=== PATIENT | female | born 1945 | race Caucasian/White ===

== ENCOUNTER → 2018-01-09 | Outpatient (CLI) | payer MEDICARE, OTHER ==
[2018-01-09 10:45] LABS: Calcium 9.7 mg/dL (8.4-10.2); Potassium 4.7 mmol/L (3.5-5.1)
== END | disposition home or self-care (01) ==
LOC: LABWHC1 09:38
PROVIDERS: ATTEND Nurse Practitioner Family
DX: D64.9 Anemia, unspecified (principal)
CPT/HCPCS: 36415; 80048

== ENCOUNTER 2018-01-19 18:28 | Inpatient (IN) | payer MEDICARE, OTHER ==
[2018-01-19] MEDS ORDERED: SODIUM CHLORIDE 0.9% 1,000 ML IV STA (19:11)
[2018-01-19] MEDS ORDERED: cefTRIAXone 2,000 MG in SODIUM CHLORIDE 0.9% 100 ML IVPB STA (19:15)
[2018-01-19] MEDS ORDERED: cefTRIAXone IN SWFI 2,000 MG/20 ML SYRINGE IVP STA (19:18)
[2018-01-19 20:22] LABS: HCT 39.2 % (34.0-46.0); HGB 12.9 gm/dL (11.4-16.0); MCH 36.2 pg (25.0-35.0); MCHC 32.9 g/dL (31.0-37.0); Macrocytosis Marked; Mean Platelet Volume 9.1; Platelet Count 215 k/uL (150-450); RBC 3.56 m/uL (3.80-5.40); RDW 12.3 % (11.5-15.5); WBC 11.6 k/uL (3.8-10.6)
--- NOTE | 2018-01-19 20:24 | ED ---
General Adult HPI - General Chief complaint: Neuro Symptoms/Deficit Stated complaint: CVA Time Seen by Provider: 01/19/18 18:58 Source: patient, family, EMS Mode of arrival: EMS Limitations: altered mental status - History of Present Illness Initial comments: 72 years old female brought in by her daughter she said her speech has been quite quite and clear or slurred speech this is been going on for greater than 24 hours she is also complaining about left-sided upper or lower extremity being weak for more than 24 hours now she has been coughing had some fever and she feels very weak today, daughter added later that this pain ongoing for about a 36 hours, she needs she is confused and very weak. Most of the review of system is available from the daughter patient pointed out that I talk to the daughter him a generalized weakness and now left-sided weakness and confusion and slurred speech or the significant part of the review of system - Related Data Home Medications Medication Instructions Recorded Confirmed Allopurinol [Zyloprim] 100 mg PO DAILY 01/19/18 01/19/18 Atorvastatin [Lipitor] 10 mg PO DAILY 01/19/18 01/19/18 B Complex & C No.20/Folic Acid 1 mg PO DAILY 01/19/18 01/19/18 [Nephrocaps Softgel] Calcitriol 0.25 mcg PO Q7D 01/19/18 01/19/18 Carbidopa/Levodopa [Sinemet CR 1 tab PO BID 01/19/18 01/19/18 50-200 mg] Cranberry Fruit Extract [Cranberry] 500 mg PO DAILY 01/19/18 01/19/18 Divalproex Sodium [Depakote] 1,000 mg PO HS 01/19/18 01/19/18 Docusate [Colace] 100 mg PO BID 01/19/18 01/19/18 Ergocalciferol (Vitamin D2) 50,000 unit PO Q30D 01/19/18 01/19/18 [Vitamin D2] Ethacrynic Acid 50 mg PO DAILY 01/19/18 01/19/18 LORazepam [Ativan] 0.5 mg PO TID 01/19/18 01/19/18 Levothyroxine Sodium [Synthroid] 100 mcg PO DAILY 01/19/18 01/19/18 [place] Carbonate 150 mg PO BID 01/19/18 01/19/18 Propranolol [Inderal] 40 mg PO HS 01/19/18 01/19/18 QUEtiapine [SEROquel] 100 mg PO HS 01/19/18 01/19/18 buPROPion HCL [Wellbutrin XL] 300 mg PO DAILY 01/19/18 01/19/18 oxyCODONE-APAP 5-325MG [Percocet 1 tab PO Q6HR PRN 01/19/18 01/19/18 5-325 mg] Allergies Allergy/AdvReac Type Severity Reaction Status Date / Time furosemide [From Lasix] Allergy Unknown Verified 01/19/18 18:52 risperidone [From Risperdal] Allergy Unknown Verified 01/19/18 18:52 Sulfa (Sulfonamide Allergy Unknown Verified 01/19/18 18:52 Antibiotics) Review of Systems ROS Statement: Those systems with pertinent positive or pertinent negative responses have been documented in the HPI. ROS Other: All systems not noted in ROS Statement are negative. Past Medical History Past Medical History: CVA/TIA, Thyroid Disorder History of Any Multi-Drug Resistant Organisms: None Reported Past Surgical History: Cholecystectomy, Hysterectomy Additional Past Surgical History / Comment(s): L oophrectomy Past Psychological History: Bipolar Smoking Status: Former smoker Past Alcohol Use History: Occasional Past Drug Use History: None Reported General Exam - General Exam Comments Initial Comments: General: The patient is awake , does follow the commands but very slow Skin: Skin is warm and dry and no rashes or lesions are noted. Eye: Pupils are equal, round and reactive to light, extra-ocular movements are intact; there is normal conjunctiva bilaterally. Ears, nose, mouth and throat: There are moist mucous membranes and no oral lesions. Neck: The neck is supple, there is no tenderness or JVD. Cardiovascular: There is a regular rate and rhythm. No murmur, rub or gallop is appreciated. Respiratory: To auscultation bilateral, diminished air exchange with a crackles at the bases Gastrointestinal: Soft, non-distended, non-tender abdomen without masses or organomegaly noted. There is no rebound or guarding present. Bowel sounds are unremarkable. Back: There is no tenderness to palpation in the midline. There is no obvious deformity. Musculoskeletal: After upper or lower extremity or return to the right side Neurological: CN II-XII intact, Cranial nerves III through XII are intact. There are no obvious motor or sensory deficits. Coordination appears grossly intact. Speech is normal. Psychiatric: Cooperative, appropriate mood & affect, normal judgment. Limitations: altered mental status Course Vital Signs 01/19/18 01/19/18 18:32 21:20 Temperature 99.1 F 100.1 F H Pulse Rate 86 84 Respiratory 16 20 Rate Blood Pressure 144/82 O2 Sat by Pulse 95 98 Oximetry Clinically she has a stroke and she has a history of renal failure she be admitted to Dr. Poon service and neurology be consulted Head CT is unremarkable no hemorrhage noticed chest x-ray ruled out any aspiration pneumonia which is suspecting and it still could be in early stages clinically she does have aspiration pneumonia with a micro-aspirations CBC is unremarkable PT and INR is unremarkable creatinine is 2.2 EKG Findings - EKG Comments: EKG Findings:: KG is normal sinus rhythm ventricular rate is 88 [place] interval is 170 QRS duration is 90 QT/QTC 376/454 review of this system does not reveal any ST elevation or ST depression there are some artifacts making the interpretation bit harder Medical Decision Making - Lab Data Result diagrams: 01/19/18 19:55 01/19/18 20:44 Lab Results 01/19/18 01/19/18 01/19/18 Range/Units 19:55 20:44 20:44 WBC 11.6 H (3.8-10.6) k/uL RBC 3.56 L (3.80-5.40) m/uL Hgb 12.9 (11.4-16.0) gm/dL Hct 39.2 (34.0-46.0) % MCV 110.0 H (80.0-100.0) fL MCH 36.2 H (25.0-35.0) pg MCHC 32.9 (31.0-37.0) g/dL RDW 12.3 (11.5-15.5) % Plt Count 215 (150-450) k/uL Neutrophils % (Manual) 60 % Band Neutrophils % 8 % Lymphocytes % (Manual) 17 % Monocytes % (Manual) 15 % Neutrophils # (Manual) 7.80 H (1.3-7.7) k/uL Lymphocytes # (Manual) 1.97 (1.0-4.8) k/uL Monocytes # (Manual) 1.74 H (0-1.0) k/uL Nucleated RBCs 0 (0-0) /100 WBC Polychromasia Present Macrocytosis Marked PT 9.6 (9.0-12.0) sec INR 1.0 (<1.2) APTT 29.9 (22.0-30.0) sec Sodium (137-145) mmol/L Potassium (3.5-5.1) mmol/L Chloride (98-107) mmol/L Carbon Dioxide (22-30) mmol/L Anion Gap mmol/L BUN (7-17) mg/dL Creatinine (0.52-1.04) mg/dL Est GFR (CKD-EPI)AfAm (>60 ml/min/1.73 sqM) Est GFR (CKD-EPI)NonAf (>60 ml/min/1.73 sqM) Glucose (74-99) mg/dL Calcium (8.4-10.2) mg/dL Total Bilirubin (0.2-1.3) mg/dL AST (14-36) U/L ALT (9-52) U/L Alkaline Phosphatase (38-126) U/L Total Creatine Kinase 39 (30-135) U/L CK-MB (CK-2) 0.6 (0.0-2.4) ng/mL CK-MB (CK-2) Rel Index 1.5 Troponin I <0.012 (0.000-0.034) ng/mL Total Protein (6.3-8.2) g/dL Albumin (3.5-5.0) g/dL 01/19/18 Range/Units 20:44 WBC (3.8-10.6) k/uL RBC (3.80-5.40) m/uL Hgb (11.4-16.0) gm/dL Hct (34.0-46.0) % MCV (80.0-100.0) fL MCH (25.0-35.0) pg MCHC (31.0-37.0) g/dL RDW (11.5-15.5) % Plt Count (150-450) k/uL Neutrophils % (Manual) % Band Neutrophils % % Lymphocytes % (Manual) % Monocytes % (Manual) % Neutrophils # (Manual) (1.3-7.7) k/uL Lymphocytes # (Manual) (1.0-4.8) k/uL Monocytes # (Manual) (0-1.0) k/uL Nucleated RBCs (0-0) /100 WBC Polychromasia Macrocytosis PT (9.0-12.0) sec INR (<1.2) APTT (22.0-30.0) sec Sodium 144 (137-145) mmol/L Potassium 5.0 (3.5-5.1) mmol/L Chloride 107 (98-107) mmol/L Carbon Dioxide 23 (22-30) mmol/L Anion Gap 14 mmol/L BUN 30 H (7-17) mg/dL Creatinine 2.23 H (0.52-1.04) mg/dL Est GFR (CKD-EPI)AfAm 25 (>60 ml/min/1.73 sqM) Est GFR (CKD-EPI)NonAf 22 (>60 ml/min/1.73 sqM) Glucose 98 (74-99) mg/dL Calcium 9.7 (8.4-10.2) mg/dL Total Bilirubin 0.7 (0.2-1.3) mg/dL AST 42 H (14-36) U/L ALT 14 (9-52) U/L Alkaline Phosphatase 91 (38-126) U/L Total Creatine Kinase (30-135) U/L CK-MB (CK-2) (0.0-2.4) ng/mL CK-MB (CK-2) Rel Index Troponin I (0.000-0.034) ng/mL Total Protein 6.3 (6.3-8.2) g/dL Albumin 3.3 L (3.5-5.0) g/dL Disposition Clinical Impression: CVA (cerebral vascular accident), Renal failure Disposition: ADMITTED IP TO THIS HOSP Condition: Good Referrals: None,Stated [Primary Care Provider] - 1-2 days
--- NOTE | 2018-01-19 20:29 | CT ---
EXAMINATION TYPE: CT brain wo con for TPA DATE OF EXAM: 01/19/2018 COMPARISON: 11/04/2011. INDICATION: Increased weakness and slurred speech x 2 days. DLP: 1654.7 mGycm, Automated exposure control for dose reduction was used. CONTRAST: None CT of the brain is performed utilizing 3 mm thick sections through the posterior fossa and 3 mm thick sections through the remaining calvarium. Study is performed within 24 hours of arrival to the hosp [facility]. No abnormal hyperdensity is present to suggest an acute intracranial hemorrhage. No mass lesion is evident. No acute infarcts are evident. Some mild periventricular white matter ischemic type changes also. Ventricles and sulci are appropriate for the patient age. Paranasal sinuses and mastoid air cells within the [id number] are clear. Hyperostosis frontalis internus is present, normal variant. IMPRESSIONS: 1. Minimal chronic appearing white matter ischemic changes
[2018-01-19 20:38] LABS: Band Neutrophils % 8 %; Lymphocytes # (M) 1.97 k/uL (1.0-4.8); Monocytes # (M) 1.74 k/uL (0-1.0); Neutrophils % (M) 60 %; Nucleated Red Blood Cells 0 /100 WBC (0-0); Polychromasia Present; Total Cells Counted 100
--- NOTE | 2018-01-19 20:43 | XR ---
EXAMINATION TYPE: XR chest 2V DATE OF EXAM: 01/19/2018 COMPARISON: NONE INDICATION: Altered mental status weakness slurred speech TECHNIQUE: Frontal and lateral views of the chest are obtained. FINDINGS: The heart size is normal. The pulmonary vasculature is normal. The lungs are clear. There may be some mild chronic elevation of the right diaphragm. IMPRESSION: 1. No acute pulmonary process.
[2018-01-19 21:04] LABS: Partial Thromboplastin Time 29.9 sec (22.0-30.0); Prothrombin Time 9.6 sec (9.0-12.0)
[2018-01-19 21:08] LABS: Albumin 3.3 g/dL (3.5-5.0); Calcium 9.7 mg/dL (8.4-10.2); Total Bilirubin 0.7 mg/dL (0.2-1.3); Total Protein 6.3 g/dL (6.3-8.2)
[2018-01-19 21:18] LABS: Creatine Kinase 39 U/L (30-135)
[2018-01-19 21:31] LABS: Creatine Kinase MB 0.6 ng/mL (0.0-2.4); Troponin I <0.012 ng/mL (0.000-0.034)
[2018-01-19] MEDS ORDERED: CLINDAMYCIN 600 MG in DEXTROSE 5% IN WATER 50 ML IVPB STA ×2 (21:57)
[2018-01-19] MEDS ORDERED: ASPIRIN 81 MG PO STA (21:57)
[2018-01-19] MEDS: LORazepam 0.5 MG TAB PO SCH (23:21)
[2018-01-19] MEDS ORDERED: BUMETANIDE 0.25 MG/ML 4 ML VIAL IVP STA ×2 (23:35→23:39)
[2018-01-19] MEDS ORDERED: IPRATROPIUM-ALBUTEROL 3 ML NEB INHALATION PRN (23:38)
[2018-01-20] MEDS ORDERED: BUMETANIDE 1 MG TAB PO STA (00:01)
[2018-01-20] MEDS: LEVOTHYROXINE 100 MCG TAB PO SCH (05:57)
[2018-01-20 06:52] LABS: Cholesterol 142 mg/dL (<200); HDL Cholesterol 47 mg/dL (40-60); LDL Cholesterol,Calculated 79 mg/dL (0-99); Triglycerides 82 mg/dL (<150)
[2018-01-20] MEDS: CARBIDOPA-LEVODOPA ER 50-200MG 1 EACH TABLET.ER PO SCH ×2 (07:36→20:19)
[2018-01-20] MEDS: buPROPion XL 300 MG TAB.ER.24H PO SCH (07:36)
[2018-01-20] MEDS: ATORVASTATIN 10 MG TAB PO SCH (07:36)
[2018-01-20] MEDS: LITHIUM CARBONATE 150 MG CAP PO SCH ×2 (07:37→20:19)
[2018-01-20] MEDS: ALLOPURINOL 100 MG TAB PO SCH (07:37)
[2018-01-20] MEDS: FOLIC ACID-VIT B COMPLEX-VIT C 1 CAP PO SCH (07:37)
[2018-01-20] MEDS: LORazepam 0.5 MG TAB PO SCH ×4 (07:40→20:19)
--- NOTE | 2018-01-20 08:42 | P.NPCON ---
History of Present Illness - Reason for Consult acute renal failure - History of Present Illness Reason for consultation: Acute kidney injury on chronic kidney disease History of present illness: Patient is a 72-year-old female seen in renal consultation for acute kidney injury on chronic kidney disease. 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 Her creatitine this admission was 2.23. Patient has no history of diabetes. Her blood pressure is well controlled but I do note that she takes ethacrynic acid at home due to her ALLERGY for Lasix. Patient also has history of bipolar disorder and has been maintained on lithium for almost 30 years. Her prior urinalysis was quite benign. Patient presented to the hospital after her daughter noted weakness on her left side and slurred speech. She was admitted for concern for CVA. Her brain CT was benign. She's also been feeling weak. She is able to move all her extremity is. Her strength in both arms is similar. She was also noted to have a temperature of 100.1F. She's also admits to a productive cough. Chest x-ray revealed no evidence of pneumonia. She did receive a dose of oral Bumex last night and a dose of Rocephin and clindamycin as well. She denies regular use of NSAIDs. Denies any family history of renal disease. Denies hematuria or dysuria. Vital signs are stable. General: The patient appeared well nourished and normally developed. HEENT: Head exam is unremarkable. Neck is without jugular venous distension. LUNGS: Lungs are clear to auscultation and percussion. Breath sounds decreased. HEART: Rate and Rhythm are regular. First and second heart sounds normal. No murmurs, rubs or gallops. ABDOMEN: Abdominal exam reveals normal bowel sounds. Non-tender and non- distended. No evidence of peritonitis. EXTREMITITES: Trace edema. Past Medical History Past Medical History: CVA/TIA, Thyroid Disorder History of Any Multi-Drug Resistant Organisms: None Reported Past Surgical History: Cholecystectomy, Hysterectomy Additional Past Surgical History / Comment(s): L oophrectomy Past Psychological History: Bipolar Smoking Status: Former smoker Past Alcohol Use History: Occasional Past Drug Use History: None Reported Medications and Allergies Home Medications Medication Instructions Recorded Confirmed Type Allopurinol [Zyloprim] 100 mg PO DAILY 01/19/18 01/19/18 History Atorvastatin [Lipitor] 10 mg PO DAILY 01/19/18 01/19/18 History B Complex & C No.20/Folic Acid 1 mg PO DAILY 01/19/18 01/19/18 History [Nephrocaps Softgel] Calcitriol 0.25 mcg PO Q7D 01/19/18 01/19/18 History Carbidopa/Levodopa [Sinemet CR 1 tab PO BID 01/19/18 01/19/18 History 50-200 mg] Cranberry Fruit Extract [Cranberry] 500 mg PO DAILY 01/19/18 01/19/18 History Divalproex Sodium [Depakote] 1,000 mg PO HS 01/19/18 01/19/18 History Docusate [Colace] 100 mg PO BID 01/19/18 01/19/18 History Ergocalciferol (Vitamin D2) 50,000 unit PO Q30D 01/19/18 01/19/18 History [Vitamin D2] Ethacrynic Acid 50 mg PO DAILY 01/19/18 01/19/18 History LORazepam [Ativan] 0.5 mg PO TID 01/19/18 01/19/18 History Levothyroxine Sodium [Synthroid] 100 mcg PO DAILY 01/19/18 01/19/18 History [place] Carbonate 150 mg PO BID 01/19/18 01/19/18 History Propranolol [Inderal] 40 mg PO HS 01/19/18 01/19/18 History QUEtiapine [SEROquel] 100 mg PO HS 01/19/18 01/19/18 History buPROPion HCL [Wellbutrin XL] 300 mg PO DAILY 01/19/18 01/19/18 History oxyCODONE-APAP 5-325MG [Percocet 1 tab PO Q6HR PRN 01/19/18 01/19/18 History 5-325 mg] Allergies Allergy/AdvReac Type Severity Reaction Status Date / Time furosemide [From Lasix] Allergy Unknown Verified 01/19/18 18:52 risperidone [From Risperdal] Allergy Unknown Verified 01/19/18 18:52 Sulfa (Sulfonamide Allergy Unknown Verified 01/19/18 18:52 Antibiotics) Physical Exam Vitals: Vital Signs Temp Pulse Pulse Resp BP BP Pulse Ox 01/20/18 07:53 97.1 F L 89 18 125/60 97 01/20/18 04:00 96.4 F L 89 24 124/62 97 01/20/18 00:00 81 24 01/19/18 23:44 97 01/19/18 23:17 97.6 F 81 24 121/73 95 01/19/18 22:24 83 18 140/65 97 01/19/18 21:20 100.1 F H 84 20 98 01/19/18 18:32 99.1 F 86 16 144/82 95 Intake and Output 01/19/18 01/20/18 01/20/18 22:59 06:59 14:59 Other: # Voids 1 Weight 104.3 kg 104.2 kg Results - Lab Results Most recent lab results Calcium 9.7 mg/dL (8.4-10.2) 01/19/18 20:44 01/19/18 19:55 01/19/18 20:44 Assessment and Plan Plan: Assessment: #1. Nonoliguric acute kidney injury suspect mostly prerenal from diuretics and decreased appetite. Creatinine 2.3 today. #2. Chronic kidney disease stage IV with baseline creatinine near 2 going back June 2016. 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 No evidence of renal tubular acidosis at this time. #3. History of bipolar disorder. #4. Left-sided weakness and slurred speech. No acute changes on brain CT. Concern for TIA. #5. Fever and cough likely related to tracheobronchitis. Chest x-ray reveals no evidence of pneumonia. Plan: Check urinalysis. Check renal ultrasound. Follow-up cultures. Avoid nephrotoxic agents and hypotensive episodes. Can continue lithium for now but she may benefit from an alternative agent down the road. Okay to resume ethacrynic acid. Repeat electrolytes in the morning. No urgent need for renal replacement therapy at this time. She has attended dialysis education as an outpatient and prefers to do peritoneal dialysis once it's time to initiate renal replacement therapy. Thank you for the consultation. I will continue to follow the patient with you during her hospital stay.
[2018-01-20 08:43] LABS: Calcium 9.4 mg/dL (8.4-10.2); Potassium 4.9 mmol/L (3.5-5.1)
[2018-01-20] MEDS ORDERED: FAMOTIDINE 20 MG/2 ML VIAL IV SCH (09:00)
[2018-01-20] MEDS ORDERED: DOCUSATE 100 MG CAP PO SCH (09:00)
[2018-01-20] MEDS: NON-FORMULARY DRUG (Cranberry Fruit Extract [Cranberry] 500 MG) PO SCH (09:31)
[2018-01-20] MEDS: ETHACRYNIC ACID PO SCH (09:32)
--- NOTE | 2018-01-20 09:48 | XR ---
EXAMINATION TYPE: XR chest 2V DATE OF EXAM: 01/20/2018 COMPARISON: 01/19/2018 TECHNIQUE: PA and lateral views submitted. HISTORY: Weakness FINDINGS: There is small bilateral effusion and right basilar consolidation. Central interstitial pattern noted . Heart size and upper mediastinum prominent but stable. No pneumothorax. IMPRESSION: 1. Bilateral consolidation and small effusion. Correlate for CHF.
--- NOTE | 2018-01-20 10:23 | US ---
EXAMINATION TYPE: US kidneys/renal and bladder DATE OF EXAM: 01/20/2018 COMPARISON: NONE CLINICAL HISTORY: zenon. abnormal labs, large body habitus EXAM MEASUREMENTS: Right Kidney: 5.2 x 2.8 x 3.1 cm Left Kidney: unable to visualize non diagnostic exam due to body habitus and bowel gas Right Kidney: very limited images show atrophic kidney Left Kidney: unable to visualize any normal renal tissue on the left due to reasons stated above Bladder: not distended IMPRESSION: 1. Very limited examination due to body habitus and bowel gas. 2. No obvious ultrasound abnormality evident.
[2018-01-20] MEDS: cefTRIAXone IN SWFI 1,000 MG/10 ML SYRINGE IVP SCH (18:17)
[2018-01-20] MEDS: ASPIRIN 81 MG PO SCH (18:19)
--- NOTE | 2018-01-20 18:23 | P.CNNES ---
History of Present Illness Consult date: 01/20/18 History of Present Illness: The patient is a 72-year-old woman with history of previous stroke and Parkinson 's disease who presents to the hospital with fever and cough and sore throat. She states she couldn't breathe. Also the patient had had some slurred speech for 24 hours prior to coming to the emergency room. She complains of general weakness and confusion. She has multiple medical problems including thyroid disease renal failure heart disease Parkinson's disease and stroke patient is admitted to the hospital with renal failure and history of stroke. Computed tomography scan of the brain was performed in the emergency room which showed minimal chronic-appearing white matter ischemic changes. Review of Systems Constitutional: Denies chills, Denies fever Ears, nose, mouth and throat: Reports as per HPI Cardiovascular: Denies chest pain, Denies shortness of breath Genitourinary: Denies dysuria, Denies hematuria Musculoskeletal: Denies myalgias Neurological: Denies numbness, Denies weakness Psychiatric: Reports as per HPI Past Medical History Past Medical History: CVA/TIA, Thyroid Disorder History of Any Multi-Drug Resistant Organisms: None Reported Past Surgical History: Cholecystectomy, Hysterectomy Additional Past Surgical History / Comment(s): L oophrectomy Past Psychological History: Bipolar Smoking Status: Former smoker Past Alcohol Use History: Occasional Past Drug Use History: None Reported Medications and Allergies Home Medications Medication Instructions Recorded Confirmed Type Allopurinol [Zyloprim] 100 mg PO DAILY 01/19/18 01/19/18 History Atorvastatin [Lipitor] 10 mg PO DAILY 01/19/18 01/19/18 History B Complex & C No.20/Folic Acid 1 mg PO DAILY 01/19/18 01/19/18 History [Nephrocaps Softgel] Calcitriol 0.25 mcg PO Q7D 01/19/18 01/19/18 History Carbidopa/Levodopa [Sinemet CR 1 tab PO BID 01/19/18 01/19/18 History 50-200 mg] Cranberry Fruit Extract [Cranberry] 500 mg PO DAILY 01/19/18 01/19/18 History Divalproex Sodium [Depakote] 1,000 mg PO HS 01/19/18 01/19/18 History Docusate [Colace] 100 mg PO BID 01/19/18 01/19/18 History Ergocalciferol (Vitamin D2) 50,000 unit PO Q30D 01/19/18 01/19/18 History [Vitamin D2] Ethacrynic Acid 50 mg PO DAILY 01/19/18 01/19/18 History LORazepam [Ativan] 0.5 mg PO TID 01/19/18 01/19/18 History Levothyroxine Sodium [Synthroid] 100 mcg PO DAILY 01/19/18 01/19/18 History [place] Carbonate 150 mg PO BID 01/19/18 01/19/18 History Propranolol [Inderal] 40 mg PO HS 01/19/18 01/19/18 History QUEtiapine [SEROquel] 100 mg PO HS 01/19/18 01/19/18 History buPROPion HCL [Wellbutrin XL] 300 mg PO DAILY 01/19/18 01/19/18 History oxyCODONE-APAP 5-325MG [Percocet 1 tab PO Q6HR PRN 01/19/18 01/19/18 History 5-325 mg] Allergies Allergy/AdvReac Type Severity Reaction Status Date / Time furosemide [From Lasix] Allergy Unknown Verified 01/19/18 18:52 risperidone [From Risperdal] Allergy Unknown Verified 01/19/18 18:52 Sulfa (Sulfonamide Allergy Unknown Verified 01/19/18 18:52 Antibiotics) Physical Examination - Vital Signs Vital Signs: Vital Signs Temp Pulse Pulse Resp BP BP Pulse Ox 01/20/18 16:00 97.2 F L 86 18 138/62 97 01/20/18 12:00 97 F L 88 18 145/64 98 01/20/18 08:00 18 01/20/18 07:53 97.1 F L 89 18 125/60 97 01/20/18 04:00 96.4 F L 89 24 124/62 97 01/20/18 00:00 81 24 01/19/18 23:44 97 01/19/18 23:17 97.6 F 81 24 121/73 95 01/19/18 22:24 83 18 140/65 97 01/19/18 21:20 100.1 F H 84 20 98 01/19/18 18:32 99.1 F 86 16 144/82 95 Intake and Output 01/20/18 01/20/18 01/20/18 06:59 14:59 22:59 Other: # Voids 1 Weight 104.2 kg - Constitutional General appearance: average body habitus - EENT EENT: PERRL, hearing intact, vision intact - Respiratory Respiratory: crackles - Cardiovascular Cardiovascular: regular rate - Neurologic Mental status: She was awake alert and oriented to person and place there was no a aphasia or dysarthria she was able to repeat and name Cranial nerve examination: PERRL, tongue midline, facial droop Speech examination: intact Detailed motor examination: grossly full strength in all extremities, other ( Minimal right hemiparesis) Results - Laboratory Findings CBC and BMP: 01/19/18 19:55 01/20/18 06:12 Abnormal Lab Findings: Abnormal Labs 01/19/18 01/19/18 01/20/18 19:55 20:44 06:12 WBC 11.6 H RBC 3.56 L MCV 110.0 H MCH 36.2 H Neutrophils # (Manual) 7.80 H Monocytes # (Manual) 1.74 H Sodium 146 H Chloride 110 H BUN 30 H 29 H Creatinine 2.23 H 2.26 H AST 42 H Albumin 3.3 L Assessment and Plan (1) Cough with fever Current Visit: Yes Status: Acute SNOMED Code(s): 392438766 (2) History of stroke Current Visit: Yes Status: Acute SNOMED Code(s): 331726362 (3) Slurred speech Current Visit: Yes Status: Acute SNOMED Code(s): 848531119 Plan: The patient is a 72-year-old woman with history of previous stroke presents to the hospital with fever cough and congestion and shortness of breath. Apparently her daughter had noted some slurred speech. The patient appears dehydrated and it there is no evidence of expressive aphasia at this time. She will have a TIA workup including carotid ultrasound and echocardiogram. Her Parkinson's symptoms seem to be stable CT brain showed minimal chronic- appearing white matter ischemic changes. Continue baby aspirin daily
--- NOTE | 2018-01-20 19:11 | HP ---
HISTORY AND PHYSICAL DATE OF ADMISSION: January 19, 2018. PRESENTING COMPLAINT: Tired. HISTORY OF PRESENTING COMPLAINT: This is a 72-year-old patient of Dr. Dudley. Difficult to get a history from the patient. Per the ER notes the patient is brought in by the daughter stating her speech had been become a bit slurred for more than 24 hours. She was complaining of some left-sided lower extremity weakness for the same time. The patient also been coughing, having some fever, feeling weak, tired. The patient only tells me that she has got a cough. She is congested and some yellow phlegm. Appetite is okay. Did have bowel movements. She states when she coughs her chest hurts. Apparently she does use a walker. The patient is a poor historian. Does feel weak, tired, run down. She is not sure if her speech is any different or if she is weak on the left side. REVIEW OF SYSTEMS: Difficult to obtain from the patient. The patient is a poor historian. PAST MEDICAL HISTORY: Past medical history includes chronic kidney disease, bipolar disorder, hypothyroid, possible Parkinson disease. PAST SURGICAL HISTORY: Cholecystectomy, hysterectomy, left oophorectomy. SOCIAL HISTORY: Alcohol occasional. Did smoke in the past. Lives with daughter. Does use a walker. FAMILY HISTORY: Patient cannot tell. HOME MEDICATIONS: 1. Percocet 5 one tab q.6h p.r.n. 2. Wellbutrin XL 300 mg p.o. daily. 3. Seroquel 100 mg q.h.s. 4. Inderal 40 mg q.h.s. 5. Arcade 550 mg p.o. b.i.d. 6. Synthroid 100 mcg p.o. daily. 7. Ativan 0.5 p.o. t.i.d. 8. Acid 50 mg p.o. daily. 9. Vitamin D2 50,000 units p.o. every 30 days. 10.Depakote 1000 mg p.o. q.h.s. 11.Cranberry 500 mg p.o. daily. 12.Sinemet CR 50/200 one tablet p.o. b.i.d. 13.Calcitriol 0.25 mcg p.o. every 7 days. 14.Nephrocaps 1 mg p.o. daily. 15.Lipitor 10 mg p.o. daily. 16.Allopurinol 100 mg p.o. daily. ALLERGIES: TO LASIX, RESPIRDAL, SULFA. PHYSICAL EXAMINATION: Temperature 100.1, pulse 84, respiratory 20, blood pressure 140/65, pulse ox 97% on 2 L. General appearance: Well built, BMI 38.2, lying in bed, tired appearing. Eyes: Pupils are equal. Conjunctivae normal. HEENT: External appearance of nose and ears normal. Oral cavity a bit dry. Neck: JVD unable to assess. Mass not palpable. Respiratory effort normal. LUNGS: Diminished breath sounds. Cardiovascular: 1st and 2nd sounds normal. No edema. ABDOMEN: Soft, nontender. Liver and spleen not palpable. Lymphatics: No lymph nodes palpable in the neck and axilla. Psychiatry: The patient is not sure about the year, not sure about the month. She knows that she is in the hospital, can answer some simple questions. Neurological: Pupils equal. No facial asymmetry. The patient's speech is a bit slow. She is weak in both the legs, just about able to lift them off the bed. Reflexes symmetrical. Sensation grossly intact. Same in the upper limb. INVESTIGATIONS: White count 11.6, hemoglobin 12.9, platelets normal. Potassium 5, BUN 30, creatinine 2.23. Chest x-ray bilateral chest shows increased right-sided consolidation. ASSESSMENT: 1. This is a patient who was probably having fevers at home, has got a cough, decreased breath sounds, consolidation on chest x-ray, suspect pneumonia probably gram-negative organism. 2. The patient has some slow speech and left-sided weakness, not so much on exam per the daughter in the ER. Need to do a stroke workup for which neurology is consulted. 3. Chronic kidney disease stage 4 probably from nephrosclerosis. 4. Bipolar disorder. 5. Hypothyroid. 6. Parkinson disease. 7. Chronic gait dysfunction, patient uses a walker. PLAN: Patient is put on IV ceftriaxone. We will also do a 2-D echocardiogram. The patient's chest pain is mostly probably from pneumonia, will need to rule out any cardiac cause. Also do a 2D echo. Other home medications are resumed. No family is present currently. Copy to Dr. Dudley. MMLLUVIAL / IJN: [id number] /
--- NOTE | 2018-01-20 19:24 | US ---
EXAMINATION TYPE: US carotid duplex BILAT DATE OF EXAM: 01/20/2018 COMPARISON: US CLINICAL HISTORY: tia years ago per daughter; acute on chronic renal failure, in hospital for ERICA per daughter EXAM MEASUREMENTS: RIGHT: Peak Systolic Velocity (PSV) cm/sec ----- Right CCA: 78.1 ----- Right ICA: 89.9 ----- Right ECA: 85.7 ICA/CCA ratio: 1.2 RIGHT: End Diastole cm/sec ----- Right CCA: 7.7 ----- Right ICA: 19.4 ----- Right ECA: 11.5 LEFT: Peak Systolic Velocity (PSV) cm/sec ----- Left CCA: 85.4 ----- Left ICA: 70.2 ----- Left ECA: 70.4 ICA/CCA ratio: 0.8 LEFT: End Diastole cm/sec ----- Left CCA: 12.8 ----- Left ICA: 14.2 ----- Left ECA: 4.9 VERTEBRALS (direction of flow): Right Vertebral: Antegrade Left Vertebral: Antegrade Rhythm: Normal IMPRESSION: MILD INTIMAL WALL CHANGES ARE NOTED AT BILATERAL CAROTID BIFURCATION, BUT PSV IS WNL BILATERALLY.
[2018-01-20] MEDS: QUEtiapine 100 MG TAB PO SCH (20:19)
[2018-01-20] MEDS: PROPRANOLOL 40 MG TAB PO SCH (20:19)
[2018-01-20] MEDS: DIVALPROEX 500 MG TABLET.DR PO SCH (20:20)
[2018-01-20] MEDS: IPRATROPIUM-ALBUTEROL 3 ML NEB INHALATION SCH ×2 (20:24→20:25)
[2018-01-21 02:40] LABS: Appearance,Urine Clear (Clear); Bilirubin,Urine Negative (Negative); Blood,Urine Negative (Negative); Color,Urine Yellow; Glucose,Urine (UA) Negative (Negative); Ketones,Urine Negative (Negative); Leukocyte Esterase,Urine Negative (Negative); Nitrite,Urine Negative (Negative); Protein,Urine Trace (Negative); Specific Gravity,Urine 1.025 (1.001-1.035)
[2018-01-21] MEDS: LEVOTHYROXINE 100 MCG TAB PO SCH (05:52)
[2018-01-21 06:23] LABS: Calcium 9.6 mg/dL (8.4-10.2); Potassium 4.9 mmol/L (3.5-5.1)
[2018-01-21] MEDS: ASPIRIN 81 MG PO SCH (08:45)
[2018-01-21] MEDS: ALLOPURINOL 100 MG TAB PO SCH (08:45)
[2018-01-21] MEDS: ATORVASTATIN 10 MG TAB PO SCH (08:46)
[2018-01-21] MEDS: buPROPion XL 300 MG TAB.ER.24H PO SCH (08:46)
[2018-01-21] MEDS: CARBIDOPA-LEVODOPA ER 50-200MG 1 EACH TABLET.ER PO SCH ×2 (08:47→20:24)
[2018-01-21] MEDS: ETHACRYNIC ACID PO SCH (08:47)
[2018-01-21] MEDS: IPRATROPIUM-ALBUTEROL 3 ML NEB INHALATION SCH ×4 (08:47→20:51)
[2018-01-21] MEDS: NON-FORMULARY DRUG (Cranberry Fruit Extract [Cranberry] 500 MG) PO SCH (08:47)
[2018-01-21] MEDS: FAMOTIDINE 20 MG TAB PO SCH (08:48)
[2018-01-21] MEDS: LITHIUM CARBONATE 150 MG CAP PO SCH ×2 (08:49→20:24)
[2018-01-21] MEDS: FOLIC ACID-VIT B COMPLEX-VIT C 1 CAP PO SCH (08:49)
[2018-01-21] MEDS: cefTRIAXone IN SWFI 1,000 MG/10 ML SYRINGE IVP SCH (10:35)
[2018-01-21] MEDS: LORazepam 0.5 MG TAB PO SCH ×3 (10:35→20:23)
--- NOTE | 2018-01-21 11:49 | P.CRDCN ---
History of Present Illness Consult date: 01/21/18 Requesting physician: Bogdan Ac Reason for Consult (text): chest pain Chief complaint: right sided chest pain with coughing History of present illness: This is a pleasant 72-year-old female patient with history of CVA, thyroid disorder, chronic renal disease, cholecystectomy, hysterectomy and bipolar she is a former smoker. She denies prior cardiac issues. She is a poor historian so most of the HPI was obtained from the chart. According to the ER note patient was brought to the emergency department by her daughter due to slurred speech as well as left-sided weakness for more than 24 hours as well as cough, weakness and fever. According to the patient, she came to the emergency department due to complaints of right-sided chest discomfort with coughing. Computed tomography scan of the brain showed minimal chronic appearing white matter ischemic changes. She has been seen and evaluated by neurology. Initial chest x-ray showed no acute cardiopulmonary process with a repeat chest x-ray showing bilateral consolidation and small effusion, correlate for CHF. EKG on admission shows sinus rhythm with nonspecific ST-T wave abnormalities. Laboratory values reviewed showed a troponin less than 0.0121, BUN of 30 creatinine of 2.23. Patient's Temperature was 100.1F. Upon examination, patient is resting comfortably in bed. She continues to complain of right- sided chest discomfort only with coughing. She denies sputum production. Past Medical History Past Medical History: CVA/TIA, Thyroid Disorder History of Any Multi-Drug Resistant Organisms: None Reported Past Surgical History: Cholecystectomy, Hysterectomy Additional Past Surgical History / Comment(s): L oophrectomy Past Psychological History: Bipolar Smoking Status: Former smoker Past Alcohol Use History: Occasional Past Drug Use History: None Reported Medications and Allergies Home Medications Medication Instructions Recorded Confirmed Type Allopurinol [Zyloprim] 100 mg PO DAILY 01/19/18 01/19/18 History Atorvastatin [Lipitor] 10 mg PO DAILY 01/19/18 01/19/18 History B Complex & C No.20/Folic Acid 1 mg PO DAILY 01/19/18 01/19/18 History [Nephrocaps Softgel] Calcitriol 0.25 mcg PO Q7D 01/19/18 01/19/18 History Carbidopa/Levodopa [Sinemet CR 1 tab PO BID 01/19/18 01/19/18 History 50-200 mg] Cranberry Fruit Extract [Cranberry] 500 mg PO DAILY 01/19/18 01/19/18 History Divalproex Sodium [Depakote] 1,000 mg PO HS 01/19/18 01/19/18 History Docusate [Colace] 100 mg PO BID 01/19/18 01/19/18 History Ergocalciferol (Vitamin D2) 50,000 unit PO Q30D 01/19/18 01/19/18 History [Vitamin D2] Ethacrynic Acid 50 mg PO DAILY 01/19/18 01/19/18 History LORazepam [Ativan] 0.5 mg PO TID 01/19/18 01/19/18 History Levothyroxine Sodium [Synthroid] 100 mcg PO DAILY 01/19/18 01/19/18 History Onton Carbonate 150 mg PO BID 01/19/18 01/19/18 History Propranolol [Inderal] 40 mg PO HS 01/19/18 01/19/18 History QUEtiapine [SEROquel] 100 mg PO HS 01/19/18 01/19/18 History buPROPion HCL [Wellbutrin XL] 300 mg PO DAILY 01/19/18 01/19/18 History oxyCODONE-APAP 5-325MG [Percocet 1 tab PO Q6HR PRN 01/19/18 01/19/18 History 5-325 mg] Allergies Allergy/AdvReac Type Severity Reaction Status Date / Time furosemide [From Lasix] Allergy Unknown Verified 01/19/18 18:52 risperidone [From Risperdal] Allergy Unknown Verified 01/19/18 18:52 Sulfa (Sulfonamide Allergy Unknown Verified 01/19/18 18:52 Antibiotics) Physical Exam Vitals: Vital Signs Temp Pulse Pulse Resp BP Pulse Ox 01/21/18 08:47 80 01/21/18 07:42 98.6 F 81 20 129/72 100 01/21/18 04:00 98.9 F 81 20 124/57 96 01/21/18 00:00 98.8 F 72 18 121/56 95 01/20/18 20:39 88 01/20/18 20:25 89 97 01/20/18 20:00 98.4 F 90 18 129/56 96 01/20/18 16:00 97.2 F L 86 18 138/62 97 01/20/18 12:00 97 F L 88 18 145/64 98 Intake and Output 01/20/18 01/21/18 01/21/18 22:59 06:59 14:59 Intake Total 100 Balance 100 Intake: Oral 100 Other: Voiding Method Diaper Diaper # Voids 1 Weight 110.5 kg PHYSICAL EXAMINATION: HEENT: Head is atraumatic, normocephalic. Pupils equal, round. Neck is supple. There is no elevated jugular venous pressure. HEART EXAMINATION: Heart sounds regular, S1 and S2 normal. No murmur or gallop heard. CHEST EXAMINATION: Lungs diminished air entry bilaterally with faint crackles to bilateral bases. No chest wall tenderness is noted on palpation or with deep breathing. ABDOMEN: Soft, nontender. Bowel sounds are heard. No organomegaly noted. EXTREMITIES: 2+ peripheral pulses with no evidence of peripheral edema and no calf tenderness noted. NEUROLOGIC patient is awake, alert and oriented x2-3, confusion noted. . Results 01/19/18 19:55 01/21/18 05:41 Comprehensive Metabolic Panel 01/21/18 Range/Units 05:41 Sodium 143 (137-145) mmol/L Potassium 4.9 (3.5-5.1) mmol/L Chloride 108 H (98-107) mmol/L Carbon Dioxide 24 (22-30) mmol/L BUN 32 H (7-17) mg/dL Creatinine 2.10 H (0.52-1.04) mg/dL Glucose 80 (74-99) mg/dL Calcium 9.6 (8.4-10.2) mg/dL Current Medications Generic Name Dose Route Start Last Admin Trade Name Freq PRN Reason Stop Dose Admin Albuterol/Ipratropium 3 ml 01/19/18 23:38 Duoneb 0.5 Mg-3 Mg/3 Ml Soln INHALATION RT-QID PRN Shortness Of Breath Or Wheezing Albuterol/Ipratropium 3 ml 01/20/18 18:10 01/21/18 08:47 Duoneb 0.5 Mg-3 Mg/3 Ml Soln INHALATION 3 ml RT-QID KATHLEEN Administration Allopurinol 100 mg 01/20/18 09:00 01/21/18 08:45 Zyloprim PO 100 mg DAILY KATHLEEN Administration Aspirin 81 mg 01/20/18 18:15 01/21/18 08:45 Aspirin PO 81 mg DAILY KATHLEEN Administration Atorvastatin Calcium 10 mg 01/20/18 09:00 01/21/18 08:46 Lipitor PO 10 mg DAILY KATHLEEN Administration Bupropion HCl 300 mg 01/20/18 09:00 01/21/18 08:46 Wellbutrin Xl PO 300 mg DAILY KATHLEEN Administration Calcitriol 0.25 mcg 01/19/18 22:00 Rocaltrol PO Q7D KATHLEEN Carbidopa/Levodopa 1 each 01/20/18 09:00 01/21/18 08:47 Sinemet Er 50-200 PO 1 each BID KATHLEEN Administration Ceftriaxone Sodium 1,000 mg 01/20/18 18:00 01/20/18 18:17 Rocephin IVP 1,000 mg Q24HR KATHLEEN Administration Divalproex Sodium 1,000 mg 01/20/18 21:00 01/20/18 20:20 Depakote PO 1,000 mg HS KATHLEEN Administration Ergocalciferol 50,000 unit 01/19/18 22:00 Vitamin D2 PO Q30D ON LICENSE OF [facility] Famotidine 20 mg 01/21/18 09:00 01/21/18 08:48 Pepcid PO 20 mg DAILY KATHLEEN Administration Levothyroxine Sodium 100 mcg 01/20/18 06:30 01/21/18 05:52 Synthroid PO 100 mcg 0630 ON LICENSE OF [facility] Administration Onton Carbonate 150 mg 01/20/18 09:00 01/21/18 08:49 Onton Carbonate PO 150 mg BID KATHLEEN Administration Lorazepam 0.5 mg 01/19/18 22:00 01/20/18 20:19 Ativan PO 0.5 mg TID ON LICENSE OF [facility] Administration Multivit/Ca Carb/B Cmplx/FA/Prenat 1 each 01/20/18 09:00 01/21/18 08:49 Nephrocaps PO 1 each DAILY ON LICENSE OF [facility] Administration Non-Formulary Medication 500 mg 01/20/18 09:00 01/21/18 08:47 Cranberry Fruit Extract [Cranberry] PO Not Given DAILY ON LICENSE OF [facility] Non-Formulary Medication 50 mg 01/20/18 09:00 01/21/18 08:47 Ethacrynic Acid [Ethacrynic Acid] PO Not Given DAILY ON LICENSE OF [facility] Oxycodone/Acetaminophen 1 each 01/19/18 21:55 Percocet 5-325 PO Q6HR PRN Pain Propranolol HCl 40 mg 01/20/18 21:00 04/06/18 20:19 Inderal PO 40 mg HS KATHLEEN Administration Quetiapine Fumarate 100 mg 01/20/18 21:00 01/20/18 20:19 Seroquel PO 100 mg HS KATHLEEN Administration Intake and Output 01/20/18 01/21/18 01/21/18 22:59 06:59 14:59 Intake Total 100 Balance 100 Intake: Oral 100 Other: Voiding Method Diaper Diaper # Voids 1 Weight 110.5 kg 01/19/18 19:55 01/21/18 05:41 EKG Interpretations (text) Sinus rhythm with nonspecific ST-T wave abnormalities Assessment and Plan Assessment: #1 probable pneumonia with cough and fever at home as well as evidence of consolidation on chest x-ray #2 right sided chest pain with coughing #3 slurred speech and left-sided weakness, currently being evaluated by neurology #4 chronic kidney disease #5 bipolar disorder #6 hypothyroidism Plan: From cardiology perspective, chest discomfort likely not cardiac in nature but due to underlying pneumonia as well as musculoskeletal discomfort due to coughing. We will obtain 2-D echo with Doppler. Obtain additional troponins. If troponins are negative and there are no significant abnormalities and 2-D echo further workup may be done as an outpatient. DIRECTOR OF STUDENT AID note has been reviewed, I agree with a documented findings and plan of care. Patient was seen and examined.
--- NOTE | 2018-01-21 12:33 | PN ---
PROGRESS NOTE The patient is seen for followup for acute kidney injury. Her renal function is slightly improved with creatinine down to 2.1 from 2.2. Overall about the same. Previous and baseline creatinine has been about the same at 1.9 mg/dL. The patient does have chronic kidney disease. EXAMINATION: She is comfortable. She is awake, not in any acute distress. Blood pressure is 129/72, heart rate 80 per minute. She is afebrile. Examination of the heart S1 , S2. Examination lungs bilateral breath sounds are heard. Decreased breath sounds bases. Abdomen is soft, nontender. Obese. The examination of lower extremities shows no significant edema. LABS: Revealed sodium 143, potassium 4.9, BUN 32, serum creatinine 2.1. ASSESSMENT: 1. Acute kidney injury, appears to be prerenal, currently stable. 2. Chronic kidney disease and NKF stage IV secondary to chronic interstitial nephropathy chronic lithium use, currently stable. UA is fairly benign. 3. Right-sided hemiparesis with the his initial CT not showing any acute changes. Neurology consultation has been placed. PLAN: Continue to encourage increased oral intake. If the patient is not eating much , I will add gentle IV hydration. There are no nephrotoxic. The patient is maintained on lithium. If she is not eating much, I will hold off on the at the ethacrynic acid. Ideally, the lithium should be discontinued and I am not sure of this has been tried previously. REJIL / JEISONN: [id number] / MTDD
--- NOTE | 2018-01-21 12:33 | ECHOF ---
Referral Reason:tia MEASUREMENTS -------- HEIGHT: 165.1 cm WEIGHT: 110.2 kg BP: 124/57 IVSd: 0.9 cm (0.6 - 1.1) LVIDd: 3.7 cm (3.9 - 5.3) LVPWd: 1.1 cm (0.6 - 1.1) IVSs: 1.3 cm LVIDs: 1.2 cm LVPWs: 1.1 cm Ao Diam: 3.1 cm (2.0 - 3.7) AV Cusp: 1.8 cm (1.5 - 2.6) LA Diam: 2.7 cm (2.7 - 3.8) MV EXCURSION: 10.759 mm (> 18.000) MV EF SLOPE: 96 mm/s (70 - 150) EPSS: 0.8 cm MV E Jhon: 0.62 m/s MV DecT: 196 ms MV A Jhon: 0.76 m/s MV E/A Ratio: 0.82 RAP: 5.00 mmHg RVSP: 27.25 mmHg FINDINGS -------- Sinus rhythm. This was a technically difficult study with suboptimal views. The left ventricular size is normal. Left ventricular wall thickness is normal. Overall left vent ricular systolic function is low-normal with, an EF between 50 - 55 %. The right ventricle is normal in size and function. The left atrium is normal in size. The right atrium was not well visualized. Lumason used The aortic valve was not well visualized. There is trace mitral regurgitation. Trace tricuspid regurgitation present. The right ventricular systolic pressure, as measured by Dopp ler, is 27.25mmHg. Pulmonic valve appears structurally normal. The aortic root size is normal. The pericardium is normal. CONCLUSIONS -------- 1. Sinus rhythm. 2. This was a technically difficult study with suboptimal views. 3. The left ventricular size is normal. 4. Left ventricular wall thickness is normal. 5. Overall left ventricular systolic function is low-normal with, an EF between 50 - 55 %. 6. The right ventricle is normal in size and function. 7. The left atrium is normal in size. 8. The right atrium was not well visualized. 9. Lumason used 10. The aortic valve was not well visualized. 11. There is trace mitral regurgitation. 12. Trace tricuspid regurgitation present. 13. The right ventricular systolic pressure, as measured by Doppler, is 27.25mmHg. 14. Pulmonic valve appears structurally normal. 15. The aortic root size is normal. 16. The pericardium is normal. WEB CONTENT WRITER: Elva Salazar RDCS
--- NOTE | 2018-01-21 15:13 | P.CN ---
Psychiatric Consult - . Consult date: 01/21/18 Consult:: 01/21/18 14:59 Identification: Patient is a 72-year-old female was brought to the hospital as she had been vomiting and coughing at home and having difficulty breathing, she then developed slurred speech with some lower extremity weakness and a temperature. Reason for Consult: Consult was requested for lithium and renal failure History of Present Illness: Patient's chart was reviewed, her daughter was present during the interview and provided history as well. Patient's daughter reports that her mother has been diagnosed with bipolar disorder since 1977 and has had multiple admissions for her bipolar disorder. Patient has been admitted here in the past as well as in [facility] in [place]. Patient's daughter reports that the patient was last admitted in October 2013 in [place] where she had been living with her other daughter and had developed a manic episode. At that time the patient was restarted on lithium which the daughter states was the only medication that stabilized her mother. The patient has been maintained on her current psychiatric medications of Wellbutrin 300 mg extended release, lithium 150 mg twice a day, Depakote extended release 1000 mg at bedtime and Seroquel 100 mg at bedtime as well as Ativan 0.5 mg 3 times a day and a standing schedule. Patient and her daughter both report that she has been stable for the last 4 years, that she has not done this well for quite some time and has not had any periods of elliott or depression. Patient currently is living with the daughter who was present during the interview. Patient reports that she has been feeling stable, did not endorse any current symptoms of depression or elliott and she reports no current suicidal ideation. Patient states that she was also diagnosed with Parkinson's disorder and placed on Sinemet which has been helpful and the daughter confirms this. Patient and her daughter discussed with me that they are followed by a clothing examiner for the patient's renal failure, her renal function has been monitored. They are aware that if her renal function continues to decline she may require dialysis. They both reported to me that they wish to continue using the lithium and are well aware that lithium can affect renal function. Both the patient and her daughter insists that the lithium should be continued as the patient does quite poorly when she is off of it. Past Psychiatric History: Patient was diagnosed in 1977 with bipolar disorder and has had multiple hospitalizations her most recent being in October 2013 in [place]. Patient's daughter states the patient has been tried on multiple combinations of medication and only lithium has stabilized the patient. Patient 's daughter reports when on Risperdal the patient had EPS. Past Medical/Surgical History: Patient has a history of chronic kidney disease, hypothyroidism Parkinson's disorder and is status post cholecystectomy, hysterectomy and left oophorectomy. Family History: Patient's maternal grandmother had a psychiatric disorder and she has siblings who have an unknown psychiatric disorder as well as an alcohol use disorder. One of her brothers and her daughter completed suicide Social History: Patient was born and raised in [place] and both of her parents are , her father when the patient was 14 years of age. Her mother did not remarry and she has 14 siblings 5 of whom are surviving. Patient obtained her GED. She states she was twice in the past and was both times. Her children are all from her first marriage. Patient is currently living with her daughter and a grandson in an apartment. Substance Use History: Patient denies any alcohol or drug use history and does not currently use any tobacco products Legal History: None Mental status: Appearance/Attitude: Patient is sitting in a hospital bed, with oxygen and makes intermittent eye contact and is cooperative Behavior: Patient does not display any psychomotor agitation or retardation. Speech/Language: Patient responded to questions, deferring to her daughter to provide most of the history she spoke in a soft voice and was coherent Thought Process: Patient was goal-directed with her responses and was deferring to her daughter to provide more information. Thought Content: Patient denied auditory or visual hallucinations no delusions or paranoid ideation were elicited. Patient did not endorse any manic symptoms of racing thoughts, increased energy. Patient also reported that she was not feeling depressed or worthless or hopeless. Patient states that she's feeling better as her cough has improved. Suicidal/Homicidal Ideation: Patient denied any current suicidal or homicidal ideation. Sensorium/Cognition: Patient is alert and oriented to person and location further testing was not performed Mood/Affect: Patient's mood was pleasant and her affect was slightly blunted Insight/Judgment: Patient's insight and judgment are fair Assessment: Patient presents for episode of vomiting and coughing difficulty breathing as well as slurred speech and some left lower weakness. Patient uses a walker to ambulate at home and has been diagnosed with Parkinson's disorder. Patient has a history of bipolar disorder and has been treated most recently with Wellbutrin, lithium, Depakote, Ativan and Seroquel. Patient's last hospital admission was in October 2013 the patient has been stable on her current regimen of medications and has had multiple admissions in the past. Patient has evidence of chronic renal disease, her creatinine currently is 2.1 in the patient has been followed by a clothing examiner. Both the patient and her daughter state that the patient has been her most stable on this combination and that the only medication the patient's bipolar disorder responded to was lithium. Patient is currently stable on her medications, reports that the Sinemet that was started on has been helpful and she has not had any reported side effects from that. Diagnosis: Bipolar disorder in remission Plan: Spoke with both the patient and her daughter who are aware of the effects of lithium on renal function. They have been followed by a clothing examiner to his monitoring the patient's renal function unaware of the fact that should her renal function continued to deteriorate that the patient may need to be placed on dialysis. They both feel that the patient has done her best when she has been on lithium she's been out of the hospital for the last 4 years on her current regimen of medications. They both continued to insist that she does not do well off the lithium and are aware of the risks of continuing it. The patient has been stable on her current medications and as both she and her daughter are aware of the complications of lithium I would not recommend stopping it at this time. Patient is able to manipulate medical information and is aware that she may end up on dialysis should her renal function continued to deteriorate and they are being followed by a clothing examiner to continue to monitor her renal function. I would recommend that the patient be maintained on her current medications including the lithium and that they continue to be followed by a clothing examiner to continue to monitor her renal function. There are any further questions or concerns please don't hesitate to contact me 01/21/18 :02 01/21/18 15:10
[2018-01-21] MEDS: DIVALPROEX 500 MG TABLET.DR PO SCH (20:23)
[2018-01-21] MEDS: QUEtiapine 100 MG TAB PO SCH (20:24)
[2018-01-21] MEDS: PROPRANOLOL 40 MG TAB PO SCH (20:24)
--- NOTE | 2018-01-21 21:15 | PN ---
PROGRESS NOTE DATE OF SERVICE: 01/21/2018 PRESENTING COMPLAINT: Tired. INTERVAL HISTORY: Patient admitted with pneumonia on antibiotics. Feeling a bit better today. Speech is actually better. The patient is not felt to have any stroke at this point. Did tolerate some diet. REVIEW OF SYSTEMS: Done for constitutional, cardiovascular, GI, pulmonary; relevant findings as above. CURRENT MEDICATIONS: Reviewed that include: 1. DuoNeb. 2. IV ceftriaxone. 3. De Motte. EXAMINATION: Afebrile, pulse 82, respirations 20, blood pressure 128/78 pulse ox 98% on 2L. GENERAL APPEARANCE: Lying in bed, more awake. EYES: Pupils equal. Conjunctivae normal. HEENT: External appearance of nose and ears normal. Oral cavity normal. NECK: JVD unable to assess. Mass not palpable. RESPIRATORY: Effort increased. LUNGS: Decreased breath sounds. CARDIOVASCULAR: First and second sounds normal. No edema. ABDOMEN: Soft, nontender. Liver and spleen not palpable. PSYCHIATRY: Patient is answering some simple questions. NEUROLOGICAL: Able to lift both her hands and moving both her legs. INVESTIGATIONS: Potassium 4.9, BUN 32, creatinine 2.10. Troponin x3 negative. ASSESSMENT: 1. Pneumonia, suspect gram-negative organism with some clinical response. 2. Chronic kidney disease stage 4, probably from nephrosclerosis. 3. Bipolar disorder, stable on lithium. 4. Hypothyroid. 5. Parkinson disease. 6. Chronic gait dysfunction, uses a walker. 7. Psychiatrist Dr. Marcos spoke to the patient and the family. Patient and the family are aware about being on lithium and this being the best drug for her bipolar, to monitor renal function closely. If renal function deteriorates, then she will end up probably in dialysis rather than change the medication. 8. No congestive heart failure per Cardiology and. 9. There is does not felt to be any stroke per Dr. Lopez. MMODL / IJN: [id number] /
[2018-01-22] MEDS: LEVOTHYROXINE 100 MCG TAB PO SCH (05:34)
[2018-01-22] MEDS: IPRATROPIUM-ALBUTEROL 3 ML NEB INHALATION SCH ×4 (07:29→19:13)
[2018-01-22] MEDS: ALLOPURINOL 100 MG TAB PO SCH (08:36)
[2018-01-22] MEDS: buPROPion XL 300 MG TAB.ER.24H PO SCH (08:37)
[2018-01-22] MEDS: ASPIRIN 81 MG PO SCH (08:37)
[2018-01-22] MEDS: ATORVASTATIN 10 MG TAB PO SCH (08:37)
[2018-01-22] MEDS: CARBIDOPA-LEVODOPA ER 50-200MG 1 EACH TABLET.ER PO SCH ×2 (08:37→20:36)
[2018-01-22] MEDS: FAMOTIDINE 20 MG TAB PO SCH (08:37)
[2018-01-22] MEDS: NON-FORMULARY DRUG (Cranberry Fruit Extract [Cranberry] 500 MG) PO SCH (08:37)
[2018-01-22] MEDS: LITHIUM CARBONATE 150 MG CAP PO SCH ×2 (08:38→20:36)
[2018-01-22] MEDS: FOLIC ACID-VIT B COMPLEX-VIT C 1 CAP PO SCH (08:38)
[2018-01-22] MEDS: LORazepam 0.5 MG TAB PO SCH ×3 (08:38→20:36)
[2018-01-22] MEDS: cefTRIAXone IN SWFI 1,000 MG/10 ML SYRINGE IVP SCH (08:50)
--- NOTE | 2018-01-22 09:00 | P.PN ---
Subjective Progress Note Date: 01/22/18 Principal diagnosis: Atypical chest pain This is a pleasant 72-year-old female patient who was admitted to the hospital yesterday with symptoms of upper respiratory infection as well as symptoms of pneumonia where she presented with a cough seems to be productive of sputum. No fever and no chills. We get involved in the care of the patient because off atypical chest discomfort. The patient was ruled out for acute coronary event. The EKG did not show any significant changes or ischemic changes and the cardiac enzymes were checked and came in to be unremarkable. Beside that the echocardiogram showed normal LV function without any evidence of wall motion abnormalities. We feel that the chest discomfort is likely to be musculoskeletal or related to the pneumonia. Objective - Vital Signs Vital signs: Vital Signs Temp 97.9 F 01/22/18 07:49 Pulse 96 01/22/18 07:49 Resp 20 01/22/18 07:49 BP 140/66 01/22/18 07:49 Pulse Ox 96 01/22/18 07:49 Intake & Output 01/21/18 01/22/18 01/22/18 18:59 06:59 18:59 Intake Total 125 Balance 125 Weight 110.5 kg Intake: Oral 125 Other: Voiding Method Diaper # Voids 1 - Constitutional General appearance: Present: no acute distress - Respiratory Respiratory: bilateral: rales - Cardiovascular Rhythm: regular Heart sounds: normal: S1, S2 - Labs CBC & Chem 7: 01/19/18 19:55 01/21/18 05:41 Labs: Microbiology - Last 24 Hours (Table) 01/18/18 19:55 Blood Culture - Preliminary Blood No Growth after 48 hours 01/19/18 21:08 Urine Culture - Final Urine,Catheterized Assessment and Plan Assessment: Assessment #1 symptoms of cough associated with sputum #2 atypical chest discomfort #3 history of TIA/CVA Plan #1 the patient was ruled out for acute coronary event #2 the echocardiogram showed normal LV function #3 the patient will benefit from a stress test probably as an outpatient.
--- NOTE | 2018-01-22 14:10 | PN ---
PROGRESS NOTE ADDENDUM: DATE OF SURGERY: January 21, 2018 PLAN: Continue current medication and treatment plan. Continue patient on antibiotic. Follow renal function. MMODL / IJN: [id number] /
--- NOTE | 2018-01-22 14:13 | PN ---
PROGRESS NOTE DATE OF SERVICE: 01/22/18. PRESENTING COMPLAINT: Tired. INTERVAL HISTORY: Patient admitted with pneumonia. Far more perky. Eating better. Nurse informed me family looking for inpatient rehab. Finding it difficult to manage her. The patient did tolerate a diet. REVIEW OF SYSTEMS: Done for constitutional, cardiovascular, GI, pulmonary; relevant findings as above. CURRENT MEDICATIONS: Reviewed that include DuoNeb, IV ceftriaxone. PHYSICAL EXAMINATION: Temperature 97.7, pulse 97, respiratory 20, blood pressure 144/86, pulse 94% on room air. GENERAL APPEARANCE: Lying in bed, much more awake, talkative. EYES: Pupils equal. Conjunctivae normal. HEENT: External nose and ears normal. Oral cavity normal. NECK: JVD unable to assess. Mass not palpable. RESPIRATORY: Effort increased. Lungs, decreased breath sounds. CARDIOVASCULAR: First and second sounds normal. No edema. ABDOMEN: Soft, nontender. Liver and spleen not palpable. PSYCHIATRY: Answering simple questions. NEUROLOGICAL: Moving all 4 limbs. INVESTIGATIONS: Potassium 4.9, BUN 32, creatinine 2.10. ASSESSMENT: 1. Pneumonia suspect gram-negative organism with clinical improvement. 2. Chronic kidney disease stage IV probably from nephrosclerosis. 3. Bipolar disorder, stable on lithium. 4. Hypothyroid. 5. Parkinson disease. 6. Chronic gait dysfunction uses a walker. 7. No stroke per Dr. Lopez. PLAN: Continue current medication and treatment plan. We will consult PT and OT and manager social responsibility for looking at if the patient is candidate for rehab. MMODL / JEISONN: [id number] /
--- NOTE | 2018-01-22 14:49 | PN ---
PROGRESS NOTE The patient is seen for followup for acute kidney injury. Currently, patient is lying in bed. She is comfortable. She states she is feeling better. She denies any significant complaints. Blood pressure is 144/86, heart rate 97 per minute. Patient is afebrile. Examination of the heart: S1, S2. Examination lungs: Bilateral breath sounds are heard. No crackles or wheezing is heard. Abdomen is soft, nontender. Examination of lower extremities shows no significant edema. Patient has right hemiparesis. LAB: Show sodium 143, potassium 4.9, BUN 32, serum creatinine 2.1 mg/dL from yesterday. We do not have any labs from today. ASSESSMENT: 1. Acute kidney injury, prerenal, currently stable and slightly improved as of yesterday. Will recheck labs tomorrow. Check postvoid residual. Rule out urine retention with history of cerebrovascular accident. 2. Chronic kidney disease, NKF stage IV. The patient is maintained on lithium. We will discuss further regarding possible discontinuation of lithium given the advanced renal failure. 3. Right hemiparesis. CT is negative for any acute event. 4. Bipolar disorder, maintained on lithium. It appears that the possibility of change in medications has been discussed with the patient and she is advised to continue with the lithium for now. PLAN: Continue to encourage increased oral intake. Repeat labs in a.m. The patient could be discharged and will follow up as outpatient for CKD management. REJIL / MARIELA: [id number] /
[2018-01-22] MEDS ORDERED: CALCITRIOL 0.25 MCG CAP PO SCH (15:00)
[2018-01-22] MEDS: DIVALPROEX 500 MG TABLET.DR PO SCH (20:36)
[2018-01-22] MEDS: PROPRANOLOL 40 MG TAB PO SCH (20:36)
[2018-01-22] MEDS: CEFUROXIME 250 MG TAB PO SCH (20:36)
[2018-01-22] MEDS: QUEtiapine 100 MG TAB PO SCH (20:36)
[2018-01-23] MEDS: LEVOTHYROXINE 100 MCG TAB PO SCH (06:12)
[2018-01-23 06:34] LABS: Basophils % (A) 1 %; Eosinophils # (A) 0.2 k/uL (0-0.7); Eosinophils % (A) 2 %; HCT 36.4 % (34.0-46.0); HGB 11.6 gm/dL (11.4-16.0); Lymphocytes # (A) 1.5 k/uL (1.0-4.8); Lymphocytes % (A) 16 %; MCH 35.1 pg (25.0-35.0); MCHC 31.8 g/dL (31.0-37.0); Macrocytosis Marked; Mean Platelet Volume 7.7; Monocytes # (A) 0.8 k/uL (0-1.0); Monocytes % (A) 9 %; Neutrophils # (A) 6.6 k/uL (1.3-7.7); Neutrophils % (A) 70 %; Platelet Count 321 k/uL (150-450); RBC 3.29 m/uL (3.80-5.40); RDW 12.2 % (11.5-15.5); WBC 9.5 k/uL (3.8-10.6)
[2018-01-23 06:40] LABS: MCV 110.6 fL (80.0-100.0)
[2018-01-23 06:53] LABS: Calcium 9.9 mg/dL (8.4-10.2); Potassium 5.3 mmol/L (3.5-5.1)
[2018-01-23] MEDS: IPRATROPIUM-ALBUTEROL 3 ML NEB INHALATION SCH ×4 (08:06→19:57)
[2018-01-23] MEDS: ASPIRIN 81 MG PO SCH (08:13)
[2018-01-23] MEDS: ATORVASTATIN 10 MG TAB PO SCH (08:13)
[2018-01-23] MEDS: ALLOPURINOL 100 MG TAB PO SCH (08:13)
[2018-01-23] MEDS: buPROPion XL 300 MG TAB.ER.24H PO SCH (08:13)
[2018-01-23] MEDS: CEFUROXIME 250 MG TAB PO SCH ×2 (08:13→20:40)
[2018-01-23] MEDS: CARBIDOPA-LEVODOPA ER 50-200MG 1 EACH TABLET.ER PO SCH ×2 (08:13→20:40)
[2018-01-23] MEDS: FAMOTIDINE 20 MG TAB PO SCH (08:14)
[2018-01-23] MEDS: NON-FORMULARY DRUG (Cranberry Fruit Extract [Cranberry] 500 MG) PO SCH (08:14)
[2018-01-23] MEDS: FOLIC ACID-VIT B COMPLEX-VIT C 1 CAP PO SCH (08:14)
[2018-01-23] MEDS: LITHIUM CARBONATE 150 MG CAP PO SCH ×2 (08:14→20:40)
[2018-01-23] MEDS: LORazepam 0.5 MG TAB PO SCH ×3 (08:23→20:40)
--- NOTE | 2018-01-23 08:45 | P.PN ---
Subjective Progress Note Date: 01/23/18 Principal diagnosis: Atypical chest pain This is a pleasant 72-year-old female patient who was admitted to the hospital yesterday with symptoms of upper respiratory infection as well as symptoms of pneumonia where she presented with a cough seems to be productive of sputum. No fever and no chills. We get involved in the care of the patient because off atypical chest discomfort. The patient was ruled out for acute coronary event. The EKG did not show any significant changes or ischemic changes and the cardiac enzymes were checked and came in to be unremarkable. Beside that the echocardiogram showed normal LV function without any evidence of wall motion abnormalities. We feel that the chest discomfort is likely to be musculoskeletal or related to the pneumonia. From a cardiovascular standpoint of view, the patient might be able to be discharged home and I'll follow-up with the patient as an outpatient for possible stress test. Objective - Vital Signs Vital signs: Vital Signs Temp 97.8 F 01/23/18 07:57 Pulse 84 01/23/18 08:18 Resp 19 01/23/18 07:57 BP 138/74 01/23/18 07:57 Pulse Ox 96 01/23/18 07:57 Intake & Output 01/22/18 01/23/18 01/23/18 18:59 06:59 18:59 Intake Total 200 Balance 200 Weight 113.5 kg Intake: Oral 200 Other: Voiding Method Diaper # Voids 2 3 # Bowel Movements 1 - Constitutional General appearance: Present: no acute distress - Respiratory Respiratory: bilateral: CTA - Cardiovascular Rhythm: regular Heart sounds: normal: S1, S2 - Labs CBC & Chem 7: 01/23/18 05:38 01/23/18 05:38 Labs: Abnormal Lab Results - Last 24 Hours (Table) 01/23/18 01/23/18 Range/Units 05:38 05:38 RBC 3.29 L (3.80-5.40) m/uL MCV 110.6 H (80.0-100.0) fL MCH 35.1 H (25.0-35.0) pg Potassium 5.3 H (3.5-5.1) mmol/L BUN 34 H (7-17) mg/dL Creatinine 1.80 H (0.52-1.04) mg/dL Microbiology - Last 24 Hours (Table) 01/18/18 19:55 Blood Culture - Preliminary Blood No Growth after 72 hours Assessment and Plan Assessment: Assessment #1 symptoms of cough associated with sputum #2 atypical chest discomfort #3 history of TIA/CVA Plan #1 the patient was ruled out for acute coronary event #2 the echocardiogram showed normal LV function #3 the patient will benefit from a stress test probably as an outpatient.
--- NOTE | 2018-01-23 11:48 | PN ---
PROGRESS NOTE Patient is seen for followup for acute kidney injury. Her renal function has improved. Serum creatinine is down to 1.8 from 2.2 mg/dL. The patient has been voiding. Her potassium is slightly elevated at 5.3 today. She is currently not on any IV fluids or diuretics. PHYSICAL EXAMINATION: On examination, blood pressure is 128/62, heart rate 84 per minute. She is afebrile. EXAMINATION OF THE HEART: S1, S2. EXAMINATION OF THE LUNGS: Bilateral breath sounds are heard. Abdomen is soft, nontender. Examination of the lower extremities shows trace edema bilaterally. INGREDIENT SCALER exam shows right hemiparesis. LAB: Labs show sodium 143, potassium 5.3, chloride 106, BUN 34, serum creatinine 1.8. Hemoglobin 11.6 g/dL. ASSESSMENT: 1. Acute kidney injury, prerenal, currently improved. 2. Chronic kidney disease, NKF stage 4 secondary to nephrosclerosis/chronic interstitial nephropathy. The patient is maintained on lithium, which she needs to continue as per psych. 3. Right hemiparesis. CT negative for acute event. 4. Mild hyperkalemia noted. Currently not on any medications to predispose to hyperkalemia. We will make sure she does not have significant constipation. 5. Chronic kidney disease mineral bone disorder maintained on Rocaltrol, which we can continue for now. PLAN: Repeat labs in a.m. Encourage increased oral intake. Resume which will help with the hyperkalemia as well since it is a loop diuretic. MMODL / IJN: [id number] /
[2018-01-23] MEDS ORDERED: MD COMMUNICATION TO PHARMACY 1 EACH MISC PO PRN (12:21)
[2018-01-23] MEDS ORDERED: ETHACRYNIC ACID PO SCH (13:00)
[2018-01-23] MEDS: DIVALPROEX 500 MG TABLET.DR PO SCH (20:40)
[2018-01-23] MEDS: PROPRANOLOL 40 MG TAB PO SCH (20:40)
[2018-01-23] MEDS: QUEtiapine 100 MG TAB PO SCH (20:41)
[2018-01-24] MEDS: LEVOTHYROXINE 100 MCG TAB PO SCH (06:07)
[2018-01-24 07:49] LABS: HCT 38.1 % (34.0-46.0); HGB 11.6 gm/dL (11.4-16.0); Hypochromasia Moderate; MCHC 30.5 g/dL (31.0-37.0); MCV 111.4 fL (80.0-100.0); Macrocytosis Marked; Mean Platelet Volume 7.6; Platelet Count 394 k/uL (150-450); RBC 3.42 m/uL (3.80-5.40); RDW 12.6 % (11.5-15.5)
[2018-01-24 08:09] LABS: Calcium 9.5 mg/dL (8.4-10.2); Potassium 4.8 mmol/L (3.5-5.1)
[2018-01-24] MEDS: IPRATROPIUM-ALBUTEROL 3 ML NEB INHALATION SCH ×3 (08:33→15:17)
[2018-01-24 08:47] LABS: Band Neutrophils % 1 %; Metamyelocytes % 2 %; Myelocytes % 1 %; Neutrophils % (M) 52 %; Nucleated Red Blood Cells 0 /100 WBC (0-0); Total Cells Counted 200
[2018-01-24] MEDS: ALLOPURINOL 100 MG TAB PO SCH (09:33)
[2018-01-24] MEDS: ASPIRIN 81 MG PO SCH (09:34)
[2018-01-24] MEDS: ATORVASTATIN 10 MG TAB PO SCH (09:35)
[2018-01-24] MEDS: buPROPion XL 300 MG TAB.ER.24H PO SCH (09:36)
[2018-01-24] MEDS: CARBIDOPA-LEVODOPA ER 50-200MG 1 EACH TABLET.ER PO SCH ×2 (09:36→20:54)
[2018-01-24] MEDS: CEFUROXIME 250 MG TAB PO SCH ×2 (09:37→20:54)
[2018-01-24] MEDS: LITHIUM CARBONATE 150 MG CAP PO SCH ×2 (09:37→20:54)
[2018-01-24] MEDS: FOLIC ACID-VIT B COMPLEX-VIT C 1 CAP PO SCH (09:38)
[2018-01-24] MEDS: FAMOTIDINE 20 MG TAB PO SCH (09:38)
[2018-01-24] MEDS: LORazepam 0.5 MG TAB PO SCH ×3 (09:38→20:59)
[2018-01-24] MEDS: ETHACRYNIC ACID 25 MG PO SCH (09:46)
[2018-01-24] MEDS: oxyCODONE-APAP 5-325MG 1 EACH TAB PO PRN (12:56)
--- NOTE | 2018-01-24 20:28 | PN ---
PROGRESS NOTE Patient is seen for followup for acute kidney injury. Her renal function is slowly improving. She also has underlying chronic kidney disease with creatinine now close to baseline about 1.7 mg/dL. The patient is currently sitting up. She is comfortable. She is not in any acute distress. Blood pressure is 138/81, heart rate 92 per minute. She is afebrile. Examination of the heart: S1, S2. Examination lungs: Bilateral breath sounds are heard. Decreased breath sounds at bases. Abdomen is soft, nontender. Examination lower extremity shows trace edema bilaterally. LABS: Sodium 145, potassium 4.8, chloride 106, BUN 31, serum creatinine 1.76, hemoglobin 11.6 g/dL. ASSESSMENT: 1. Acute kidney injury, prerenal, currently improving. 2. Chronic kidney disease stage IV secondary to nephrosclerosis/chronic interstitial nephropathy, maintained on lithium which patient needs to continue as per Psych. Her renal function is close to baseline now. 3. Mild hyperkalemia, currently improved. The patient was started on loop diuretics in the form of ethacrynic acid which she should continue. 4. CKD mineral bone disorder, currently on Rocaltrol. 5. Parkinson disease, maintained on Sinemet. PLAN: Continue to encourage increased oral intake. Patient is stable for discharge from Nephrology standpoint. MMODL / IJN: [id number] /
[2018-01-24] MEDS: PROPRANOLOL 40 MG TAB PO SCH (20:54)
[2018-01-24] MEDS: QUEtiapine 100 MG TAB PO SCH (20:54)
[2018-01-24] MEDS: DIVALPROEX 500 MG TABLET.DR PO SCH (20:54)
[2018-01-24] MEDS: HEPARIN SODIUM,PORCINE 5,000 UNIT/ML 1 ML VIAL SQ SCH (20:59)
--- NOTE | 2018-01-24 23:00 | P.PN ---
Subjective Progress Note Date: 01/23/18 Principal diagnosis: Chest pain and pneumonia This is a pleasant 72-year-old female patient who was admitted to the hospital yesterday with symptoms of upper respiratory infection as well as symptoms of pneumonia where she presented with a cough seems to be productive of sputum. No fever and no chills. 2017 Patient denied any complaints of chest pain. Shortness of breath improved. Patient does have good urine output and function slightly improved otherwise. Nephrology and cardiology is following. Patient is being continued on antibiotics. No fever no chills. Otherwise patient is a poor historian. Current medications reviewed. Objective - Vital Signs Vital signs: Vital Signs Temp 97.8 F 01/23/18 15:18 Pulse 87 01/23/18 15:56 Resp 18 01/23/18 15:18 BP 132/68 01/23/18 15:18 Pulse Ox 96 01/23/18 15:18 Intake & Output 01/22/18 01/23/18 01/23/18 18:59 06:59 18:59 Intake Total 200 200 Balance 200 200 Weight 113.5 kg Intake: Oral 200 200 Other: Voiding Method Diaper # Voids 2 3 2 # Bowel Movements 1 - Exam PHYSICAL EXAMINATION: Patient is lying in the bed comfortably, no acute distress, awake alert and oriented. Slightly confused. HEENT: Normocephalic. Neck is supple. Pupils reactive. Nostrils clear. Oral cavity is moist. Ears reveal no drainage. Neck reveals no JVD, carotid bruits, or thyromegaly. CHEST EXAMINATION: Trachea is central. Symmetrical expansion. Lung arnold clear to auscultation and percussion. CARDIAC: Normal S1, S2 with no gallops. No murmurs ABDOMEN: Soft. Bowel sounds normal. No organomegaly. No abdominal bruits. Extremities: reveal no edema. No clubbing or cyanosis Neurologically awake, alert, oriented x3 with well-coordinated movements. No focal deficits noted Skin: No rash or skin lesions. Psychiatric: Cooperative. Nonsuicidal Musculoskeletal: No joint swelling or deformity. Normal range of motion. - Labs CBC & Chem 7: 01/24/18 07:16 01/24/18 07:16 Labs: Abnormal Lab Results - Last 24 Hours (Table) 01/23/18 01/23/18 Range/Units 05:38 05:38 RBC 3.29 L (3.80-5.40) m/uL MCV 110.6 H (80.0-100.0) fL MCH 35.1 H (25.0-35.0) pg Potassium 5.3 H (3.5-5.1) mmol/L BUN 34 H (7-17) mg/dL Creatinine 1.80 H (0.52-1.04) mg/dL Microbiology - Last 24 Hours (Table) 01/18/18 19:55 Blood Culture - Preliminary Blood No Growth after 72 hours Assessment and Plan Assessment: Pneumonia suspected gram-negative organism. Clinically improved Acute on chronic kidney disease stage 4 Mild hyperkalemia Atypical chest pain. Ruled out ACS CK D due to nephrosclerosis Bipolar disorder. Patient was started on lithium Hypothyroidism Parkinson's disease Chronic gait dysfunction. Uses walker No stroke as per Dr. Lopez Plan: Patient will be continued on antibiotics in the form of Ceftin. Encourage oral intake and follow-up renal function. Continue with PT OT. Further recommendations based on the clinical course. Time with Patient: Greater than 30
--- NOTE | 2018-01-24 23:02 | P.PN ---
Subjective Progress Note Date: 01/24/18 Principal diagnosis: Chest pain and pneumonia This is a pleasant 72-year-old female patient who was admitted to the hospital yesterday with symptoms of upper respiratory infection as well as symptoms of pneumonia where she presented with a cough seems to be productive of sputum. No fever and no chills. 2017 Patient denied any complaints of chest pain. Shortness of breath improved. Patient does have good urine output and function slightly improved otherwise. Nephrology and cardiology is following. Patient is being continued on antibiotics. No fever no chills. Otherwise patient is a poor historian. 01/24/2018 Patient denied any new complaints today. Renal function slightly improved with creatinine level I.76. No fever no chills. Anticipate discharge to rehab in next 24-48 hours. No other acute overnight issues. Current medications reviewed. Objective - Vital Signs Vital signs: Vital Signs Temp 98 F 01/24/18 14:40 Pulse 92 01/24/18 15:16 Resp 18 01/24/18 14:40 BP 138/81 01/24/18 14:40 Pulse Ox 98 01/24/18 14:40 Intake & Output 01/24/18 01/24/18 01/25/18 06:59 18:59 06:59 Weight 113.5 kg Other: Voiding Method Diaper Bedside Commode Diaper Incontinent # Voids 1 2 - Exam PHYSICAL EXAMINATION: Patient is lying in the bed comfortably, no acute distress, awake alert and oriented. Slightly confused. HEENT: Normocephalic. Neck is supple. Pupils reactive. Nostrils clear. Oral cavity is moist. Ears reveal no drainage. Neck reveals no JVD, carotid bruits, or thyromegaly. CHEST EXAMINATION: Trachea is central. Symmetrical expansion. Lung arnold clear to auscultation and percussion. CARDIAC: Normal S1, S2 with no gallops. No murmurs ABDOMEN: Soft. Bowel sounds normal. No organomegaly. No abdominal bruits. Extremities: reveal no edema. No clubbing or cyanosis Neurologically awake, alert, oriented x3 with well-coordinated movements. No focal deficits noted Skin: No rash or skin lesions. Psychiatric: Cooperative. Nonsuicidal Musculoskeletal: No joint swelling or deformity. Normal range of motion. - Labs CBC & Chem 7: 01/24/18 07:16 01/24/18 07:16 Labs: Abnormal Lab Results - Last 24 Hours (Table) 01/24/18 01/24/18 Range/Units 07:16 07:16 RBC 3.42 L (3.80-5.40) m/uL MCV 111.4 H (80.0-100.0) fL MCHC 30.5 L (31.0-37.0) g/dL Monocytes # (Manual) 1.40 H (0-1.0) k/uL Metamyelocytes # (Man) 0.20 H (0) k/uL Myelocytes # (Manual) 0.10 H (0) k/uL BUN 31 H (7-17) mg/dL Creatinine 1.76 H (0.52-1.04) mg/dL Microbiology - Last 24 Hours (Table) 01/18/18 19:55 Blood Culture - Preliminary Blood No Growth after 120 hours Assessment and Plan Assessment: Pneumonia suspected gram-negative organism. Clinically improved Acute on chronic kidney disease stage 4 Mild hyperkalemia Atypical chest pain. Ruled out ACS CK D due to nephrosclerosis Bipolar disorder. Patient was started on lithium Hypothyroidism Parkinson's disease Chronic gait dysfunction. Uses walker No stroke as per Dr. Lopez Plan: Patient will be continued on antibiotics in the form of Ceftin. Encourage oral intake and follow-up renal function. Continue with PT OT. Further recommendations based on the clinical course. Time with Patient: Greater than 30
[2018-01-25] MEDS: IPRATROPIUM-ALBUTEROL 3 ML NEB INHALATION SCH ×5 (03:58→20:33)
[2018-01-25] MEDS: LEVOTHYROXINE 100 MCG TAB PO SCH (06:23)
[2018-01-25 08:14] LABS: Calcium 9.6 mg/dL (8.4-10.2); Potassium 4.9 mmol/L (3.5-5.1)
[2018-01-25] MEDS: ETHACRYNIC ACID 25 MG PO SCH (08:48)
[2018-01-25] MEDS: buPROPion XL 300 MG TAB.ER.24H PO SCH (09:03)
[2018-01-25] MEDS: ALLOPURINOL 100 MG TAB PO SCH (09:03)
[2018-01-25] MEDS: ATORVASTATIN 10 MG TAB PO SCH (09:03)
[2018-01-25] MEDS: ASPIRIN 81 MG PO SCH (09:03)
[2018-01-25] MEDS: CARBIDOPA-LEVODOPA ER 50-200MG 1 EACH TABLET.ER PO SCH ×2 (09:04→20:46)
[2018-01-25] MEDS: CEFUROXIME 250 MG TAB PO SCH ×2 (09:04→20:46)
[2018-01-25] MEDS: FOLIC ACID-VIT B COMPLEX-VIT C 1 CAP PO SCH (09:04)
[2018-01-25] MEDS: FAMOTIDINE 20 MG TAB PO SCH (09:04)
[2018-01-25] MEDS: HEPARIN SODIUM,PORCINE 5,000 UNIT/ML 1 ML VIAL SQ SCH ×2 (09:05→20:46)
[2018-01-25] MEDS: LITHIUM CARBONATE 150 MG CAP PO SCH ×2 (09:05→20:46)
[2018-01-25] MEDS: LORazepam 0.5 MG TAB PO SCH ×3 (09:05→20:45)
[2018-01-25] MEDS: NYSTATIN 100,000 UNIT/ML SUSP 500,000 UNIT/5 ML CUP PO SCH (20:45)
[2018-01-25] MEDS: PROPRANOLOL 40 MG TAB PO SCH (20:46)
[2018-01-25] MEDS: DIVALPROEX 500 MG TABLET.DR PO SCH (20:46)
[2018-01-25] MEDS: QUEtiapine 100 MG TAB PO SCH (20:47)
--- NOTE | 2018-01-25 23:41 | P.PN ---
Subjective Progress Note Date: 01/25/18 Principal diagnosis: Chest pain and pneumonia This is a pleasant 72-year-old female patient who was admitted to the hospital yesterday with symptoms of upper respiratory infection as well as symptoms of pneumonia where she presented with a cough seems to be productive of sputum. No fever and no chills. 2017 Patient denied any complaints of chest pain. Shortness of breath improved. Patient does have good urine output and function slightly improved otherwise. Nephrology and cardiology is following. Patient is being continued on antibiotics. No fever no chills. Otherwise patient is a poor historian. 01/24/2018 Patient denied any new complaints today. Renal function slightly improved with creatinine level I.76. No fever no chills. Anticipate discharge to rehab in next 24-48 hours. No other acute overnight issues. 01/25/2018 Patient is clinically much improved. No commerce of chest pain or shortness of breath. Creatinine level at 1.87 today. Otherwise patient says that she is able to eat better now but warm. No other acute overnight issues. Awaiting placement to rehab. Current medications reviewed. Active Medications Generic Name Dose Route Start Last Admin Trade Name Freq PRN Reason Stop Dose Admin Albuterol/Ipratropium 3 ml 01/19/18 23:38 Duoneb 0.5 Mg-3 Mg/3 Ml Soln INHALATION RT-QID PRN Shortness Of Breath Or Wheezing Albuterol/Ipratropium 3 ml 01/20/18 18:10 01/25/18 20:33 Duoneb 0.5 Mg-3 Mg/3 Ml Soln INHALATION 3 ml RT-QID KATHLEEN Administration Allopurinol 100 mg 01/20/18 09:00 01/25/18 09:03 Zyloprim PO 100 mg DAILY KATHLEEN Administration Aspirin 81 mg 01/20/18 18:15 01/25/18 09:03 Aspirin PO 81 mg DAILY KATHLEEN Administration Atorvastatin Calcium 10 mg 01/20/18 09:00 01/25/18 09:03 Lipitor PO 10 mg DAILY KATHLEEN Administration Bupropion HCl 300 mg 01/20/18 09:00 01/25/18 09:03 Wellbutrin Xl PO 300 mg DAILY KATHLEEN Administration Calcitriol 0.25 mcg 01/22/18 15:00 01/22/18 16:55 Rocaltrol PO 0.25 mcg Q7D KATHLEEN Administration Carbidopa/Levodopa 1 each 01/20/18 09:00 01/25/18 20:46 Sinemet Er 50-200 PO 1 each BID KATHLEEN Administration Cefuroxime Axetil 500 mg 01/22/18 21:00 01/25/18 20:46 Ceftin PO 500 mg BID KATHLEEN Administration Divalproex Sodium 1,000 mg 01/20/18 21:00 01/25/18 20:46 Depakote PO 1,000 mg HS KATHLEEN Administration Ergocalciferol 50,000 unit 02/14/18 12:00 Vitamin D2 PO Q30D KATHLEEN Famotidine 20 mg 01/21/18 09:00 01/25/18 09:04 Pepcid PO 20 mg DAILY KATHLEEN Administration Heparin Sodium (Porcine) 5,000 unit 01/24/18 21:00 01/25/18 20:46 Heparin SQ 5,000 unit Q12HR KATHLEEN Administration Levothyroxine Sodium 100 mcg 01/20/18 06:30 01/25/18 06:23 Synthroid PO 100 mcg 0630 KATHLEEN Administration Sunflower Carbonate 150 mg 01/20/18 09:00 01/25/18 20:46 Sunflower Carbonate PO 150 mg BID KATHLEEN Administration Lorazepam 0.5 mg 01/19/18 22:00 01/25/18 20:45 Ativan PO 0.5 mg TID KATHLEEN Administration Multivit/Ca Carb/B Cmplx/FA/Prenat 1 each 01/20/18 09:00 01/25/18 09:04 Nephrocaps PO 1 each DAILY KATHLEEN Administration Ethacrynic Acid 25 2 each 01/23/18 13:00 01/25/18 08:48 Mg PO Not Given DAILY KATHLEEN Nystatin 500,000 unit 01/25/18 22:00 01/25/18 20:45 Mycostatin Oral Susp PO 500,000 unit TID KATHLEEN Administration Oxycodone/Acetaminophen 1 each 01/19/18 21:55 01/24/18 12:56 Percocet 5-325 PO 1 each Q6HR PRN Administration Pain Propranolol HCl 40 mg 01/20/18 21:00 01/25/18 20:46 Inderal PO 40 mg HS KATHLEEN Administration Quetiapine Fumarate 100 mg 01/20/18 21:00 01/25/18 20:47 Seroquel PO 100 mg HS KATHLEEN Administration Objective - Vital Signs Vital signs: Vital Signs Temp 97.6 F 01/25/18 14:56 Pulse 82 01/25/18 15:48 Resp 16 01/25/18 14:56 BP 126/72 01/25/18 14:56 Pulse Ox 94 L 01/25/18 14:56 Intake & Output 01/24/18 01/25/18 01/25/18 18:59 06:59 18:59 Intake Total 590 Output Total 250 Balance 340 Intake: Oral 590 Output: Urine 250 Other: Voiding Method Bedside Commode Bedside Commode Bedside Commode Diaper Diaper Diaper Incontinent Incontinent # Voids 2 2 1 - Exam PHYSICAL EXAMINATION: Patient is lying in the bed comfortably, no acute distress, awake alert and oriented. Slightly confused. HEENT: Normocephalic. Neck is supple. Pupils reactive. Nostrils clear. Oral cavity is moist. Ears reveal no drainage. Neck reveals no JVD, carotid bruits, or thyromegaly. CHEST EXAMINATION: Trachea is central. Symmetrical expansion. Lung arnold clear to auscultation and percussion. CARDIAC: Normal S1, S2 with no gallops. No murmurs ABDOMEN: Soft. Bowel sounds normal. No organomegaly. No abdominal bruits. Extremities: reveal no edema. No clubbing or cyanosis Neurologically awake, alert, oriented x3 with well-coordinated movements. No focal deficits noted Skin: No rash or skin lesions. Psychiatric: Cooperative. Nonsuicidal Musculoskeletal: No joint swelling or deformity. Normal range of motion. - Labs CBC & Chem 7: 01/24/18 07:16 01/25/18 07:30 Labs: Abnormal Lab Results - Last 24 Hours (Table) 01/25/18 Range/Units 07:30 BUN 32 H (7-17) mg/dL Creatinine 1.87 H (0.52-1.04) mg/dL Microbiology - Last 24 Hours (Table) 01/18/18 19:55 Blood Culture - Preliminary Blood No Growth after 120 hours Assessment and Plan Assessment: Pneumonia suspected gram-negative organism. Clinically improved Acute on chronic kidney disease stage 4 Mild hyperkalemia. Resolved Atypical chest pain. Ruled out ACS CK D due to nephrosclerosis Bipolar disorder. Patient was started on lithium Hypothyroidism Parkinson's disease Chronic gait dysfunction. Uses walker No stroke as per Dr. Lopez Plan: Patient will be continued on antibiotics in the form of Ceftin. Encourage oral intake and follow-up renal function. Continue with PT OT. Further recommendations based on the clinical course. Time with Patient: Greater than 30
--- NOTE | 2018-01-26 01:38 | PN ---
PROGRESS NOTE Patient is seen for followup for acute kidney injury on top of chronic kidney disease. Her renal function is close to baseline now. Patient is comfortable. She is eating fairly well. She is not on any IV fluids. In fact, patient is supposed to be on her home dose of ethacrynic acid. I do not believe she is getting it here, as it is not available. On examination this morning, patient is comfortable, awake. She is not in any acute distress. Blood pressure was 119/77, heart rate 86 per minute. She is afebrile. EXAMINATION OF THE HEART: S1, S2. EXAMINATION OF LUNGS: Bilateral breath sounds are heard. Decreased breath sounds at the bases. ABDOMEN: Soft, non-tender. Examination of lower extremities shows trace edema bilaterally. Labs reveal sodium 144, potassium 4.9, chloride 107, BUN 32, serum creatinine 1.87, hemoglobin 11.6 g/dL. ASSESSMENT: 1. Chronic kidney disease, NKF stage IV, secondary to nephrosclerosis/chronic interstitial nephropathy, currently maintained on lithium, as patient is not able to come off of it. 2. Hyperkalemia, currently improved. 3. Chronic kidney disease mineral bone disorder, on Rocaltrol. 4. Parkinson's disease, maintained on Sinemet. 5. Acute kidney injury, prerenal, currently improved. PLAN: No changes. Continue to encourage increased oral intake. Patient should resume her loop diuretics in the form of ethacrynic acid. MMODL / IJN: [id number] /
[2018-01-26] MEDS: LEVOTHYROXINE 100 MCG TAB PO SCH (06:17)
[2018-01-26 07:34] LABS: Calcium 9.3 mg/dL (8.4-10.2)
[2018-01-26] MEDS: IPRATROPIUM-ALBUTEROL 3 ML NEB INHALATION SCH ×3 (07:42→15:33)
[2018-01-26] MEDS: CARBIDOPA-LEVODOPA ER 50-200MG 1 EACH TABLET.ER PO SCH (09:01)
[2018-01-26] MEDS: ATORVASTATIN 10 MG TAB PO SCH (09:01)
[2018-01-26] MEDS: buPROPion XL 300 MG TAB.ER.24H PO SCH (09:01)
[2018-01-26] MEDS: ALLOPURINOL 100 MG TAB PO SCH (09:01)
[2018-01-26] MEDS: ASPIRIN 81 MG PO SCH (09:01)
[2018-01-26] MEDS: LORazepam 0.5 MG TAB PO SCH ×2 (09:02→16:23)
[2018-01-26] MEDS: CEFUROXIME 250 MG TAB PO SCH (09:02)
[2018-01-26] MEDS: HEPARIN SODIUM,PORCINE 5,000 UNIT/ML 1 ML VIAL SQ SCH (09:02)
[2018-01-26] MEDS: FAMOTIDINE 20 MG TAB PO SCH (09:02)
[2018-01-26] MEDS: LITHIUM CARBONATE 150 MG CAP PO SCH (09:02)
[2018-01-26] MEDS: FOLIC ACID-VIT B COMPLEX-VIT C 1 CAP PO SCH (09:02)
[2018-01-26] MEDS: NYSTATIN 100,000 UNIT/ML SUSP 500,000 UNIT/5 ML CUP PO SCH ×2 (09:03→16:23)
[2018-01-26] MEDS: ETHACRYNIC ACID 25 MG PO SCH (09:15)
[2018-01-26 11:14] VITALS: BMI 41.6
[2018-01-26 15:47] VITALS: BP 97/60; PULSE 74; RESP 18; TEMP 97.5
[2018-01-26] MEDS: oxyCODONE-APAP 5-325MG 1 EACH TAB PO PRN (18:30)
--- NOTE | 2018-01-27 00:18 | P.DS ---
Providers Date of admission: 01/19/18 21:49 Expected date of discharge: 01/26/18 Attending physician: Bogdan Ac Consults: 01/19/18 21:53 Consult Physician Urgent Consulting Provider: Bobbi Lopez Consult Reason/Comments: cva Do you want consulting provider notified?: Yes 01/20/18 18:00 Consult Physician Routine Consulting Provider: Toi Wilkerson Consult Reason/Comments: chest pain Do you want consulting provider notified?: Yes 01/20/18 18:11 Consult Physician Routine Consulting Provider: Philipp Crowley Consult Reason/Comments: lithium/renal failure Do you want consulting provider notified?: Yes Primary care physician: Cornelius Luis Enrique [place] Course: Discharge diagnosis Pneumonia suspected gram-negative organism. Clinically improved Acute on chronic kidney disease stage 4 Mild hyperkalemia. Resolved Atypical chest pain. Ruled out ACS CK D due to nephrosclerosis Bipolar disorder. Patient was started on lithium Hypothyroidism Parkinson's disease Chronic gait dysfunction. Uses walker No stroke as per Dr. Lopez [place] course This is a pleasant 72-year-old female patient who was admitted to the hospital yesterday with symptoms of upper respiratory infection as well as symptoms of pneumonia where she presented with a cough seems to be productive of sputum. No fever and no chills. 2017 Patient denied any complaints of chest pain. Shortness of breath improved. Patient does have good urine output and function slightly improved otherwise. Nephrology and cardiology is following. Patient is being continued on antibiotics. No fever no chills. Otherwise patient is a poor historian. 01/24/2018 Patient denied any new complaints today. Renal function slightly improved with creatinine level I.76. No fever no chills. Anticipate discharge to rehab in next 24-48 hours. No other acute overnight issues. 01/25/2018 Patient is clinically much improved. No commerce of chest pain or shortness of breath. Creatinine level at 1.87 today. Otherwise patient says that she is able to eat better now but warm. No other acute overnight issues. Awaiting placement to rehab. 01/26/2018 Patient denied any new complaints. Renal function slightly improved otherwise stable. Patient will be restarted back on ethacrynic acid as per home dose. Otherwise patient completed antibiotic course for 7 days. Stable to be transferred back to rehab. Discharge physical examination was done and vitals reviewed Vital Signs - 24 hr 01/26/18 01/26/18 01/26/18 07:42 07:52 09:51 Temperature 97.0 F L Pulse Rate 88 88 Pulse Rate [ 72 Pulse Oximetery ] Respiratory 20 Rate Blood Pressure 157/84 [Right Arm] O2 Sat by Pulse Oximetry 01/26/18 01/26/18 01/26/18 11:52 12:02 15:15 Temperature 97.5 F L Pulse Rate 76 80 Pulse Rate [ 74 Pulse Oximetery ] Respiratory 18 Rate Blood Pressure 97/60 [Right Arm] O2 Sat by Pulse 94 L Oximetry 01/26/18 01/26/18 15:33 15:43 Temperature Pulse Rate 72 72 Pulse Rate [ Pulse Oximetery ] Respiratory Rate Blood Pressure [Right Arm] O2 Sat by Pulse Oximetry Patient Condition at Discharge: Good Plan - Discharge Summary Discharge Rx Participant: Yes New Discharge Prescriptions: Continue buPROPion HCL [Wellbutrin XL] 300 mg PO DAILY QUEtiapine [SEROquel] 100 mg PO HS Propranolol [Inderal] 40 mg PO HS Ethacrynic Acid 50 mg PO DAILY Cranberry Fruit Extract [Cranberry] 500 mg PO DAILY Carbidopa/Levodopa [Sinemet CR 50-200 mg] 1 tab PO BID Atorvastatin [Lipitor] 10 mg PO DAILY Allopurinol [Zyloprim] 100 mg PO DAILY Ergocalciferol (Vitamin D2) [Vitamin D2] 50,000 unit PO Q30D Docusate [Colace] 100 mg PO BID Calcitriol 0.25 mcg PO Q7D B Complex & C No.20/Folic Acid [Nephrocaps Softgel] 1 mg PO DAILY Levothyroxine Sodium [Synthroid] 100 mcg PO DAILY Divalproex Sodium [Depakote] 1,000 mg PO HS [place] Carbonate 150 mg PO BID LORazepam [Ativan] 0.5 mg PO TID #15 tab oxyCODONE-APAP 5-325MG [Percocet 5-325 mg] 1 tab PO Q6HR PRN #15 tab PRN Reason: Pain Discharge Medication List Allopurinol [Zyloprim] 100 mg PO DAILY 01/19/18 [History] Atorvastatin [Lipitor] 10 mg PO DAILY 01/19/18 [History] B Complex & C No.20/Folic Acid [Nephrocaps Softgel] 1 mg PO DAILY 01/19/18 [ History] Calcitriol 0.25 mcg PO Q7D 01/19/18 [History] Carbidopa/Levodopa [Sinemet CR 50-200 mg] 1 tab PO BID 01/19/18 [History] Cranberry Fruit Extract [Cranberry] 500 mg PO DAILY 01/19/18 [History] Divalproex Sodium [Depakote] 1,000 mg PO HS 01/19/18 [History] Docusate [Colace] 100 mg PO BID 01/19/18 [History] Ergocalciferol (Vitamin D2) [Vitamin D2] 50,000 unit PO Q30D 01/19/18 [History] Ethacrynic Acid 50 mg PO DAILY 01/19/18 [History] Levothyroxine Sodium [Synthroid] 100 mcg PO DAILY 01/19/18 [History] [place] Carbonate 150 mg PO BID 01/19/18 [History] Propranolol [Inderal] 40 mg PO HS 01/19/18 [History] QUEtiapine [SEROquel] 100 mg PO HS 01/19/18 [History] buPROPion HCL [Wellbutrin XL] 300 mg PO DAILY 01/19/18 [History] LORazepam [Ativan] 0.5 mg PO TID #15 tab 01/26/18 [Rx] oxyCODONE-APAP 5-325MG [Percocet 5-325 mg] 1 tab PO Q6HR PRN #15 tab 01/26/18 [ Rx] Follow up Appointment(s)/Referral(s): Toi Wilkerson MD [STAFF PHYSICIAN] - 3 Weeks None,Stated [REFERRING] - 1-2 days Patient Instructions/Handouts: Chronic Kidney Disease (DC), Stroke (DC) Activity/Diet/Wound Care/Special Instructions: Plan for rehab upon discharge. Discharge Disposition: TRANSFER TO SNF/ECF
[2018-01-27] MEDS ORDERED: CEFUROXIME 250 MG TAB PO SCH (09:00)
--- NOTE | 2018-01-29 17:32 | CDI ---
Last Revision, September 2017 Documentation Clarification Form Date: 01/29/18 From: Elis Yong Zuleika Carter, [employer] between 8:30 am & 5 pm Jorge Luis Admit Date: 01/19/2018 9:49:00 PM Patient Name: Elina Araya Visit Number: [id number] Discharge Date: 01/26/18 ATTENTION: The Clinical Documentation Specialists (CDI) and [facility] Coding Staff appreciate your assistance in clarifying documentation. Please respond to the clarification below the line at the bottom and electronically sign. The CDI & [facility] Coding staff will review the response and follow-up if needed. Please note: Queries are made part of the Legal Health Record. If you have any questions, please contact the author of this message via ITS. Dr. Jerald Ruggiero Patient upon admission with complaint of right hemiplegia with history of previous stroke. No stroke confirmed this encounter. In your professional opinion, can you please clarify the hemiplegia? 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 Include clinical findings that support your diagnosis. MTDD
--- NOTE | 2018-02-09 15:17 | CDI ---
Last Revision, September 2017 Documentation Clarification Form Date: 02/09/18 From: Elis Yong Zuleika Carter, Director Of Rooms between 8:30 am & 5 pm Jorge Luis Admit Date: 01/19/2018 9:49:00 PM Patient Name: Elina Araya Visit Number: [id number] Discharge Date: 01/26/18 ATTENTION: The Clinical Documentation Specialists (CDI) and [facility] Coding Staff appreciate your assistance in clarifying documentation. Please respond to the clarification below the line at the bottom and electronically sign. The CDI & [facility] Coding staff will review the response and follow-up if needed. Please note: Queries are made part of the Legal Health Record. If you have any questions, please contact the author of this message via ITS. Dr. Jerald Ruggiero Patient upon admission with complaint of right hemiparesis with history of previous stroke. No stroke confirmed this encounter. In your professional opinion, can you please clarify the hemiparesis? New hemiparesis Hemiparesis due to old stroke Other, please specify Unable to determine Please continue to document in your progress notes and discharge summary in order to capture severity of illness and risk of mortality. Include clinical findings that support your diagnosis. Hemiparesis due to old stroke MTDD
--- NOTE | 2018-02-10 20:29 | HP ---
HISTORY AND PHYSICAL ADDENDUM: To history and physical on Elina Hillman. DATE OF ADMISSION: January 19, 2018. DATE OF SERVICE: January 20, 2018 MMODL / IJN: [id number] /
[2018-02-14] MEDS ORDERED: ERGOCALCIFEROL 50,000 UNIT CAP PO SCH (12:00)
== END 2018-01-26 18:30 | DRG 178 ==
LOC: EC 18:28 → 6SEL 21:49 → 5MS5E 01-23 22:15
PROVIDERS: ADMIT Hospitalist; ATTEND Hospitalist
DX: J15.6 Pneumonia due to other Gram-negative bacteria (principal); N17.9 Acute kidney failure, unspecified; N18.4 Chronic kidney disease, stage 4 (severe); Z68.41 Body mass index [BMI] 40.0-44.9, adult; I69.951 Hemiplegia and hemiparesis following unspecified cerebrovascular disease affecting right dominant side; G20 Parkinson's disease; E87.5 Hyperkalemia; E66.9 Obesity, unspecified; E86.0 Dehydration; I12.9 Hypertensive chronic kidney disease with stage 1 through stage 4 chronic kidney disease, or unspecified chronic kidney disease; R40.2362 Coma scale, best motor response, obeys commands, at arrival to emergency department; R40.2132 Coma scale, eyes open, to sound, at arrival to emergency department; R40.2252 Coma scale, best verbal response, oriented, at arrival to emergency department; F31.70 Bipolar disorder, currently in remission, most recent episode unspecified; E03.9 Hypothyroidism, unspecified; E83.89 Other disorders of mineral metabolism; R07.89 Other chest pain; R26.9 Unspecified abnormalities of gait and mobility; Z79.890 Hormone replacement therapy; Z79.899 Other long term (current) drug therapy; Z90.710 Acquired absence of both cervix and uterus; Z90.49 Acquired absence of other specified parts of digestive tract; Z90.721 Acquired absence of ovaries, unilateral; Z87.891 Personal history of nicotine dependence; Z88.2 Allergy status to sulfonamides; Z88.8 Allergy status to other drugs, medicaments and biological substances; Z81.8 Family history of other mental and behavioral disorders
CPT/HCPCS: 36415; 51701; 70450; 71046; 76770; 80048; 80053; 80061; 81003; 82550; 82553; 84484; 85025; 85610; 85730; 87040; 87086; 93005; 93306; 93880; 94640; 94760; 96361; 96365; 96375; 99285

== ENCOUNTER → 2018-04-12 | Outpatient (CLI) | payer MEDICARE, OTHER ==
[2018-04-12 11:26] LABS: Appearance,Urine Clear (Clear); Bilirubin,Urine Negative (Negative); Blood,Urine Negative (Negative); Color,Urine Light Yellow; Glucose,Urine (UA) Negative (Negative); Ketones,Urine Negative (Negative); Leukocyte Esterase,Urine Negative (Negative); Nitrite,Urine Negative (Negative); Protein,Urine Negative (Negative); Specific Gravity,Urine 1.007 (1.001-1.035); Urobilinogen,Urine <2.0 mg/dL (<2.0)
[2018-04-12 11:45] LABS: Basophils % (A) 1 %; Calcium 9.6 mg/dL (8.4-10.2); Eosinophils # (A) 0.2 k/uL (0-0.7); Eosinophils % (A) 3 %; HCT 40.7 % (34.0-46.0); HGB 12.9 gm/dL (11.4-16.0); Hypochromasia Slight; Lithium 0.8 mmol/L; Lymphocytes # (A) 2.6 k/uL (1.0-4.8); Lymphocytes % (A) 47 %; MCH 35.8 pg (25.0-35.0); MCHC 31.7 g/dL (31.0-37.0); MCV 113.1 fL (80.0-100.0); Macrocytosis Marked; Magnesium 2.2 mg/dL (1.6-2.3); Mean Platelet Volume 7.4; Monocytes # (A) 0.3 k/uL (0-1.0); Monocytes % (A) 6 %; Neutrophils # (A) 2.2 k/uL (1.3-7.7); Neutrophils % (A) 41 %; Phosphorus 3.8 mg/dL (2.5-4.5); Platelet Count 222 k/uL (150-450); Potassium 4.3 mmol/L (3.5-5.1); RDW 13.4 % (11.5-15.5); Uric Acid 6.2 mg/dL (3.7-7.4); WBC 5.5 k/uL (3.8-10.6)
[2018-04-12 11:50] LABS: Valproic Acid (Depakene) 66.1 ug/mL
--- NOTE | 2018-04-12 13:52 | XR ---
EXAMINATION TYPE: XR chest 2V DATE OF EXAM: 04/12/2018 COMPARISON: Chest x-ray January 20, 2018. HISTORY: Cough and congestion. TECHNIQUE: Frontal and lateral views of the chest are obtained. FINDINGS: Low lung volumes with patchy bibasilar atelectasis and/or infiltrate remains present. Ther e is no new focal airspace opacity, pleural effusion, or pneumothorax seen bilaterally. The cardiac silhouette size is within normal limits. The osseous structures are intact. IMPRESSION: Persistent low lung volumes with bibasilar opacities favoring scarring and/or atelectasi s. No new suspicious focal airspace opacity is seen. No significant change from prior.
[2018-04-12 16:14] LABS: Parathyroid Hormone Intact 83.1 pg/mL (14.0-72.0)
[2018-04-12 16:25] LABS: Iron Saturation 36.21 (12.00-45.00)
== END | disposition home or self-care (01) ==
LOC: LABWHC1 10:47
PROVIDERS: ATTEND Nurse Practitioner
DX: R91.8 Other nonspecific abnormal finding of lung field (principal); E55.9 Vitamin D deficiency, unspecified; D63.1 Anemia in chronic kidney disease; N18.4 Chronic kidney disease, stage 4 (severe); N39.0 Urinary tract infection, site not specified; M10.9 Gout, unspecified; E83.39 Other disorders of phosphorus metabolism
CPT/HCPCS: 36415; 71046; 80048; 80164; 80178; 81003; 82306; 82728; 83540; 83550; 83735; 83970; 84100; 84550; 85025

== ENCOUNTER 2019-03-20 14:19 | Inpatient (IN) | payer MEDICARE, OTHER ==
[2019-03-20 16:10] LABS: ALT 11 U/L (9-52); AST 24 U/L (14-36); African American GFR (CKD) 28 (>60 ml/min/1.73 sqM); Albumin 3.8 g/dL (3.5-5.0); Alcohol <10 mg/dL; Alkaline Phosphatase 92 U/L (38-126); Anion Gap 6 mmol/L; Blood Urea Nitrogen 34 mg/dL (7-17); Calcium 9.6 mg/dL (8.4-10.2); Carbon Dioxide 24 mmol/L (22-30); Chloride 112 mmol/L (98-107); Glucose 92 mg/dL (74-99); Potassium 4.3 mmol/L (3.5-5.1); Sodium 142 mmol/L (137-145); Total Bilirubin 0.5 mg/dL (0.2-1.3); Total Protein 6.5 g/dL (6.3-8.2)
[2019-03-20 16:41] LABS: Basophils % (A) 0 %; Eosinophils # (A) 0.3 k/uL (0-0.7); Eosinophils % (A) 4 %; HCT 43.7 % (34.0-46.0); HGB 13.6 gm/dL (11.4-16.0); Lymphocytes # (A) 1.3 k/uL (1.0-4.8); Lymphocytes % (A) 20 %; MCHC 31.1 g/dL (31.0-37.0); MCV 109.4 fL (80.0-100.0); Macrocytosis Moderate; Mean Platelet Volume 7.8; Monocytes # (A) 0.5 k/uL (0-1.0); Monocytes % (A) 7 %; Neutrophils # (A) 4.6 k/uL (1.3-7.7); Neutrophils % (A) 67 %; Platelet Count 235 k/uL (150-450); RBC 3.99 m/uL (3.80-5.40); RDW 12.9 % (11.5-15.5); WBC 6.9 k/uL (3.8-10.6)
[2019-03-20] MEDS ORDERED: SODIUM CHLORIDE 0.9% 1,000 ML IV STA (16:58)
[2019-03-20 19:23] LABS: Amphetamine Screen,Urine Not Detected (NotDetected); Appearance,Urine Cloudy (Clear); Bacteria,Urine Few /hpf; Barbiturate Screen,Urine Not Detected (NotDetected); Benzodiazepines Screen,Urine Detected (NotDetected); Bilirubin,Urine Negative (Negative); Blood,Urine Negative (Negative); Cocaine Screen,Urine Not Detected (NotDetected); Color,Urine Light Yellow; Glucose,Urine (UA) Negative (Negative); Ketones,Urine Negative (Negative); Leukocyte Esterase,Urine Large (Negative); Methadone Screen, Urine Not Detected (NotDetected); Nitrite,Urine Positive (Negative); Opiate Screen,Urine Not Detected (NotDetected); Oxycodone Screen, Urine Not Detected (NotDetected); Phencyclidine Screen,Urine Not Detected (NotDetected); Protein,Urine Negative (Negative); RBC,Urine 2 /hpf (0-5); Specific Gravity,Urine 1.008 (1.001-1.035); Squamous Epithelial Cell,Urine 2 /hpf (0-4); Tricyclic Antidepressant,Urine Detected (NotDetected); Urn Cannabinoid Scrn Not Detected (NotDetected); Urobilinogen,Urine <2.0 mg/dL (<2.0); WBC,Urine 41 /hpf (0-5)
[2019-03-20] MEDS ORDERED: SODIUM CHLORIDE 0.9% 1,000 ML IV ONE (20:45)
--- NOTE | 2019-03-20 20:45 | ED ---
Altered Mental Status HPI - General Stated Complaint: mental health Time Seen by Provider: 03/20/19 14:39 Review of Systems ROS Statement: Those systems with pertinent positive or pertinent negative responses have been documented in the HPI. ROS Other: All systems not noted in ROS Statement are negative. Medical Decision Making - Lab Data Result diagrams: 03/20/19 15:45 03/20/19 15:45 Lab Results 03/20/19 03/20/19 03/20/19 Range/Units 15:45 15:45 19:00 WBC 6.9 (3.8-10.6) k/uL RBC 3.99 (3.80-5.40) m/uL Hgb 13.6 (11.4-16.0) gm/dL Hct 43.7 (34.0-46.0) % MCV 109.4 H (80.0-100.0) fL MCH 34.0 (25.0-35.0) pg MCHC 31.1 (31.0-37.0) g/dL RDW 12.9 (11.5-15.5) % Plt Count 235 (150-450) k/uL Neutrophils % 67 % Lymphocytes % 20 % Monocytes % 7 % Eosinophils % 4 % Basophils % 0 % Neutrophils # 4.6 (1.3-7.7) k/uL Lymphocytes # 1.3 (1.0-4.8) k/uL Monocytes # 0.5 (0-1.0) k/uL Eosinophils # 0.3 (0-0.7) k/uL Basophils # 0.0 (0-0.2) k/uL Macrocytosis Moderate Sodium 142 (137-145) mmol/L Potassium 4.3 (3.5-5.1) mmol/L Chloride 112 H (98-107) mmol/L Carbon Dioxide 24 (22-30) mmol/L Anion Gap 6 mmol/L BUN 34 H (7-17) mg/dL Creatinine 2.05 H (0.52-1.04) mg/dL Est GFR (CKD-EPI)AfAm 28 (>60 ml/min/1.73 sqM) Est GFR (CKD-EPI)NonAf 24 (>60 ml/min/1.73 sqM) Glucose 92 (74-99) mg/dL Calcium 9.6 (8.4-10.2) mg/dL Total Bilirubin 0.5 (0.2-1.3) mg/dL AST 24 (14-36) U/L ALT 11 (9-52) U/L Alkaline Phosphatase 92 (38-126) U/L Total Protein 6.5 (6.3-8.2) g/dL Albumin 3.8 (3.5-5.0) g/dL Urine Color Light Yellow Urine Appearance Cloudy H (Clear) Urine pH 6.0 (5.0-8.0) Ur Specific [place] 1.008 (1.001-1.035) Urine Protein Negative (Negative) Urine Glucose (UA) Negative (Negative) Urine Ketones Negative (Negative) Urine Blood Negative (Negative) Urine Nitrite Positive H (Negative) Urine Bilirubin Negative (Negative) Urine Urobilinogen <2.0 (<2.0) mg/dL Ur Leukocyte Esterase Large H (Negative) Urine RBC 2 (0-5) /hpf Urine WBC 41 H (0-5) /hpf Ur Squamous Epith Cells 2 (0-4) /hpf Urine Bacteria Few H (None) /hpf Urine Opiates Screen Not Detected (NotDetected) Ur Oxycodone Screen Not Detected (NotDetected) Urine Methadone Screen Not Detected (NotDetected) Ur Propoxyphene Screen Not Detected (NotDetected) Ur Barbiturates Screen Not Detected (NotDetected) U Tricyclic Antidepress Detected H (NotDetected) Ur Phencyclidine Scrn Not Detected (NotDetected) Ur Amphetamines Screen Not Detected (NotDetected) U Methamphetamines Scrn Not Detected (NotDetected) U Benzodiazepines Scrn Detected H (NotDetected) Urine Cocaine Screen Not Detected (NotDetected) U Marijuana (THC) Screen Not Detected (NotDetected) Serum Alcohol <10 mg/dL Disposition Clinical Impression: UTI (urinary tract infection), Altered mental status Disposition: ADMITTED IP TO THIS HOSP Condition: Fair Is patient prescribed a controlled substance at d/c from ED?: No Referrals: None,Stated [Primary Care Provider] - 1-2 days
[2019-03-21] MEDS ORDERED: SODIUM CHLORIDE 0.9% 1,000 ML IV SCH (00:30)
--- NOTE | 2019-03-21 01:17 | HP ---
HISTORY AND PHYSICAL DATE OF SERVICE: 03/20/2019. CHIEF COMPLAINTS: Change in mental status. HISTORY OF PRESENT ILLNESS: This 73-year-old woman with a past medical history of multiple medical problems including hyperlipidemia, seizures, hypothyroid, UTI, Parkinson's not being followed by any primary care physician in the outpatient setting, apparently confused, according to the daughter. Patient was taken to [facility] and daughter asked for petition the patient because of change in mental status. Patient is confused, unable to cooperate with the exam. The patient found to have UTI and the patient admitted for further evaluation and treatment. Creatinine was found to be 2.05 also. There is no history of any headache, any loss consciousness, seizures or any trauma at this time. PAST MEDICAL HISTORY: History of hyperlipidemia, seizure disorder, hypothyroid and UTI, Parkinson's. MEDICATIONS: Home medications are: 1. Wellbutrin XL 300 mg p.o. daily. 2. Seroquel 100 mg q.h.s. 3. Compazine 10 mg p.o. t.i.d. 4. Macrodantin 50 mg p.o. daily. 5. [place] carbonate 150 mg p.o. b.i.d. 6. Synthroid 100 mcg p.o. daily. 7. Lactulose 10 g p.o. Tuesday, Tuesday, Tuesday. 8. Ativan 0.5 mg t.i.d. 9.ethacrynic acid 25 mg p.o. b.i.d. 10.Colace 100 mg p.o. b.i.d. 11.Depakote ER 1000 mg q.h.s. 12.Tae cranberry 250 mg p.o. daily. 13.Sinemet CR 50/200 p.o. t.i.d. 14.Rocaltrol 0.25 mg Tuesday. 15.Vitamin B complex 1 p.o. q.h.s. 16.Lipitor 10 mg q.h.s. 17.Ecotrin 81 mg. 18.Zyloprim 100 mg p.o. daily. ALLERGIES: RISPERDAL, SULFA, FUROSEMIDE, IBUPROFEN, SPIRONOLACTONE, TORSEMIDE, Family history, social history and review of systems could not be taken because the patient is confused. PHYSICAL EXAM: Patient is conscious confused. Pulse 75, blood pressure 115/78, respiration 19, temperature 99.1, pulse ox 98% on room air. HEENT: Conjunctivae normal. Oral mucosa is dry. NECK is no jugular venous distention. No carotid bruit. No lymph node enlargement. CARDIOVASCULAR SYSTEM: S1, S2 muffled. No S3. No S4. RESPIRATORY: Breath sounds diminished in the bases. No rhonchi. No crackles. ABDOMEN: Soft, nontender. No mass palpable. LEGS: No edema. No swelling. NERVOUS SYSTEM: Higher functions as mentioned earlier. Otherwise patient unable to cooperate with full exam. Mild diffuse weakness and tremors. Increased tone noted. SKIN: No ulcers. JOINTS: No active deforming arthropathy. LABS: At this time shows WBC 6.2, hemoglobin 13.6, MCV 109.4, and chloride is 112. Creatinine is 2.05. UA noted. ASSESSMENT: 1. Possible acute urinary tract infection with sepsis. 2. Change in mental status acute metabolic encephalopathy secondary to sepsis. 3. Increased creatinine with possible acute kidney failure. 4. Possible prerenal. 5. Increased MCV. 6. Hyperlipidemia. 7. History of seizure disorder. 8. Hypothyroidism. 9. Urinary tract infection. 10.History of parkinsonism. 11.Gait dysfunction. 12.Anxiety, depression. 13.Remote history of nicotine dependence. 14.Obesity with body mass index 41.5. RECOMMENDATIONS AND DISCUSSION: In this 73-year-old woman who presented with multiple complex medical issues, we will monitor the patient closely. The patient is started on Rocephin. We will continue to monitor. I would also recommend social work evaluation. PT/OT evaluation to evaluate the home situation. The patient is on multiple medications. We will screen those medications and order relevant medications. The patient apparently has Parkinson's and other neurology and psychiatric issues also. We will also try to obtain some old records as well. Currently according to the chart the patient does not have a primary physician. We will investigate that also in the morning and continue to monitor. Prognosis guarded. Discussed with staff. Further recommendations to follow. See orders for details. MMODL / IJN: [id number] / MTDD
--- NOTE | 2019-03-21 08:21 | CT ---
EXAMINATION TYPE: CT brain wo con DATE OF EXAM: 03/21/2019 HISTORY: Confusion, weakness, UTI CT DLP: 1139 mGycm. Automated Exposure Control for Dose Reduction was Utilized. TECHNIQUE: CT scan of the head is performed without contrast. COMPARISON: CT brain January 19, 2018 FINDINGS: Exam suboptimal as is degraded by patient motion. There is no acute intracranial hemorrha ge or midline shift identified. There is diffuse ventricular and sulcal prominence consistent with di ffuse age-related cerebral atrophy. There is low-attenuation in the periventricular white matter con sistent with chronic small vessel ischemic change. Hyperostosis frontalis is present. The globes are intact and the visualized sinuses are clear. There is new small acute frontal scalp hematoma axial image 39. Adjacent calvarium is intact. IMPRESSION: No acute intracranial hemorrhage or midline shift. There is moderate diffuse age-relate d cerebral atrophy and chronic small vessel ischemic change redemonstrated without significant interv al change. There is new small acute frontal scalp hematoma in the midline noted suggesting recent in jury.
[2019-03-21] MEDS ORDERED: CALCITRIOL 0.25 MCG CAP PO SCH (09:00)
[2019-03-21 09:08] LABS: Basophils % (A) 1 %; Eosinophils # (A) 0.3 k/uL (0-0.7); Eosinophils % (A) 4 %; HCT 40.7 % (34.0-46.0); HGB 12.7 gm/dL (11.4-16.0); Lymphocytes % (A) 32 %; MCH 34.8 pg (25.0-35.0); MCHC 31.2 g/dL (31.0-37.0); MCV 111.6 fL (80.0-100.0); Macrocytosis Marked; Mean Platelet Volume 7.9; Monocytes # (A) 0.5 k/uL (0-1.0); Monocytes % (A) 8 %; Neutrophils # (A) 3.2 k/uL (1.3-7.7); Neutrophils % (A) 53 %; Platelet Count 224 k/uL (150-450); RBC 3.65 m/uL (3.80-5.40); RDW 12.9 % (11.5-15.5); WBC 6.1 k/uL (3.8-10.6)
[2019-03-21 09:15] LABS: Calcium 9.3 mg/dL (8.4-10.2); Potassium 4.3 mmol/L (3.5-5.1)
[2019-03-21] MEDS: LITHIUM CARBONATE 150 MG CAP PO SCH ×2 (09:44→16:18)
[2019-03-21] MEDS: ASPIRIN 81 MG PO SCH (09:44)
[2019-03-21] MEDS: CARBIDOPA-LEVODOPA ER 50-200MG 1 EACH TABLET.ER PO SCH ×2 (09:44→16:18)
[2019-03-21] MEDS: ALLOPURINOL 100 MG TAB PO SCH (09:44)
[2019-03-21] MEDS: LEVOTHYROXINE 100 MCG TAB PO SCH (09:44)
[2019-03-21] MEDS: DOCUSATE 100 MG CAP PO SCH ×2 (09:45→16:18)
[2019-03-21 10:07] LABS: Poikilocytosis (M) Present
[2019-03-21 10:13] LABS: Valproic Acid (Depakene) 53.2 ug/mL
[2019-03-21 10:25] LABS: T4, Free (Free Thyroxine) 0.94 ng/dL (0.78-2.19)
[2019-03-21] MEDS: D5W WITH KCL 20 MEQ/L 1,000 ML IV SCH (13:36)
--- NOTE | 2019-03-21 16:36 | PN ---
PROGRESS NOTE DATE OF SERVICE: 03/21/2019 This 73-year-old woman who was admitted with change in mental status, acute metabolic encephalopathy, secondary to sepsis is being closely monitored at this time. The patient also had dementia in the CT scan. Patient follows with Dr. Lopez in the outpatient setting with no primary followup per the patient. The patient has features of UTI. Patient was started on empiric antibiotics. Patient is still confused and delirious at this time. PAST MEDICAL HISTORY: Reviewed. REVIEW OF SYSTEMS: CARDIOVASCULAR: No angina. RESPIRATORY: As mentioned earlier. GI no nausea or vomiting. : No dysuria. CENTRAL NERVOUS SYSTEM: No numbness or weakness. CURRENT MEDICATIONS: 1. Zyloprim 100 mg. 2. Aspirin 81 mg. 3. Lipitor 10 mg q.h.s. 4. Rocaltrol 0.25 mg p.o. Tuesday. 5. Sinemet 50/100 p.o. b.i.d. 6. Rocephin 1 g daily. 7. Depakote ER 1000 mg q.h.s. 8. Colace 100 mg. 9. 10 mg Tuesday, Tuesday and Tuesday. 10.Synthroid 100 mcg p.o. daily. 11.Hope carbonate 150 mg p.o. b.i.d. 12.Seroquel 100 mg p.o. q.h.s. PHYSICAL EXAM: Patient is alert, oriented x3. Pulse 102. Blood pressure 140/85, respiration 18, temperature 99.4, pulse ox 94% on room air. HEENT: Conjunctivae normal. Oral mucosa moist. NECK is no jugular venous distention. No carotid bruit. No lymph node enlargement. CARDIOVASCULAR system: S1, S2 muffled. No S3, no S4. RESPIRATORY: Breath sounds diminished in the bases. A few scattered rhonchi and crackles. ABDOMEN: Soft, nontender. No mass palpable. LEGS: No edema. No swelling. NERVOUS SYSTEM: Higher functions as mentioned earlier. Moves all four limbs. Diffuse tremors and tone is increased. LYMPHATICS: No lymph nodes palpable in the neck, axillae or groin. SKIN: No ulcer, rash or bleeding. JOINTS: No active deforming arthropathy. LAB STUDIES: WBC 6.1, hemoglobin 12.7, sodium 146, creatinine is 2. TSH is 14.900. Valproic acid is 53.2, which is therapeutic and lithium is 0.7 which is again therapeutic. Alcohol less than 10. ASSESSMENT: 1. Acute urinary tract infection with possible sepsis. 2. Change in mental status possible acute metabolic encephalopathy secondary to sepsis. 3. Increased creatinine with possible acute renal failure possibly prerenal acute renal failure with acute tubular necrosis. 4. Possible underlying dementia. 5. Increased MCV. 6. Hyperlipidemia. 7. History of seizure disorder. 8. Hypothyroidism. 9. History urinary tract infection. 10.History of Parkinson's. 11.History of gait dysfunction. 12.History of anxiety, depression. 13.Remote history of nicotine dependence. 14.Obesity with body mass index of 41.5. RECOMMENDATIONS AND DISCUSSION: This 73-year-old woman who presented with multiple complex medical issues. We will monitor the patient closely, continue the current medications, management and symptomatic treatment. Otherwise, at this time, continue the empiric antibiotics, exact etiology of change in mental status may be multifactorial. Dementia underlying is also a concern. Neurology has been consulted. The patient also multiple psych issues with different psych medications. Psychiatry also has been consulted for evaluation and adjustment of medications also. Otherwise, PT/OT will be consulted regarding possible ECF rehab with social work evaluation. The prognosis is guarded because of multiple complex medical issues. Further recommendations to follow. MMODL / IJN: [id number] / ALYSSA
[2019-03-21] MEDS: DIVALPROEX ER 500 MG TAB.ER.24H PO SCH (23:52)
[2019-03-21] MEDS: ATORVASTATIN 10 MG TAB PO SCH (23:52)
[2019-03-21] MEDS: QUEtiapine 100 MG TAB PO SCH (23:52)
[2019-03-22] MEDS: D5W WITH KCL 20 MEQ/L 1,000 ML IV SCH ×2 (01:31→15:28)
[2019-03-22] MEDS: THIAMINE 100 MG TAB PO SCH (08:37)
[2019-03-22] MEDS: ASPIRIN 81 MG PO SCH (08:37)
[2019-03-22] MEDS: DOCUSATE 100 MG CAP PO SCH ×2 (08:37→16:22)
[2019-03-22] MEDS: FOLIC ACID 1 MG TAB PO SCH (08:37)
[2019-03-22] MEDS: ALLOPURINOL 100 MG TAB PO SCH (08:37)
[2019-03-22] MEDS: MULTIVITAMINS, THERA 1 EACH TAB PO SCH (08:37)
[2019-03-22] MEDS: LEVOTHYROXINE 100 MCG TAB PO SCH (08:37)
[2019-03-22] MEDS: LITHIUM CARBONATE 150 MG CAP PO SCH ×2 (08:44→16:22)
[2019-03-22] MEDS: CARBIDOPA-LEVODOPA ER 50-200MG 1 EACH TABLET.ER PO SCH ×2 (08:44→16:22)
[2019-03-22 09:09] LABS: Calcium 9.7 mg/dL (8.4-10.2); Potassium 4.6 mmol/L (3.5-5.1)
[2019-03-22 09:21] LABS: Basophils % (A) 1 %; Eosinophils # (A) 0.2 k/uL (0-0.7); Eosinophils % (A) 3 %; HCT 42.7 % (34.0-46.0); HGB 13.6 gm/dL (11.4-16.0); Lymphocytes % (A) 37 %; MCH 35.7 pg (25.0-35.0); MCHC 31.7 g/dL (31.0-37.0); MCV 112.5 fL (80.0-100.0); Macrocytosis Marked; Mean Platelet Volume 8.2; Monocytes # (A) 0.4 k/uL (0-1.0); Monocytes % (A) 7 %; Neutrophils # (A) 2.8 k/uL (1.3-7.7); Neutrophils % (A) 51 %; Platelet Count 197 k/uL (150-450); RBC 3.79 m/uL (3.80-5.40); RDW 12.7 % (11.5-15.5); WBC 5.6 k/uL (3.8-10.6)
--- NOTE | 2019-03-22 09:43 | XR ---
EXAMINATION TYPE: XR chest 1V portable DATE OF EXAM: 03/22/2019 COMPARISON: 04/12/2018 INDICATION: CHF, UTI TECHNIQUE: Single frontal view of the chest is obtained. FINDINGS: The heart size is normal. The pulmonary vasculature is normal. The lungs are clear. Is chronic elevation of the right diaphragm. IMPRESSION: 1. No acute pulmonary process.
--- NOTE | 2019-03-22 17:00 | PN ---
PROGRESS NOTE DATE OF SERVICE: 03/22/2019 This 73-year-old woman who was admitted with acute urinary tract infection with possible sepsis, still continues to be confused. The most recent chest x-ray done today showed no acute pulmonary process. The cultures are negative so far. No chest pain or palpitations. No fever. EXAM: Alert and oriented x2. Pulse 85, blood pressure 140/84. Respirations 18, temperature 98.4, pulse ox 98% on room air. HEENT: Conjunctivae normal. NECK: No jugular venous distention. CARDIOVASCULAR: S1, S2 muffled. RESPIRATORY: Breath sounds diminished in the bases. A few scattered rhonchi and crackles. ABDOMEN is soft, nontender. LEGS are no edema. No swelling. CENTRAL NERVOUS SYSTEM: No focal deficits. LABS: WBC 5.2, hemoglobin 13.6, sodium 140, potassium 4.6, creatinine is 1.81. Drug screen noted. ASSESSMENT: 1. Acute urinary tract infection with possible sepsis. 2. Change in mental status possible acute metabolic encephalopathy secondary to sepsis. 3. Increased creatinine with possible acute renal failure possibly prerenal, acute renal failure with acute tubular necrosis. 4. Possible underlying dementia. 5. Increased MCV. 6. Hyperlipidemia. 7. History of seizure disorder. 8. Hypothyroidism. 9. Urinary tract infection. 10.History of Parkinson's. 11.History of gait dysfunction. 12.Anxiety/depression. 13.Remote history of nicotine dependence. 14.Obesity with body mass index 41.5. RECOMMENDATIONS AND DISCUSSION: Recommend to continue current medications, continue with monitoring, management and symptomatic treatment. Otherwise, at this time, I recommend continued antibiotics. Otherwise, closely follow. Repeat creatinine and closely follow with Neurology and as well as Psychiatry. Further recommendations to follow. MMODL / IJN: [id number] /
--- NOTE | 2019-03-22 17:30 | P.CN ---
Psychiatric Consult - . Consult date: 03/22/19 Consult:: 03/22/19 17:20 Identification: Patient is a 73-year-old female was brought to the emergency room due to confusion Reason for Consult: Confusion History of Present Illness: Patient was brought to the emergency room by her daughter and was discovered to have a urinary tract infection and elevated creatinine. Patient's chart was reviewed, patient was seen and interviewed in her room no family members were present. Patient is a poor historian. Patient at home has been on Wellbutrin 300 mg a day, Seroquel 100 mg at bedtime, lithium 150 mg twice a day and Depakote 1000 mg extended release and she is also been taking Compazine 10 mg 3 times a day patient also has a diagnosis of Parkinson's and is on Sinemet. Patient is unable to tell me any information regarding her psychiatric history other than that she has been treated in the past with numerous admissions there and then here in the last 5 years. Patient was a prior patient of [facility] but is unclear at this time who is been prescribing and monitoring her psychiatric medications. Patient is unable to tell me why she was brought to the hospital, patient states that she lives with her daughter who she states is her guardian but that is not the way it should be. 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 Patient then went on to discuss numerous complaints that she has regarding her past medical care, regarding issues with her doctors and procedures that were done. Patient relates about a friend's illness and his symptoms none of which made any sense. Further information was not obtainable from the patient. Past Psychiatric History: Patient has a long psychiatric history with numerous prior admissions and most likely diagnosis of bipolar disorder secondary to her medication profile. Patient's current medications are as listed above. Past Medical/Surgical History: Patient has a history of hyperlipidemia, seizure disorder hypothyroidism and Parkinson's disorder. Family History: Unobtainable from the patient Social History: Patient states that she has been and then told me that she has more than 8 children. Further information regarding her social history is not obtainable Substance Use History: Not able to be obtained from the patient Mental status: Appearance/Attitude: Patient is sitting in a hospital chair in no acute distress, she makes eye contact and was cooperative Behavior: Patient did not display any psychomotor agitation or retardation. Speech/Language: Patient's speech is spontaneous and she speaks in a normal volume and rhythm and is coherent Thought Process: Patient's responses are rambling and irrelevant Thought Content: Patient denies auditory or visual hallucinations and her descriptions of difficulties with physicians, a friend's illness are of a delusional quality. Patient states that she has been sleeping and eating well. Suicidal/Homicidal Ideation: Patient denies any current suicidal or homicidal ideation Sensorium/Cognition: Patient is alert and she is oriented to location but not why she is here, she could not tell me her age but stated she was born in 1945. Patient thought the year was 2017 and the month October when asked to look out the window she then stated it was March. Further cognitive testing could not be performed as the patient is not able to respond in a relevant fashion Mood/Affect: Patient's mood was pleasant and her affect was appropriate to her m ood Insight/Judgment: Patient insight and judgment are impaired Assessment: Patient was admitted and discovered to have a urinary tract infection and an elevated creatinine level, she presents with confusion and no family members are present to establish what this patient's baseline functioning is. Patient has a long psychiatric history and it is unclear who has been providing her psychiatric medications. Patient's presumed psychiatric diagnosis is a bipolar disorder due to the combination of medications that she is on. Patient's lithium level drawn randomly was 0.7 and a Depakote level of 53.2. Diagnosis: Delirium, Bipolar disorder Plan: Patient is being continued on her Wellbutrin, Seroquel, lithium and Depakote to Compazine is been held and I would recommend continuing to hold it as it is another antipsychotic and the patient is already on Seroquel. Will order a repeat lithium level to be drawn in the morning before her morning dose of lithium to assess what her lithium level is and would recommend drawing an ammonia level as the patient is on Depakote and has some level of confusion. At this time the patient is not expressing any suicidal or homicidal ideation, is unclear what the patient's baseline level of functioning is. Will assess the patient as her medical status is stabilized, review her lithium level and ammonia level.
[2019-03-22] MEDS: ATORVASTATIN 10 MG TAB PO SCH (22:29)
[2019-03-22] MEDS: DIVALPROEX ER 500 MG TAB.ER.24H PO SCH (22:30)
[2019-03-22] MEDS: QUEtiapine 100 MG TAB PO SCH (22:30)
[2019-03-23] MEDS ORDERED: LACTULOSE 20 GM/30 ML CUP PO SCH
[2019-03-23] MEDS: D5W WITH KCL 20 MEQ/L 1,000 ML IV SCH ×2 (03:56→20:23)
[2019-03-23] MEDS: MULTIVITAMINS, THERA 1 EACH TAB PO SCH (08:03)
[2019-03-23] MEDS: ALLOPURINOL 100 MG TAB PO SCH (08:03)
[2019-03-23] MEDS: ASPIRIN 81 MG PO SCH (08:03)
[2019-03-23] MEDS: FOLIC ACID 1 MG TAB PO SCH (08:03)
[2019-03-23] MEDS: LEVOTHYROXINE 100 MCG TAB PO SCH (08:03)
[2019-03-23] MEDS: LITHIUM CARBONATE 150 MG CAP PO SCH ×2 (08:04→17:00)
[2019-03-23] MEDS: CARBIDOPA-LEVODOPA ER 50-200MG 1 EACH TABLET.ER PO SCH ×2 (08:04→17:00)
[2019-03-23] MEDS: THIAMINE 100 MG TAB PO SCH (08:08)
[2019-03-23] MEDS: DOCUSATE 100 MG CAP PO SCH ×2 (08:08→17:00)
[2019-03-23 09:43] LABS: Basophils % (A) 1 %; Eosinophils # (A) 0.4 k/uL (0-0.7); Eosinophils % (A) 5 %; HGB 13.5 gm/dL (11.4-16.0); Lymphocytes # (A) 2.5 k/uL (1.0-4.8); Lymphocytes % (A) 34 %; MCH 34.7 pg (25.0-35.0); MCHC 30.8 g/dL (31.0-37.0); MCV 112.7 fL (80.0-100.0); Macrocytosis Marked; Mean Platelet Volume 7.9; Monocytes # (A) 0.5 k/uL (0-1.0); Monocytes % (A) 6 %; Neutrophils # (A) 3.8 k/uL (1.3-7.7); Neutrophils % (A) 53 %; Platelet Count 225 k/uL (150-450); RDW 12.8 % (11.5-15.5); WBC 7.3 k/uL (3.8-10.6)
[2019-03-23 09:50] LABS: Calcium 9.6 mg/dL (8.4-10.2); Lithium 0.6 mmol/L; Potassium 4.9 mmol/L (3.5-5.1)
[2019-03-23 14:09] LABS: Toxic Granulation Present
--- NOTE | 2019-03-23 15:13 | P.PN ---
Progress Note - Text Progress Note Date: 03/23/19 Patient's chart was reviewed and her lithium level was 0.6 which is in the therapeutic range and her ammonia level was less than 9, so no adjustment is needed in her lithium dosage and her Depakote level was also within therapeutic range no adjustment is required, patient has been followed at [facility] and has been taking her medications as they have been monitored by her daughter when she is at home. Patient did not express any suicidal or homicidal ideation during my evaluation yesterday, she was somewhat rambling and tangential in her speech with grandiose delusions however the patient has been eating and taking her medications while on the medical floor. At this time I see no reason to admit the patient to an inpatient psychiatric unit, as she is not actively suicidal or homicidal, she is cooperating with treatment on the medical floor and compliant with her medication, her medications if needed can be adjusted while she is in the group home, I spoke with social work about the plan [facility]. Reviewing the petition there are no statements on the petition that the patient was voicing any suicidal or homicidal statements, nor that she had not been taking her medication refusing to attend clinic appointments. Would continue the patient's medications at their current dosage at the time of transfer to the group home.
--- NOTE | 2019-03-23 18:51 | PN ---
PROGRESS NOTE DATE OF SERVICE: 03/23/2019. This 73-year-old woman was admitted with change in mental status, possible UTI and sepsis. The patient also had significant psychosis and bipolar according to the family and the daughter is petitioning the patient for close inpatient psychiatric and adjust medications also. No chest pain. No palpitation. EXAM: Alert and oriented x1. Pulse 64. Blood pressure 126/74, respiration 16, temperature 98.4, pulse ox 97% on room air. HEENT: Conjunctivae normal. NECK: No jugular venous distention. CARDIOVASCULAR: S1, S2 muffled. RESPIRATIONS: Breath sounds diminished in the bases. A few scattered rhonchi and crackles. ABDOMEN is soft, nontender. LEGS are no edema. No swelling. CENTRAL NERVOUS SYSTEM: No focal deficits. LABS: Sodium 140, potassium 4.9, CO2 is 21, creatinine is 1.73. ASSESSMENT: 1. Acute urinary tract infection with possible sepsis. 2. Change in mental status, possibly acute metabolic acidosis secondary to sepsis and possible psychosis. 3. Increased creatinine with possible acute renal failure, possibly prerenal. 4. Acute tubular necrosis. 5. Underlying dementia, possibly. 6. Increased MCV. 7. Hyperlipidemia. 8. History of seizure disorder. 9. Hypothyroidism. 10.Urinary tract infection. 11.History of Parkinson's. 12.History of gait dysfunction. 13.History of anxiety, depression. 14.Remote history of nicotine dependence. 15.Obesity with body mass index of 41.5. RECOMMENDATIONS AND DISCUSSION: Continue current medications, continue with monitoring, management and symptomatic treatment. Otherwise, discussed with the daughter who would like the patient to be referred to inpatient psych because of the concerns of psychosis and other multiple medical issues. The patient had multiple episodes of psychotic episodes per the daughter as an outpatient. I would recommend inpatient psych and closely follow with Psychiatry. Further recommendations to follow. MMODL / IJN: [id number] /
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
[2019-03-23] MEDS: ATORVASTATIN 10 MG TAB PO SCH (20:23)
[2019-03-23] MEDS: DIVALPROEX ER 500 MG TAB.ER.24H PO SCH (20:23)
[2019-03-23] MEDS: QUEtiapine 100 MG TAB PO SCH (21:34)
[2019-03-24 06:55] LABS: Basophils # (A) 0.1 k/uL (0-0.2); Basophils % (A) 1 %; Eosinophils # (A) 0.3 k/uL (0-0.7); Eosinophils % (A) 5 %; HCT 39.7 % (34.0-46.0); HGB 12.4 gm/dL (11.4-16.0); Lymphocytes # (A) 2.2 k/uL (1.0-4.8); Lymphocytes % (A) 35 %; MCH 34.7 pg (25.0-35.0); MCHC 31.3 g/dL (31.0-37.0); MCV 110.8 fL (80.0-100.0); Mean Platelet Volume 8.3; Monocytes # (A) 0.5 k/uL (0-1.0); Monocytes % (A) 8 %; Neutrophils # (A) 3.1 k/uL (1.3-7.7); Neutrophils % (A) 49 %; Platelet Count 198 k/uL (150-450); RBC 3.58 m/uL (3.80-5.40); RDW 12.9 % (11.5-15.5); WBC 6.3 k/uL (3.8-10.6)
[2019-03-24 07:03] LABS: Macrocytosis Marked
[2019-03-24 07:05] LABS: Calcium 9.4 mg/dL (8.4-10.2); Potassium 5.3 mmol/L (3.5-5.1)
[2019-03-24] MEDS: THIAMINE 100 MG TAB PO SCH (08:06)
[2019-03-24] MEDS: D5W WITH KCL 20 MEQ/L 1,000 ML IV SCH (08:07)
[2019-03-24] MEDS: CARBIDOPA-LEVODOPA ER 50-200MG 1 EACH TABLET.ER PO SCH ×2 (08:07→16:18)
[2019-03-24] MEDS: LEVOTHYROXINE 100 MCG TAB PO SCH (08:07)
[2019-03-24] MEDS: DOCUSATE 100 MG CAP PO SCH ×2 (08:07→16:18)
[2019-03-24] MEDS: ALLOPURINOL 100 MG TAB PO SCH (08:07)
[2019-03-24] MEDS: LITHIUM CARBONATE 150 MG CAP PO SCH ×2 (08:07→16:18)
[2019-03-24] MEDS: MULTIVITAMINS, THERA 1 EACH TAB PO SCH (08:07)
[2019-03-24] MEDS: ASPIRIN 81 MG PO SCH (08:07)
[2019-03-24] MEDS: FOLIC ACID 1 MG TAB PO SCH (08:07)
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
[2019-03-24 12:17] LABS: Folate, Serum 10.7 ng/mL
--- NOTE | 2019-03-24 14:09 | P.DS ---
Providers Date of admission: 03/21/19 14:11 Attending physician: Lexus Poon Consults: 03/21/19 00:41 Consult Physician Routine Consulting Provider: Faye Marcos Consult Reason/Comments: confusion Do you want consulting provider notified?: Already Contacted 03/21/19 00:44 Consult Physician Routine Consulting Provider: Elliot Osuna Consult Reason/Comments: confusion Do you want consulting provider notified?: Yes, Notify in am Primary care physician: Stated None Hospital Course: Final diagnosis Acute UTI with the possible sepsis Change in mental status possibly acute metabolic encephalopathy secondary to sepsis and the possible psychosis. Increased creatinine with possible acute renal failure possibly prerenal acute tubular necrosis Underlying dementia possibly Increased MCV Hyperlipidemia History of seizure disorder Hypothyroidism History UTI History of Parkinson's extensor gait dysfunction next History of anxiety depression Remote history and nicotine dependence next in obesity body mass in this of 41.5 Discharge disposition This patient be discharged in a stable condition with guarded prognosis after clearance for psychiatric neurology to [facility]. Total time taken is 40 minutes. History of present illness This 73-year-old woman with a past medical history multiple medical was admitted to the hospital with change in mental status. The possibility UTI sepsis considered. Patient was given antibiotics. Cultures are negative. Sensorium improved significantly. Patient also has significant psychiatric comorbidities. Patient was also evaluated for psychiatric neurology. PTOT eval the patient. The psychiatric physician recommended outpatient follow-up. Please refer to details often neurology and psychiatric notes for further information. On exam vitals are stable. Cardio S1-S2 normal. Respiratory system clear to auscultation. Abdomen soft nontender. Nervous system mild diffuse weakness. Please refer to medication reconciliation list for list of medications. Patient Condition at Discharge: Fair Plan - Discharge Summary Discharge Rx Participant: No New Discharge Prescriptions: New Folic Acid 1 mg PO DAILY@1200 tab Multivitamins, Thera [Multivitamin (formulary)] 1 each PO DAILY@1200 tab Thiamine [Vitamin B-1] 100 mg PO DAILY@1200 tab Cefuroxime Axetil [Ceftin] 500 mg PO BID 3 Days #6 tab Continue Nitrofurantoin Macrocrystal [Macrodantin] 50 mg PO DAILY@0900 Lactulose 10 gm PO MOWEFR@0000 Docusate [Colace] 100 mg PO BID@0900,1700 [place] Carbonate 150 mg PO BID@0900,1700 Carbidopa/Levodopa [Sinemet CR 50-200 mg] 1 tab PO BID@0900,1700 Levothyroxine Sodium [Synthroid] 100 mcg PO DAILY@0900 Calcitriol [Rocaltrol] 0.25 mcg PO WE Atorvastatin Calcium [Lipitor] 10 mg PO HS@0000 Allopurinol [Zyloprim] 100 mg PO DAILY@0900 Divalproex ER [Depakote ER] 1,000 mg PO HS@0000 Cranberry Fruit Concentrate [Azo Cranberry] 250 mg PO DAILY@0900 B Complex W-C No.20/Folic Acid [Renal Caps Softgel] 1 mg PO HS@0000 Aspirin EC [Ecotrin Low Dose] 81 mg PO DAILY@0900 LORazepam [Ativan] 0.5 mg PO TID@0900,1700,0000 #10 tablet QUEtiapine [SEROquel] 100 mg PO HS@0000 #5 tab buPROPion HCL [Wellbutrin XL] 300 mg PO DAILY@0900 #5 tab.er.24h Discontinued Prochlorperazine [Compazine] 10 mg PO TID@0830,1630,2330 Ethacrynic Acid 25 mg PO BID@0900,1700 Discharge Medication List Allopurinol [Zyloprim] 100 mg PO DAILY@0900 03/20/19 [History] Aspirin EC [Ecotrin Low Dose] 81 mg PO DAILY@0900 03/20/19 [History] Atorvastatin Calcium [Lipitor] 10 mg PO HS@0000 03/20/19 [History] B Complex W-C No.20/Folic Acid [Renal Caps Softgel] 1 mg PO HS@0000 03/20/19 [History] Calcitriol [Rocaltrol] 0.25 mcg PO WE 03/20/19 [History] Carbidopa/Levodopa [Sinemet CR 50-200 mg] 1 tab PO BID@0900,1700 03/20/19 [History] Cranberry Fruit Concentrate [Azo Cranberry] 250 mg PO DAILY@0900 03/20/19 [History] Divalproex ER [Depakote ER] 1,000 mg PO HS@0000 03/20/19 [History] Docusate [Colace] 100 mg PO BID@0900,1700 03/20/19 [History] Lactulose 10 gm PO MOWEFR@0000 03/20/19 [History] Levothyroxine Sodium [Synthroid] 100 mcg PO DAILY@0900 03/20/19 [History] [place] Carbonate 150 mg PO BID@0900,1700 03/20/19 [History] Nitrofurantoin Macrocrystal [Macrodantin] 50 mg PO DAILY@0900 03/20/19 [History] Cefuroxime Axetil [Ceftin] 500 mg PO BID 3 Days #6 tab 03/24/19 [Rx] Folic Acid 1 mg PO DAILY@1200 tab 03/24/19 [Rx] LORazepam [Ativan] 0.5 mg PO TID@0900,1700,0000 #10 tablet 03/24/19 [Rx] Multivitamins, Thera [Multivitamin (formulary)] 1 each PO DAILY@1200 tab 03/24/19 [Rx] QUEtiapine [SEROquel] 100 mg PO HS@0000 #5 tab 03/24/19 [Rx] Thiamine [Vitamin B-1] 100 mg PO DAILY@1200 tab 03/24/19 [Rx] buPROPion HCL [Wellbutrin XL] 300 mg PO DAILY@0900 #5 tab.er.24h 03/24/19 [Rx] Follow up Appointment(s)/Referral(s): None,Stated [Primary Care Provider] - 1-2 days Activity/Diet/Wound Care/Special Instructions: IF PATIENT GOES TO [facility], PACKET IS IN CHART. FOLLOW DIRECTIONS ON PACKET. f/u psych and neuro as advised CBC BMP in 2-3 days in ECF and F/U
[2019-03-24 14:46] VITALS: BP 94/52; PULSE 96; RESP 18; TEMP 97.6
== END 2019-03-24 18:57 | DRG 871 ==
LOC: EC 14:19 → 4MS4W 20:45 → MERGE 03-21 14:11 → OBSVTOIN 03-21 14:11 → 4SSUR 03-23 15:09
PROVIDERS: ADMIT Hospitalist; ATTEND Hospitalist
DX: A41.9 Sepsis, unspecified organism (principal); G93.41 Metabolic encephalopathy; N17.0 Acute kidney failure with tubular necrosis; N39.0 Urinary tract infection, site not specified; Z68.41 Body mass index [BMI] 40.0-44.9, adult; D75.89 Other specified diseases of blood and blood-forming organs; E03.9 Hypothyroidism, unspecified; E66.9 Obesity, unspecified; E78.5 Hyperlipidemia, unspecified; F02.80 Dementia in other diseases classified elsewhere, unspecified severity, without behavioral disturbance, psychotic disturbance, mood disturbance, and anxiety; F31.9 Bipolar disorder, unspecified; F41.9 Anxiety disorder, unspecified; G20 Parkinson's disease; G40.909 Epilepsy, unspecified, not intractable, without status epilepticus; R65.20 Severe sepsis without septic shock; Z79.82 Long term (current) use of aspirin; Z79.890 Hormone replacement therapy; Z79.899 Other long term (current) drug therapy; Z87.440 Personal history of urinary (tract) infections; Z87.891 Personal history of nicotine dependence; F29 Unspecified psychosis not due to a substance or known physiological condition; Z88.6 Allergy status to analgesic agent; Z88.2 Allergy status to sulfonamides; Z88.8 Allergy status to other drugs, medicaments and biological substances; R26.9 Unspecified abnormalities of gait and mobility
CPT/HCPCS: 36415; 70450; 71045; 80048; 80053; 80061; 80164; 80178; 80306; 80320; 81001; 82140; 82607; 82746; 84439; 84443; 85025; 86780; 96360; 96361; 99285

== ENCOUNTER 2019-03-28 05:22 | Emergency (ER) | payer MEDICARE, OTHER ==
[2019-03-28 05:38] VITALS: TEMP 97.8
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
[2019-03-28 06:18] LABS: Basophils % (A) 1 %; Eosinophils # (A) 0.2 k/uL (0-0.7); Eosinophils % (A) 4 %; HCT 42.1 % (34.0-46.0); HGB 13.3 gm/dL (11.4-16.0); Lymphocytes # (A) 1.9 k/uL (1.0-4.8); Lymphocytes % (A) 29 %; MCH 35.1 pg (25.0-35.0); MCHC 31.6 g/dL (31.0-37.0); Macrocytosis Marked; Mean Platelet Volume 7.3; Monocytes # (A) 0.4 k/uL (0-1.0); Monocytes % (A) 7 %; Neutrophils # (A) 3.7 k/uL (1.3-7.7); Neutrophils % (A) 58 %; Platelet Count 286 k/uL (150-450); WBC 6.4 k/uL (3.8-10.6)
--- NOTE | 2019-03-28 06:22 | XR ---
EXAM: XR Pelvis, 1 or 2 Views CLINICAL HISTORY: Status post fall with pain. TECHNIQUE: Frontal view of the pelvis. COMPARISON: No relevant prior studies available. FINDINGS: Bones/joints: Mild osteoarthropathy involving both hips. No acute fracture. No dislocation. Soft tissues: Heterotopic ossifications lateral to the left hip. IMPRESSION: No acute findings.
[2019-03-28 06:27] LABS: Calcium 9.6 mg/dL (8.4-10.2); Lithium 0.5 mmol/L
[2019-03-28 06:44] LABS: MCV 110.9 fL (80.0-100.0)
[2019-03-28 07:17] LABS: Anisocytosis (M) Present
[2019-03-28 07:20] LABS: Polychromasia Present
[2019-03-28 08:41] LABS: T4, Free (Free Thyroxine) 1.12 ng/dL (0.78-2.19)
[2019-03-28 11:25] VITALS: BP 124/79; PULSE 86; RESP 17
== END 2019-03-28 11:10 | disposition home or self-care (01) ==
LOC: EC 05:22
DX: G20 Parkinson's disease (principal); F02.80 Dementia in other diseases classified elsewhere, unspecified severity, without behavioral disturbance, psychotic disturbance, mood disturbance, and anxiety; E78.5 Hyperlipidemia, unspecified; E07.9 Disorder of thyroid, unspecified; G40.909 Epilepsy, unspecified, not intractable, without status epilepticus; F31.9 Bipolar disorder, unspecified; Z79.82 Long term (current) use of aspirin; Z79.890 Hormone replacement therapy; Z79.899 Other long term (current) drug therapy; Z88.8 Allergy status to other drugs, medicaments and biological substances; Z88.2 Allergy status to sulfonamides; Z88.6 Allergy status to analgesic agent; Z91.02 Food additives allergy status; Z87.891 Personal history of nicotine dependence; Z86.73 Personal history of transient ischemic attack (TIA), and cerebral infarction without residual deficits
CPT/HCPCS: 36415; 72170; 80048; 80178; 82075; 84439; 84443; 85025; 99285

== ENCOUNTER → 2019-07-14 | Outpatient (CLI) | payer MEDICARE, OTHER ==
[2019-07-14 12:33] LABS: Basophils % (A) 1 %; Eosinophils # (A) 0.4 k/uL (0-0.7); Eosinophils % (A) 5 %; HCT 42.4 % (34.0-46.0); HGB 13.8 gm/dL (11.4-16.0); Lymphocytes # (A) 1.9 k/uL (1.0-4.8); Lymphocytes % (A) 28 %; MCH 35.8 pg (25.0-35.0); MCHC 32.6 g/dL (31.0-37.0); MCV 109.8 fL (80.0-100.0); Macrocytosis Marked; Mean Platelet Volume 6.4; Monocytes # (A) 0.5 k/uL (0-1.0); Monocytes % (A) 7 %; Neutrophils % (A) 58 %; Platelet Count 284 k/uL (150-450); RBC 3.86 m/uL (3.80-5.40); RDW 12.1 % (11.5-15.5); WBC 6.9 k/uL (3.8-10.6)
[2019-07-14 17:04] LABS: Iron Saturation 36.15 (12.00-45.00)
[2019-07-14 17:12] LABS: Vitamin D 25 Hydroxy 31.1 ng/mL (30.0-100.0)
[2019-07-14 17:13] LABS: African American GFR (CKD) 26.6 (60.0-200.0); Albumin 4.1 g/dL (3.80-4.90); Anion Gap 7.5 mmol/L (4.00-12.00); BUN/Creat Ratio 17.14 Ratio (12.00-20.00); Calcium 9.5 mg/dL (8.7-10.3); Carbon Dioxide 26.5 mmol/L (21.6-31.8); Magnesium 2.2 mg/dL (1.5-2.4); Phosphorus 3.1 mg/dL (2.4-5.1); Potassium 4.9 mmol/L (3.5-5.5); Uric Acid 5.1 mg/dL (2.9-7.7)
== END | disposition home or self-care (01) ==
LOC: LABWHC1 11:26
PROVIDERS: ATTEND Nurse Practitioner Family
DX: N39.0 Urinary tract infection, site not specified (principal); D63.1 Anemia in chronic kidney disease; N18.4 Chronic kidney disease, stage 4 (severe); E55.9 Vitamin D deficiency, unspecified; N25.81 Secondary hyperparathyroidism of renal origin; M10.9 Gout, unspecified
CPT/HCPCS: 36415; 80048; 82040; 82306; 82728; 83540; 83550; 83735; 83970; 84100; 84550; 85025

== ENCOUNTER 2019-10-23 13:50 | Inpatient (IN) | payer MEDICARE, OTHER ==
[2019-10-23] MEDS ORDERED: SODIUM CHLORIDE 0.9% 1,000 ML IV ONE (14:13)
--- NOTE | 2019-10-23 14:20 | ED ---
Psych HPI - General Source: RN notes reviewed, old records reviewed <Annie Villaseñor - Last Filed: 10/23/19 19:11> <Dwayne Lee - Last Filed: 10/23/19 20:11> - General Chief Complaint: Psychiatric Symptoms Stated Complaint: psych eval Time Seen by Provider: 10/23/19 14:02 - History of Present Illness Initial Comments: Patient is a 74-year-old female who presents emergency department today for evaluation for concern for psychiatric evaluation. She was sent here via EMS. Patient states that she has an argument with her daughter Elina Butler, who is arguing with her about possession of her home. Patient states that she is here for "a difference of opinion". Patient does state that she has been seeing bugsin her eggs that they make her. She also reports that her grandson who is 29-year-old old should not be wearing a black helmet, but should be wearing a white helmet because his name is Gabe and he is holy and He is from the Bible. Patient has a have a history of bipolar disorder and reports that she has been taking her medications as dosed. Patient denies any suicidal thoughts. She reports that she's had no physical aggression towards anybody but has had some verbal comments of aggression. She denies any physical complaints at this time besides chronic knee pain. Denies any recent falls. (Annie Villaseñor) - Related Data Home Medications Medication Instructions Recorded Confirmed Allopurinol [Zyloprim] 100 mg PO DAILY@1700 03/20/19 10/23/19 Aspirin EC [Ecotrin Low Dose] 81 mg PO DAILY@89903/20/19 10/23/19 Atorvastatin Calcium [Lipitor] 10 mg PO HS@0000 03/20/19 10/23/19 Calcitriol [Rocaltrol] 0.25 mcg PO WE 03/20/19 10/23/19 Carbidopa/Levodopa [Sinemet CR 1 tab PO BID@0900,169903/20/19 10/23/19 50-200 mg] Cranberry Fruit Concentrate [Azo 250 mg PO DAILY@0900 03/20/19 10/23/19 Cranberry] Divalproex ER [Depakote ER] 1,000 mg PO HS@0000 03/20/19 10/23/19 Docusate [Colace] 100 mg PO BID PRN 03/20/19 10/23/19 Lactulose 10 gm PO DAILY PRN 03/20/19 10/23/19 Levothyroxine Sodium [Synthroid] 100 mcg PO DAILY@0900 03/20/19 10/23/19 [employer] Carbonate 150 mg PO BID@0900,1700 03/20/19 10/23/19 QUEtiapine [SEROquel] 100 mg PO HS@0000 03/28/19 10/23/19 Ethacrynic Acid 25 mg PO DAILY@1700 10/23/19 10/23/19 LORazepam [Ativan] 0.5 mg PO BID@0900,1700 10/23/19 10/23/19 Prochlorperazine [Compazine] 10 mg PO DAILY PRN 10/23/19 10/23/19 Triphrocaps 1 cap PO HS@0000 10/23/19 10/23/19 Previous Rx's Medication Instructions Recorded buPROPion HCL [Wellbutrin XL] 300 mg PO DAILY@0900 #5 tab.er.24h 03/24/19 Allergies Allergy/AdvReac Type Severity Reaction Status Date / Time furosemide [From Lasix] Allergy Unknown Verified 10/23/19 19:22 risperidone [From Risperdal] Allergy Unknown Verified 10/23/19 19:22 Sulfa (Sulfonamide Allergy Unknown Verified 10/23/19 19:22 Antibiotics) ibuprofen [From Motrin] AdvReac KIDNEY Verified 10/23/19 19:22 FAILURE spironolactone AdvReac KIDNEY Verified 10/23/19 19:22 FAILURE torsemide AdvReac KIDNEY Verified 10/23/19 19:22 FAILURE ARTIFICIAL SWEETNER AdvReac Unknown Uncoded 10/23/19 14:18 Review of Systems ROS Other: All systems not noted in ROS Statement are negative. <Annie Villaseñor - Last Filed: 10/23/19 19:11> ROS Other: All systems not noted in ROS Statement are negative. <Dwayne Lee - Last Filed: 10/23/19 20:11> ROS Statement: Those systems with pertinent positive or pertinent negative responses have been documented in the HPI. Past Medical History Past Medical History: CVA/TIA, Hyperlipidemia, Seizure Disorder, Thyroid Disorder Additional Past Medical History / Comment(s): UTI, Parkinsons History of Any Multi-Drug Resistant Organisms: None Reported, Unobtainable Past Surgical History: Cholecystectomy, Hysterectomy, Unable to Obtain Additional Past Surgical History / Comment(s): L oophrectomy Past Anesthesia/Blood Transfusion Reactions: Unable to Obtain Past Psychological History: Anxiety, Bipolar, Depression Smoking Status: Former smoker Past Alcohol Use History: None Reported Past Drug Use History: None Reported - Past Family History Father Family Medical History: Unable to Obtain <Sophie Villaseñorily - Last Filed: 10/23/19 19:11> General Exam General appearance: alert, in no apparent distress Head exam: Present: atraumatic, normocephalic, normal inspection Eye exam: Present: normal appearance, PERRL, EOMI. Absent: scleral icterus, conjunctival injection, periorbital swelling ENT exam: Present: normal exam, mucous membranes dry, mucous membranes moist. Absent: normal oropharynx Neck exam: Present: normal inspection. Absent: tenderness, meningismus, lymphadenopathy Respiratory exam: Present: normal lung sounds bilaterally. Absent: respiratory distress, wheezes, rales, rhonchi, stridor Cardiovascular Exam: Present: regular rate, normal rhythm, normal heart sounds. Absent: systolic murmur, diastolic murmur, rubs, gallop, clicks GI/Abdominal exam: Present: soft Extremities exam: Present: normal inspection, full ROM, normal capillary refill. Absent: tenderness, pedal edema, joint swelling, calf tenderness Back exam: Present: normal inspection Neurological exam: Present: alert, altered (Confused conversation), CN II-XII intact Psychiatric exam: Present: normal mood, other (calm in ED, does report seeing bugs in her eggs this morning and quotes from bible. ). Absent: normal affect Skin exam: Present: warm, dry, intact, normal color. Absent: rash <Sophie Villaseñorily - Last Filed: 10/23/19 19:11> - General Exam Comments Initial Comments: 74-year-old female. Alert and oriented 1. States the date is TuesdayNovember 2019. (Annie Villaseñor) Course Vital Signs 10/23/19 10/23/19 14:19 19:45 Temperature 97.6 F 97.7 F Pulse Rate 87 91 Respiratory 18 17 Rate Blood Pressure 133/80 146/78 O2 Sat by Pulse 98 97 Oximetry Medical Decision Making - Lab Data Result diagrams: 10/23/19 15:10 10/23/19 15:10 <Annie Villaseñor - Last Filed: 10/23/19 19:11> - Lab Data Result diagrams: 10/23/19 15:10 10/23/19 15:10 <Dwayne Lee - Last Filed: 10/23/19 20:11> - Medical Decision Making May 4-year-old male female history of bipolar disorder, poorly maintained on Depakote and lithium. She has been taking her meds off and on according to family. She presents for worsening agitation and manic behaviors. Patient had labwork obtained and urinalysis. No signs of UTI. Blood work was reviewed and baseline. Depakote level of lithium level were checked. At this time Patient appears in no significant distress. She does have a confused conversation, talking about Bible and [employer]. She has been acutely psychotic. Patient's family are filling petitition. Certification filled out by Dr. Lee. Patient will be admitted to psych services. (KasiAnnie) I filled out a clinical indication to have the patient admitted to the hospital after petition was done by the psychiatric nurse. I, Jai Lee, personally saw and examined the patient. I have reviewed and agree with the PA findings, including all diagnostic interpretations and treatment plans as written unless otherwise stated. I was present for the alexander portions of any procedures performed and the inclusive time noted for any critical care statement. (Dwayne Lee) - Lab Data Lab Results 10/23/19 10/23/19 10/23/19 Range/Units 15:10 15:10 15:20 WBC 7.7 (3.8-10.6) k/uL RBC 3.81 (3.80-5.40) m/uL Hgb 13.9 (11.4-16.0) gm/dL Hct 42.8 (34.0-46.0) % MCV 112.1 H (80.0-100.0) fL MCH 36.4 H (25.0-35.0) pg MCHC 32.5 (31.0-37.0) g/dL RDW 12.0 (11.5-15.5) % Plt Count 268 (150-450) k/uL Neutrophils % 57 % Lymphocytes % 28 % Monocytes % 8 % Eosinophils % 3 % Basophils % 1 % Neutrophils # 4.4 (1.3-7.7) k/uL Lymphocytes # 2.1 (1.0-4.8) k/uL Monocytes # 0.7 (0-1.0) k/uL Eosinophils # 0.2 (0-0.7) k/uL Basophils # 0.1 (0-0.2) k/uL Manual Slide Review Performed Macrocytosis Marked A Sodium 142 (137-145) mmol/L Potassium 5.1 (3.5-5.1) mmol/L Chloride 110 H (98-107) mmol/L Carbon Dioxide 24 (22-30) mmol/L Anion Gap 8 mmol/L BUN 27 H (7-17) mg/dL Creatinine 2.13 H (0.52-1.04) mg/dL Est GFR (CKD-EPI)AfAm 26 (>60 ml/min/1.73 sqM) Est GFR (CKD-EPI)NonAf 23 (>60 ml/min/1.73 sqM) Glucose 95 (74-99) mg/dL Calcium 10.0 (8.4-10.2) mg/dL Total Bilirubin 0.5 (0.2-1.3) mg/dL AST 27 (14-36) U/L ALT <6 (4-34) U/L Alkaline Phosphatase 85 (38-126) U/L Total Protein 6.9 (6.3-8.2) g/dL Albumin 4.1 (3.5-5.0) g/dL Urine Color Yellow Urine Appearance Clear (Clear) Urine pH 5.5 (5.0-8.0) Ur Specific [place] 1.007 (1.001-1.035) Urine Protein Negative (Negative) Urine Glucose (UA) Negative (Negative) Urine Ketones Negative (Negative) Urine Blood Negative (Negative) Urine Nitrite Negative (Negative) Urine Bilirubin Negative (Negative) Urine Urobilinogen <2.0 (<2.0) mg/dL Ur Leukocyte Esterase Negative (Negative) Urine Opiates Screen Not Detected (NotDetected) Ur Oxycodone Screen Not Detected (NotDetected) Urine Methadone Screen Not Detected (NotDetected) Ur Propoxyphene Screen Not Detected (NotDetected) Ur Barbiturates Screen Not Detected (NotDetected) Valproic Acid 61.8 ug/mL U Tricyclic Antidepress Detected H (NotDetected) Ur Phencyclidine Scrn Not Detected (NotDetected) Ur Amphetamines Screen Not Detected (NotDetected) U Methamphetamines Scrn Not Detected (NotDetected) U Benzodiazepines Scrn Detected H (NotDetected) [employer] 0.6 mmol/L Urine Cocaine Screen Not Detected (NotDetected) U Marijuana (THC) Screen Detected H (NotDetected) Serum Alcohol <10 mg/dL Disposition Is patient prescribed a controlled substance at d/c from ED?: No Time of Disposition: 19:13 <Annie Villaseñor - Last Filed: 10/23/19 19:11> <Dwayne Lee - Last Filed: 10/23/19 20:11> Clinical Impression: Psychosis Disposition: ADMITTED IP TO THIS HOSP Condition: Stable
[2019-10-23] MEDS ORDERED: LORazepam 2 MG/ML INJ IV STA (15:21)
[2019-10-23] MEDS ORDERED: LORazepam 2 MG/ML INJ IM STA (15:30)
[2019-10-23 15:47] LABS: Basophils # (A) 0.1 k/uL (0-0.2); Basophils % (A) 1 %; Eosinophils # (A) 0.2 k/uL (0-0.7); Eosinophils % (A) 3 %; HCT 42.8 % (34.0-46.0); HGB 13.9 gm/dL (11.4-16.0); Lymphocytes # (A) 2.1 k/uL (1.0-4.8); Lymphocytes % (A) 28 %; MCH 36.4 pg (25.0-35.0); MCHC 32.5 g/dL (31.0-37.0); MCV 112.1 fL (80.0-100.0); Macrocytosis Marked; Mean Platelet Volume 8.2; Monocytes # (A) 0.7 k/uL (0-1.0); Monocytes % (A) 8 %; Neutrophils # (A) 4.4 k/uL (1.3-7.7); Neutrophils % (A) 57 %; Platelet Count 268 k/uL (150-450); RBC 3.81 m/uL (3.80-5.40); WBC 7.7 k/uL (3.8-10.6)
[2019-10-23 15:51] LABS: Appearance,Urine Clear (Clear); Bilirubin,Urine Negative (Negative); Blood,Urine Negative (Negative); Color,Urine Yellow; Glucose,Urine (UA) Negative (Negative); Ketones,Urine Negative (Negative); Leukocyte Esterase,Urine Negative (Negative); Nitrite,Urine Negative (Negative); PH, Urine 5.5 (5.0-8.0); Protein,Urine Negative (Negative); Specific Gravity,Urine 1.007 (1.001-1.035); Urobilinogen,Urine <2.0 mg/dL (<2.0)
[2019-10-23 15:52] LABS: ALT <6 U/L (4-34); AST 27 U/L (14-36); African American GFR (CKD) 26 (>60 ml/min/1.73 sqM); Albumin 4.1 g/dL (3.5-5.0); Alcohol <10 mg/dL; Alkaline Phosphatase 85 U/L (38-126); Anion Gap 8 mmol/L; Blood Urea Nitrogen 27 mg/dL (7-17); Carbon Dioxide 24 mmol/L (22-30); Chloride 110 mmol/L (98-107); Glucose 95 mg/dL (74-99); Lithium 0.6 mmol/L; Non-African American GFR(CKD) 23 (>60 ml/min/1.73 sqM); Potassium 5.1 mmol/L (3.5-5.1); Sodium 142 mmol/L (137-145); Total Bilirubin 0.5 mg/dL (0.2-1.3); Total Protein 6.9 g/dL (6.3-8.2)
[2019-10-23 15:57] LABS: Valproic Acid (Depakene) 61.8 ug/mL
[2019-10-23 15:59] LABS: Amphetamine Screen,Urine Not Detected (NotDetected); Barbiturate Screen,Urine Not Detected (NotDetected); Benzodiazepines Screen,Urine Detected (NotDetected); Cocaine Screen,Urine Not Detected (NotDetected); Methadone Screen, Urine Not Detected (NotDetected); Opiate Screen,Urine Not Detected (NotDetected); Oxycodone Screen, Urine Not Detected (NotDetected); Phencyclidine Screen,Urine Not Detected (NotDetected); Tricyclic Antidepressant,Urine Detected (NotDetected); Urn Cannabinoid Scrn Detected (NotDetected)
[2019-10-23] MEDS: SODIUM CHLORIDE 0.9% 1,000 ML IV SCH (19:20)
[2019-10-23] MEDS ORDERED: PROCHLORPERAZINE 10 MG TAB PO PRN (19:58)
[2019-10-23] MEDS ORDERED: DOCUSATE 100 MG CAP PO PRN (19:58)
[2019-10-23] MEDS: QUEtiapine 100 MG TAB PO SCH ×2 (22:16→22:55)
[2019-10-23] MEDS: FOLIC ACID-VIT B COMPLEX-VIT C 1 CAP PO SCH ×2 (22:16→22:55)
[2019-10-23] MEDS: ATORVASTATIN 10 MG TAB PO SCH ×2 (22:16→22:55)
[2019-10-24] MEDS: LEVOTHYROXINE 100 MCG TAB PO SCH (06:36)
[2019-10-24] MEDS ORDERED: buPROPion XL 150 MG TAB.ER.24H PO SCH (09:00)
[2019-10-24] MEDS ORDERED: CRANBERRY FRUIT 250 MG PO SCH (09:00)
[2019-10-24] MEDS: ASPIRIN 81 MG PO SCH (09:52)
[2019-10-24] MEDS: CALCITRIOL 0.25 MCG CAP PO SCH (09:52)
[2019-10-24] MEDS: LITHIUM CARBONATE 150 MG CAP PO SCH ×2 (09:54→17:06)
[2019-10-24] MEDS: SODIUM CHLORIDE 0.9% 1,000 ML IV SCH ×2 (10:02→13:37)
--- NOTE | 2019-10-24 12:25 | P.NPCON ---
History of Present Illness - Reason for Consult chronic renal failure - History of Present Illness Reason for consultation: Chronic kidney disease History of present illness: Patient is a 74-year-old female seen in renal consultation for chronic kidney disease. Patient has chronic kidney disease stage IV with baseline creatinine near 2. Etiology is nephrosclerosis. Urinalysis is completely benign. Patient was seen in the mental health unit. Patient presented to the hospital yesterday after she had an argument with her daughter. Patient has a history of bipolar disorder. She was having hallucinations. Currently she is resting in bed. She denies chest pain or shortness of breath. She admits to good urine output. No hematuria or dysuria. No vomiting or diarrhea. Denies regular use of n onsteroidals. Hemodynamically she is stable. No evidence of hypotension. She does take lithium at home. Her lithium level this admission was 0.6. No chest pain or shortness of breath. Vital signs are stable. General: The patient appeared well nourished and normally developed. HEENT: Head exam is unremarkable. Neck is without jugular venous distension. LUNGS: Lungs are clear to auscultation and percussion. Breath sounds decreased. HEART: Rate and Rhythm are regular. First and second heart sounds normal. No murmurs, rubs or gallops. ABDOMEN: Abdominal exam reveals normal bowel sounds. Non-tender and non- distended. No evidence of peritonitis. EXTREMITITES: 1+ edema. Past Medical History Past Medical History: CVA/TIA, Hyperlipidemia, Seizure Disorder, Thyroid Disorder Additional Past Medical History / Comment(s): UTI, Parkinsons History of Any Multi-Drug Resistant Organisms: None Reported, Unobtainable Past Surgical History: Cholecystectomy, Hysterectomy, Unable to Obtain Additional Past Surgical History / Comment(s): L oophrectomy Past Anesthesia/Blood Transfusion Reactions: Unable to Obtain Smoking Status: Former smoker - Past Family History Father Family Medical History: Unable to Obtain Medications and Allergies Home Medications Medication Instructions Recorded Confirmed Type Allopurinol [Zyloprim] 100 mg PO DAILY@1700 03/20/19 10/23/19 History Aspirin EC [Ecotrin Low Dose] 81 mg PO DAILY@0900 03/20/19 10/23/19 History Atorvastatin Calcium [Lipitor] 10 mg PO HS@0000 03/20/19 10/23/19 History Calcitriol [Rocaltrol] 0.25 mcg PO WE 03/20/19 10/23/19 History Carbidopa/Levodopa [Sinemet CR 1 tab PO BID@0900,1700 03/20/19 10/23/19 History 50-200 mg] Cranberry Fruit Concentrate [Azo 250 mg PO DAILY@0900 03/20/19 10/23/19 History Cranberry] Divalproex ER [Depakote ER] 1,000 mg PO HS@0000 03/20/19 10/23/19 History Docusate [Colace] 100 mg PO BID PRN 03/20/19 10/23/19 History Lactulose 10 gm PO DAILY PRN 03/20/19 10/23/19 History Levothyroxine Sodium [Synthroid] 100 mcg PO DAILY@0900 03/20/19 10/23/19 History [place] Carbonate 150 mg PO BID@0900,1700 03/20/19 10/23/19 History buPROPion HCL [Wellbutrin XL] 300 mg PO DAILY@0900 #5 tab.er.24h 03/24/19 10/23/19 Rx QUEtiapine [SEROquel] 100 mg PO HS@0000 03/28/19 10/23/19 History Ethacrynic Acid 25 mg PO DAILY@1700 10/23/19 10/23/19 History LORazepam [Ativan] 0.5 mg PO BID@0900,1700 10/23/19 10/23/19 History Prochlorperazine [Compazine] 10 mg PO DAILY PRN 10/23/19 10/23/19 History Triphrocaps 1 cap PO HS@0000 10/23/19 10/23/19 History Allergies Allergy/AdvReac Type Severity Reaction Status Date / Time furosemide [From Lasix] Allergy Unknown Verified 10/23/19 19:22 risperidone [From Risperdal] Allergy Unknown Verified 10/23/19 19:22 Sulfa (Sulfonamide Allergy Unknown Verified 10/23/19 19:22 Antibiotics) ibuprofen [From Motrin] AdvReac KIDNEY Verified 10/23/19 19:22 FAILURE spironolactone AdvReac KIDNEY Verified 10/23/19 19:22 FAILURE torsemide AdvReac KIDNEY Verified 10/23/19 19:22 FAILURE ARTIFICIAL SWEETNER AdvReac Unknown Uncoded 01/07/20 14:18 Physical Exam Vitals: Vital Signs Temp Pulse Pulse Resp BP BP Pulse Ox 10/24/19 06:23 97.3 F L 84 18 159/67 10/23/19 22:03 96.8 F L 103 H 18 123/65 97 10/23/19 19:45 97.7 F 91 17 146/78 97 10/23/19 14:19 97.6 F 87 18 133/80 98 Intake and Output 10/23/19 10/24/19 10/24/19 22:59 06:59 14:59 Other: Weight 104.326 kg Results - Lab Results Most recent lab results Calcium 10.0 mg/dL (8.4-10.2) 10/23/19 15:10 10/23/19 15:10 10/23/19 15:10 Assessment and Plan Plan: Assessment: 1. 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 Patient's kidney ultrasound from January 2018 revealed atrophic right kidney. Baseline creatinine near 2. GFR near baseline. 2. Bipolar disorder. 3. Chronic kidney disease mineral bone disease maintained on calcitriol. 4. Atrophic right kidney. Plan: Encourage oral intake. Avoid nephrotoxins. Continue to monitor renal function and urine output. Check kidney ultrasound. Thank you for the consultation. I will continue to follow the patient with you during her hospital stay.
--- NOTE | 2019-10-24 15:04 | US ---
EXAMINATION TYPE: US kidneys/renal and bladder DATE OF EXAM: 10/24/2019 COMPARISON: US 01/20/2018, MRI 04/02/2015 CLINICAL HISTORY: [facility]. Mental health patient, difficult and limited due to patient body habitus EXAM MEASUREMENTS: Right Kidney: 9.2 x 5.7 x 5.8 cm Left Kidney: 9.6 x 5.1 x 4.6 cm Right Kidney: No hydronephrosis or masses seen on visualized portions Left Kidney: No hydronephrosis. Anechoic area visualized lower pole measuring 3.9 x 4.3 x 4.1 cm, pos sible cyst Bladder: wnl as visualized Bilateral Jets seen: No IMPRESSION: 1. Suspected simple cyst inferior pole left kidney.
--- NOTE | 2019-10-24 15:36 | P.HP ---
Psychiatric H&P - . H&P Date: 10/24/19 History & Physical: IDENTIFYING DATA: The patient is a 74-year-old female who is chronically and persistently mentally ill. She presented to the psychiatric unit involuntarily. According to the petition completed by her daughter and Amaya paredes, "she has been talking nonstop about Td, saying that he is alive in coming for you. She believes Parvez Parsons is alive. She yells and screams and is verbally abusive to others." HISTORY OF PRESENT ILLNESS: The patient alleged that her daughter brought her to the hospital because "she wants my house." Her speech was difficult to follow and she talked about disjointed topics such as Social Security, past experiences with psychiatric facilities and "World War III". She was markedly suspicious, angry and irritable. I spoke with the daughter who completed the petition. She stated that over the last 2 months her mother has been angry, irritable, verbally abusive and aggressive. She stated that there is no one particular event that led the family to bring herself the hospital today. Rather the admission was the result of accumulation of behavioral problems and difficulties over this period that led the family to believe that they can no longer care for her at home. She stated that she talks nonstop and her speech mostly incoherent. She was insultive and would grab towards anyone who came near her. She refused, hospital voluntarily. I attempted to get her to sign a voluntary admission. She was suspicious of the form and would not sign it because of "World War III. PAST PSYCHIATRIC HISTORY: She has a history of bipolar illness with multiple psychiatric hospitalizations. She was [facility] in July 2012 involuntarily. According to information from his community mental health her mental illness started in her teen years. She had multiple psychiatric hospitalizations related to hallucinations, paranoid thoughts, depression, elliott and self-harm. She has experience varying cycles of depression and elliott. During depressive phases she has suicidal ideation and attempts. She has had periods of elevated mood, mood swings and agitation. During these episodes she does not sleep, is restless, demonstrates pressured speech and racing thoughts. She has persistent delusions of aliens, belief that the government has spies among the house, that Parvez life and believes that treatment staff are trying to hurt her. She is also religiously preoccupied. She had been treated through [facility] until 2012 when she moved to [place]. She returned from [place] one year later and has received service s through [facility]. Her primary has been prescribing her psychotropic medications. PAST MEDICAL HISTORY: Nephrology consult appreciated. She has history of chronic renal failure CVA, hyperlipidemia, seizure disorder, thyroid disorder, Parkinson's disease ALLERGIES: Furosemide, risperidone, sulfa SUBSTANCE USE HISTORY: Per chart history she has no history of substance use problems. FAMILY PSYCHIATRIC/SUBSTANCE USE HISTORY: Per chart history her daughter committed suicide LEGAL HISTORY: Her daughters Amaya and Elina awad'german SOCIAL HISTORY: She lives with her daughter and grandson. She has been and twice. Per the chart history she has 3 children. She has a high school education. She is unemployed and receives Social Security. MENTAL STATUS EXAM: She presented as an obese, irritable and angry elderly female who was sitting comfortably in the chair. Her one-to-one sitter was in attendance. She made eye contact but did not appear to attend to the interview. She had an angry facial expression. She was alert and oriented to person, place and time. She was not restless but had a moderate left hand tremor. Her speech was spontaneous. Affect was irritable and angry, intense and inappropriate to situation. She did not express suicidal ideation, wishes or homicidal ideation. She did not express feelings of hopelessness, helplessness or worthlessness. She ruminated about delusional belief that her daughter is trying to steal her home. She made other unusual statements about a "coming World War III.". She was paranoid. Her thinking was concrete and associations were not coherent or logical. She did not demonstrate clang associations or neologisms. She denied hallucinations and did not appear to be responding to internal stimuli. Global impression of intellect is average. She has no awareness understanding of her illness and need for treatment. STRENGTHS: Supportive family, stable housing, stable income WEAKNESSES: Chronic and persistent severe mental illness IMPRESSION:. She is a 74-year-old female who has a long history of bipolar illness with multiple psychiatric hospitalizations. She has been treated with multiple medications and according to record the most effective has been a combination of lithium and Depakote. She is developed stage IV kidney disease and is being treated for Parkinson's disease. Her illness has decompensated over the last 2 months probably related to her worsening health and/or treatment of her neurological condition. She should best be treated on an inpatient basis with combination of multimodal therapy and psychopharmacology. PRINCIPLE DIAGNOSIS: Bipolar disorder currently manic with psychotic features, Parkinson's disease, chronic kidney disease RECOMMENDATION: Admitted to the psychiatric unit involuntarily. Completed the clinical certificate and Sinemet the application to probate Court for involuntary hospitalization. Safety precautions. One-to-one sitter for safety. Continue lithium carbonate 150 mg by mouth twice a day and monitor lithium level and kidney status. Continue Depakote ER 1000 mg at bedtime, Seroquel 100 mg at bedtime and taper and discontinue Wellbutrin. Continue allopurinol 100 mg daily, aspirin 81 mg daily, Lipitor 10 mg daily, Procrit control 0.25 mg every Tuesday, at the clinic as it 25 mg daily, levothyroxine 100 g daily. Consult medicine regarding Sinemet. Encourage participation in therapeutic groups and activities as tolerated. Evaluate clinical status response to treatment daily basis. Allergies Allergy/AdvReac Type Severity Reaction Status Date / Time furosemide [From Lasix] Allergy Unknown Verified 10/23/19 19:22 risperidone [From Risperdal] Allergy Unknown Verified 10/23/19 19:22 Sulfa (Sulfonamide Allergy Unknown Verified 10/23/19 19:22 Antibiotics) ibuprofen [From Motrin] AdvReac KIDNEY Verified 10/23/19 19:22 FAILURE spironolactone AdvReac KIDNEY Verified 10/23/19 19:22 FAILURE torsemide AdvReac KIDNEY Verified 10/23/19 19:22 FAILURE ARTIFICIAL SWEETNER AdvReac Unknown Uncoded 10/23/19 14:18 Vital Signs Temp 97.3 F L 10/24/19 06:23 Pulse 84 10/24/19 06:23 Resp 18 10/24/19 06:23 BP 159/67 10/24/19 06:23 Pulse Ox 97 10/23/19 22:03 Intake & Output 10/23/19 10/24/19 10/24/19 18:59 06:59 18:59 Weight 104.326 kg 104.326 kg Laboratory Last Values WBC 7.7 k/uL (3.8-10.6) 10/23/19 15:10 RBC 3.81 m/uL (3.80-5.40) 10/23/19 15:10 Hgb 13.9 gm/dL (11.4-16.0) 10/23/19 15:10 Hct 42.8 % (34.0-46.0) 10/23/19 15:10 MCV 112.1 fL (80.0-100.0) H 10/23/19 15:10 MCH 36.4 pg (25.0-35.0) H 10/23/19 15:10 MCHC 32.5 g/dL (31.0-37.0) 10/23/19 15:10 RDW 12.0 % (11.5-15.5) 10/23/19 15:10 Plt Count 268 k/uL (150-450) 10/23/19 15:10 Neutrophils % 57 % 10/23/19 15:10 Lymphocytes % 28 % 10/23/19 15:10 Monocytes % 8 % 10/23/19 15:10 Eosinophils % 3 % 10/23/19 15:10 Basophils % 1 % 10/23/19 15:10 Neutrophils # 4.4 k/uL (1.3-7.7) 10/23/19 15:10 Lymphocytes # 2.1 k/uL (1.0-4.8) 10/23/19 15:10 Monocytes # 0.7 k/uL (0-1.0) 10/23/19 15:10 Eosinophils # 0.2 k/uL (0-0.7) 10/23/19 15:10 Basophils # 0.1 k/uL (0-0.2) 10/23/19 15:10 Manual Slide Review Performed 10/23/19 15:10 Macrocytosis Marked A 10/23/19 15:10 Sodium 142 mmol/L (137-145) 10/23/19 15:10 Potassium 5.1 mmol/L (3.5-5.1) 10/23/19 15:10 Chloride 110 mmol/L (98-107) H 10/23/19 15:10 Carbon Dioxide 24 mmol/L (22-30) 10/23/19 15:10 Anion Gap 8 mmol/L 10/23/19 15:10 BUN 27 mg/dL (7-17) H 10/23/19 15:10 Creatinine 2.13 mg/dL (0.52-1.04) H 10/23/19 15:10 Est GFR (CKD-EPI)AfAm 26 (>60 ml/min/1.73 sqM) 10/23/19 15:10 Est GFR (CKD-EPI)NonAf 23 (>60 ml/min/1.73 sqM) 10/23/19 15:10 Glucose 95 mg/dL (74-99) 10/23/19 15:10 Calcium 10.0 mg/dL (8.4-10.2) 10/23/19 15:10 Total Bilirubin 0.5 mg/dL (0.2-1.3) 10/23/19 15:10 AST 27 U/L (14-36) 10/23/19 15:10 ALT <6 U/L (4-34) 10/23/19 15:10 Alkaline Phosphatase 85 U/L (38-126) 10/23/19 15:10 Total Protein 6.9 g/dL (6.3-8.2) 10/23/19 15:10 Albumin 4.1 g/dL (3.5-5.0) 10/23/19 15:10 Triglycerides 87 mg/dL (<150) 10/24/19 09:11 Cholesterol 166 mg/dL (<200) 10/24/19 09:11 LDL Cholesterol, Calc 78 mg/dL (0-99) 10/24/19 09:11 HDL Cholesterol 71 mg/dL (40-60) H 10/24/19 09:11 TSH 4.430 mIU/L (0.465-4.680) 10/24/19 09:11 Urine Color Yellow 10/23/19 15:20 Urine Appearance Clear (Clear) 10/23/19 15:20 Urine pH 5.5 (5.0-8.0) 10/23/19 15:20 Ur Specific [place] 1.007 (1.001-1.035) 10/23/19 15:20 Urine Protein Negative (Negative) 10/23/19 15:20 Urine Glucose (UA) Negative (Negative) 10/23/19 15:20 Urine Ketones Negative (Negative) 10/23/19 15:20 Urine Blood Negative (Negative) 10/23/19 15:20 Urine Nitrite Negative (Negative) 01/07/20 15:20 Urine Bilirubin Negative (Negative) 10/23/19 15:20 Urine Urobilinogen <2.0 mg/dL (<2.0) 10/23/19 15:20 Ur Leukocyte Esterase Negative (Negative) 10/23/19 15:20 Urine Opiates Screen Not Detected (NotDetected) 10/23/19 15:20 Ur Oxycodone Screen Not Detected (NotDetected) 10/23/19 15:20 Urine Methadone Screen Not Detected (NotDetected) 10/23/19 15:20 Ur Propoxyphene Screen Not Detected (NotDetected) 10/23/19 15:20 Ur Barbiturates Screen Not Detected (NotDetected) 10/23/19 15:20 Valproic Acid 61.8 ug/mL 10/23/19 15:10 U Tricyclic Antidepress Detected (NotDetected) H 10/23/19 15:20 Ur Phencyclidine Scrn Not Detected (NotDetected) 10/23/19 15:20 Ur Amphetamines Screen Not Detected (NotDetected) 10/23/19 15:20 U Methamphetamines Scrn Not Detected (NotDetected) 10/23/19 15:20 U Benzodiazepines Scrn Detected (NotDetected) H 10/23/19 15:20 [place] 0.6 mmol/L 10/23/19 15:10 Urine Cocaine Screen Not Detected (NotDetected) 10/23/19 15:20 U Marijuana (THC) Screen Detected (NotDetected) H 10/23/19 15:20 Serum Alcohol <10 mg/dL 10/23/19 15:10 10/24/19 15:07
[2019-10-24] MEDS: ETHACRYNIC ACID 25 MG PO SCH (16:37)
[2019-10-24] MEDS: ALLOPURINOL 100 MG TAB PO SCH (17:06)
[2019-10-24] MEDS: LORazepam 0.5 MG TAB PO SCH ×2 (17:06→21:58)
[2019-10-24 17:07] LABS: Hemoglobin A1C 4.7 % (4.0-6.0)
[2019-10-24] MEDS: DIVALPROEX ER 500 MG TAB.ER.24H PO SCH (21:58)
[2019-10-24] MEDS: ATORVASTATIN 10 MG TAB PO SCH (21:58)
[2019-10-24] MEDS ORDERED: ATORVASTATIN 10 MG TAB PO SCH (22:07)
--- NOTE | 2019-10-24 22:15 | P.CONS ---
History of Present Illness - Reason for Consult Consult date: 10/24/19 Medical management Requesting physician: Emery Landeros - Chief Complaint Psychotic - History of Present Illness Consultation: This is a pleasant 74-year-old patient of Dr. Thi Dudley. Chronic stable medical conditions include chronic kidney disease, bipolar, hypothyroid, Parkinson's disease, seizure disorder. Patient does use a walker to baseline. Patient was admitted with psychotic symptoms. She is telling me that the psychiatrist is very pleasant does. Some of R out to control people. She sees her family doctor only was to push bills. She is talking about demons and even people. She makes reference to the Bible. She denies any chest pain no s hortness of breath.. Dysphagia. Does use a walker. Sitting up watching the television. Review of systems: GEN.: None EYES: None HEENT: None NECK: None RESPIRATORY: None CARDIOVASCULAR: None GASTROINTESTINAL: None GENITOURINARY: None MUSCULOSKELETAL: None LYMPHATICS: None HEMATOLOGICAL: None PSYCHIATRY: As above] NEUROLOGICAL: Trembles and using a walker Past medical history to include: COPD, bipolar disorder, hypothyroid, Parkinson's disease, kidney dysfunction, seizure disorder Social history: No smoking or alcohol. Daughter lives with her. Family history: Reviewed, noncontributory to presentation Physical examination: VITAL SIGNS: 97.3, 84, 18, 159/67, 97% room air GENERAL: BMI 39.5, sitting up comfortable. EYES: Pupils equal. Conjunctiva normal. HEENT: External appearance of nose and ears normal, oral cavity grossly normal. NECK: JVD not raised; masses not palpable. HEART: First and second heart sounds are normal; no edema. LUNGS: Respiratory rate normal; clear to auscultation. ABDOMEN: Soft, nontender, liver spleen not palpable, no masses palpable. PSYCH: Answering questions more details as abovel. NEUROLOGICAL: Cranial nerves grossly intact; no facial asymmetry, power and sensation grossly intact. Baseline tremor LYMPHATICS: No lymph nodes palpable in the axilla and neck INVESTIGATIONS, reviewed in the clinical context: White count 7.7 hemoglobin 13.9 potassium 5.1 bun 27 creatinine 2.13 Assessment: -Chronic kidney disease stage III likely nephrosclerosis -Hypothyroid -Idiopathic Parkinson's disease -Epilepsy disorder -Chronic gait dysfunction uses a walker -Bipolar disorder, manic with psychotic features Plan: Home medications are to continue. Her renal function is close to baseline. Care was discussed with the patient. Patient should follow with her family doctor upon discharge Thank you Dr. Cross Past Medical History Past Medical History: CVA/TIA, Hyperlipidemia, Seizure Disorder, Thyroid Disorder Additional Past Medical History / Comment(s): UTI, Parkinsons History of Any Multi-Drug Resistant Organisms: None Reported, Unobtainable Past Surgical History: Cholecystectomy, Hysterectomy, Unable to Obtain Additional Past Surgical History / Comment(s): L oophrectomy Past Anesthesia/Blood Transfusion Reactions: Unable to Obtain Smoking Status: Former smoker - Past Family History Father Family Medical History: Unable to Obtain Medications and Allergies Home Medications Medication Instructions Recorded Confirmed Type Allopurinol [Zyloprim] 100 mg PO DAILY@1700 03/20/19 10/23/19 History Aspirin EC [Ecotrin Low Dose] 81 mg PO DAILY@0900 03/20/19 10/23/19 History Atorvastatin Calcium [Lipitor] 10 mg PO HS@0000 03/20/19 10/23/19 History Calcitriol [Rocaltrol] 0.25 mcg PO WE 03/20/19 10/23/19 History Carbidopa/Levodopa [Sinemet CR 1 tab PO BID@0900,1700 03/20/19 10/23/19 History 50-200 mg] Cranberry Fruit Concentrate [Azo 250 mg PO DAILY@0900 03/20/19 10/23/19 History Cranberry] Divalproex ER [Depakote ER] 1,000 mg PO HS@0000 03/20/19 10/23/19 History Docusate [Colace] 100 mg PO BID PRN 03/20/19 10/23/19 History Lactulose 10 gm PO DAILY PRN 03/20/19 10/23/19 History Levothyroxine Sodium [Synthroid] 100 mcg PO DAILY@0900 03/20/19 10/23/19 History Fishtail Carbonate 150 mg PO BID@0900,1700 03/20/19 10/23/19 History buPROPion HCL [Wellbutrin XL] 300 mg PO DAILY@0900 #5 tab.er.24h 03/24/19 10/23/19 Rx QUEtiapine [SEROquel] 100 mg PO HS@0000 03/28/19 10/23/19 History Ethacrynic Acid 25 mg PO DAILY@1700 10/23/19 10/23/19 History LORazepam [Ativan] 0.5 mg PO BID@0900,1700 10/23/19 10/23/19 History Prochlorperazine [Compazine] 10 mg PO DAILY PRN 10/23/19 10/23/19 History Triphrocaps 1 cap PO HS@0000 10/23/19 10/23/19 History Allergies Allergy/AdvReac Type Severity Reaction Status Date / Time furosemide [From Lasix] Allergy Unknown Verified 10/23/19 19:22 risperidone [From Risperdal] Allergy Unknown Verified 10/23/19 19:22 Sulfa (Sulfonamide Allergy Unknown Verified 10/23/19 19:22 Antibiotics) ibuprofen [From Motrin] AdvReac KIDNEY Verified 10/23/19 19:22 FAILURE spironolactone AdvReac KIDNEY Verified 10/23/19 19:22 FAILURE torsemide AdvReac KIDNEY Verified 10/23/19 19:22 FAILURE ARTIFICIAL SWEETNER AdvReac Unknown Uncoded 10/23/19 14:18 Physical Exam Vitals: Vital Signs Temp Pulse Pulse Resp BP BP Pulse Ox 10/24/19 06:23 97.3 F L 84 18 159/67 10/23/19 22:03 96.8 F L 103 H 18 123/65 97 10/23/19 19:45 97.7 F 91 17 146/78 97 Results CBC & Chem 7: 10/23/19 15:10 10/23/19 15:10 Labs: Abnormal Lab Results - Last 24 Hours (Table) 10/24/19 Range/Units 09:11 HDL Cholesterol 71 H (40-60) mg/dL
[2019-10-24] MEDS: QUEtiapine 100 MG TAB PO SCH (23:06)
[2019-10-24] MEDS: FOLIC ACID-VIT B COMPLEX-VIT C 1 CAP PO SCH (23:06)
[2019-10-25] MEDS: LEVOTHYROXINE 100 MCG TAB PO SCH (07:05)
[2019-10-25] MEDS: ASPIRIN 81 MG PO SCH (09:54)
[2019-10-25] MEDS: LORazepam 0.5 MG TAB PO SCH ×4 (09:54→20:37)
[2019-10-25] MEDS: LITHIUM CARBONATE 150 MG CAP PO SCH ×4 (09:54→16:31)
[2019-10-25] MEDS: buPROPion 75 MG TAB PO SCH ×2 (09:54→10:36)
--- NOTE | 2019-10-25 13:05 | P.PN ---
Subjective Progress Note Date: 10/25/19 Principal diagnosis: Bipolar disorder most recent episode manic with psychotic features, multiple medical problems including chronic his disease stage III, hypothyroid, idiopathic Parkinson's disease, epilepsy disorder, chronic gait dysfunction. I reviewed the medical record, interviewed the patient and discussed her treatment and treatment plan during team meeting. She sews no insight or understanding of her illness. She is intermittently irritable, guarded and suspicious. She remains on a one-to-one situation due to her physical disability. She is unable to ambulate without assistance and requires a wheelchair on the unit. She been compliant with prescribed medication. She slept 7 hours last night. Medical consult appreciated. Objective - Vital Signs Vital signs: Vital Signs Temp 98.7 F 10/25/19 07:08 Pulse 91 10/25/19 07:08 Resp 16 10/25/19 07:08 BP 115/65 10/25/19 07:08 Pulse Ox 97 10/23/19 22:03 Intake & Output 10/24/19 10/25/19 10/25/19 18:59 06:59 18:59 Output Total 200 Balance -200 Output: Urine 200 Other: # Voids 1 # Bowel Movements 1 - Exam She presented as a casually groomed obese elderly woman who is irritable and guarded. She made eye contact and was unsure whether she was fully attending to the interview. She was sitting in a wheelchair. She had a hand tremor service more prominent on the left. Her speech was spontaneous and had normal rate and volume. Her affect was irritable and labile. She did not express suicidal ideation or feelings of helplessness or worthlessness. She is paranoid and guarded but did not express clear delusional belief. Her thinking was concrete and not fully organized. She did not appear to responding to internal stimuli. - Labs CBC & Chem 7: 10/23/19 15:10 10/23/19 15:10 Assessment and Plan Assessment: She remains severely and persistently mentally ill and physically debilitated for multiple medical problems. Plan: Probate hearing pending for involuntary hospitalization. Continue Seroquel 100 mg at bedtime, lithium carbonate 150 depressed twice a day and Depakote ER 1000 mg at bedtime. Taper and discontinue Wellbutrin due to concerns of overstimulation. Hold as Sinemet temporarily due to overstimulation and dopamine induced psychosis. Continue allopurinol, aspirin, Lipitor, Rocaltrol, lactulose, Synthroid, Nephrocaps as prescribed by medicine service. Encourage participation in therapeutic groups and activities as tolerated. Evaluate clinical status response to treatment daily basis.
[2019-10-25] MEDS: ALLOPURINOL 100 MG TAB PO SCH ×2 (16:22→16:31)
[2019-10-25] MEDS: ETHACRYNIC ACID 25 MG PO SCH (16:23)
[2019-10-25] MEDS: DIVALPROEX ER 500 MG TAB.ER.24H PO SCH (20:35)
[2019-10-25] MEDS: ATORVASTATIN 10 MG TAB PO SCH (20:35)
[2019-10-25] MEDS: FOLIC ACID-VIT B COMPLEX-VIT C 1 CAP PO SCH (20:38)
[2019-10-25] MEDS ORDERED: QUEtiapine 100 MG TAB PO SCH (21:00)
[2019-10-26] MEDS: LEVOTHYROXINE 100 MCG TAB PO SCH ×2 (05:51→05:54)
[2019-10-26] MEDS: buPROPion 75 MG TAB PO SCH (09:09)
[2019-10-26] MEDS: LITHIUM CARBONATE 150 MG CAP PO SCH ×2 (09:09→17:38)
[2019-10-26] MEDS: LORazepam 0.5 MG TAB PO SCH ×3 (09:09→20:55)
[2019-10-26] MEDS: ASPIRIN 81 MG PO SCH (09:09)
--- NOTE | 2019-10-26 10:37 | P.PN ---
Subjective Patient is seen in follow-up for chronic kidney disease. Patient has chronic kidney disease stage IV with baseline creatinine near 2 secondary to n ephrosclerosis. She was seen in the mental health unit. No chest pain or shortness of breath. Oral intake is good. No hematuria or dysuria. Vital signs are stable. General: The patient appeared well nourished and normally developed. HEENT: Head exam is unremarkable. Neck is without jugular venous distension. LUNGS: Lungs are clear to auscultation and percussion. Breath sounds decreased. HEART: Rate and Rhythm are regular. First and second heart sounds normal. No murmurs, rubs or gallops. ABDOMEN: Abdominal exam reveals normal bowel sounds. Non-tender and non- distended. No evidence of peritonitis. EXTREMITITES: No clubbing, cyanosis, or edema. Objective - Vital Signs Vital signs: Vital Signs Temp 97.8 F 10/26/19 06:37 Pulse 95 10/26/19 06:37 Resp 17 10/26/19 06:37 BP 153/68 10/26/19 06:37 Pulse Ox 98 10/26/19 06:37 - Labs CBC & Chem 7: 10/23/19 15:10 10/23/19 15:10 Assessment and Plan Plan: Assessment: 1. 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 Patient's kidney ultrasound from January 2018 revealed atrophic right kidney. Baseline creatinine near 2. GFR near baseline. Renal ultrasound revealed normal sized kidneys without any evidence of hydronephrosis. 2. Bipolar disorder. 3. Chronic kidney disease mineral bone disease maintained on calcitriol. Plan: Encourage oral intake. Avoid nephrotoxins. Continue to monitor renal function and urine output. Check BMP in the morning.
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
[2019-10-26] MEDS: ALLOPURINOL 100 MG TAB PO SCH (16:45)
[2019-10-26] MEDS: ETHACRYNIC ACID 25 MG PO SCH (16:45)
[2019-10-26] MEDS: DIVALPROEX ER 500 MG TAB.ER.24H PO SCH (20:54)
[2019-10-26] MEDS: ATORVASTATIN 10 MG TAB PO SCH (20:54)
[2019-10-26] MEDS: QUEtiapine 100 MG TAB PO SCH (20:54)
[2019-10-26] MEDS: FOLIC ACID-VIT B COMPLEX-VIT C 1 CAP PO SCH (20:56)
[2019-10-27] MEDS: LEVOTHYROXINE 100 MCG TAB PO SCH (08:38)
[2019-10-27] MEDS: LORazepam 0.5 MG TAB PO SCH ×4 (08:38→21:34)
[2019-10-27] MEDS: ASPIRIN 81 MG PO SCH (08:38)
[2019-10-27] MEDS: LITHIUM CARBONATE 150 MG CAP PO SCH ×3 (08:38→16:43)
[2019-10-27] MEDS ORDERED: FUROSEMIDE 20 MG TAB PO SCH (09:45)
--- NOTE | 2019-10-27 09:46 | P.PN ---
Subjective Patient is seen in follow-up for chronic kidney disease. Patient has chronic kidney disease stage IV with baseline creatinine near 2 secondary to n ephrosclerosis. She was seen in the mental health unit. No chest pain or shortness of breath. Oral intake is good. No hematuria or dysuria. Does admit to swelling in her legs. Vital signs are stable. General: The patient appeared well nourished and normally developed. HEENT: Head exam is unremarkable. Neck is without jugular venous distension. LUNGS: Lungs are clear to auscultation and percussion. Breath sounds decreased. HEART: Rate and Rhythm are regular. First and second heart sounds normal. No murmurs, rubs or gallops. ABDOMEN: Abdominal exam reveals normal bowel sounds. Non-tender and non- distended. No evidence of peritonitis. EXTREMITITES: 1+ edema. Objective - Vital Signs Vital signs: Vital Signs Temp 97.8 F 10/26/19 06:37 Pulse 96 10/27/19 08:35 Resp 18 10/27/19 08:35 BP 123/57 10/27/19 08:35 Pulse Ox 98 10/27/19 08:35 - Labs CBC & Chem 7: 10/23/19 15:10 10/23/19 15:10 Assessment and Plan Plan: Assessment: 1. 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 Patient's kidney ultrasound from January 2018 revealed atrophic right kidney. Baseline creatinine near 2. GFR near baseline. Renal ultrasound revealed normal sized kidneys without any evidence of hydronephrosis. 2. Bipolar disorder. 3. Chronic kidney disease mineral bone disease maintained on calcitriol. 4. Lower extremity edema. Plan: Add Lasix 20 mg orally once daily. Encourage oral intake. Avoid nephrotoxins. Continue to monitor renal function and urine output. Morning labs pending.
--- NOTE | 2019-10-27 13:46 | P.PN ---
Progress Note - Text Progress Note Date: 10/27/19 Interval history: Patient was seen today for weekend cross coverage. Patient was just finishing her lunch and was agreeable speak to play writer in the dining all. Patient was somewhat cooperative however need to be redirected several times. Patient is delusional stating that "can you call and check on my mother she is laying down in the bed right beside mine". Patient spoke about trying to go to groups and participate or was not able to elaborate on it. She denied any significant complaints. She states that her medications are helping her however claims that her lithium level needs to be "300 points". She is refusing the lithium at this time. The patient also explained that she hears Dr. Rivera's voice telling her "you can do this". At this time patient denies any suicidal or homicidal ideations intent or plan. Denies any visual hallucinations. Mental status exam: General Appearance: Patient appears to be overweight, stated age is alert, pleasant, and attempts to cooperate. Her eye contact. Behavior: [No agitated behavior. Patient is calm and difficult to redirect at times. Speech: Patient's speech is fluent and nonpressured. Mood/Affect: Mood is improving mildly, affect is congruent and constricted. Suicidality/Homicidality: Patient denies having any suicidal or homicidal ideation intent or plan. Perceptions: Patient denies any auditory or visual hallucinations. Though content/process: Patient rambles, loose associations and is delusional. Memory and concentration: AOX3, grossly intact for the purposes of this session Judgment and insight: improving however is chronically poor. Assessment/Plan: Continue with current diagnosis. Patient continues to meet criteria for inpatient psychiatric admission for symptom stabilization and safety.Patient will be maintained on current psychotropic medication regimen. Monitor for medication compliance and for any psychotropic medication side effects. Will continue to monitor ongoing response to treatment. Patient is being followed by nephrology. Vital signs reviewed.
[2019-10-27] MEDS: ETHACRYNIC ACID 25 MG PO SCH (16:43)
[2019-10-27] MEDS: ALLOPURINOL 100 MG TAB PO SCH (16:43)
[2019-10-27] MEDS: ATORVASTATIN 10 MG TAB PO SCH ×2 (20:55→21:34)
[2019-10-27] MEDS: QUEtiapine 100 MG TAB PO SCH ×2 (20:55→21:35)
[2019-10-27] MEDS: DIVALPROEX ER 500 MG TAB.ER.24H PO SCH (20:55)
[2019-10-27] MEDS: FOLIC ACID-VIT B COMPLEX-VIT C 1 CAP PO SCH ×2 (20:56→21:34)
[2019-10-27] MEDS: LORazepam 1 MG TAB PO PRN (23:54)
[2019-10-28] MEDS: LITHIUM CARBONATE 150 MG CAP PO SCH ×3 (09:04→16:32)
[2019-10-28] MEDS: LORazepam 0.5 MG TAB PO SCH ×5 (09:04→20:45)
[2019-10-28] MEDS: LEVOTHYROXINE 100 MCG TAB PO SCH ×2 (09:04→09:14)
[2019-10-28] MEDS: ASPIRIN 81 MG PO SCH ×2 (09:04→09:14)
--- NOTE | 2019-10-28 09:43 | P.PN ---
Subjective Patient is seen in follow-up for chronic kidney disease. Patient has chronic kidney disease stage IV with baseline creatinine near 2 secondary to n ephrosclerosis. She was seen in the mental health unit. No chest pain or shortness of breath. Oral intake is good. No hematuria or dysuria. No active complaints at this time. Vital signs are stable. General: The patient appeared well nourished and normally developed. HEENT: Head exam is unremarkable. Neck is without jugular venous distension. LUNGS: Lungs are clear to auscultation and percussion. Breath sounds decreased. HEART: Rate and Rhythm are regular. First and second heart sounds normal. No murmurs, rubs or gallops. ABDOMEN: Abdominal exam reveals normal bowel sounds. Non-tender and non- distended. No evidence of peritonitis. EXTREMITITES: 1+ edema. Objective - Vital Signs Vital signs: Vital Signs Temp 97.8 F 10/26/19 06:37 Pulse 96 10/27/19 08:35 Resp 18 10/27/19 08:35 BP 123/57 10/27/19 08:35 Pulse Ox 98 10/27/19 08:35 - Labs CBC & Chem 7: 10/23/19 15:10 10/23/19 15:10 Assessment and Plan Plan: Assessment: 1. 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 Patient's kidney ultrasound from January 2018 revealed atrophic right kidney. Baseline creatinine near 2. GFR near baseline. Renal ultrasound revealed normal sized kidneys without any evidence of hydronephrosis. 2. Bipolar disorder. 3. Chronic kidney disease mineral bone disease maintained on calcitriol. 4. Lower extremity edema. Plan: Maintain ethacrynic acid 25 mg once daily. Encourage oral intake. Avoid nephrotoxins. Continue to monitor renal function and urine output. Check BMP today.
[2019-10-28 10:45] LABS: Potassium 4.4 mmol/L (3.5-5.1)
--- NOTE | 2019-10-28 11:11 | P.PN ---
Progress Note - Text Progress Note Date: 10/28/19 Interval history: Patient was seen today for weekend cross coverage. She was agreeable to speak to chief underwriter in her room. Patient spoke about her lunch and wanting to drink cocoa today. Patient continues to be bizarre yet pleasant. She continues to selectively refuse some medications and when asked why she states that "Depakote or lithium make me strong". Patient was somewhat cooperative however need to be redirected several times. Patient is continuing to endorse delusions and states that she has not had any visitors from her family yet. Patient spoke about trying to go to groups and participate or was not able to elaborate on it. She denied any significant complaints. She claims that today she is not hearing Dr. Lorenzana voice, and denies any other auditory hallucinations. At this time patient denies any suicidal or homicidal ideations intent or plan. Denies any visual hallucinations. Mental status exam: General Appearance: Patient appears to be overweight, stated age is alert, pleasant/bizarre, and attempts to cooperate. Fair eye contact. Behavior: No agitated behavior. Patient is calm and difficult to redirect at times. Speech: Patient's speech is fluent and nonpressured. Mood/Affect: Mood is improving mildly, affect is congruent and constricted. Suicidality/Homicidality: Patient denies having any suicidal or homicidal ideation intent or plan. Perceptions: Patient denies any auditory or visual hallucinations. Though content/process: Patient rambles, loose associations and is delusional. Inappropriate at times. Memory and concentration: AOX3, grossly intact for the purposes of this session Judgment and insight: improving however is chronically poor. Assessment/Plan: Continue with current diagnosis. Patient continues to meet criteria for inpatient psychiatric admission for symptom stabilization and safety.Patient will be maintained on current psychotropic medication regimen. Monitor for medication compliance and for any psychotropic medication side effects. Encouraged patient to take her medications, patient claims that she would. Will continue to monitor ongoing response to treatment. Patient is being followed by nephrology. Vital signs reviewed.
[2019-10-28] MEDS: ALLOPURINOL 100 MG TAB PO SCH (16:31)
[2019-10-28] MEDS: ETHACRYNIC ACID 25 MG PO SCH (16:32)
[2019-10-28] MEDS: DIVALPROEX ER 500 MG TAB.ER.24H PO SCH (20:46)
[2019-10-28] MEDS: ATORVASTATIN 10 MG TAB PO SCH (20:46)
[2019-10-28] MEDS: QUEtiapine 100 MG TAB PO SCH (20:46)
[2019-10-28] MEDS: FOLIC ACID-VIT B COMPLEX-VIT C 1 CAP PO SCH (20:46)
[2019-10-29] MEDS: LORazepam 2 MG/ML INJ IM PRN ×2 (07:36→14:12)
[2019-10-29] MEDS: ASPIRIN 81 MG PO SCH (09:15)
[2019-10-29] MEDS: LITHIUM CARBONATE 150 MG CAP PO SCH (09:17)
[2019-10-29] MEDS: LORazepam 0.5 MG TAB PO SCH ×3 (09:17→21:10)
[2019-10-29] MEDS: LEVOTHYROXINE 100 MCG TAB PO SCH (09:17)
--- NOTE | 2019-10-29 11:41 | P.PN ---
Subjective Progress Note Date: 10/29/19 The patient was seen in her room. Her chart was reviewed and the case was discussed with the staff and the team. The patient reports doing okay but continues to report poor sleep and moods has been up and down. The patient reports fair appetite. She denies any auditory or visual hallucinations but damián ears to be responding to internal cues. The patient appeared to be paranoid. She was whispering to not not let Dr. Parada in her room. The patient continues to report to refuse medications. Objective - Vital Signs Vital signs: Vital Signs Temp 97.8 F 10/26/19 06:37 Pulse 96 10/27/19 08:35 Resp 18 10/27/19 08:35 BP 123/57 10/27/19 08:35 Pulse Ox 98 10/27/19 08:35 Intake & Output 10/28/19 10/29/19 10/29/19 18:59 06:59 18:59 Weight 104 kg - Exam Mental status exam: General Appearance: Patient appears to be overweight, stated age is alert, pleasant/bizarre, and attempts to cooperate. Fair eye contact. Behavior: No agitated behavior. Patient is calm and difficult to redirect at times. Speech: Patient's speech is fluent and nonpressured. Mood/Affect: Mood is improving mildly, affect is congruent and constricted. Suicidality/Homicidality: Patient denies having any suicidal or homicidal ideation intent or plan. Perceptions: Patient denies any auditory or visual hallucinations. Though content/process: Patient rambles, loose associations and is delusional. Inappropriate at times. Memory and concentration: AOX3, grossly intact for the purposes of this session Judgment and insight: improving however is chronically poor. - Labs CBC & Chem 7: 10/23/19 15:10 10/28/19 09:50 Labs: Abnormal Lab Results - Last 24 Hours (Table) 10/28/19 Range/Units 09:50 Chloride 110 H (98-107) mmol/L BUN 32 H (7-17) mg/dL Creatinine 2.12 H (0.52-1.04) mg/dL Assessment and Plan Assessment: PRINCIPLE DIAGNOSIS: Bipolar disorder currently manic with psychotic features Parkinson's disease Chronic kidney disease Plan: Assessment/Plan: Continue with current diagnosis. Patient continues to meet criteria for inpatient psychiatric admission for symptom stabilization and safety.Patient will be maintained on current psychotropic medication regimen. Monitor for medication compliance and for any psychotropic medication side effects. Encouraged patient to take her medications, patient claims that she would. Will continue to monitor ongoing response to treatment. Abnormal labs were noted. Patient is being followed by nephrology. Vital signs reviewed.
[2019-10-29] MEDS: LORazepam 1 MG TAB PO PRN (13:59)
--- NOTE | 2019-10-29 15:23 | PN ---
PROGRESS NOTE Patient is seen for followup for chronic kidney disease. She is being seen for CKD stage 4, Patient is currently in the psych unit for inpatient care. The morning I spoke to the psychiatrist and they will try her on Depakote and lithium is currently on hold. It appears that the patient's family has stated that no other medications have worked previously for her. Therefore, patient had continued with the lithium in spite of her chronic kidney disease. Renal function, however, has been fairly stable with creatinine staying at about 2.1 mg/dL since June of 2019. We have serum creatinine ranging at about 1.7-1.8 in 2018 as well. PHYSICAL EXAMINATION: This morning patient was comfortable, not in any acute distress. Blood pressure was not noted from recently. Previous blood pressure was 123/57, heart rate 96 per minute. Examination of the heart S1, S2. Examination of the lungs, bilateral breath sounds are heard. ABDOMEN: Soft, non-tender. Examination of lower extremities shows edema 2+ bilaterally. CONE BAKER MACHINE exam grossly intact. LABS: Show sodium 143, potassium 4.4, chloride 110, BUN 32, creatinine 2.1. ASSESSMENT: 1. Chronic kidney disease stage IV, secondary to nephrosclerosis and chronic interstitial nephropathy, maintained on lithium on a chronic basis as previous medications have not worked for her. I discussed with the psychiatrist. We will try to hold off on the lithium. Patient is currently being tried on Depakote. If it does not work for her, she can resume the lithium. 2. Atrophic right kidney. 3. CKD mineral bone disorder, maintained on calcitriol. 4. Lower extremity edema, currently stable. Maintained on ethyl clinic acid which I will continue with the current dose for now. 5. Bipolar disorder, currently being tried on Depakote and lithium is on hold given the advanced chronic kidney disease. However, if patient is not able to tolerate being off of lithium, she can resume it. MMODL / IJN: [id number] /
[2019-10-29] MEDS: ALLOPURINOL 100 MG TAB PO SCH (17:28)
[2019-10-29] MEDS: ETHACRYNIC ACID 25 MG PO SCH (17:28)
[2019-10-29] MEDS: DIVALPROEX ER 500 MG TAB.ER.24H PO SCH (21:09)
[2019-10-29] MEDS: ATORVASTATIN 10 MG TAB PO SCH (21:09)
[2019-10-29] MEDS: QUEtiapine 100 MG TAB PO SCH (21:10)
[2019-10-29] MEDS: FOLIC ACID-VIT B COMPLEX-VIT C 1 CAP PO SCH (21:10)
[2019-10-29] MEDS: ZIPRASIDONE 20 MG VIAL IM PRN (23:34)
[2019-10-30] MEDS: LORazepam 2 MG/ML INJ IM PRN (05:25)
[2019-10-30] MEDS: LEVOTHYROXINE 100 MCG TAB PO SCH (05:34)
[2019-10-30] MEDS: LORazepam 0.5 MG TAB PO SCH ×6 (09:02→21:37)
[2019-10-30] MEDS: ASPIRIN 81 MG PO SCH ×3 (09:02→10:46)
[2019-10-30 09:16] LABS: Basophils # (A) 0.1 k/uL (0-0.2); Basophils % (A) 1 %; Eosinophils # (A) 0.2 k/uL (0-0.7); Eosinophils % (A) 3 %; HGB 13.6 gm/dL (11.4-16.0); Lymphocytes % (A) 28 %; MCH 34.9 pg (25.0-35.0); MCHC 30.8 g/dL (31.0-37.0); Macrocytosis Marked; Mean Platelet Volume 8.4; Monocytes # (A) 0.5 k/uL (0-1.0); Monocytes % (A) 6 %; Neutrophils # (A) 4.3 k/uL (1.3-7.7); Neutrophils % (A) 60 %; Platelet Count 230 k/uL (150-450); RBC 3.89 m/uL (3.80-5.40); WBC 7.2 k/uL (3.8-10.6)
[2019-10-30 09:35] LABS: Albumin 3.9 g/dL (3.5-5.0); Calcium 9.8 mg/dL (8.4-10.2); Potassium 4.3 mmol/L (3.5-5.1); Total Bilirubin 0.5 mg/dL (0.2-1.3); Total Protein 6.9 g/dL (6.3-8.2)
--- NOTE | 2019-10-30 13:00 | P.PN ---
Subjective Progress Note Date: 10/30/19 The patient seen in the chart was reviewed. The case was discussed with the staff in the team meeting. The patient remain poorly compliant with the treatment. She continues to have periods of agitation, shouting, and yelling. The patient has been combative towards the staff at times. The patient cont inues to refuse most of her medications. She shows lack of insight and impaired judgment. The patient reports no problems at this time during the interview. She claims that lithium makes her more manic. The patient denies any auditory or visual hallucinations but appears to be paranoid at times. She denies any active suicidal or homicidal ideations at this time. The patient denies any side effects on the medication but has been refusing most of her medications. Objective - Vital Signs Vital signs: Vital Signs Temp 97.8 F 10/26/19 06:37 Pulse 96 10/27/19 08:35 Resp 18 10/27/19 08:35 BP 123/57 10/27/19 08:35 Pulse Ox 98 10/27/19 08:35 - Exam Mental status exam: General Appearance: Patient appears to be overweight, stated age is alert, pleasant/bizarre, and attempts to cooperate. Fair eye contact. Behavior: No agitated behavior. Patient is calm. Speech: Patient's speech tangential and nonpressured. Mood/Affect: Mood is ''OK'', affect is labile. Suicidality/Homicidality: Patient denies having any suicidal or homicidal ideation intent or plan. Perceptions: Patient denies any auditory or visual hallucinations but appears to be responding to internal cues. Though content/process: Patient rambles, loose associations and is delusional. Inappropriate at times. Memory and concentration: AOX3, grossly intact for the purposes of this session Judgment and insight: Poor - Labs CBC & Chem 7: 10/30/19 08:58 10/30/19 08:58 Labs: Abnormal Lab Results - Last 24 Hours (Table) 10/30/19 10/30/19 Range/Units 08:58 08:58 MCV 113.0 H (80.0-100.0) fL MCHC 30.8 L (31.0-37.0) g/dL Macrocytosis Marked A Chloride 114 H (98-107) mmol/L BUN 31 H (7-17) mg/dL Creatinine 1.98 H (0.52-1.04) mg/dL Glucose 107 H (74-99) mg/dL Assessment and Plan Assessment: PRINCIPLE DIAGNOSIS: Bipolar disorder currently manic with psychotic features Parkinson's disease Chronic kidney disease Plan: Assessment/Plan: Continue with current diagnosis. Patient continues to meet criteria for inpatient psychiatric admission for symptom stabilization and safety.Patient will be maintained on current psychotropic medication regimen. Monitor for medication compliance and for any psychotropic medication side effects. Encouraged patient to take her medications, patient claims that she would. Will restart Vanlue after a discussion with Nephrology. Will discontinue Seroquel and start Zyprexa Zydis 5 mg PO tid. Will continue to monitor ongoing response to treatment. Patient is being followed by nephrology. Vital signs reviewed.
[2019-10-30 16:03] VITALS: BMI 39.3
[2019-10-30] MEDS: ALLOPURINOL 100 MG TAB PO SCH (16:24)
[2019-10-30] MEDS: OLANZapine ODT 5 MG TAB PO SCH ×2 (16:24→21:43)
[2019-10-30] MEDS: ETHACRYNIC ACID 25 MG PO SCH (16:26)
[2019-10-30] MEDS: ZIPRASIDONE 20 MG VIAL IM PRN (20:06)
[2019-10-30] MEDS: ATORVASTATIN 10 MG TAB PO SCH (21:30)
[2019-10-30] MEDS: LITHIUM CARBONATE 150 MG CAP PO SCH (21:30)
[2019-10-30] MEDS: DIVALPROEX ER 500 MG TAB.ER.24H PO SCH (21:30)
[2019-10-30] MEDS: QUEtiapine 100 MG TAB PO SCH (21:30)
[2019-10-30] MEDS: FOLIC ACID-VIT B COMPLEX-VIT C 1 CAP PO SCH (21:30)
[2019-10-31] MEDS: LEVOTHYROXINE 100 MCG TAB PO SCH (06:51)
[2019-10-31] MEDS: CALCITRIOL 0.25 MCG CAP PO SCH ×2 (08:07→08:17)
[2019-10-31] MEDS: LITHIUM CARBONATE 150 MG CAP PO SCH ×3 (08:08→21:08)
[2019-10-31] MEDS: LORazepam 0.5 MG TAB PO SCH ×4 (08:08→21:08)
[2019-10-31] MEDS: OLANZapine ODT 5 MG TAB PO SCH ×4 (08:08→21:09)
[2019-10-31] MEDS: ASPIRIN 81 MG PO SCH (08:09)
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
[2019-10-31] MEDS: LORazepam 1 MG TAB PO PRN (12:15)
--- NOTE | 2019-10-31 14:49 | PN ---
PROGRESS NOTE Patient is seen for followup for chronic kidney disease. The lithium was discontinued for about a day or so. However, patient has not done well without the lithium and therefore it was restarted. Family also states that patient has not been able to tolerate other medications. Her renal function is fairly stable, serum creatinine staying at 2.1-1.9 mg/dL, which is her baseline. PHYSICAL EXAMINATION: Today patient is comfortable. Blood pressure was 138/65, heart rate 100 per minute, patient is afebrile. Examination of the heart S1, S2. Examination of the lungs, decreased breath sounds at bases. Abdomen is soft, non-tender. Examination of the lower extremities shows edema 2+ bilaterally. SENIOR ACCOUNTANT exam grossly intact. LABS: Show sodium 144, potassium 4.3, BUN 31, creatinine 1.98. UA is completely negative with no evidence of blood or protein on 10/23/2019. Hemoglobin was 13.6 g/dL. ASSESSMENT: 1. CKD stage 4, associated with nephrosclerosis, chronic interstitial nephropathy. The patient is not able to come off of lithium, therefore, she has been restarted on it. It is okay to continue and we will continue to monitor the renal function. She is at her baseline for CKD. 2. Bipolar disorder, currently receiving inpatient psych care. 3. Hypertension, controlled. 4. Lower extremity edema, maintained on ethacrynic acid, due to allergies to SULFA and LASIX. 5. CKD mineral bone disorder maintained on calcitriol, which we will continue. PLAN: Continue to monitor renal function periodically. Continue with the ethacrynic acid. MMODL / IJN: [id number] /
[2019-10-31] MEDS: ALLOPURINOL 100 MG TAB PO SCH (16:18)
[2019-10-31] MEDS: ETHACRYNIC ACID 25 MG PO SCH (16:19)
[2019-10-31] MEDS: ATORVASTATIN 10 MG TAB PO SCH (21:08)
[2019-10-31] MEDS: DIVALPROEX ER 500 MG TAB.ER.24H PO SCH (21:08)
[2019-10-31] MEDS: QUEtiapine 100 MG TAB PO SCH (21:08)
[2019-10-31] MEDS: FOLIC ACID-VIT B COMPLEX-VIT C 1 CAP PO SCH (21:36)
[2019-11-01] MEDS: LEVOTHYROXINE 100 MCG TAB PO SCH (05:34)
[2019-11-01] MEDS: ZIPRASIDONE 20 MG VIAL IM PRN (07:55)
[2019-11-01] MEDS: ASPIRIN 81 MG PO SCH (10:06)
[2019-11-01] MEDS: LITHIUM CARBONATE 150 MG CAP PO SCH ×3 (10:07→20:42)
[2019-11-01] MEDS: OLANZapine ODT 5 MG TAB PO SCH ×3 (10:07→21:40)
[2019-11-01] MEDS: LORazepam 0.5 MG TAB PO SCH ×3 (10:07→21:40)
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
[2019-11-01] MEDS: ALLOPURINOL 100 MG TAB PO SCH (16:17)
[2019-11-01] MEDS: ETHACRYNIC ACID 25 MG PO SCH (16:17)
[2019-11-01] MEDS: ACETAMINOPHEN TAB 325 MG TAB PO PRN (16:25)
[2019-11-01] MEDS: DIVALPROEX ER 500 MG TAB.ER.24H PO SCH ×2 (20:38→20:42)
[2019-11-01] MEDS: QUEtiapine 100 MG TAB PO SCH ×2 (20:38→20:42)
[2019-11-01] MEDS: ATORVASTATIN 10 MG TAB PO SCH (20:41)
[2019-11-01] MEDS: FOLIC ACID-VIT B COMPLEX-VIT C 1 CAP PO SCH (20:42)
[2019-11-02] MEDS: LORazepam 2 MG/ML INJ IM PRN ×2 (00:56→23:49)
[2019-11-02] MEDS: ZIPRASIDONE 20 MG VIAL IM PRN ×2 (00:56→23:48)
[2019-11-02] MEDS ORDERED: HALOPERIDOL LACTATE 5 MG/ML 1 ML VIAL IM STA (03:47)
[2019-11-02] MEDS: LEVOTHYROXINE 100 MCG TAB PO SCH (06:36)
[2019-11-02] MEDS: LITHIUM CARBONATE 150 MG CAP PO SCH ×2 (09:25→22:12)
[2019-11-02] MEDS: LORazepam 0.5 MG TAB PO SCH ×3 (09:25→22:12)
[2019-11-02] MEDS: ASPIRIN 81 MG PO SCH (09:25)
[2019-11-02] MEDS: OLANZapine ODT 5 MG TAB PO SCH ×3 (09:27→22:12)
--- NOTE | 2019-11-02 11:09 | P.PN ---
Subjective Progress Note Date: 11/02/19 The patient seen and the chart was reviewed. The case was discussed with the staff in the team meeting. The patient reports doing okay and denies any problems but per staff the patient gets increasingly anxious and agitated at nighttime. The patient was screaming all night and did not sleep at all. As per staff the patient was threatening to kill them last night. The patient remained paranoid and delusional. The patient denies any auditory or visual hallucinations. She denies any suicidal or homicidal ideations at the time of the interview. Patient the patient remained noncompliant with the medication and picks and chooses what medication she is going to take. Objective - Vital Signs Vital signs: Vital Signs Temp 97.8 F 10/26/19 06:37 Pulse 101 H 11/02/19 09:51 Resp 20 11/02/19 09:51 BP 127/67 11/02/19 09:51 Pulse Ox 96 11/02/19 09:51 - Exam Mental status exam: General Appearance: Patient appears to be overweight, stated age is alert, pleasant/bizarre, and attempts to cooperate. Fair eye contact. Behavior: No agitated behavior. Patient is calm. Speech: Patient's speech tangential and nonpressured. Mood/Affect: Mood is OK, affect is labile. Suicidality/Homicidality: Patient denies having any suicidal or homicidal ideation intent or plan. Perceptions: Patient denies any auditory or visual hallucinations but appears to be responding to internal cues. Though content/process: Patient rambles, loose associations and is delusional. Inappropriate at times. Memory and concentration: AOX3, grossly intact for the purposes of this session Judgment and insight: Poor - Labs CBC & Chem 7: 10/30/19 08:58 10/30/19 08:58 Assessment and Plan Assessment: PRINCIPLE DIAGNOSIS: Bipolar disorder currently manic with psychotic features Parkinson's disease Chronic kidney disease Plan: Assessment/Plan: Continue with current diagnosis. Patient continues to meet criteria for inpatient psychiatric admission for symptom stabilization and safety.Patient will be maintained on current psychotropic medication regimen. Monitor for medication compliance and for any psychotropic medication side effects. Encouraged patient to take her medications, patient claims that she would. Continue [place] 150 mg PO bid. Continue Zyprexa Zydis 5 mg PO tid. Awaiting court hearing. Will continue to monitor ongoing response to treatment. Patient is being followed by nephrology. Vital signs reviewed.
--- NOTE | 2019-11-02 11:44 | PN ---
PROGRESS NOTE Patient is seen for followup for chronic kidney disease secondary to nephrosclerosis, chronic interstitial nephropathy. She has been maintained on lithium for many years and patient is not able to tolerate any other alternative medications. She was tried on Depakote again during her inpatient admission this time, but was switched back to lithium. She continues to be unstable from mental health standpoint and continues to require IV medications. Renal function, however, has been fairly stable with creatinine staying at about 1.9 to 2 mg/dL all the way since 2016. PHYSICAL EXAMINATION: On examination today, blood pressure was 127/67, heart rate of 101 per minute. Patient is afebrile. EXAMINATION OF THE HEART: S1, S2. EXAMINATION OF THE LUNGS: Bilateral breath sounds are heard. Abdomen is soft, nontender, obese. Examination of lower extremities shows edema 1+ bilaterally. SEARCH MARKETING COORDINATOR Exam: Grossly intact. LABS: Labs show sodium 144 114, creatinine of 1.98, BUN 31, potassium 4.3. ASSESSMENT: 1. Chronic kidney disease secondary to nephrosclerosis, chronic interstitial nephropathy, maintained on lithium for many years. Renal function very stable. The patient is not able to use alternative medications. Therefore, she is back on her lithium. 2. Chronic kidney disease mineral bone disorder. Continue with the Rocaltrol. 3. Bipolar disorder, maintained on lithium, requiring inpatient care. 4. Lower extremity edema, which is chronic. Currently maintained on ethacrynic acid as patient is allergic to SULFA as well as other LOOP DIURETICS SULFA CONTAINING like LASIX. PLAN: Continue to monitor labs periodically. May continue with the lithium. MMODL / IJN: [id number] /
[2019-11-02] MEDS: ACETAMINOPHEN TAB 325 MG TAB PO PRN (14:53)
[2019-11-02] MEDS: ALLOPURINOL 100 MG TAB PO SCH (18:37)
[2019-11-02] MEDS: ETHACRYNIC ACID 25 MG PO SCH (18:38)
[2019-11-02] MEDS: ATORVASTATIN 10 MG TAB PO SCH (22:11)
[2019-11-02] MEDS: DIVALPROEX ER 500 MG TAB.ER.24H PO SCH (22:11)
[2019-11-02] MEDS: QUEtiapine 100 MG TAB PO SCH (22:12)
[2019-11-02] MEDS: FOLIC ACID-VIT B COMPLEX-VIT C 1 CAP PO SCH (22:12)
[2019-11-03] MEDS: ASPIRIN 81 MG PO SCH (09:11)
[2019-11-03] MEDS: LITHIUM CARBONATE 150 MG CAP PO SCH (09:11)
[2019-11-03] MEDS: LORazepam 0.5 MG TAB PO SCH ×2 (09:11→17:43)
[2019-11-03] MEDS: LEVOTHYROXINE 100 MCG TAB PO SCH (09:11)
[2019-11-03] MEDS: OLANZapine ODT 5 MG TAB PO SCH ×2 (09:11→17:43)
--- NOTE | 2019-11-03 14:27 | P.PN ---
Progress Note - Text Progress Note Date: 11/03/19 Interval history: Patient is seen in [facility] [place] today. She is seen with male staff present. She does not voice any adverse psychotropic medication side effects. When asked regarding her eating and appetite she makes reference to wanting to go to [employer]. Mental status exam: She is alert and cooperative with the interview. She does not show any current agitation. She says that sometimes she yells out but she is trying not to do that. She makes reference to her mood is "jaramillo blues." Thought content she makes reference regarding [employer] killing people. She herself does not verbalize any thoughts of harm to self or others. She does show some disorganization of thought processes. Plan: We'll maintain current psychotropic medication regimen. Continue to monitor for any medication side effects and monitor her ongoing response to treatment.
[2019-11-03] MEDS: ETHACRYNIC ACID 25 MG PO SCH (17:43)
[2019-11-03] MEDS: ALLOPURINOL 100 MG TAB PO SCH (17:43)
[2019-11-04] MEDS: LORazepam 0.5 MG TAB PO SCH ×4 (00:06→21:40)
[2019-11-04] MEDS: LITHIUM CARBONATE 150 MG CAP PO SCH ×3 (00:08→21:40)
[2019-11-04] MEDS: FOLIC ACID-VIT B COMPLEX-VIT C 1 CAP PO SCH ×2 (00:08→21:38)
[2019-11-04] MEDS: DIVALPROEX ER 500 MG TAB.ER.24H PO SCH ×2 (00:08→21:37)
[2019-11-04] MEDS: QUEtiapine 100 MG TAB PO SCH ×2 (00:08→21:41)
[2019-11-04] MEDS: ATORVASTATIN 10 MG TAB PO SCH ×2 (00:08→21:37)
[2019-11-04] MEDS: OLANZapine ODT 5 MG TAB PO SCH ×4 (00:09→21:39)
[2019-11-04] MEDS: LEVOTHYROXINE 100 MCG TAB PO SCH (06:18)
[2019-11-04] MEDS: ACETAMINOPHEN TAB 325 MG TAB PO PRN (06:19)
[2019-11-04] MEDS: ASPIRIN 81 MG PO SCH (08:42)
--- NOTE | 2019-11-04 14:34 | P.PN ---
Progress Note - Text Progress Note Date: 11/04/19 Interval history: Patient is seen in cross coverage again today she is seen in her room. She reports she slept 5 maybe 6 hours last night. She seems to be eating well. She relays that she wants a comb and a toothbrush. Mental status exam: She is alert and cooperative with the interview. She does not show any agitation. She denies any hallucinations and denies any thoughts of harm to self or others. She tells me that I need to be in the [facility] [employer]. Her affect does show some range. She describes her mood today is good. Plan: Patient will be maintained on current psychotropic medication regimen. Continue to monitor for any medication side effects and monitor her ongoing response to treatment.
[2019-11-04] MEDS: ALLOPURINOL 100 MG TAB PO SCH (16:00)
[2019-11-04] MEDS: ETHACRYNIC ACID 25 MG PO SCH (16:04)
[2019-11-05] MEDS: ACETAMINOPHEN TAB 325 MG TAB PO PRN (06:53)
[2019-11-05] MEDS: LEVOTHYROXINE 100 MCG TAB PO SCH (07:31)
[2019-11-05] MEDS: LORazepam 0.5 MG TAB PO SCH ×3 (08:00→23:13)
[2019-11-05] MEDS: OLANZapine ODT 5 MG TAB PO SCH ×3 (08:00→23:13)
[2019-11-05] MEDS: LITHIUM CARBONATE 150 MG CAP PO SCH ×3 (08:00→23:14)
[2019-11-05] MEDS: ASPIRIN 81 MG PO SCH ×2 (08:00→08:59)
[2019-11-05] MEDS: LORazepam 2 MG/ML INJ IM PRN (10:59)
[2019-11-05] MEDS: ZIPRASIDONE 20 MG VIAL IM PRN (11:00)
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
[2019-11-05] MEDS: ALLOPURINOL 100 MG TAB PO SCH (16:10)
[2019-11-05] MEDS: ETHACRYNIC ACID 25 MG PO SCH (16:10)
[2019-11-05] MEDS: QUEtiapine 100 MG TAB PO SCH (23:13)
[2019-11-05] MEDS: FOLIC ACID-VIT B COMPLEX-VIT C 1 CAP PO SCH (23:14)
[2019-11-05] MEDS: ATORVASTATIN 10 MG TAB PO SCH (23:14)
[2019-11-05] MEDS: DIVALPROEX ER 500 MG TAB.ER.24H PO SCH (23:14)
[2019-11-06] MEDS: LORazepam 2 MG/ML INJ IM PRN ×2 (03:27→13:41)
[2019-11-06] MEDS: LEVOTHYROXINE 100 MCG TAB PO SCH (06:38)
[2019-11-06] MEDS: LITHIUM CARBONATE 150 MG CAP PO SCH ×3 (09:33→21:49)
[2019-11-06] MEDS: OLANZapine ODT 5 MG TAB PO SCH ×4 (09:33→21:49)
[2019-11-06] MEDS: ASPIRIN 81 MG PO SCH ×2 (09:33→10:03)
[2019-11-06] MEDS: LORazepam 0.5 MG TAB PO SCH ×4 (09:33→21:49)
--- NOTE | 2019-11-06 10:44 | P.PN ---
Subjective Patient is seen in follow-up for chronic kidney disease. Patient has chronic kidney disease stage IV with baseline creatinine near 2 secondary to n ephrosclerosis. She was seen in the mental health unit. No chest pain or shortness of breath. Oral intake is good. No hematuria or dysuria. No active complaints at this time. Vital signs are stable. General: The patient appeared well nourished and normally developed. HEENT: Head exam is unremarkable. Neck is without jugular venous distension. LUNGS: Lungs are clear to auscultation and percussion. Breath sounds decreased. HEART: Rate and Rhythm are regular. First and second heart sounds normal. No murmurs, rubs or gallops. ABDOMEN: Abdominal exam reveals normal bowel sounds. Non-tender and non- distended. No evidence of peritonitis. EXTREMITITES: 1+ edema. Objective - Vital Signs Vital signs: Vital Signs Temp 97.3 F L 11/04/19 06:37 Pulse 95 11/05/19 16:28 Resp 20 11/05/19 16:28 BP 126/65 11/05/19 16:28 Pulse Ox 92 L 11/04/19 17:23 - Labs CBC & Chem 7: 10/30/19 08:58 10/30/19 08:58 Assessment and Plan Plan: Assessment: 1. 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 Patient's kidney ultrasound from January 2018 revealed atrophic right kidney. Baseline creatinine near 2. GFR near baseline. Renal ultrasound revealed normal sized kidneys without any evidence of hydronephrosis. 2. Bipolar disorder. 3. Chronic kidney disease mineral bone disease maintained on calcitriol. 4. Lower extremity edema. Better. Plan: Maintain ethacrynic acid 25 mg once daily. Encourage oral intake. Avoid nephrotoxins. Continue to monitor renal function and urine output. Repeat electrolytes in the morning.
--- NOTE | 2019-11-06 11:38 | P.PN ---
Subjective Progress Note Date: 11/06/19 The patient was seen in her room laying in her bed. The chart was reviewed and the case was discussed with the staff and the team meeting. The patient reports feeling "terrible". The patient remained paranoid and delusional. She believes that the staff has cut off her toes. The patient appears to be responding to internal cues. She continues to have periods of agitation and that threatens the staff. The patient continues to be monitored one-on-one. The patient appears to be responding to internal cues. She continues to refuse most of her medications. Objective - Vital Signs Vital signs: Vital Signs Temp 97.3 F L 11/04/19 06:37 Pulse 95 11/05/19 16:28 Resp 20 11/05/19 16:28 BP 126/65 11/05/19 16:28 Pulse Ox 92 L 11/04/19 17:23 - Exam Mental status exam: General Appearance: Patient appears to be overweight, stated age, is alert. Fair eye contact. Behavior: Agitated behavior. Speech: Patient's speech tangential and pressured. Mood/Affect: Mood is OK, affect is labile. Suicidality/Homicidality: Patient denies having any suicidal or homicidal ideation intent or plan. Perceptions: Patient denies any auditory or visual hallucinations but appears to be responding to internal cues. Though content/process: Patient rambles, loose associations and is delusional. Inappropriate at times. Memory and concentration: AOX3, grossly intact for the purposes of this session Judgment and insight: Poor - Labs CBC & Chem 7: 10/30/19 08:58 10/30/19 08:58 Assessment and Plan Assessment: PRINCIPLE DIAGNOSIS: Bipolar disorder currently manic with psychotic features Parkinson's disease Chronic kidney disease Plan: Assessment/Plan: Continue with current diagnosis. Patient continues to meet criteria for inpatient psychiatric admission for symptom stabilization and safety.Patient will be maintained on current psychotropic medication regimen. Monitor for medication compliance and for any psychotropic medication side effects. Encouraged patient to take her medications, patient claims that she would. Continue [place] 150 mg PO bid. Continue Zyprexa Zydis 5 mg PO tid. Awaiting court hearing. Will continue to monitor ongoing response to treatment. Patient is being followed by nephrology. Vital signs reviewed.
[2019-11-06] MEDS: ALLOPURINOL 100 MG TAB PO SCH (16:34)
[2019-11-06] MEDS: ETHACRYNIC ACID 25 MG PO SCH (16:35)
[2019-11-06] MEDS: ACETAMINOPHEN TAB 325 MG TAB PO PRN (20:12)
[2019-11-06] MEDS: QUEtiapine 100 MG TAB PO SCH (20:15)
[2019-11-06] MEDS: ATORVASTATIN 10 MG TAB PO SCH (20:15)
[2019-11-06] MEDS: DIVALPROEX ER 500 MG TAB.ER.24H PO SCH (20:15)
[2019-11-06] MEDS ORDERED: IPRATROPIUM-ALBUTEROL 3 ML NEB INHALATION PRN (21:21)
[2019-11-06] MEDS: FOLIC ACID-VIT B COMPLEX-VIT C 1 CAP PO SCH (21:49)
[2019-11-07] MEDS: LORazepam 1 MG TAB PO PRN (05:21)
[2019-11-07] MEDS: ACETAMINOPHEN TAB 325 MG TAB PO PRN (05:21)
[2019-11-07] MEDS: LEVOTHYROXINE 100 MCG TAB PO SCH (05:47)
[2019-11-07] MEDS: LORazepam 2 MG/ML INJ IM PRN ×2 (09:07→13:53)
[2019-11-07] MEDS: ASPIRIN 81 MG PO SCH ×2 (10:23→10:34)
[2019-11-07] MEDS: LITHIUM CARBONATE 150 MG CAP PO SCH ×3 (10:24→21:40)
[2019-11-07] MEDS: OLANZapine ODT 5 MG TAB PO SCH ×4 (10:24→21:41)
[2019-11-07] MEDS: CALCITRIOL 0.25 MCG CAP PO SCH (10:24)
[2019-11-07] MEDS: LORazepam 0.5 MG TAB PO SCH ×4 (10:24→21:39)
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
[2019-11-07] MEDS ORDERED: ZIPRASIDONE 20 MG VIAL IM ONE (11:14)
[2019-11-07] MEDS ORDERED: WATER FOR INJECTION, STERILE 10 ML IV ONE (11:14)
[2019-11-07] MEDS: ZIPRASIDONE 20 MG VIAL IM PRN ×2 (11:18→21:14)
[2019-11-07] MEDS: ALLOPURINOL 100 MG TAB PO SCH ×2 (17:22→18:47)
[2019-11-07] MEDS: ETHACRYNIC ACID 25 MG PO SCH ×2 (17:22→18:48)
[2019-11-07] MEDS: ATORVASTATIN 10 MG TAB PO SCH (21:39)
[2019-11-07] MEDS: QUEtiapine 100 MG TAB PO SCH (21:39)
[2019-11-07] MEDS: FOLIC ACID-VIT B COMPLEX-VIT C 1 CAP PO SCH ×2 (21:40→21:48)
[2019-11-07] MEDS: DIVALPROEX ER 500 MG TAB.ER.24H PO SCH (21:40)
--- NOTE | 2019-11-08 00:02 | P.PN ---
Progress Note - Text Progress Note Date: 11/07/19 - Chief Complaint Psychotic : This is a pleasant 74-year-old patient of Dr. Thi Dudley. Chronic stable medical conditions include chronic kidney disease, bipolar, hypothyroid, Parkinson's disease, seizure disorder. Patient does use a walker to baseline. Patient was admitted with psychotic symptoms. Bipolar disorder manic with psychotic features I was called to reassess the patient in terms of lower extremity edema. Some wheezing. -When I came to the room patient has a sitter. Her face is covered with a blanket. She is lying flat in bed comfortable. Shortly occasionally. Including using the F word. Does not answer any questions straight. Denies any shortness of breath. Review of systems: Was attempted for constitutional, cardiovascular, GI, pulmonary. relevant finding as above Active Medications Acetaminophen (Tylenol Tab) 650 mg PO Q4HR PRN PRN Reason: MILD Pain/Discomfort Last Admin: 11/07/19 05:21 Dose: 650 mg Documented by: Al Hydroxide/Mg Hydroxide (Maalox) 30 ml PO Q4HR PRN PRN Reason: GI Upset Albuterol/Ipratropium (Duoneb 0.5 Mg-3 Mg/3 Ml Soln) 3 ml INHALATION RT-Q6H PRN PRN Reason: Shortness Of Breath Or Wheezing Allopurinol (Zyloprim) 100 mg PO DAILY@1700 [facility] Last Admin: 11/07/19 18:47 Dose: 100 mg Documented by: Aspirin (Aspirin) 81 mg PO DAILY@0900 [facility] Last Admin: 11/07/19 10:34 Dose: Not Given Documented by: Atorvastatin Calcium (Lipitor) 10 mg PO [facility] Last Admin: 11/07/19 21:39 Dose: 10 mg Documented by: Calcitriol (Rocaltrol) 0.25 mcg PO [facility] Last Admin: 11/07/19 10:24 Dose: 0.25 mcg Documented by: Divalproex Sodium (Depakote Er) 1,000 mg PO [facility] Last Admin: 11/07/19 21:40 Dose: 1,000 mg Documented by: Docusate Sodium (Colace) 100 mg PO BID PRN PRN Reason: Constipation Lactulose (Cephulac) 10 gm PO DAILY PRN PRN Reason: Constipation Levothyroxine Sodium (Synthroid) 100 mcg PO DAILY@0630 [facility] Last Admin: 11/07/19 05:47 Dose: Not Given Documented by: [place] Carbonate ([place] Carbonate) 150 mg PO BID [facility] Last Admin: 11/07/19 21:40 Dose: 150 mg Documented by: Lorazepam (Ativan) 1 mg PO TID PRN PRN Reason: Anxiety, Agitation Last Admin: 11/07/19 05:21 Dose: 1 mg Documented by: Lorazepam (Ativan) 1 mg IM TID PRN PRN Reason: Agitation or Acute Anxiety Last Admin: 11/07/19 13:53 Dose: 1 mg Documented by: Lorazepam (Ativan) 0.5 mg PO TID [facility] Last Admin: 11/07/19 21:39 Dose: 0.5 mg Documented by: Magnesium Hydroxide (Milk Of Magnesia) 2,400 mg PO DAILY PRN PRN Reason: Constipation Multivit/Ca Carb/B Cmplx/FA/Prenat (Nephrocaps) 1 each PO [facility] Last Admin: 11/07/19 21:48 Dose: 1 each Documented by: Ethacrynic Acid [ Ethacrynic Acid] 25 Mg 25 mg PO DAILY@1700 [facility] Last Admin: 11/07/19 18:48 Dose: 25 mg Documented by: Olanzapine (Zyprexa Zydis) 5 mg PO TID [facility] Last Admin: 11/07/19 21:41 Dose: 5 mg Documented by: Prochlorperazine Maleate (Compazine) 10 mg PO DAILY PRN PRN Reason: Nausea Quetiapine Fumarate (Seroquel) 200 mg PO [facility] Last Admin: 11/07/19 21:39 Dose: 200 mg Documented by: Ziprasidone (Geodon) 20 mg IM BID PRN PRN Reason: Agitation or Acute Psychosis Last Admin: 11/07/19 21:14 Dose: 20 mg Documented by: Physical examination: VITAL SIGNS: 111, 22, 142/80, GENERAL: Laying in bed flat, comfortable. EYES: Pupils equal. Conjunctiva normal. HEENT: External appearance of nose and ears normal, oral cavity grossly normal. NECK: JVD unable to assess; masses not palpable. HEART: First and second heart sounds are normal; primarily some nonpitting edema. LUNGS: Respiratory rate normal; fair air entry. ABDOMEN: Soft, nontender, liver spleen not palpable, no masses palpable. PSYCH: Answering questions more details as abovel. INVESTIGATIONS, reviewed in the clinical context: White count 7.2 hemoglobin 10.6 progression 4.3 bun 31 crit 198 Previous testing White count 7.7 hemoglobin 13.9 potassium 5.1 bun 27 creatinine 2.13 Assessment: -No clinical evidence of fluid overload. No acute pulmonary problem currently. -Chronic kidney disease stage III likely nephrosclerosis -Hypothyroid -Idiopathic Parkinson's disease -Epilepsy disorder -Chronic gait dysfunction uses a walker -Bipolar disorder, manic with psychotic features Plan: Continue current medication treatment plan. If Patient's condition changes please do not hesitate to call.. Told the nurse to the patient's stockings.-Below-knee. Or Todd wraps. Thank you Dr. Cross
[2019-11-08 01:29] LABS: Calcium 10.2 mg/dL (8.4-10.2); Magnesium 2.4 mg/dL (1.6-2.3); Potassium 4.7 mmol/L (3.5-5.1)
[2019-11-08] MEDS: LORazepam 2 MG/ML INJ IM PRN (01:30)
[2019-11-08] MEDS: LEVOTHYROXINE 100 MCG TAB PO SCH (06:17)
[2019-11-08] MEDS: ASPIRIN 81 MG PO SCH (09:43)
[2019-11-08] MEDS: LITHIUM CARBONATE 150 MG CAP PO SCH ×3 (09:43→20:22)
[2019-11-08] MEDS: LORazepam 0.5 MG TAB PO SCH ×3 (09:43→19:58)
[2019-11-08] MEDS: OLANZapine ODT 5 MG TAB PO SCH ×5 (09:44→20:23)
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
[2019-11-08] MEDS: ETHACRYNIC ACID 25 MG PO SCH ×2 (16:03→16:12)
[2019-11-08] MEDS: ALLOPURINOL 100 MG TAB PO SCH ×2 (16:03→16:12)
[2019-11-08] MEDS: QUEtiapine 100 MG TAB PO SCH ×2 (19:58→20:25)
[2019-11-08] MEDS: ATORVASTATIN 10 MG TAB PO SCH ×2 (19:58→20:24)
[2019-11-08] MEDS: DIVALPROEX ER 500 MG TAB.ER.24H PO SCH ×2 (19:58→20:25)
[2019-11-08] MEDS: FOLIC ACID-VIT B COMPLEX-VIT C 1 CAP PO SCH (19:58)
[2019-11-09] MEDS: ACETAMINOPHEN TAB 325 MG TAB PO PRN ×2 (02:54→09:23)
[2019-11-09] MEDS: ZIPRASIDONE 20 MG VIAL IM PRN (03:18)
[2019-11-09] MEDS: LORazepam 2 MG/ML INJ IM PRN (03:18)
[2019-11-09] MEDS: LEVOTHYROXINE 100 MCG TAB PO SCH ×2 (07:06→09:30)
[2019-11-09] MEDS: LORazepam 0.5 MG TAB PO SCH ×3 (09:23→22:43)
[2019-11-09] MEDS: OLANZapine ODT 5 MG TAB PO SCH (09:23)
[2019-11-09] MEDS: LITHIUM CARBONATE 150 MG CAP PO SCH ×2 (09:23→22:43)
[2019-11-09] MEDS: ASPIRIN 81 MG PO SCH (09:24)
--- NOTE | 2019-11-09 10:23 | P.PN ---
Subjective Patient is seen in follow-up for chronic kidney disease. Patient has chronic kidney disease stage IV with baseline creatinine near 2 secondary to n ephrosclerosis. She was seen in the mental health unit. Patient is more confused today. She is covered in a blanket and is speaking words but not making sense. She has been refusing her oral medications including ethacrynic acid. Vital signs are stable. General: The patient appeared well nourished and normally developed. HEENT: Head exam is unremarkable. Neck is without jugular venous distension. LUNGS: Lungs are clear to auscultation and percussion. Breath sounds decreased. HEART: Rate and Rhythm are regular. First and second heart sounds normal. No murmurs, rubs or gallops. ABDOMEN: Abdominal exam reveals normal bowel sounds. Non-tender and non- distended. No evidence of peritonitis. EXTREMITITES: 1+ edema. Erythema noted. Objective - Vital Signs Vital signs: Vital Signs Temp 97.3 F L 11/04/19 06:37 Pulse 111 H 11/06/19 20:52 Resp 16 11/09/19 06:21 BP 142/80 11/06/19 20:52 Pulse Ox 92 L 11/04/19 17:23 - Labs CBC & Chem 7: 10/30/19 08:58 11/07/19 18:17 Assessment and Plan Plan: Assessment: 1. 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 Patient's kidney ultrasound from January 2018 revealed atrophic right kidney. Baseline creatinine near 2. GFR near baseline. Renal ultrasound revealed normal sized kidneys without any evidence of hydro nephrosis. 2. Bipolar disorder. 3. Chronic kidney disease mineral bone disease maintained on calcitriol. 4. Lower extremity edema. This is worse as she has been spitting out her oral medications including ethacrynic acid. 5. Erythematous rash in the right lower extremity. Possibly cellulitis. Primary team to address. Plan: Increase ethacrynic acid 25 mg twice daily. Encouraged oral intake. Avoid nephrotoxins. Continue to monitor renal function and urine output. Repeat electrolytes in the morning.
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
[2019-11-09] MEDS ORDERED: OLANZapine 10 MG VIAL IM PRN (13:19)
[2019-11-09] MEDS: ALLOPURINOL 100 MG TAB PO SCH ×2 (17:43→17:59)
[2019-11-09] MEDS: CEPHALEXIN 500 MG CAP PO SCH ×2 (17:50→22:42)
[2019-11-09] MEDS: IPRATROPIUM-ALBUTEROL 3 ML NEB INHALATION SCH (19:25)
[2019-11-09] MEDS: ETHACRYNIC ACID PO SCH (19:27)
[2019-11-09] MEDS: OLANZapine 10 MG VIAL IM SCH (20:11)
[2019-11-09] MEDS ORDERED: WATER FOR INJECTION, STERILE 10 ML IV ONE (20:13)
[2019-11-09] MEDS: ATORVASTATIN 10 MG TAB PO SCH (22:42)
[2019-11-09] MEDS: QUEtiapine 100 MG TAB PO SCH (22:42)
[2019-11-09] MEDS: FOLIC ACID-VIT B COMPLEX-VIT C 1 CAP PO SCH (23:07)
[2019-11-09] MEDS: VALPROIC ACID ORAL SOLN 250 MG/5 ML CUP PO SCH (23:07)
[2019-11-10] MEDS: IPRATROPIUM-ALBUTEROL 3 ML NEB INHALATION SCH ×4 (02:28→21:24)
[2019-11-10 08:45] LABS: Calcium 9.4 mg/dL (8.4-10.2); Magnesium 2.2 mg/dL (1.6-2.3); Potassium 4.6 mmol/L (3.5-5.1)
[2019-11-10] MEDS: LITHIUM CARBONATE 150 MG CAP PO SCH ×3 (08:57→21:55)
[2019-11-10] MEDS: LORazepam 0.5 MG TAB PO SCH ×3 (08:57→21:54)
[2019-11-10] MEDS: CEPHALEXIN 500 MG CAP PO SCH ×3 (08:57→21:54)
[2019-11-10] MEDS: ASPIRIN 81 MG PO SCH ×2 (08:57→09:16)
[2019-11-10] MEDS: LEVOTHYROXINE 100 MCG TAB PO SCH ×2 (08:57→09:16)
[2019-11-10] MEDS: ETHACRYNIC ACID PO SCH ×3 (08:58→21:55)
[2019-11-10] MEDS: VALPROIC ACID ORAL SOLN 250 MG/5 ML CUP PO SCH ×2 (09:03→21:54)
[2019-11-10] MEDS ORDERED: WATER FOR INJECTION, STERILE 10 ML IV ONE (09:21)
[2019-11-10] MEDS: OLANZapine 10 MG VIAL IM SCH ×2 (09:25→12:52)
[2019-11-10] MEDS: ALLOPURINOL 100 MG TAB PO SCH (16:46)
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
[2019-11-10] MEDS: ACETAMINOPHEN TAB 325 MG TAB PO PRN (17:36)
[2019-11-10] MEDS ORDERED: hydrOXYzine HCL 50 MG/ML 1 ML VIAL IM ONE (18:00)
[2019-11-10] MEDS: ATORVASTATIN 10 MG TAB PO SCH (21:54)
[2019-11-10] MEDS: FOLIC ACID-VIT B COMPLEX-VIT C 1 CAP PO SCH (21:55)
[2019-11-10] MEDS: QUEtiapine 100 MG TAB PO SCH (21:55)
[2019-11-10] MEDS: flUPHENAZine 2.5 MG/ML (MDV) 10 ML VIAL IM PRN (22:40)
[2019-11-11] MEDS: IPRATROPIUM-ALBUTEROL 3 ML NEB INHALATION SCH ×2 (02:01→10:17)
[2019-11-11] MEDS: VALPROIC ACID ORAL SOLN 250 MG/5 ML CUP PO SCH ×2 (09:35→22:18)
[2019-11-11] MEDS: LORazepam 0.5 MG TAB PO SCH ×3 (09:36→22:19)
[2019-11-11] MEDS: ETHACRYNIC ACID PO SCH ×2 (09:36→22:25)
[2019-11-11] MEDS: CEPHALEXIN 500 MG CAP PO SCH ×3 (09:36→22:19)
[2019-11-11] MEDS: LITHIUM CARBONATE 150 MG CAP PO SCH ×2 (09:36→22:19)
[2019-11-11] MEDS: LEVOTHYROXINE 100 MCG TAB PO SCH (09:36)
[2019-11-11] MEDS: ASPIRIN 81 MG PO SCH (09:36)
[2019-11-11] MEDS: hydrOXYzine HCL 50 MG/ML 1 ML VIAL IM PRN (12:12)
--- NOTE | 2019-11-11 13:24 | P.PN ---
Progress Note - Text Interval history: The patient is found in the self lounge with one-to-one supervision staff. She seated in a chair watching TV. Upon approach she is irritable and loud. She was heard throughout the morning yelling. Staff report that after we changed her when necessary medications she was mildly more controlled and did sleep a little better in the evening. Staff had felt that the Zyprexa was not effective and she seemed to be worse after receiving those injections. Nursing called the patient's daughter to see if she had ever been on Vistaril or Prolixin and there was no history of those being used. Nursing was able to get the patient to take morning medications. Mental status exam: The patient is an obese female appearing her stated age. She is seated in a chair. She is dressed in hospital attire. Eye contact is intermittent. She is irritable and sarcastic. She frequently uses profanity in conversation. Throughout the morning she can be heard yelling. Insight and judgment remain poor. She makes a variety of delusional statements many of which are persecutory in nature. She demonstrated no physical aggressiveness during our interaction. She demonstrates no involuntary repetitive movements. Plan: The patient remains acutely symptomatic. Nursing is doing well and trying to get the patient to comply with oral medications. We have switched her injectable medications to Prolixin 2.5 mg and Vistaril 25 mg. She is to receive an injection if she refuses oral medication. Vital signs reviewed. Continue one-to-one supervision due to the severity of her symptoms.
[2019-11-11] MEDS: ALLOPURINOL 100 MG TAB PO SCH (16:32)
[2019-11-11] MEDS: FOLIC ACID-VIT B COMPLEX-VIT C 1 CAP PO SCH (22:13)
[2019-11-11] MEDS: ATORVASTATIN 10 MG TAB PO SCH (22:13)
[2019-11-11] MEDS: QUEtiapine 100 MG TAB PO SCH (22:18)
[2019-11-12] MEDS ORDERED: WATER FOR INJECTION, STERILE 0 ML IV ONE (00:45)
[2019-11-12] MEDS: hydrOXYzine HCL 50 MG/ML 1 ML VIAL IM PRN ×2 (01:10→20:30)
[2019-11-12] MEDS: LEVOTHYROXINE 100 MCG TAB PO SCH (09:20)
[2019-11-12] MEDS: ETHACRYNIC ACID PO SCH ×3 (09:20→21:26)
[2019-11-12] MEDS: ASPIRIN 81 MG PO SCH (09:20)
[2019-11-12] MEDS: CEPHALEXIN 500 MG CAP PO SCH (09:20)
[2019-11-12] MEDS: LORazepam 0.5 MG TAB PO SCH ×4 (09:21→21:27)
[2019-11-12] MEDS: VALPROIC ACID ORAL SOLN 250 MG/5 ML CUP PO SCH ×3 (09:21→21:27)
[2019-11-12] MEDS: LITHIUM CARBONATE 150 MG CAP PO SCH ×3 (09:21→21:27)
[2019-11-12] MEDS: IPRATROPIUM-ALBUTEROL 3 ML NEB INHALATION SCH ×2 (12:20→22:35)
--- NOTE | 2019-11-12 14:51 | P.PN ---
Subjective Progress Note Date: 11/12/19 Principal diagnosis: Bipolar disorder most recent episode manic with psychotic features, multiple medical problems including chronic his disease stage III, hypothyroid, idiopathic Parkinson's disease, epilepsy disorder, chronic gait dysfunction. I reviewed the medical record, interviewed the patient and discussed her treatment and treatment plan during team meeting. She continues to require one-to-one sitter due to agitation and aggression. She slept 3 hours last night and according to records has been sleeping between 1 to 4 hours nightly. Staff reports that over the last week she was loud and disruptive throughout most of the nights. She refused lithium and Depakote over the weekend before Dr. Cohen order to administer Prolixin IM if she is noncompliant. Her one-to-one sitter described continued episodes of agitation and verbal aggression. She was irritable and angry when I attempted to speak with her. She accused me of not being a doctor. She accused me of being an alien and flying a spaceship. Objective - Vital Signs Vital signs: Vital Signs Temp 97.9 F 11/09/19 16:50 Pulse 90 11/09/19 19:36 Resp 20 11/09/19 18:41 BP 121/69 11/09/19 16:50 Pulse Ox 95 11/09/19 16:50 - Exam She presented as a casually groomed obese elderly woman who angry and hostile. She made eye contact and was unsure whether she was fully attending to the interview. She was sitting in a wheelchair. Her speech was loud and disorganized. Her affect was irritable and labile. She did not express suicidal ideation or feelings of helplessness or worthlessness. She is paranoid and guarded and express clear delusional belief. Her thinking was concrete and not organized. She did not appear to responding to internal stimuli. - Labs CBC & Chem 7: 10/30/19 08:58 11/10/19 08:04 Assessment and Plan Assessment: She remains severely and persistently mentally ill and physically debilitated for multiple medical problems. She is minimally improved from admission. Plan: Continue inpatient hospitalization. Continue one-to-one. Continue safety precautions. Increase Seroquel to 300 mg at bedtime. Continue lithium carbonate 150 depressed twice a day and Depakene syrup 500 mg twice a day. Prolixin 2.5 mg IM if she refuses lithium and/or Depakene. Continue Duoneb, allopurinol, aspirin, Lipitor, Rocaltrol, Keflex, Colace, Ethacrynicc acid, Cephulac, Synthroid, Nephrocaps and Compazine as prescribed by medicine service. Encourage participation in therapeutic groups and activities as tolerated. Evaluate clinical status response to treatment daily basis.
[2019-11-12] MEDS: ALLOPURINOL 100 MG TAB PO SCH (16:10)
[2019-11-12] MEDS: CEPHALEXIN 250 MG CAP PO SCH ×2 (16:10→21:27)
[2019-11-12] MEDS: ATORVASTATIN 10 MG TAB PO SCH ×2 (20:34→21:27)
[2019-11-12] MEDS: FOLIC ACID-VIT B COMPLEX-VIT C 1 CAP PO SCH (20:35)
[2019-11-12] MEDS: QUEtiapine 100 MG TAB PO SCH (20:35)
[2019-11-12] MEDS: flUPHENAZine 2.5 MG/ML (MDV) 10 ML VIAL IM PRN (21:29)
[2019-11-13] MEDS ORDERED: hydrOXYzine HCL 50 MG/ML 1 ML VIAL IM ONE (03:00)
[2019-11-13] MEDS: IPRATROPIUM-ALBUTEROL 3 ML NEB INHALATION SCH ×4 (03:15→23:43)
[2019-11-13] MEDS: LEVOTHYROXINE 100 MCG TAB PO SCH (06:31)
[2019-11-13] MEDS: LITHIUM CARBONATE 150 MG CAP PO SCH ×2 (10:21→21:13)
[2019-11-13] MEDS: LORazepam 0.5 MG TAB PO SCH ×3 (10:22→21:15)
[2019-11-13] MEDS: ETHACRYNIC ACID PO SCH ×2 (10:22→21:14)
[2019-11-13] MEDS: ASPIRIN 81 MG PO SCH (10:22)
[2019-11-13] MEDS: CEPHALEXIN 250 MG CAP PO SCH ×3 (10:22→21:13)
[2019-11-13] MEDS: VALPROIC ACID ORAL SOLN 250 MG/5 ML CUP PO SCH ×2 (10:23→21:14)
--- NOTE | 2019-11-13 15:58 | P.PN ---
Subjective Progress Note Date: 11/13/19 Principal diagnosis: Bipolar disorder most recent episode manic with psychotic features, multiple medical problems including chronic his disease stage III, hypothyroid, idiopathic Parkinson's disease, epilepsy disorder, chronic gait dysfunction. I reviewed the medical record, interviewed the patient and discussed her treatment and treatment plan during team meeting. She remains on one-to-one due to her physical impairment, agitation and confusion. She has episodes of urinar y and fecal incontinence. Her attendants and nursing staff report continued episodes of agitation, verbal aggression and physical aggression. She refused her evening dose of lithium and valproic acid yesterday and received 2.5 mg of Prolixin IM as per her treatment plan. She did not sleep at all yesterday. She told me that she slept 9 hours last night and is feeling well. Objective - Vital Signs Vital signs: Vital Signs Temp 97.9 F 11/09/19 16:50 Pulse 90 11/09/19 19:36 Resp 20 11/09/19 18:41 BP 121/69 11/09/19 16:50 Pulse Ox 95 11/09/19 16:50 Intake & Output 11/12/19 11/13/19 11/13/19 18:59 06:59 18:59 Weight 104 kg - Exam She presented as a casually groomed obese elderly woman who is sitting comfortably in a wheelchair. Her one-to-one was in attendance. She was angry and irritable. She made eye contact and was unsure whether she was fully at tending to the interview. Her speech was loud and disorganized. Her affect was irritable and labile. She did not express suicidal ideation or feelings of helplessness or worthlessness. She is paranoid and guarded and expressed delusional beliefs about aliens and suspicious. Her thinking was concrete, disorganized and at times incoherent. She did not appear to responding to internal stimuli. - Labs CBC & Chem 7: 10/30/19 08:58 11/10/19 08:04 Assessment and Plan Assessment: She remains severely and persistently mentally ill and physically debilitated for multiple medical problems. She is minimally improved from admission. Plan: Continue inpatient hospitalization. Continue one-to-one. Continue safety precautions. Continue Seroquel to 300 mg at bedtime and titrated according to clinical response and tolerance. Continue lithium carbonate 150 depressed twice a day and Depakene syrup 500 mg twice a day. Obtain lithium and Seroquel. Level after she is compliant with both medications for at least 3 days. Prolixin 2.5 mg IM if she refuses lithium and/or Depakene. Continue Duoneb, allopurinol, aspirin, Lipitor, Rocaltrol, Keflex, Colace, Ethacrynicc acid, Cephulac, Synthroid, Nephrocaps and Compazine as prescribed by medicine service. Encourage participation in therapeutic groups and activities as tolerated. Evaluate clinical status response to treatment daily basis.
[2019-11-13] MEDS: ALLOPURINOL 100 MG TAB PO SCH (17:14)
[2019-11-13] MEDS: ATORVASTATIN 10 MG TAB PO SCH (21:13)
[2019-11-13] MEDS: FOLIC ACID-VIT B COMPLEX-VIT C 1 CAP PO SCH (21:13)
[2019-11-13] MEDS: QUEtiapine 100 MG TAB PO SCH (21:13)
[2019-11-13] MEDS: flUPHENAZine 2.5 MG/ML (MDV) 10 ML VIAL IM PRN (21:32)
[2019-11-13] MEDS ORDERED: KETOROLAC 30 MG/ML 1 ML VIAL IM ONE (22:35)
[2019-11-13] MEDS ORDERED: HYDROcodone/APAP 5-325MG 1 EACH TAB PO ONE (22:47)
[2019-11-13] MEDS ORDERED: HYDROcodone/APAP 15 ML SOLUTION PO ONE (23:00)
[2019-11-14] MEDS: IPRATROPIUM-ALBUTEROL 3 ML NEB INHALATION SCH ×4 (01:50→19:18)
[2019-11-14] MEDS: hydrOXYzine HCL 50 MG/ML 1 ML VIAL IM PRN ×2 (03:54→23:43)
[2019-11-14] MEDS: LEVOTHYROXINE 100 MCG TAB PO SCH ×2 (06:59→10:17)
[2019-11-14] MEDS: VALPROIC ACID ORAL SOLN 250 MG/5 ML CUP PO SCH ×2 (10:05→22:35)
[2019-11-14] MEDS: ETHACRYNIC ACID PO SCH ×2 (10:06→22:32)
[2019-11-14] MEDS: LITHIUM CARBONATE 150 MG CAP PO SCH ×2 (10:06→22:35)
[2019-11-14] MEDS: ASPIRIN 81 MG PO SCH (10:06)
[2019-11-14] MEDS: LORazepam 0.5 MG TAB PO SCH ×3 (10:07→22:35)
[2019-11-14] MEDS: CALCITRIOL 0.25 MCG CAP PO SCH (10:08)
[2019-11-14] MEDS: ACETAMINOPHEN TAB 325 MG TAB PO PRN ×2 (10:08→17:32)
[2019-11-14] MEDS: CEPHALEXIN 250 MG CAP PO SCH ×3 (10:08→22:35)
--- NOTE | 2019-11-14 16:14 | P.PN ---
Subjective Progress Note Date: 11/14/19 Principal diagnosis: Bipolar disorder most recent episode manic with psychotic features, multiple medical problems including chronic his disease stage III, hypothyroid, idiopathic Parkinson's disease, epilepsy disorder, chronic gait dysfunction. I reviewed the medical record, interviewed the patient and discussed her treatment and treatment plan during team meeting. She remains on one-to-one due to her physical impairment, agitation and confusion. She requires total nursing assistance with ADLs. Her attendants and nursing staff report continued episodes of agitation, verbal aggression and physical aggression. She refused her evening dose of Seroquel, lithium and valproic acid yesterday and received 2.5 mg of Prolixin IM as per her treatment plan. She is refusing medication for her medical illnesses. She slept 4 hours yesterday. She complained that she fell out of bed yesterday. She again told me that she slept 9 hours last night. Objective - Vital Signs Vital signs: Vital Signs Temp 97.9 F 11/09/19 16:50 Pulse 90 11/09/19 19:36 Resp 20 11/09/19 18:41 BP 121/69 11/09/19 16:50 Pulse Ox 95 11/09/19 16:50 Intake & Output 11/13/19 11/14/19 11/14/19 18:59 06:59 18:59 Weight 104 kg - Exam She presented as elderly woman who was laying in bed with a blanket over her face. She would not remove the blanket. Her one-to-one was in attendance. She was angry and irritable. She did not make eye contact and I was unsure whether she was fully attending to the interview. Her speech was disorganized. Her affect was irritable and labile. She did not express suicidal ideation or feelings of helplessness or worthlessness. She is paranoid and guarded but did not express delusional thoughts or beliefs. Her thinking was concrete, disorganized and at times incoherent. She did not appear to responding to internal stimuli. - Labs CBC & Chem 7: 10/30/19 08:58 11/10/19 08:04 Assessment and Plan Assessment: She remains severely and persistently mentally ill and physically debilitated for multiple medical problems. She requires total nursing assistance. She intermittently refuses prescribe medical and psychotropic medications. She is minimally improved from admission. Plan: Continue inpatient hospitalization. Continue one-to-one. Continue safety precautions. Taper then discontinue Seroquel. Continue lithium carbonate 150 depressed twice a day and Depakene syrup 500 mg twice a day. Obtain lithium and Seroquel levels after she is compliant with both medications for at least 3 days. Begin Prolixin 2.5mg BID for treatment of psychosis. Prolixin 2.5 mg IM if she refuses lithium, oral Prolixin and/or Depakene. Continue Duoneb, allopurinol, aspirin, Lipitor, Rocaltrol, Keflex, Colace, Ethacrynicc acid, Cephulac, Synthroid, Nephrocaps and Compazine as prescribed by medicine service. Encourage participation in therapeutic groups and activities as tolerated. Evaluate clinical status response to treatment daily basis.
[2019-11-14] MEDS: ALLOPURINOL 100 MG TAB PO SCH (17:29)
[2019-11-14] MEDS: FOLIC ACID-VIT B COMPLEX-VIT C 1 CAP PO SCH (22:32)
[2019-11-14] MEDS: ATORVASTATIN 10 MG TAB PO SCH (22:35)
[2019-11-14] MEDS: QUEtiapine 200 MG TAB PO SCH (22:35)
[2019-11-14] MEDS: GABAPENTIN 100 MG CAP PO SCH (22:36)
[2019-11-15] MEDS: LITHIUM CARBONATE 150 MG CAP PO SCH ×2 (08:30→20:52)
[2019-11-15] MEDS: VALPROIC ACID ORAL SOLN 250 MG/5 ML CUP PO SCH ×2 (08:30→20:53)
[2019-11-15] MEDS: LEVOTHYROXINE 100 MCG TAB PO SCH (08:30)
[2019-11-15] MEDS: ETHACRYNIC ACID PO SCH ×2 (08:30→20:50)
[2019-11-15] MEDS: CEPHALEXIN 250 MG CAP PO SCH ×3 (08:30→20:52)
[2019-11-15] MEDS: LORazepam 0.5 MG TAB PO SCH ×3 (08:30→20:53)
[2019-11-15] MEDS: ASPIRIN 81 MG PO SCH (08:31)
[2019-11-15] MEDS: IPRATROPIUM-ALBUTEROL 3 ML NEB INHALATION SCH ×2 (13:51→16:50)
--- NOTE | 2019-11-15 14:06 | P.PN ---
Subjective Progress Note Date: 11/15/19 Principal diagnosis: Bipolar disorder most recent episode manic with psychotic features, multiple medical problems including chronic his disease stage III, hypothyroid, idiopathic Parkinson's disease, seizure disorder, chronic gait dysfunction. I reviewed the medical record, interviewed the patient and discussed her treatment and treatment plan during team meeting. She remains on one-to-one due to her physical impairment, agitation and confusion. She requires total nursing assistance with ADLs. Her attendants and nursing staff report continued episodes of verbal and physical aggression. She took her prescribed doses of lithium, Depakote and Prolixin yesterday. She slept 6 hours. She was irritable and confused during our interview. She misidentified a person named "Dean" and she refused to acknowledge that I was not this person. "I know you are. You can't lie to me." She made several unsubstantiated allegations such as that we are trying to harm her and threatened that she would kill me if I would've touched her. Objective - Vital Signs Vital signs: Vital Signs Temp 97.9 F 11/09/19 16:50 Pulse 90 11/09/19 19:36 Resp 20 11/09/19 18:41 BP 121/69 11/09/19 16:50 Pulse Ox 95 11/09/19 16:50 - Exam She was sitting in her wheelchair in the [facility]. The one-to-one was in attendance. She was angry and irritable. She made eye contact and I was unsure whether she was fully attending to the interview. Her speech was loud and ang ry. Her affect was irritable, angry and labile. She did not express suicidal ideation or feelings of helplessness or worthlessness. She is paranoid and guarded and expressed fragmented delusional beliefs including delusions of misidentification and paranoid delusions. Her thinking was concrete, disorganized and incoherent. She did not appear to responding to internal stimuli. - Labs CBC & Chem 7: 10/30/19 08:58 11/10/19 08:04 Assessment and Plan Assessment: She remains severely and persistently mentally ill and physically debilitated for multiple medical problems. She requires total nursing assistance. She appears to be starting to take her prescribed psychotropic medications on a scheduled basis. Overall, she is minimally improved from admission. Plan: Continue inpatient hospitalization. Continue one-to-one. Continue safety precautions. Taper then discontinue Seroquel. Continue lithium carbonate 150 BID, Prolixin 2.5mg BID and Depakene syrup 500 mg BID. Gradually titrate the Prolixin according to clinical response and tolerance. Obtain lithium and Seroquel levels after she is compliant with both medications for at least 3 days. Prolixin 2.5 mg IM if she refuses lithium, oral Prolixin and/or Depakene. Continue Duoneb, allopurinol, aspirin, Lipitor, Rocaltrol, Keflex, Colace, Ethacrynicc acid, Cephulac, Synthroid, Nephrocaps and Compazine as prescribed by medicine service. Encourage participation in therapeutic groups and activities as tolerated. Evaluate clinical status response to treatment daily basis.
[2019-11-15] MEDS: ALLOPURINOL 100 MG TAB PO SCH (17:36)
[2019-11-15] MEDS: ATORVASTATIN 10 MG TAB PO SCH (20:50)
[2019-11-15] MEDS: GABAPENTIN 100 MG CAP PO SCH (20:52)
[2019-11-15] MEDS: FOLIC ACID-VIT B COMPLEX-VIT C 1 CAP PO SCH (20:52)
[2019-11-15] MEDS: QUEtiapine 200 MG TAB PO SCH (20:53)
[2019-11-15] MEDS: flUPHENAZine 2.5 MG/ML (MDV) 10 ML VIAL IM PRN (21:05)
[2019-11-15] MEDS: LORazepam 2 MG/ML INJ IM PRN (21:09)
[2019-11-16] MEDS: ACETAMINOPHEN TAB 325 MG TAB PO PRN (00:24)
[2019-11-16] MEDS: GABAPENTIN 100 MG CAP PO SCH ×2 (00:25→21:19)
[2019-11-16] MEDS: IPRATROPIUM-ALBUTEROL 3 ML NEB INHALATION SCH ×4 (04:29→19:56)
[2019-11-16] MEDS: LEVOTHYROXINE 100 MCG TAB PO SCH (09:11)
[2019-11-16] MEDS: CEPHALEXIN 250 MG CAP PO SCH ×3 (09:11→23:58)
[2019-11-16] MEDS: VALPROIC ACID ORAL SOLN 250 MG/5 ML CUP PO SCH ×3 (09:14→21:18)
[2019-11-16] MEDS: LITHIUM CARBONATE 150 MG CAP PO SCH ×2 (09:14→21:19)
[2019-11-16] MEDS: ASPIRIN 81 MG PO SCH (09:14)
[2019-11-16] MEDS: LORazepam 0.5 MG TAB PO SCH ×3 (09:14→23:58)
[2019-11-16] MEDS: ETHACRYNIC ACID PO SCH ×2 (09:16→21:21)
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
[2019-11-16] MEDS: ALLOPURINOL 100 MG TAB PO SCH (16:04)
[2019-11-16] MEDS: FOLIC ACID-VIT B COMPLEX-VIT C 1 CAP PO SCH (21:18)
[2019-11-16] MEDS: ATORVASTATIN 10 MG TAB PO SCH (21:19)
[2019-11-16] MEDS: QUEtiapine 200 MG TAB PO SCH (21:19)
[2019-11-17] MEDS: hydrOXYzine HCL 50 MG/ML 1 ML VIAL IM PRN (04:49)
[2019-11-17] MEDS: IPRATROPIUM-ALBUTEROL 3 ML NEB INHALATION SCH ×4 (05:09→19:57)
[2019-11-17] MEDS: ASPIRIN 81 MG PO SCH (09:41)
[2019-11-17] MEDS: LEVOTHYROXINE 100 MCG TAB PO SCH (09:41)
[2019-11-17] MEDS: CEPHALEXIN 250 MG CAP PO SCH ×3 (09:41→21:14)
[2019-11-17] MEDS: ETHACRYNIC ACID PO SCH ×2 (09:42→21:12)
[2019-11-17] MEDS: LITHIUM CARBONATE 150 MG CAP PO SCH ×2 (09:43→21:11)
[2019-11-17] MEDS: LORazepam 0.5 MG TAB PO SCH ×3 (09:43→21:11)
[2019-11-17] MEDS: VALPROIC ACID ORAL SOLN 250 MG/5 ML CUP PO SCH ×2 (09:43→21:11)
[2019-11-17] MEDS: ALLOPURINOL 100 MG TAB PO SCH (16:44)
--- NOTE | 2019-11-17 17:20 | P.PN ---
Progress Note - Text Progress Note Date: 11/17/19 Subjective: Patient was seen today as a cross coverage for . The patient was evaluated, chart reviewed, case discussed with the treatment team. Patient reported interrupted sleep last night due to staff coming to her room. Appetite was reported as "eating ". Patient has not been going to groups and other unit activities, and she continued to be on one-to-one observation. The patient was seen in her room and she was lying in bed and covering her body except small area of her face. Patient was very loud, paranoid, argumentative, with disorganized thoughts and speech. She was able to answer few questions and he denies suicidal or homicidal ideation, and he denies auditory or visual hallucinations but she seems internally preoccupied. Patient presents manic with loud, pressured speech and flight of ideas. Patient refused to discuss any changes of her psychiatric medications, and she requested to defer that until she would meet with her regular psychiatrist. Objective: Vitals has been reviewed. Mental status examination; Appearance: The patient appears stated age, poorly groomed and dressed, no specific features. Gait/posture: Patient was seen lying in bed, Normal arm swinging: No abnormal movements. Attitude and behavior: Argumentative, not cooperative, guarded Motor activity: Increased psychomotor activity Speech: Loud, hyper verbal, pressured Mood: Irritable, Anxious Affect: Increased intensity, labile Thought form: Disorganized Thought content: Paranoid delusions, denies suicidal thoughts, denies homicidal thoughts, denies intentions or plans. Perception: Denies any auditory or visual hallucinations Attention: Impaired Orientation: Patient was not cooperative and didn't answer questions. Insight: Patient has poor insight about her psychiatric disorder. Judgment: Patient has poor judgment about her psychiatric treatment. Assessment: Bipolar disorder current episode manic with psychotic features. Parkinson's disease. Chronic kidney disease. Plan: Continue inpatient level of care due to need for further stabilization on medications Precautions: Continue 15 minutes check for safety. Consider medical consultation if any acute medical issues arise. Provide the patient individual, group therapy, substance use disorder counseling to give better insight and learn coping skills. Medications: Continue Prolixin 2.5 mg twice daily for psychotic symptoms. Continue lithium 150 mg twice daily for mood stabilization. Continue Depakote 500 mg twice daily for more stabilization. Continue Seroquel 200 mg at bedtime for mood stabilization and psychotic symptoms. Continue Neurontin 100 mg at bedtime for anxiety. Continue Ativan 0.5 mg 3 times daily for anxiety Labs: He knew monitoring Depakote level, lithium level, CMP, and thyroid function as clinically indicated. Discharge patient to OUTPATIENT services upon a stabilization
[2019-11-17] MEDS: QUEtiapine 200 MG TAB PO SCH (21:11)
[2019-11-17] MEDS: GABAPENTIN 100 MG CAP PO SCH (21:11)
[2019-11-17] MEDS: ATORVASTATIN 10 MG TAB PO SCH (21:11)
[2019-11-17] MEDS: FOLIC ACID-VIT B COMPLEX-VIT C 1 CAP PO SCH (21:14)
[2019-11-18] MEDS: flUPHENAZine 2.5 MG/ML (MDV) 10 ML VIAL IM PRN (00:24)
[2019-11-18] MEDS: LORazepam 2 MG/ML INJ IM PRN (00:25)
[2019-11-18] MEDS: hydrOXYzine HCL 50 MG/ML 1 ML VIAL IM PRN (04:41)
[2019-11-18] MEDS: IPRATROPIUM-ALBUTEROL 3 ML NEB INHALATION SCH ×4 (05:54→22:15)
[2019-11-18] MEDS: VALPROIC ACID ORAL SOLN 250 MG/5 ML CUP PO SCH ×2 (11:39→22:17)
[2019-11-18] MEDS: CEPHALEXIN 250 MG CAP PO SCH ×3 (11:39→22:17)
[2019-11-18] MEDS: LITHIUM CARBONATE 150 MG CAP PO SCH ×2 (11:40→22:16)
[2019-11-18] MEDS: LEVOTHYROXINE 100 MCG TAB PO SCH (11:40)
[2019-11-18] MEDS: ETHACRYNIC ACID PO SCH ×2 (11:41→22:15)
[2019-11-18] MEDS: ASPIRIN 81 MG PO SCH (11:41)
[2019-11-18] MEDS: LORazepam 0.5 MG TAB PO SCH ×3 (11:42→22:22)
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
[2019-11-18] MEDS: ALLOPURINOL 100 MG TAB PO SCH (16:09)
[2019-11-18] MEDS: ATORVASTATIN 10 MG TAB PO SCH (22:15)
[2019-11-18] MEDS: QUEtiapine 200 MG TAB PO SCH (22:16)
[2019-11-18] MEDS: GABAPENTIN 100 MG CAP PO SCH (22:16)
[2019-11-18] MEDS: FOLIC ACID-VIT B COMPLEX-VIT C 1 CAP PO SCH (22:16)
[2019-11-19] MEDS: LORazepam 2 MG/ML INJ IM PRN ×2 (01:23→21:02)
[2019-11-19] MEDS: flUPHENAZine 2.5 MG/ML (MDV) 10 ML VIAL IM PRN ×2 (01:23→21:02)
[2019-11-19] MEDS: hydrOXYzine HCL 50 MG/ML 1 ML VIAL IM PRN (03:44)
[2019-11-19] MEDS: IPRATROPIUM-ALBUTEROL 3 ML NEB INHALATION SCH ×3 (04:19→12:00)
[2019-11-19] MEDS: ACETAMINOPHEN TAB 325 MG TAB PO PRN (04:21)
[2019-11-19] MEDS: LEVOTHYROXINE 100 MCG TAB PO SCH (10:31)
[2019-11-19] MEDS: LORazepam 0.5 MG TAB PO SCH ×3 (10:32→21:57)
[2019-11-19] MEDS: LITHIUM CARBONATE 150 MG CAP PO SCH ×2 (10:33→22:00)
[2019-11-19] MEDS: CEPHALEXIN 250 MG CAP PO SCH ×2 (10:33→18:09)
[2019-11-19] MEDS: ASPIRIN 81 MG PO SCH (10:34)
[2019-11-19] MEDS: VALPROIC ACID ORAL SOLN 250 MG/5 ML CUP PO SCH ×2 (10:38→21:59)
[2019-11-19] MEDS: ETHACRYNIC ACID PO SCH ×2 (10:38→21:58)
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
[2019-11-19] MEDS: ALLOPURINOL 100 MG TAB PO SCH (18:09)
[2019-11-19] MEDS: FOLIC ACID-VIT B COMPLEX-VIT C 1 CAP PO SCH (21:55)
[2019-11-19] MEDS: ATORVASTATIN 10 MG TAB PO SCH (21:55)
[2019-11-19] MEDS: QUEtiapine 200 MG TAB PO SCH (22:00)
[2019-11-19] MEDS: GABAPENTIN 100 MG CAP PO SCH (22:00)
[2019-11-20] MEDS: IPRATROPIUM-ALBUTEROL 3 ML NEB INHALATION SCH ×2 (04:32→22:02)
[2019-11-20] MEDS: ASPIRIN 81 MG PO SCH (09:44)
[2019-11-20] MEDS: ETHACRYNIC ACID PO SCH ×2 (09:46→22:11)
[2019-11-20] MEDS: LITHIUM CARBONATE 150 MG CAP PO SCH ×2 (09:48→22:08)
[2019-11-20] MEDS: LEVOTHYROXINE 100 MCG TAB PO SCH (09:48)
[2019-11-20] MEDS: VALPROIC ACID ORAL SOLN 250 MG/5 ML CUP PO SCH ×3 (09:51→22:05)
[2019-11-20] MEDS: LORazepam 0.5 MG TAB PO SCH ×2 (09:51→22:06)
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
[2019-11-20] MEDS: ALLOPURINOL 100 MG TAB PO SCH ×2 (17:00→22:07)
[2019-11-20] MEDS: QUEtiapine 100 MG TAB PO SCH (22:06)
[2019-11-20] MEDS: GABAPENTIN 100 MG CAP PO SCH (22:08)
[2019-11-20] MEDS: ATORVASTATIN 10 MG TAB PO SCH (22:08)
[2019-11-20] MEDS: FOLIC ACID-VIT B COMPLEX-VIT C 1 CAP PO SCH (23:18)
[2019-11-21] MEDS: LEVOTHYROXINE 100 MCG TAB PO SCH (08:16)
[2019-11-21] MEDS: ASPIRIN 81 MG PO SCH (08:17)
[2019-11-21] MEDS: ETHACRYNIC ACID PO SCH ×2 (08:17→20:26)
[2019-11-21] MEDS: LITHIUM CARBONATE 150 MG CAP PO SCH ×2 (08:18→20:28)
[2019-11-21] MEDS: LORazepam 0.5 MG TAB PO SCH ×2 (08:18→20:27)
[2019-11-21] MEDS: VALPROIC ACID ORAL SOLN 250 MG/5 ML CUP PO SCH ×2 (08:19→20:26)
[2019-11-21] MEDS: CALCITRIOL 0.25 MCG CAP PO SCH (09:20)
[2019-11-21] MEDS: IPRATROPIUM-ALBUTEROL 3 ML NEB INHALATION SCH ×4 (10:49→20:45)
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
[2019-11-21] MEDS: ATORVASTATIN 10 MG TAB PO SCH (20:27)
[2019-11-21] MEDS: FOLIC ACID-VIT B COMPLEX-VIT C 1 CAP PO SCH (20:27)
[2019-11-21] MEDS: QUEtiapine 100 MG TAB PO SCH (20:27)
[2019-11-21] MEDS: GABAPENTIN 100 MG CAP PO SCH (20:28)
[2019-11-22] MEDS: IPRATROPIUM-ALBUTEROL 3 ML NEB INHALATION SCH ×4 (03:15→20:36)
[2019-11-22] MEDS: LEVOTHYROXINE 100 MCG TAB PO SCH (08:32)
[2019-11-22] MEDS: ETHACRYNIC ACID PO SCH ×2 (08:32→20:37)
[2019-11-22] MEDS: ASPIRIN 81 MG PO SCH (08:32)
[2019-11-22] MEDS: VALPROIC ACID ORAL SOLN 250 MG/5 ML CUP PO SCH ×3 (08:33→20:34)
[2019-11-22] MEDS: LORazepam 0.5 MG TAB PO SCH ×2 (08:33→20:36)
[2019-11-22] MEDS: LITHIUM CARBONATE 150 MG CAP PO SCH ×2 (08:33→20:35)
--- NOTE | 2019-11-22 14:54 | P.PN ---
Subjective Progress Note Date: 11/22/19 Principal diagnosis: Bipolar disorder most recent episode manic with psychotic features, rule out major neurocognitive disorder, multiple medical problems including chronic his disease stage III, hypothyroid, idiopathic Parkinson's disease, seizure disorder, chronic gait dysfunction. I reviewed the medical record, interviewed the patient and discussed her treatment and treatment plan during team meeting. She remains on one-to-one due to her physical impairment, agitation and confusion. She requires total nursing assistance with ADLs. She's had no episodes of physical aggression of last 24 hours. She was calmly sitting in the recliner in the [facility]. She initially called me "Dean" but became less distress when I corrected her and gave her my name. She expressed with treatment staff reported as a chronic delusion that she is . She believes that she is with "4 children" she talks about the "children" speaking to her. In the afternoon she was loud and screaming in her room. She complained that "we" are trying to kill her. Objective - Vital Signs Vital signs: Vital Signs Temp 97.9 F 11/09/19 16:50 Pulse 91 11/17/19 06:51 Resp 16 11/17/19 06:51 BP 180/69 11/17/19 06:51 Pulse Ox 95 11/09/19 16:50 - Exam She was pleasant on having more irritable and loud and angry in the afternoon. The one-to-one remains in attendance. She made eye contact and I was unsure whether she was fully attending to the interview. Her speech was variable and consistent with her mood. She became loud and she became more irritable and angry. Her speech was so disjointed was difficult to understand Her thinking was concrete, disorganized and incoherent. She reported auditory hallucinations and command hallucinations but did not appear to responding to internal stimuli. - Labs CBC & Chem 7: 10/30/19 08:58 11/10/19 08:04 Assessment and Plan Assessment: She remains severely and persistently mentally ill and physically debilitated for multiple medical problems. She requires total nursing assistance. Overall, she is minimally improved from admission. Plan: Continue inpatient hospitalization. Continue one-to-one. Continue safety precautions. Taper and discontinue Seroquel (currently 50 mg at bedtime). T aper and discontinue Ativan (currently 0.5 mg at bedtime) Continue lithium carbonate 150 BID, Prolixin 2.5mg BID and Depakene syrup 500 mg BID. Gradually titrate the Prolixin according to clinical response and tolerance. Obtain lithium and Depakote levels after she is compliant with both medications for at least 3 days. Prolixin 2.5 mg IM if she refuses lithium, oral Prolixin and/or Depakene. Continue Duoneb, allopurinol, aspirin, Lipitor, Rocaltrol, Keflex, Colace, Ethacrynicc acid, Cephulac, Synthroid, Nephrocaps and Compazine as prescribed by medicine service. Encourage participation in therapeutic groups and activities as tolerated. Evaluate clinical status response to treatment daily basis.
[2019-11-22] MEDS: ALLOPURINOL 100 MG TAB PO SCH (17:30)
[2019-11-22] MEDS: FOLIC ACID-VIT B COMPLEX-VIT C 1 CAP PO SCH (20:35)
[2019-11-22] MEDS: QUEtiapine 50 MG TAB PO SCH (20:35)
[2019-11-22] MEDS: ATORVASTATIN 10 MG TAB PO SCH (20:35)
[2019-11-22] MEDS: GABAPENTIN 100 MG CAP PO SCH (20:36)
[2019-11-23] MEDS: IPRATROPIUM-ALBUTEROL 3 ML NEB INHALATION SCH ×4 (00:33→20:13)
[2019-11-23] MEDS: LEVOTHYROXINE 100 MCG TAB PO SCH (09:20)
[2019-11-23] MEDS: VALPROIC ACID ORAL SOLN 250 MG/5 ML CUP PO SCH (09:21)
[2019-11-23] MEDS: LITHIUM CARBONATE 150 MG CAP PO SCH ×2 (09:21→20:14)
[2019-11-23] MEDS: ASPIRIN 81 MG PO SCH (09:21)
[2019-11-23] MEDS: ETHACRYNIC ACID PO SCH ×2 (09:22→20:15)
--- NOTE | 2019-11-23 11:41 | P.PN ---
Subjective Progress Note Date: 11/23/19 Principal diagnosis: Bipolar disorder most recent episode manic with psychotic features, rule out major neurocognitive disorder, multiple medical problems including chronic his disease stage III, hypothyroid, idiopathic Parkinson's disease, seizure disorder, chronic gait dysfunction. I reviewed the medical record, interviewed the patient and discussed her treatment and treatment plan during team meeting. She remains on one-to-one due to her physical impairment, agitation and confusion. She requires total nursing assistance with ADLs. She's had no episodes of physical aggression of last 48 hours. She has also been compliant with both lithium and Depakote for the last 72 hours. She slept only 2 hours last night. This morning she was irritable but not angry or agitated. Nursing reported that she is now assisting with her ADLs. Objective - Vital Signs Vital signs: Vital Signs Temp 98.3 F 11/23/19 06:16 Pulse 91 11/23/19 06:16 Resp 16 11/23/19 06:16 BP 118/56 11/23/19 06:16 Pulse Ox 95 11/09/19 16:50 Intake & Output 11/22/19 11/23/19 11/23/19 18:59 06:59 18:59 Other: Voiding Method Incontinent # Voids 1 - Exam Temp on approach to her room when she was laying in bed. Her one-to-one was in attendance. She made eye contact and was uncertain whether she attended to interview. She complained that we are trying to "break my back." I asked her to explain and she replied that when she takes a shower a lot of pressure is too strong. She was irritable. Her thinking was concrete and not fully organized. She did not appear to be responding to internal stimuli. - Labs CBC & Chem 7: 10/30/19 08:58 11/10/19 08:04 Assessment and Plan Assessment: She remains severely and persistently mentally ill and physically debilitated for multiple medical problems. She requires total nursing assistance. Overall, she is minimally improved from admission. Plan: Continue inpatient hospitalization. Continue one-to-one. Continue safety precautions. Taper and discontinue Seroquel and Ativan. Change Depakene syrup to Depakote and continue other medications as prescribed. Obtain BMP, lithium and Depakote levels. Prolixin 2.5 mg IM if she refuses lithium, oral Prolixin and/or Depakene. Continue Duoneb, allopurinol, aspirin, Lipitor, Rocaltrol, Keflex, Colace, Ethacrynicc acid, Cephulac, Synthroid, Nephrocaps and Compazine as prescribed by medicine service. Encourage participation in therapeutic groups and activities as tolerated. Evaluate clinical status response to treatment daily basis.
[2019-11-23 13:05] LABS: Calcium 8.9 mg/dL (8.4-10.2); Lithium 0.7 mmol/L; Potassium 4.5 mmol/L (3.5-5.1)
[2019-11-23 13:10] LABS: Valproic Acid (Depakene) 65.1 ug/mL
[2019-11-23] MEDS: ALLOPURINOL 100 MG TAB PO SCH (16:27)
[2019-11-23] MEDS: ATORVASTATIN 10 MG TAB PO SCH (20:13)
[2019-11-23] MEDS: FOLIC ACID-VIT B COMPLEX-VIT C 1 CAP PO SCH (20:13)
[2019-11-23] MEDS: GABAPENTIN 100 MG CAP PO SCH (20:13)
[2019-11-23] MEDS: DIVALPROEX 500 MG TABLET.DR PO SCH (20:13)
[2019-11-23] MEDS: QUEtiapine 50 MG TAB PO SCH (20:14)
[2019-11-23] MEDS: LORazepam 0.5 MG TAB PO SCH (20:14)
[2019-11-23] MEDS: ACETAMINOPHEN TAB 325 MG TAB PO PRN (20:26)
[2019-11-24] MEDS: IPRATROPIUM-ALBUTEROL 3 ML NEB INHALATION SCH ×4 (04:06→22:20)
[2019-11-24] MEDS: LITHIUM CARBONATE 150 MG CAP PO SCH ×2 (08:45→20:29)
[2019-11-24] MEDS: DIVALPROEX 500 MG TABLET.DR PO SCH ×2 (08:45→20:29)
[2019-11-24] MEDS: ASPIRIN 81 MG PO SCH (08:45)
[2019-11-24] MEDS: ETHACRYNIC ACID PO SCH ×2 (08:45→20:29)
[2019-11-24] MEDS: ACETAMINOPHEN TAB 325 MG TAB PO PRN ×2 (08:46→19:02)
[2019-11-24] MEDS: LEVOTHYROXINE 100 MCG TAB PO SCH (08:46)
[2019-11-24 09:28] LABS: Valproic Acid (Depakene) 55.7 ug/mL
[2019-11-24 09:35] LABS: Lithium 0.5 mmol/L
--- NOTE | 2019-11-24 12:34 | P.PN ---
Subjective Progress Note Date: 11/24/19 Principal diagnosis: Bipolar disorder most recent episode manic with psychotic features, rule out major neurocognitive disorder, multiple medical problems including chronic his disease stage III, hypothyroid, idiopathic Parkinson's disease, seizure disorder, chronic gait dysfunction. I reviewed the medical record and interviewed the patient. She remains on one-to-one due to her physical impairment, agitation and severity of his psychiatric symptoms. She has had no physical aggression over the last 24 hours. She has not required when necessary Ativan for agitation or aggression. Nursing reported that she appears to be responding to internal stimuli. She is loud but more cooperative in assisting with her ADLs. This morning she was pleasant on approach although she continues to refer to me as "Jennifer Moran [place]." She again complained that we are trying to "kill" her. Objective - Vital Signs Vital signs: Vital Signs Temp 98.3 F 11/23/19 06:16 Pulse 91 11/23/19 06:16 Resp 16 11/23/19 06:16 BP 118/56 11/23/19 06:16 Pulse Ox 95 11/09/19 16:50 - Exam She was laying comfortably in bed. She made eye contact but wasn't certain whether she attended to the interview. She showed no abnormal movements. Her affect was labile. Her thinking was not organized, coherent and goal directed. She did not appear to be responding to internal stimuli during our interview. - Labs CBC & Chem 7: 10/30/19 08:58 11/23/19 12:26 Labs: Abnormal Lab Results - Last 24 Hours (Table) 11/23/19 Range/Units 12:26 Chloride 109 H (98-107) mmol/L BUN 29 H (7-17) mg/dL Creatinine 1.73 H (0.52-1.04) mg/dL [place] level 0.5 and serum valproic acid level was 55.7. Assessment and Plan Assessment: She remains severely mentally ill and modestly improve from admission. Plan: Continue to taper and discontinue Ativan and Seroquel. The attending other medications as prescribed. Continue one-to-one.
[2019-11-24] MEDS: ALLOPURINOL 100 MG TAB PO SCH (17:12)
[2019-11-24] MEDS: ATORVASTATIN 10 MG TAB PO SCH (20:27)
[2019-11-24] MEDS: QUEtiapine 50 MG TAB PO SCH (20:27)
[2019-11-24] MEDS: LORazepam 0.5 MG TAB PO SCH (20:30)
[2019-11-24] MEDS: GABAPENTIN 100 MG CAP PO SCH (20:30)
[2019-11-24] MEDS: FOLIC ACID-VIT B COMPLEX-VIT C 1 CAP PO SCH (20:34)
[2019-11-25] MEDS: IPRATROPIUM-ALBUTEROL 3 ML NEB INHALATION SCH ×4 (05:34→21:13)
[2019-11-25] MEDS: LEVOTHYROXINE 100 MCG TAB PO SCH (08:03)
[2019-11-25] MEDS: DIVALPROEX 500 MG TABLET.DR PO SCH ×2 (08:03→22:34)
[2019-11-25] MEDS: ASPIRIN 81 MG PO SCH (08:03)
[2019-11-25] MEDS: LITHIUM CARBONATE 150 MG CAP PO SCH ×2 (08:04→22:34)
[2019-11-25] MEDS: ETHACRYNIC ACID PO SCH ×2 (08:04→22:34)
[2019-11-25] MEDS: ALLOPURINOL 100 MG TAB PO SCH (16:17)
--- NOTE | 2019-11-25 16:24 | P.PN ---
Subjective Progress Note Date: 11/25/19 Principal diagnosis: Bipolar disorder most recent episode manic with psychotic features, rule out major neurocognitive disorder, multiple medical problems including chronic his disease stage III, hypothyroid, idiopathic Parkinson's disease, seizure disorder, chronic gait dysfunction. Reviewed the medical record and interviewed the patient. She remains on one-to-one due to her medical and psychiatric impairment. She was pleasant on approach but continues referred to me as "Dean, related to medical record." She stated she slept soundly last night although the nursing record indicates he only slept 3 hours. She has had fewer episodes of screaming and yelling during the day. She is now fully compliant with prescribed psychotropic medications. Objective - Vital Signs Vital signs: Vital Signs Temp 98.3 F 11/23/19 06:16 Pulse 91 11/23/19 06:16 Resp 16 11/23/19 06:16 BP 118/56 11/23/19 06:16 Pulse Ox 95 11/09/19 16:50 Intake & Output 11/24/19 11/25/19 11/25/19 18:59 06:59 18:59 Weight 104 kg - Exam She was laying comfortably in bed. She made eye contact but wasn't certain whether she attended to the interview. She showed no abnormal movements. Her affect was labile. Her thinking was not organized, coherent and goal directed. She did not appear to be responding to internal stimuli during our interview. - Labs CBC & Chem 7: 10/30/19 08:58 11/23/19 12:26 Assessment and Plan Assessment: She remains severely mentally ill and modestly improve from admission. Plan: Continue to taper and discontinue Ativan and Seroquel. Continue other medications as prescribed. Continue one-to-one.
[2019-11-25] MEDS: FOLIC ACID-VIT B COMPLEX-VIT C 1 CAP PO SCH (22:34)
[2019-11-25] MEDS: ATORVASTATIN 10 MG TAB PO SCH (22:34)
[2019-11-25] MEDS: QUEtiapine 50 MG TAB PO SCH (22:34)
[2019-11-25] MEDS: GABAPENTIN 100 MG CAP PO SCH (22:36)
[2019-11-25] MEDS: LORazepam 0.5 MG TAB PO SCH (22:36)
[2019-11-26] MEDS: IPRATROPIUM-ALBUTEROL 3 ML NEB INHALATION SCH ×4 (04:24→19:24)
[2019-11-26] MEDS: ASPIRIN 81 MG PO SCH (08:07)
[2019-11-26] MEDS: LEVOTHYROXINE 100 MCG TAB PO SCH (08:07)
[2019-11-26] MEDS: ETHACRYNIC ACID PO SCH ×2 (08:08→20:21)
[2019-11-26] MEDS: DIVALPROEX 500 MG TABLET.DR PO SCH ×2 (08:08→20:21)
[2019-11-26] MEDS: LITHIUM CARBONATE 150 MG CAP PO SCH ×2 (08:09→20:21)
[2019-11-26 10:11] LABS: Calcium 9.2 mg/dL (8.4-10.2); Potassium 4.3 mmol/L (3.5-5.1)
[2019-11-26] MEDS: ALLOPURINOL 100 MG TAB PO SCH (17:13)
[2019-11-26] MEDS: ATORVASTATIN 10 MG TAB PO SCH (20:19)
[2019-11-26] MEDS: FOLIC ACID-VIT B COMPLEX-VIT C 1 CAP PO SCH ×2 (20:21→20:42)
[2019-11-26] MEDS: GABAPENTIN 100 MG CAP PO SCH (20:21)
[2019-11-26] MEDS: LORazepam 0.5 MG TAB PO SCH (20:23)
[2019-11-27] MEDS: IPRATROPIUM-ALBUTEROL 3 ML NEB INHALATION SCH ×3 (00:30→19:56)
--- NOTE | 2019-11-27 08:17 | P.PN ---
Subjective Progress Note Date: 11/26/19 (LATE ENTRY) Principal diagnosis: Bipolar disorder most recent episode manic with psychotic features, rule out major neurocognitive disorder, multiple medical problems including chronic his disease stage III, hypothyroid, idiopathic Parkinson's disease, seizure disorder, chronic gait dysfunction. I reviewed the medical record and interviewed the patient and discuss her treatment and treatment plan during team meeting. She remains on one-to-one due to behavioral and physical disability. Nursing staff report that she is contributing more to her self care and she now needs assistance of only one staff in managing her ADLs. She has not had episodes of verbal or physical ag gression. She continues periods of yelling. She intermittently expresses paranoid thoughts for example that we are "you're killing me." Objective - Vital Signs Vital signs: Vital Signs Temp 98.3 F 11/23/19 06:16 Pulse 91 11/23/19 06:16 Resp 16 11/23/19 06:16 BP 118/56 11/23/19 06:16 Pulse Ox 95 11/09/19 16:50 - Exam She was laying comfortably in a reclining chair.. She made eye contact and appeared to attend to the interview. She showed no abnormal movements. Her aff ect was stable and appropriate. Her thinking concrete but coherent. She did not appear to be responding to internal stimuli during our interview. - Labs CBC & Chem 7: 10/30/19 08:58 11/26/19 08:12 Labs: Abnormal Lab Results - Last 24 Hours (Table) 11/26/19 Range/Units 08:12 Chloride 108 H (98-107) mmol/L BUN 28 H (7-17) mg/dL Creatinine 1.67 H (0.52-1.04) mg/dL Assessment and Plan Assessment: She is improve from admission that she is less aggressive, agitated, disorganized and paranoid. Plan: Continue trying treatment and treatment plan. Her social service coordinator is pursuing intermediate placement at the behest of her guardians.
[2019-11-27] MEDS: LITHIUM CARBONATE 150 MG CAP PO SCH (09:37)
[2019-11-27] MEDS: DIVALPROEX 500 MG TABLET.DR PO SCH ×2 (09:37→19:55)
[2019-11-27] MEDS: ETHACRYNIC ACID PO SCH ×2 (09:38→19:57)
[2019-11-27] MEDS: ASPIRIN 81 MG PO SCH (09:38)
[2019-11-27] MEDS: LEVOTHYROXINE 100 MCG TAB PO SCH (11:51)
--- NOTE | 2019-11-27 13:58 | P.PN ---
Subjective Progress Note Date: 11/27/19 Principal diagnosis: Bipolar disorder most recent episode manic with psychotic features, rule out major neurocognitive disorder, multiple medical problems including chronic his disease stage III, hypothyroid, idiopathic Parkinson's disease, seizure disorder, chronic gait dysfunction. I reviewed the medical record and interviewed the patient and discuss her treatment and treatment plan during team meeting. She remains on one-to-one due to behavioral and physical disability. She is assisting more in her self-care but continues need nursing assistance with ADLs including toileting and dressing. (Uncertain whether she can transfer herself. She is able to stand and ambulate short distances with the aid of a walker. In the morning she was not distressed. She spoke about wanting to return home to be with her 12 children and 156 grandchildren. At lunchtime she was acutely distressed but not loud or disruptive. She complained that "they" did not want her to return home. "They" told her that she cannot return home because she cannot care for herself. Objective - Vital Signs Vital signs: Vital Signs Temp 98.3 F 11/23/19 06:16 Pulse 91 11/23/19 06:16 Resp 16 11/23/19 06:16 BP 118/56 11/23/19 06:16 Pulse Ox 95 11/09/19 16:50 - Exam She presented as a casually groomed obese elderly woman who was pleasant on approach. She made eye contact and appeared to attend to the interview. She had a distressed facial expression. She had a moderate hand tremor bilaterally associated with an increase in muscle tone. Her speech was spontaneous with normal volume but increased amount. Her speech was pressured. Her affect was labile but not inappropriate. She did not express suicidal ideation or wishes. She described a paranoid ideation and grandiose paranoid delusions. Her thinking was concrete and not fully organized. Nursing staff reports that she appears to be responding to internal stimuli but I did not observe her to be responding to internal stimuli during my encounters. - Labs CBC & Chem 7: 10/30/19 08:58 11/26/19 08:12 Assessment and Plan Assessment: She is chronically and persistently severely mentally ill and moderately improved from admission. She has Parkinson-like tremor with increased muscle tone that is probably related to the current dose of Prolixin. Plan: Decrease Prolixin to 2 mg by mouth twice a day. Increase lithium to 150 mg in the morning and 300 mg at bedtime; her lithium level on 11/24 was 0.5. Marcia continue the current dose of her other medications. Her guardians requested nu rsing home placement unless her condition improves she able to provide self- care.
[2019-11-27] MEDS: ALLOPURINOL 100 MG TAB PO SCH ×2 (16:18→16:22)
[2019-11-27] MEDS: FOLIC ACID-VIT B COMPLEX-VIT C 1 CAP PO SCH ×2 (19:55→19:56)
[2019-11-27] MEDS: ATORVASTATIN 10 MG TAB PO SCH (19:55)
[2019-11-27] MEDS: LITHIUM CARBONATE 300 MG CAP PO SCH (19:55)
[2019-11-27] MEDS: GABAPENTIN 100 MG CAP PO SCH (19:55)
[2019-11-28] MEDS: IPRATROPIUM-ALBUTEROL 3 ML NEB INHALATION SCH ×3 (05:06→18:49)
[2019-11-28] MEDS: ETHACRYNIC ACID PO SCH ×2 (11:04→19:56)
[2019-11-28] MEDS: DIVALPROEX 500 MG TABLET.DR PO SCH ×2 (11:04→19:55)
[2019-11-28] MEDS: ASPIRIN 81 MG PO SCH (11:04)
[2019-11-28] MEDS: CALCITRIOL 0.25 MCG CAP PO SCH ×2 (11:05→11:14)
[2019-11-28] MEDS: LEVOTHYROXINE 100 MCG TAB PO SCH (11:05)
[2019-11-28] MEDS: LITHIUM CARBONATE 150 MG CAP PO SCH (11:05)
--- NOTE | 2019-11-28 16:08 | P.PN ---
Subjective Progress Note Date: 11/28/19 Principal diagnosis: Bipolar disorder most recent episode manic with psychotic features, rule out major neurocognitive disorder, multiple medical problems including chronic his disease stage III, hypothyroid, idiopathic Parkinson's disease, seizure disorder, chronic gait dysfunction. Reviewed the medical record, interviewed the patient and discuss her treatment and treatment plan during team meeting. She slept only 2 hours last night but staff note that she is sleeping throughout the day. She remains on one-to-one due to physical and mental impairment. She has had no episodes of agitation or aggression. She is attempting to assist with her ADLs. She continues to need nursing staff assistance with transfer and is unable to ambulate without assistance. She was pleasant on approach and complained of difficulty sleeping and "feeling cold". The social and political studies professor notes that her family is concerned about her hand tremors. Objective - Vital Signs Vital signs: Vital Signs Temp 98.3 F 11/23/19 06:16 Pulse 91 11/23/19 06:16 Resp 16 11/23/19 06:16 BP 118/56 11/23/19 06:16 Pulse Ox 95 11/09/19 16:50 Intake & Output 11/27/19 11/28/19 11/28/19 18:59 06:59 18:59 Other: Voiding Method Incontinent # Voids 1 - Exam She presented as an obese elderly woman who is laying comfortably in bed. She made eye contact and appeared to attend to interview. She had a blunted facial expression. She was laying on her back and did not change from a position. She had bilateral hand tremors and increased muscle tone bilaterally. Her affect was stable and appropriate. She did not express suicidal ideation or wishes. She did not express feelings of hopelessness, helplessness or worthlessness. She did not misidentify me as during prior encounters and did not express clear delusional beliefs. Her thinking was concrete but her associations appeared coherent. She did not appear to be responding to internal stimuli. - Labs CBC & Chem 7: 10/30/19 08:58 11/26/19 08:12 Assessment and Plan Assessment: She is chronically and persistently severely mentally ill and moderately improved from admission. She has Parkinson-like tremor with increased muscle tone that is probably related to the current dose of Prolixin. Plan: Begin a trial of Cogentin 0.5 mg by mouth twice a day for EPS. Continue to taper Prolixin (current dose 2 mg twice a day). Continue other medications as prescribed. Repeat lithium level in 2-3 days. She was denied placement at [facility]. The social and political studies professor informed her guardians of this decision
[2019-11-28] MEDS: ALLOPURINOL 100 MG TAB PO SCH (16:27)
[2019-11-28] MEDS: BENZTROPINE MESYLATE 0.5 MG TAB PO SCH (19:55)
[2019-11-28] MEDS: LITHIUM CARBONATE 300 MG CAP PO SCH (19:55)
[2019-11-28] MEDS: ATORVASTATIN 10 MG TAB PO SCH (19:55)
[2019-11-28] MEDS: FOLIC ACID-VIT B COMPLEX-VIT C 1 CAP PO SCH (19:55)
[2019-11-28] MEDS: GABAPENTIN 100 MG CAP PO SCH (19:57)
[2019-11-28] MEDS: MAG HYDROX/AL HYDROX/SIMETH 30 ML CUP PO PRN (19:57)
[2019-11-29] MEDS: ASPIRIN 81 MG PO SCH (10:08)
[2019-11-29] MEDS: DIVALPROEX 500 MG TABLET.DR PO SCH ×2 (10:08→19:24)
[2019-11-29] MEDS: BENZTROPINE MESYLATE 0.5 MG TAB PO SCH ×2 (10:08→19:24)
[2019-11-29] MEDS: ETHACRYNIC ACID PO SCH ×2 (10:08→19:25)
[2019-11-29] MEDS: LEVOTHYROXINE 100 MCG TAB PO SCH (10:08)
[2019-11-29] MEDS: LITHIUM CARBONATE 150 MG CAP PO SCH (10:08)
[2019-11-29] MEDS: IPRATROPIUM-ALBUTEROL 3 ML NEB INHALATION SCH ×4 (10:25→19:21)
--- NOTE | 2019-11-29 15:07 | P.PN ---
Subjective Progress Note Date: 11/29/19 Principal diagnosis: Bipolar disorder most recent episode manic with psychotic features, rule out major neurocognitive disorder, multiple medical problems including chronic his disease stage III, hypothyroid, idiopathic Parkinson's disease, seizure disorder, chronic gait dysfunction. I reviewed the medical record, interviewed the patient and discussed her treatment and treatment plan during team meeting. She was pleasant on approach and addressed me by my actual name. She complained of feeling cold and not having an appetite. Nursing reported that she did not eat dinner last night or breakfast this morning. Later in the morning staff brought the breakfast tray to her room and she was self defeating. She has had no recent episodes of behavioral dyscontrol, yelling, verbal aggression or physical aggression. She remains on one-to-one primarily due to her physical disability. She's been fully compliant with prescribed medications. She slept 6 hours last night. Objective - Vital Signs Vital signs: Vital Signs Temp 98.8 F 11/28/19 17:38 Pulse 86 11/28/19 17:38 Resp 18 11/28/19 17:38 BP 137/65 11/28/19 17:38 Pulse Ox 95 11/28/19 17:38 - Exam She presented as an obese elderly woman who is laying comfortably in bed. She made eye contact and appeared to attend to interview. She had a blunted facial expression. Nursing staff is transferring current from bed to the Angela chair and/or the wheelchair. She had bilateral hand tremors and increased muscle tone bilaterally. Her affect was stable and appropriate. She did not express roque cidal ideation or wishes. She did not express feelings of hopelessness, helplessness or worthlessness. She did not misidentify me as during prior encounters and did not express clear delusional beliefs. Her thinking was concrete but her associations appeared coherent. She did not appear to be responding to internal stimuli. - Labs CBC & Chem 7: 10/30/19 08:58 11/26/19 08:12 Assessment and Plan Assessment: The tremor has decreased with the decrease in dose of Prolixin in the current dose of Cogentin (0.5 mg twice a day). Plan: Decrease Prolixin to 1 mg by mouth twice a day and continue Cogentin 0.5 mg twice a day for now. Continue dose of other medications including lithium and Depakote. Obtain a lithium level on 12/01/2019.
[2019-11-29] MEDS: ALLOPURINOL 100 MG TAB PO SCH (19:21)
[2019-11-29] MEDS: CHOLESTYRAMINE (WITH SUGAR) 4 GM PACKET PO SCH (19:21)
[2019-11-29] MEDS: GABAPENTIN 100 MG CAP PO SCH (19:24)
[2019-11-29] MEDS: LITHIUM CARBONATE 300 MG CAP PO SCH (19:24)
[2019-11-29] MEDS: ATORVASTATIN 10 MG TAB PO SCH (19:25)
[2019-11-29] MEDS: FOLIC ACID-VIT B COMPLEX-VIT C 1 CAP PO SCH (19:26)
[2019-11-29] MEDS: ACETAMINOPHEN TAB 325 MG TAB PO PRN (19:37)
[2019-11-30] MEDS: IPRATROPIUM-ALBUTEROL 3 ML NEB INHALATION SCH ×5 (00:02→19:44)
[2019-11-30] MEDS: LEVOTHYROXINE 100 MCG TAB PO SCH (08:22)
[2019-11-30] MEDS: BENZTROPINE MESYLATE 0.5 MG TAB PO SCH ×2 (08:22→20:09)
[2019-11-30] MEDS: ASPIRIN 81 MG PO SCH (08:22)
[2019-11-30] MEDS: ETHACRYNIC ACID PO SCH ×2 (08:22→20:10)
[2019-11-30] MEDS: DIVALPROEX 500 MG TABLET.DR PO SCH ×2 (08:22→20:08)
[2019-11-30] MEDS: LITHIUM CARBONATE 150 MG CAP PO SCH (08:23)
[2019-11-30] MEDS: CHOLESTYRAMINE (WITH SUGAR) 4 GM PACKET PO SCH ×2 (08:24→16:51)
--- NOTE | 2019-11-30 14:48 | P.PN ---
Subjective Progress Note Date: 11/30/19 Principal diagnosis: Bipolar disorder most recent episode manic with psychotic features, rule out major neurocognitive disorder, multiple medical problems including chronic his disease stage III, hypothyroid, idiopathic Parkinson's disease, seizure disorder, chronic gait dysfunction. Reviewed the medical record, interviewed the patient and discuss her treatment and treatment plan during team meeting. She remains on one-to-one due to history of physical disability and persistence failure mental illness. She is not been loud, agitated or verbally or physically abusive. She's been compliant with prescribed medications and has been assisting with her self-care. She is attempting to transfer with assistance of staff. She is able to stand unassisted. However, she is not attending therapeutic groups or activities is only sleeping 2-3 hours per night (although nursing no stash she sleeps frequently during the daytime). Objective - Vital Signs Vital signs: Vital Signs Temp 98.8 F 11/28/19 17:38 Pulse 86 11/28/19 17:38 Resp 18 11/28/19 17:38 BP 137/65 11/28/19 17:38 Pulse Ox 95 11/28/19 17:38 Intake & Output 11/29/19 11/30/19 11/30/19 18:59 06:59 18:59 Weight 104 kg - Exam She presented as an obese elderly woman who comfortably sitting in a wheelchair. She made eye contact and appeared to attend to interview. She had a blunted but bright facial expression The bilateral hand tremors and arm muscle tone is less pronounced. Her affect was stable and appropriate. She did not express suicidal ideation or wishes. She did not express feelings of hopelessness, helplessness or worthlessness. She did not misidentify me as during prior encounters and did not express clear delusional beliefs. Her thinking was concrete but her associations appeared coherent. She did not appear to be responding to internal stimuli. - Labs CBC & Chem 7: 10/30/19 08:58 11/26/19 08:12 Assessment and Plan Assessment: The tremor has decreased with the decrease in dose of Prolixin in the current dose of Cogentin (0.5 mg twice a day). Plan: Continue treatment plan. Social work is coordinating discharge and aftercare. Continue Prolixin to 1 mg by mouth twice a day and Cogentin 0.5 mg twice a day for now. Continue dose of other medications including lithium and Depakote. Obtain a lithium level on 12/01/2019.
[2019-11-30] MEDS: ALLOPURINOL 100 MG TAB PO SCH (16:51)
[2019-11-30] MEDS: FOLIC ACID-VIT B COMPLEX-VIT C 1 CAP PO SCH (19:45)
[2019-11-30] MEDS: GABAPENTIN 100 MG CAP PO SCH (20:08)
[2019-11-30] MEDS: ATORVASTATIN 10 MG TAB PO SCH (20:08)
[2019-11-30] MEDS: LITHIUM CARBONATE 300 MG CAP PO SCH (20:09)
[2019-12-01] MEDS: IPRATROPIUM-ALBUTEROL 3 ML NEB INHALATION SCH ×2 (03:36→16:47)
[2019-12-01] MEDS: BENZTROPINE MESYLATE 0.5 MG TAB PO SCH ×3 (08:19→20:28)
[2019-12-01] MEDS: DIVALPROEX 500 MG TABLET.DR PO SCH ×3 (08:19→20:28)
[2019-12-01] MEDS: ASPIRIN 81 MG PO SCH ×2 (08:19→12:06)
[2019-12-01] MEDS: LEVOTHYROXINE 100 MCG TAB PO SCH ×2 (08:19→12:06)
[2019-12-01] MEDS: ETHACRYNIC ACID PO SCH ×3 (08:19→20:29)
[2019-12-01] MEDS: LITHIUM CARBONATE 150 MG CAP PO SCH ×2 (08:20→12:07)
--- NOTE | 2019-12-01 10:03 | P.PN ---
Progress Note - Text Progress Note Date: 12/01/19 Interval history: Patient was seen laying down in her bed and was sleeping with the blanket covering her face. Patient was arousable and agreeable to speak to communications writer. Patient was more appropriate with communications writer this morning and asked to was and was agreeable to speak with him. She denied any overnight events and states that she slept "okay". Patient was noted by sitter to be confused earlier and was delusional. Patient did have mild resting tremor in her upper extremities bilaterally. At this time patient denies any suicidal or homicidal ideations intent or plan. Denies any visual hallucinations however did claim that she has auditory hallucinations however did not elaborate on it. Patient denies any side effects from the medications and has been compliant with meds. Patient was alert and oriented 2 and did not know what the date was. Mental status exam: General Appearance: Patient appears to be obese, stated age is alert, attempts to cooperate. Behavior: No agitated behavior. Patient is calm and directable. mild upper extremity bilateral tremor. Speech: Patient's speech is fluent and nonpressured. Mood/Affect: Mood is improving, affect is congruent and constricted. Suicidality/Homicidality: Patient denies having any suicidal or homicidal ideation intent or plan. Perceptions: Patient denies any visual hallucinations. Mild auditory hallucinations. Though content/process: There is no evidence of any delusional thought content and thought process is linear and goal-directed. Memory and concentration: AOX3, grossly intact for the purposes of this session Judgment and insight: improving Assessment/Plan: Continue with current diagnosis. Patient continues to meet criteria for inpatient psychiatric admission for symptom stabilization and safety.Patient will be maintained on current psychotropic medication regimen. Monitor for medication compliance and for any psychotropic medication side effects. Patient's lithium level was 1.1 this morning. Will continue to monitor ongoing response to treatment.
[2019-12-01] MEDS: CHOLESTYRAMINE (WITH SUGAR) 4 GM PACKET PO SCH ×2 (14:57→16:47)
[2019-12-01] MEDS: ALLOPURINOL 100 MG TAB PO SCH (16:47)
[2019-12-01] MEDS: GABAPENTIN 100 MG CAP PO SCH (20:28)
[2019-12-01] MEDS: LITHIUM CARBONATE 300 MG CAP PO SCH (20:28)
[2019-12-01] MEDS: ATORVASTATIN 10 MG TAB PO SCH (20:29)
[2019-12-01] MEDS: FOLIC ACID-VIT B COMPLEX-VIT C 1 CAP PO SCH (20:30)
[2019-12-02] MEDS: LEVOTHYROXINE 100 MCG TAB PO SCH (11:06)
[2019-12-02] MEDS: DIVALPROEX 500 MG TABLET.DR PO SCH ×2 (11:06→20:13)
[2019-12-02] MEDS: ASPIRIN 81 MG PO SCH (11:06)
[2019-12-02] MEDS: BENZTROPINE MESYLATE 0.5 MG TAB PO SCH ×2 (11:06→20:14)
[2019-12-02] MEDS: LITHIUM CARBONATE 150 MG CAP PO SCH (11:07)
[2019-12-02] MEDS: ACETAMINOPHEN TAB 325 MG TAB PO PRN ×2 (11:07→20:20)
[2019-12-02] MEDS: ETHACRYNIC ACID PO SCH ×2 (11:07→20:12)
--- NOTE | 2019-12-02 11:42 | P.PN ---
Progress Note - Text Progress Note Date: 12/02/19 Interval history: Patient was seen in her wheelchair this morning and was directable and agreeable to speak to senior medical writer. The patient appeared to have a brighter affect this morning and thought that senior medical writer was "Castillo Salcedo". Patient was more appropriate with senior medical writer this morning. She denied any overnight events and states that she slept "ok". Patient was noted by sitter to be confused earlier and was delusional and had a "rough night last night" however was able to sleep early this morning. Patient did have mild resting tremor in her upper extremities bilaterally. At this time patient denies any suicidal or homicidal ideations intent or plan. Denies any visual hallucinations however did claim that she has auditory hallucinations. She also mentioned that "they're somebody following the outside" and endorsed mild paranoia. Patient was alert and oriented 3 today. Mental status exam: General Appearance: Patient appears to be obese, stated age is alert, attempts to cooperate. Sitting in wheelchair. Behavior: No agitated behavior. Patient is calm and directable. mild upper extremity bilateral tremor. Speech: Patient's speech is fluent and nonpressured. Mood/Affect: Mood is improving mildly, affect is congruent and constricted. Suicidality/Homicidality: Patient denies having any suicidal or homicidal ideation intent or plan. Perceptions: Patient denies any visual hallucinations. Mild auditory hallucinations. Though content/process: More goal oriented, disorganized at times. Endorses mild paranoia. Memory and concentration: AOX3, grossly intact for the purposes of this session Judgment and insight: improving Assessment/Plan: Continue with current diagnosis. Patient continues to meet criteria for inpatient psychiatric admission for symptom stabilization and safety.Patient will be maintained on current psychotropic medication regimen. Monitor for medication compliance and for any psychotropic medication side effects. Patient's lithium level was 1.1 on 12/01. Will continue to monitor ongoing response to treatment.
[2019-12-02] MEDS: CHOLESTYRAMINE (WITH SUGAR) 4 GM PACKET PO SCH ×3 (13:20→16:49)
[2019-12-02] MEDS: IPRATROPIUM-ALBUTEROL 3 ML NEB INHALATION SCH ×2 (16:49→22:30)
[2019-12-02] MEDS: ALLOPURINOL 100 MG TAB PO SCH (16:49)
[2019-12-02] MEDS: ATORVASTATIN 10 MG TAB PO SCH (20:12)
[2019-12-02] MEDS: GABAPENTIN 100 MG CAP PO SCH (20:13)
[2019-12-02] MEDS: LITHIUM CARBONATE 300 MG CAP PO SCH (20:13)
[2019-12-02] MEDS: FOLIC ACID-VIT B COMPLEX-VIT C 1 CAP PO SCH (21:32)
[2019-12-03] MEDS: ETHACRYNIC ACID PO SCH ×2 (08:08→20:59)
[2019-12-03] MEDS: LITHIUM CARBONATE 150 MG CAP PO SCH (08:08)
[2019-12-03] MEDS: ASPIRIN 81 MG PO SCH (08:08)
[2019-12-03] MEDS: LEVOTHYROXINE 100 MCG TAB PO SCH (08:08)
[2019-12-03] MEDS: DIVALPROEX 500 MG TABLET.DR PO SCH ×2 (08:09→20:58)
[2019-12-03] MEDS: BENZTROPINE MESYLATE 0.5 MG TAB PO SCH ×2 (08:09→20:58)
[2019-12-03] MEDS: CHOLESTYRAMINE (WITH SUGAR) 4 GM PACKET PO SCH ×2 (09:16→16:55)
[2019-12-03] MEDS: IPRATROPIUM-ALBUTEROL 3 ML NEB INHALATION SCH ×3 (11:56→19:18)
--- NOTE | 2019-12-03 13:53 | P.PN ---
Subjective Progress Note Date: 12/03/19 Principal diagnosis: Bipolar disorder most recent episode manic with psychotic features, rule out major neurocognitive disorder, multiple medical problems including chronic his disease stage III, hypothyroid, idiopathic Parkinson's disease, seizure disorder, chronic gait dysfunction. I reviewed the medical record, interviewed the patient and discuss her treatment and treatment plan during team meeting. She remains on one-to-one due to physical impairment and chronic and severe mental illness. She continues to sleep during the day and only sleeping 1-2 hours at night. Nursing staff report that she has had no recent episodes of behavioral dyscontrol or aggressiveness. She was in bed when I evaluated her. She complained of abdominal pain but abdomen was soft and nontender. She made some illogical statements (something about a "shadow people"). She has a tremor bilaterally. She was oriented to person and knew that she was" [facility]. She thought the date was February 13 and she gave the year as "[birth year]." Objective - Vital Signs Vital signs: Vital Signs Temp 97.7 F 12/03/19 06:39 Pulse 71 12/03/19 06:39 Resp 16 12/03/19 06:39 BP 162/67 12/03/19 06:39 Pulse Ox 95 11/28/19 17:38 - Exam She presented as a casually groomed elderly female who is laying comfortably in bed. Her one-to-one was in attendance. She is able to assist with transfer to the Angela chair or wheelchair. She is unable to ambulate independently. She made eye contact and appeared to attend to the interview. She has a bilateral hand tremor, increase muscle tone of her wrist, forearms and shoulders. She also has some cogwheeling. She was oriented to person and place. Her speech was spontaneous with decreased rate, rhythm and volume. Her speech was slurred. Her affect was flat. She did not express suicidal ideation or wishes. She did not appear paranoid but express some fragmented delusional beliefs. Her thinking was concrete and at times illogical. She did not appear to be responding to internal stimuli. - Labs CBC & Chem 7: 10/30/19 08:58 11/26/19 08:12 Assessment and Plan Assessment: Overall, she is much to improve from admission but continues to have difficulty with self-care and is unable to ambulate. She remains confused and disoriented. The hand tremor has improved with decreased doses of Prolixin. Plan: Decreased Prolixin 200 mg at bedtime. Obtain another lithium level in decrease the dose of lithium if the repeat lithium level is above 1.0. Reconsult PT. Continue one-to-one. Continue other medications as prescribed. Encourage participation in therapeutic groups and activities as tolerated. Evaluate clinical status response to treatment daily basis.
[2019-12-03] MEDS: FOLIC ACID-VIT B COMPLEX-VIT C 1 CAP PO SCH (16:55)
[2019-12-03] MEDS: ALLOPURINOL 100 MG TAB PO SCH (16:55)
[2019-12-03] MEDS: ATORVASTATIN 10 MG TAB PO SCH (20:58)
[2019-12-03] MEDS: LITHIUM CARBONATE 300 MG CAP PO SCH (20:58)
[2019-12-03] MEDS: GABAPENTIN 100 MG CAP PO SCH (21:23)
[2019-12-04] MEDS: ETHACRYNIC ACID PO SCH ×2 (09:12→19:59)
[2019-12-04] MEDS: BENZTROPINE MESYLATE 0.5 MG TAB PO SCH ×2 (09:12→19:58)
[2019-12-04] MEDS: LEVOTHYROXINE 100 MCG TAB PO SCH (09:12)
[2019-12-04] MEDS: ASPIRIN 81 MG PO SCH (09:12)
[2019-12-04] MEDS: DIVALPROEX 500 MG TABLET.DR PO SCH ×2 (09:12→19:57)
[2019-12-04] MEDS: LITHIUM CARBONATE 150 MG CAP PO SCH ×2 (09:12→19:58)
[2019-12-04] MEDS: CHOLESTYRAMINE (WITH SUGAR) 4 GM PACKET PO SCH ×2 (09:39→16:43)
[2019-12-04] MEDS: IPRATROPIUM-ALBUTEROL 3 ML NEB INHALATION SCH ×5 (10:49→20:46)
[2019-12-04] MEDS: hydrOXYzine HCL 50 MG/ML 1 ML VIAL IM PRN (12:51)
[2019-12-04] MEDS: ACETAMINOPHEN TAB 325 MG TAB PO PRN (13:18)
--- NOTE | 2019-12-04 14:12 | P.PN ---
Subjective Progress Note Date: 12/04/19 Principal diagnosis: Bipolar disorder most recent episode manic with psychotic features, rule out major neurocognitive disorder, multiple medical problems including chronic his disease stage III, hypothyroid, idiopathic Parkinson's disease, seizure disorder, chronic gait dysfunction. I reviewed the medical record, interviewed the patient and discuss her treatment and treatment plan during team meeting. She was loud, restless and agitated throughout most of the day. She was unable to explain the source of her distress. Her thinking was incoherent. She had a decrease of the pill-rolling tremor, and cogwheel rigidity since we decreased the Prolixin. I spoke with her daughter, Elina, about her condition and my concerns about Prolixin and EPS. Reviewed her medication history and Elina revealed that she been described with most second-generation antipsychotics including Zyprexa, risperidone, Invega, Saphris, Abilify, Seroquel and clozapine. These medications were either ineffective or she experienced intolerable side effects. Elina stated that she is not concerned about the worsening tremor and would prefer her mother to be on an antipsychotic dose of Prolixin. Objective - Vital Signs Vital signs: Vital Signs Temp 97.7 F 12/03/19 06:39 Pulse 71 12/03/19 06:39 Resp 16 12/03/19 06:39 BP 162/67 12/03/19 06:39 Pulse Ox 95 11/28/19 17:38 - Exam She was in her room most of day screaming and yelling. Her utterances were nonsensical. She appeared in distress but was unable to explain herself. Nursing reports that at times she appears to be responding to internal stimuli but did not appear as such during our encounter. She had a slight tremor of the hands, marked decrease in Renal rigidity and a decrease in muscle resistance of the wrist arms and shoulder. - Labs CBC & Chem 7: 10/30/19 08:58 11/26/19 08:12 Labs: Huckabay level from 12/04/2019 was 1.3 Assessment and Plan Assessment: DPS has decreased with the decrease in dose of Prolixin but she is more confused, agitated and disorganized. In addition, she has shown no improvement with the increased dose of lithium and her serum lithium levels have been increasing towards toxic level. Plan: Decrease lithium back to 150 mg by mouth twice a day. Continue current dose of Depakote. Increase Prolixin to 1 mg by mouth twice a day and titrated according to clinical response.
[2019-12-04] MEDS: ALLOPURINOL 100 MG TAB PO SCH (16:43)
[2019-12-04] MEDS: ATORVASTATIN 10 MG TAB PO SCH (19:58)
[2019-12-04] MEDS: GABAPENTIN 100 MG CAP PO SCH (19:58)
[2019-12-04] MEDS: FOLIC ACID-VIT B COMPLEX-VIT C 1 CAP PO SCH (19:59)
[2019-12-04] MEDS: LORazepam 2 MG/ML INJ IM PRN ×2 (22:59→23:01)
[2019-12-04] MEDS: flUPHENAZine 2.5 MG/ML (MDV) 10 ML VIAL IM PRN (23:03)
[2019-12-05] MEDS: LEVOTHYROXINE 100 MCG TAB PO SCH (08:49)
[2019-12-05] MEDS: LITHIUM CARBONATE 150 MG CAP PO SCH ×2 (08:49→19:54)
[2019-12-05] MEDS: DIVALPROEX 500 MG TABLET.DR PO SCH ×2 (08:49→19:54)
[2019-12-05] MEDS: ETHACRYNIC ACID PO SCH ×2 (08:50→19:55)
[2019-12-05] MEDS: CALCITRIOL 0.25 MCG CAP PO SCH (08:50)
[2019-12-05] MEDS: BENZTROPINE MESYLATE 0.5 MG TAB PO SCH ×2 (08:50→19:54)
[2019-12-05] MEDS: ASPIRIN 81 MG PO SCH (08:50)
[2019-12-05] MEDS: CHOLESTYRAMINE (WITH SUGAR) 4 GM PACKET PO SCH ×2 (08:51→16:51)
[2019-12-05] MEDS: IPRATROPIUM-ALBUTEROL 3 ML NEB INHALATION SCH ×3 (09:18→17:51)
--- NOTE | 2019-12-05 14:16 | P.PN ---
Subjective Progress Note Date: 12/05/19 Principal diagnosis: Bipolar disorder most recent episode manic with psychotic features, rule out major neurocognitive disorder, multiple medical problems including chronic his disease stage III, hypothyroid, idiopathic Parkinson's disease, seizure disorder, chronic gait dysfunction. I reviewed the medical record, interviewed the patient and discuss her treatment and treatment plan during team meeting. She remains on one-to-one due to physical impairment in the severity of her psychiatric illness. Nursing reports that she continues to appear as though she is responding to internal stimuli. She was restless and loud yesterday but did not have any incidents of aggressive behavior. She refused the evening dose of lithium and Depakote and received 2.5 mg of Prolixin IM. She slept 5 hours last night. She is less restless and loud today. But she is more sedated since we increased the Prolixin to 1 mg twice a day. Objective - Vital Signs Vital signs: Vital Signs Temp 98 F 12/05/19 06:30 Pulse 75 12/05/19 06:30 Resp 16 12/05/19 06:30 BP 113/52 12/05/19 06:30 Pulse Ox 95 11/28/19 17:38 - Exam She was in her room most of day. She was intermittently loud and screaming. Her utterances were nonsensical. She is more sedated but is arousable. Nursing reports that at times she appears to be responding to internal stimuli but did not appear as such during our encounter. She continues to have the bilateral hand tremor. - Labs CBC & Chem 7: 10/30/19 08:58 11/26/19 08:12 Assessment and Plan Assessment: She is less loud and disruptive with the increased dose of Prolixin. Plan: Repeat BMP. Continue Prolixin 1 mg by mouth twice a day and titrated according to clinical response and tolerance. Continue lithium 150 mg twice a day and Depakote 500 mg by mouth twice a day. Prolixin 2.5 mg IM if she refuses is with a lithium or Depakote. Continue Cogentin 0.5 mg twice a day for EPS.
[2019-12-05] MEDS: ALLOPURINOL 100 MG TAB PO SCH (16:51)
[2019-12-05] MEDS: MAG HYDROX/AL HYDROX/SIMETH 30 ML CUP PO PRN (17:43)
[2019-12-05] MEDS: ACETAMINOPHEN TAB 325 MG TAB PO PRN (19:53)
[2019-12-05] MEDS: ATORVASTATIN 10 MG TAB PO SCH (19:55)
[2019-12-05] MEDS: GABAPENTIN 100 MG CAP PO SCH (19:55)
[2019-12-05] MEDS: FOLIC ACID-VIT B COMPLEX-VIT C 1 CAP PO SCH (19:57)
[2019-12-05] MEDS: hydrOXYzine HCL 50 MG/ML 1 ML VIAL IM PRN (23:32)
[2019-12-06] MEDS: IPRATROPIUM-ALBUTEROL 3 ML NEB INHALATION SCH ×4 (00:20→20:44)
[2019-12-06] MEDS: LORazepam 2 MG/ML INJ IM PRN (02:19)
[2019-12-06] MEDS: ASPIRIN 81 MG PO SCH (08:48)
[2019-12-06] MEDS: LEVOTHYROXINE 100 MCG TAB PO SCH (08:48)
[2019-12-06] MEDS: LITHIUM CARBONATE 150 MG CAP PO SCH ×2 (08:49→20:20)
[2019-12-06] MEDS: DIVALPROEX 500 MG TABLET.DR PO SCH ×2 (08:49→20:20)
[2019-12-06] MEDS: BENZTROPINE MESYLATE 0.5 MG TAB PO SCH ×2 (08:49→20:20)
[2019-12-06] MEDS: ETHACRYNIC ACID PO SCH ×2 (08:49→20:20)
[2019-12-06 10:03] LABS: Calcium 9.6 mg/dL (8.4-10.2); Potassium 3.9 mmol/L (3.5-5.1)
[2019-12-06] MEDS: CHOLESTYRAMINE (WITH SUGAR) 4 GM PACKET PO SCH ×3 (12:56→16:45)
--- NOTE | 2019-12-06 13:27 | P.PN ---
Subjective Progress Note Date: 12/06/19 Principal diagnosis: Bipolar disorder most recent episode manic with psychotic features, rule out major neurocognitive disorder, multiple medical problems including chronic his disease stage III, hypothyroid, idiopathic Parkinson's disease, seizure disorder, chronic gait dysfunction. I reviewed the medical record, interviewed the patient and discuss her treatment and treatment plan during team meeting. She remains on one-to-one due to physical impairment in the severity of her psychiatric illness. Nursing reports that she continues to appear as though she is responding to internal stimuli. She was restless and loud yesterday but did not have any incidents of aggressive behavior. She was loud and yelling throughout the night and only slept intermittently. She was moved from the room to [facility] so she would not disrupt other patients. Nursing administered 0.5 mg of Ativan IM early this morning secondary to the severity of her agitation. She was intermittently loud today and observe frequently muttering to herself. Her speech was not organized or understandable. Objective - Vital Signs Vital signs: Vital Signs Temp 97.7 F 12/06/19 06:46 Pulse 68 12/06/19 06:46 Resp 14 12/06/19 06:46 BP 132/63 12/06/19 06:46 Pulse Ox 95 11/28/19 17:38 - Exam She was in her room most of day. She was intermittently loud and screaming. Her utterances were nonsensical. She is sedated but is arousable. Nursing reports that at times she appears to be responding to internal stimuli but did not appear as such during our encounter. She continues to have the bilateral hand tremor. - Labs CBC & Chem 7: 10/30/19 08:58 12/06/19 09:35 Labs: Abnormal Lab Results - Last 24 Hours (Table) 12/06/19 Range/Units 09:35 Chloride 114 H (98-107) mmol/L Carbon Dioxide 20 L (22-30) mmol/L BUN 30 H (7-17) mg/dL Creatinine 1.72 H (0.52-1.04) mg/dL Assessment and Plan Assessment: She remains chronically and severely mentally ill and only modestly improved from admission. She showed a worsening of her psychosis when we attempted to decrease her dose of Prolixin. Plan: Increase Prolixin back to 2.5 mg by mouth twice a day and titrate according to clinical response and tolerance. Continue lithium 150 mg twice a day and Depakote 500 mg by mouth twice a day. Prolixin 2.5 mg IM if she refuses is with a lithium or Depakote. Continue Cogentin 0.5 mg twice a day for EPS. She has been declined by her local rehabilitation facilities and nursing homes. product development worker exploring supportive services for her to return home with family
[2019-12-06] MEDS: ALLOPURINOL 100 MG TAB PO SCH (16:45)
[2019-12-06] MEDS: hydrOXYzine HCL 50 MG/ML 1 ML VIAL IM PRN (19:28)
[2019-12-06] MEDS: GABAPENTIN 100 MG CAP PO SCH (20:21)
[2019-12-06] MEDS: ATORVASTATIN 10 MG TAB PO SCH (20:21)
[2019-12-06] MEDS: FOLIC ACID-VIT B COMPLEX-VIT C 1 CAP PO SCH (20:23)
[2019-12-07] MEDS: IPRATROPIUM-ALBUTEROL 3 ML NEB INHALATION SCH ×3 (00:40→16:45)
[2019-12-07] MEDS: LORazepam 2 MG/ML INJ IM PRN (03:09)
[2019-12-07] MEDS: ETHACRYNIC ACID PO SCH ×3 (08:57→20:16)
[2019-12-07] MEDS: DIVALPROEX 500 MG TABLET.DR PO SCH ×2 (08:58→20:18)
[2019-12-07] MEDS: ASPIRIN 81 MG PO SCH ×2 (08:58→09:19)
[2019-12-07] MEDS: LITHIUM CARBONATE 150 MG CAP PO SCH ×2 (08:58→20:17)
[2019-12-07] MEDS: BENZTROPINE MESYLATE 0.5 MG TAB PO SCH ×2 (08:58→20:17)
[2019-12-07] MEDS: CHOLESTYRAMINE (WITH SUGAR) 4 GM PACKET PO SCH ×2 (08:58→16:45)
[2019-12-07] MEDS: LEVOTHYROXINE 100 MCG TAB PO SCH ×2 (08:58→09:19)
--- NOTE | 2019-12-07 11:15 | P.PN ---
Subjective Progress Note Date: 12/07/19 Principal diagnosis: Bipolar disorder most recent episode manic with psychotic features, rule out major neurocognitive disorder, multiple medical problems including chronic his disease stage III, hypothyroid, idiopathic Parkinson's disease, seizure disorder, chronic gait dysfunction. I reviewed the medical record, interviewed the patient and discuss her treatment and treatment plan during team meeting. She remains on one-to-one due to physical impairment in the severity of her psychiatric illness. She needs assistance with transfer, toileting, self-care and feeding. She spends most for time in bed. She is intermittently loud. Her utterances are nonsensical but had a paranoid trend for example this morning she was feeling something about "being crucified." She reports that she continues appeared to be responding to internal stimuli. Her agitation has required administration of IM Ativan. Objective - Vital Signs Vital signs: Vital Signs Temp 97.7 F 12/06/19 06:46 Pulse 68 12/06/19 06:46 Resp 14 12/06/19 06:46 BP 132/63 12/06/19 06:46 Pulse Ox 95 11/28/19 17:38 - Exam She presents as a casually groomed moderately obese elderly woman who was initially sitting in a Angela chair and transferred to bed. She did not make eye contact and did not appear to be attending to the interview. She was muttering nonsensical statements and intermittently with screaming loudly. She has supportive environment tremor of the hand and intermittent twitching of the shoulders. - Labs CBC & Chem 7: 10/30/19 08:58 12/06/19 09:35 Assessment and Plan Assessment: She remains severely mentally ill, confused, paranoid and disorganized. She is shown moderate response to treatment and that she is no longer assaultive or aggressive. She may becoming dehydrated. Plan: Continue one-to-one due to the severity of her psychiatric illness and physical impairment. Continue safety precautions. Encourage oral fluids. Repeat BMP in 2 days. She may need IV hydration if her BUN continues to rise and she refuses oral fluids. Continue current medications including Prolixin 2.5 mg by mouth twice a day. Evaluate clinical status response to treatment on a daily basis.
[2019-12-07] MEDS: ALLOPURINOL 100 MG TAB PO SCH (16:45)
[2019-12-07] MEDS: GABAPENTIN 100 MG CAP PO SCH (20:17)
[2019-12-07] MEDS: ATORVASTATIN 10 MG TAB PO SCH (20:17)
[2019-12-07] MEDS: FOLIC ACID-VIT B COMPLEX-VIT C 1 CAP PO SCH (20:20)
[2019-12-08] MEDS: LEVOTHYROXINE 100 MCG TAB PO SCH (08:55)
[2019-12-08] MEDS: DIVALPROEX 500 MG TABLET.DR PO SCH ×2 (08:55→21:07)
[2019-12-08] MEDS: BENZTROPINE MESYLATE 0.5 MG TAB PO SCH ×2 (08:55→21:07)
[2019-12-08] MEDS: ASPIRIN 81 MG PO SCH (08:55)
[2019-12-08] MEDS: LITHIUM CARBONATE 150 MG CAP PO SCH ×2 (08:55→21:07)
[2019-12-08] MEDS: ETHACRYNIC ACID PO SCH ×2 (08:56→21:07)
[2019-12-08 09:05] LABS: Potassium 4.3 mmol/L (3.5-5.1)
[2019-12-08] MEDS: CHOLESTYRAMINE (WITH SUGAR) 4 GM PACKET PO SCH ×3 (09:48→17:29)
--- NOTE | 2019-12-08 12:54 | P.PN ---
Progress Note - Text Interval history: The patient is found in her room she is lying in bed sleeping. She is verbally arousable. Overall she remains confused she appears tired. She is difficult to understand as she is often mumbling. She demonstrated no verbal aggressiveness she has demonstrated no yelling behavior so far this morning. Labs were drawn to assess her kidney function. The BUN and creatinine remain elevated but they are mildly improved compared to 2 days ago. The patient has been taking medication. Mental status exam: The patient is an overweight female appearing her stated age she is lying in bed she makes an attempt to make brief eye contact. Speech is nonspontaneous but she provides mumbling answers that are difficult to discern with questions. Overall she is lethargic as she does doze back off to sleep in between questions. She reports no thoughts of self-harm or harm to others. It was difficult to understand her answer when asking about psychosis. Insight and judgment are impaired. She appears to be in no acute physical distress. Again she demonstrates no yelling behavior during our interaction. Plan: The patient will continue on her current psychotropic medication. We will continue to closely monitor her oral intake. She requires continued psychiatric hospitalization. Vital signs reviewed they're within normal limits. Continue one-to-one supervision for safety reasons.
[2019-12-08] MEDS: IPRATROPIUM-ALBUTEROL 3 ML NEB INHALATION SCH ×3 (16:13→23:33)
[2019-12-08] MEDS: FOLIC ACID-VIT B COMPLEX-VIT C 1 CAP PO SCH (16:14)
[2019-12-08] MEDS: ALLOPURINOL 100 MG TAB PO SCH (17:14)
[2019-12-08] MEDS: ATORVASTATIN 10 MG TAB PO SCH (21:07)
[2019-12-08] MEDS: GABAPENTIN 100 MG CAP PO SCH (21:11)
[2019-12-09] MEDS: LEVOTHYROXINE 100 MCG TAB PO SCH (09:05)
[2019-12-09] MEDS: LITHIUM CARBONATE 150 MG CAP PO SCH ×2 (09:05→21:42)
[2019-12-09] MEDS: ASPIRIN 81 MG PO SCH (09:05)
[2019-12-09] MEDS: DIVALPROEX 500 MG TABLET.DR PO SCH ×2 (09:05→21:42)
[2019-12-09] MEDS: BENZTROPINE MESYLATE 0.5 MG TAB PO SCH ×2 (09:05→21:42)
[2019-12-09] MEDS: ETHACRYNIC ACID PO SCH ×2 (09:05→21:42)
[2019-12-09] MEDS: IPRATROPIUM-ALBUTEROL 3 ML NEB INHALATION SCH ×3 (10:00→20:31)
--- NOTE | 2019-12-09 13:05 | P.PN ---
Progress Note - Text Interval history: The patient is found in her room she continues to be on one-to-one supervision for safety reasons. The patient is awake she is more able to participate in some of the conversation. She states her mood is all right. She is reporting no thoughts of self-harm. She is reporting no hallucinations. She demonstrated no yelling behavior this morning. She is compliant with medications. Staff report that she did not eat breakfast this morning. Mental status exam: The patient is an overweight female appearing her stated age. She is alert this morning she did not appear lethargic. Eye contact is improved. She attempted to answer questions and demonstrated no agitated behavior or yelling. She denies having any symptoms of psychosis she did present as confused at times. She appears to be in no physical distress. She demonstrates no involuntary repetitive movements. Insight and judgment limited. Plan: The patient will continue on her current psychotropic medication. We will continue to monitor her oral intake. She requires continued psychiatric hospitalization. Vital signs reviewed. We will continue one-to-one supervision for safety reasons.
[2019-12-09] MEDS: ALLOPURINOL 100 MG TAB PO SCH (16:44)
[2019-12-09] MEDS: LACTULOSE 20 GM/30 ML CUP PO PRN (17:00)
[2019-12-09] MEDS: FOLIC ACID-VIT B COMPLEX-VIT C 1 CAP PO SCH (20:25)
[2019-12-09] MEDS: ATORVASTATIN 10 MG TAB PO SCH (21:42)
[2019-12-09] MEDS: GABAPENTIN 100 MG CAP PO SCH (21:43)
[2019-12-10] MEDS: IPRATROPIUM-ALBUTEROL 3 ML NEB INHALATION SCH ×2 (01:08→20:33)
[2019-12-10] MEDS: BENZTROPINE MESYLATE 0.5 MG TAB PO SCH ×2 (09:57→20:33)
[2019-12-10] MEDS: DIVALPROEX 500 MG TABLET.DR PO SCH ×2 (09:57→20:33)
[2019-12-10] MEDS: LEVOTHYROXINE 100 MCG TAB PO SCH (09:57)
[2019-12-10] MEDS: ASPIRIN 81 MG PO SCH (09:57)
[2019-12-10] MEDS: ETHACRYNIC ACID PO SCH ×2 (09:58→20:34)
[2019-12-10] MEDS: LITHIUM CARBONATE 150 MG CAP PO SCH ×2 (09:58→20:34)
--- NOTE | 2019-12-10 13:58 | P.PN ---
Subjective Progress Note Date: 12/10/19 Principal diagnosis: Bipolar disorder most recent episode manic with psychotic features, rule out major neurocognitive disorder, multiple medical problems including chronic his disease stage III, hypothyroid, idiopathic Parkinson's disease, seizure disorder, chronic gait dysfunction. I reviewed the medical record, interviewed the patient and discuss her treatment and treatment plan during team meeting. She remains on one-to-one due to physical impairment and the severity of her psychiatric illness. She needs assistance with transfer, toileting, self-care and feeding. She has intermittent episodes of urinary incontinence. She slept 3 hours last night but there is no documentation of the amount of time that she sleeps during the day. She spends most for time in bed. She has not having an episode of physical aggression in over one week. Objective - Vital Signs Vital signs: Vital Signs Temp 97.7 F 12/06/19 06:46 Pulse 68 12/06/19 06:46 Resp 14 12/06/19 06:46 BP 132/63 12/06/19 06:46 Pulse Ox 95 11/28/19 17:38 - Exam She presents as a casually groomed moderately obese elderly woman who was initially sitting in a wheelchair. She made eye contact and appeared to be paying attention. She had a blunted facial expression. She was alert and oriented to person and place. She showed psychomotor retardation and had bilateral hand tremors. She did not have twitching of the shoulders. Her affect was blunted but stable and appropriate. She did not express clear ideas reference or paranoid ideation. Her thinking was concrete and associations appear coherent and organized. She did not appear to be responding to internal stimuli during our encounter. - Labs CBC & Chem 7: 10/30/19 08:58 12/08/19 08:15 Assessment and Plan Assessment: She is less agitated and more alert than on prior encounters. Her thinking remains disorganized and she continues to have intermittent episodes of agitation. Plan: Continue one-to-one due to the severity of her psychiatric illness and physical impairment. Continue safety precautions. Encourage oral fluids. Document the time that she sleeps during the day. Continue current medications including Prolixin 2.5 mg by mouth twice a day. Evaluate clinical status response to treatment on a daily basis.
[2019-12-10] MEDS: ALLOPURINOL 100 MG TAB PO SCH (16:55)
[2019-12-10] MEDS: GABAPENTIN 100 MG CAP PO SCH (20:32)
[2019-12-10] MEDS: ATORVASTATIN 10 MG TAB PO SCH (20:33)
[2019-12-10] MEDS: FOLIC ACID-VIT B COMPLEX-VIT C 1 CAP PO SCH (20:34)
[2019-12-10] MEDS: LACTULOSE 20 GM/30 ML CUP PO PRN (20:36)
[2019-12-11] MEDS: IPRATROPIUM-ALBUTEROL 3 ML NEB INHALATION SCH ×2 (01:58→19:35)
[2019-12-11] MEDS: LEVOTHYROXINE 100 MCG TAB PO SCH (08:09)
[2019-12-11] MEDS: ASPIRIN 81 MG PO SCH (08:09)
[2019-12-11] MEDS: BENZTROPINE MESYLATE 0.5 MG TAB PO SCH ×2 (08:09→19:48)
[2019-12-11] MEDS: DIVALPROEX 500 MG TABLET.DR PO SCH ×2 (08:09→19:49)
[2019-12-11] MEDS: ETHACRYNIC ACID PO SCH ×2 (08:09→19:49)
[2019-12-11] MEDS: LITHIUM CARBONATE 150 MG CAP PO SCH ×2 (08:09→19:49)
[2019-12-11] MEDS: MEMANTINE 5 MG TAB PO SCH (10:34)
--- NOTE | 2019-12-11 14:56 | P.PN ---
Subjective Progress Note Date: 12/11/19 Principal diagnosis: Bipolar disorder most recent episode manic with psychotic features, rule out major neurocognitive disorder, multiple medical problems including chronic his disease stage III, hypothyroid, idiopathic Parkinson's disease, seizure disorder, chronic gait dysfunction. I reviewed the medical record, interviewed the patient and discuss her treatment and treatment plan during team meeting. She remains on one-to-one due to physical impairment and the severity of her psychiatric illness. She needs assistance with transfer, toileting, self-care and feeding. There is no documentation of incontinence over the last 24 hours. Similarly, she's had no episodes of verbal or physical aggression over the last 24 hours. The morning she was sitting in the wheelchair. She made eye contact but did not appear to attend to interview. She made some paranoid statements that we were "torturing" her. We reviewed her treatment and treatment plan during team meeting. She has achieved the maximum recovery. Objective - Vital Signs Vital signs: Vital Signs Temp 97.7 F 12/06/19 06:46 Pulse 68 12/06/19 06:46 Resp 14 12/06/19 06:46 BP 132/63 12/06/19 06:46 Pulse Ox 95 11/28/19 17:38 - Exam She presents as a casually groomed moderately obese elderly woman who was initially sitting in a wheelchair. She made eye contact and appeared to be paying attention. She had a blunted facial expression. She was alert and oriented to person and place. She showed psychomotor retardation and had bilateral hand tremors. Her affect was blunted but stable and appropriate. She expressed paranoid ideation. Her thinking was concrete and associations did not appear coherent and organized. She did not appear to be responding to internal stimuli during our encounter. - Labs CBC & Chem 7: 10/30/19 08:58 12/08/19 08:15 Assessment and Plan Assessment: She is less agitated and more alert than on prior encounters. Her thinking remains disorganized but she has had no episodes of agitation and aggression Plan: Continue one-to-one due to the severity of her psychiatric illness and physical impairment. Continue safety precautions. Encourage oral fluids. Begin a trial of Namenda 5 mg daily for augmentation of the treatment of her bipolar illness. Continue current medications including Prolixin 2.5 mg by mouth twice a day. Social work to arrange a family meeting prior to discharge and coordinate discharge and aftercare services and supported her returning home.
[2019-12-11] MEDS: ALLOPURINOL 100 MG TAB PO SCH (16:54)
[2019-12-11] MEDS: MAGNESIUM HYDROXIDE 2,400 MG/10 ML CUP PO PRN (16:55)
[2019-12-11] MEDS: GABAPENTIN 100 MG CAP PO SCH (19:48)
[2019-12-11] MEDS: ATORVASTATIN 10 MG TAB PO SCH (19:49)
[2019-12-11] MEDS: FOLIC ACID-VIT B COMPLEX-VIT C 1 CAP PO SCH (19:50)
--- NOTE | 2019-12-11 22:03 | PN ---
PROGRESS NOTE Patient is seen for followup for chronic kidney disease. She is being followed on a periodic basis, as renal function has been fairly stable. Serum creatinine is staying at about 1.6 to 1.7 mg/dL. On examination today, last blood pressure noted in chart was 132/63 on 12/06/19. Patient is comfortable, awake. She is not in any acute distress. She is tired and she is resting. EXAMINATION OF THE HEART: S1 and S2. EXAMINATION OF LUNGS: Bilateral breath sounds are heard. ABDOMEN: Soft, non-tender. Examination of lower extremities shows no significant edema. FRAME CATCHER exam is grossly intact. Labs show sodium 142, potassium 4.3, chloride 113. CO2 is 19, BUN 28, creatinine 1.6. ASSESSMENT: 1. 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 Patient has atrophic right kidney. 2. Bipolar disorder, maintained on lithium, as patient is not able to tolerate any other medication to control her symptoms. 3. Chronic kidney disease mineral bone disorder, maintained on calcitriol. PLAN: Continue current medications. Continue to encourage good oral intake. May continue current dose of diuretic, which is ethacrynic acid. Continue to check labs periodically. MMODL / IJN: [id number] /
[2019-12-12] MEDS: IPRATROPIUM-ALBUTEROL 3 ML NEB INHALATION SCH ×6 (09:02→22:39)
[2019-12-12] MEDS: ASPIRIN 81 MG PO SCH (09:05)
[2019-12-12] MEDS: DIVALPROEX 500 MG TABLET.DR PO SCH ×2 (09:05→22:37)
[2019-12-12] MEDS: LEVOTHYROXINE 100 MCG TAB PO SCH (09:05)
[2019-12-12] MEDS: MEMANTINE 5 MG TAB PO SCH (09:05)
[2019-12-12] MEDS: ETHACRYNIC ACID PO SCH ×2 (09:05→22:34)
[2019-12-12] MEDS: CALCITRIOL 0.25 MCG CAP PO SCH (09:05)
[2019-12-12] MEDS: BENZTROPINE MESYLATE 0.5 MG TAB PO SCH ×2 (09:06→22:37)
[2019-12-12] MEDS: LITHIUM CARBONATE 150 MG CAP PO SCH ×2 (09:06→22:36)
[2019-12-12] MEDS: LACTULOSE 20 GM/30 ML CUP PO PRN (12:51)
--- NOTE | 2019-12-12 13:10 | P.PN ---
Subjective Progress Note Date: 12/12/19 Principal diagnosis: Bipolar disorder most recent episode manic with psychotic features, rule out major neurocognitive disorder, multiple medical problems including chronic his disease stage III, hypothyroid, idiopathic Parkinson's disease, seizure disorder, chronic gait dysfunction. I reviewed the medical record, interviewed the patient and discuss her treatment and treatment plan during team meeting. We have a family meeting scheduled for this Tuesday and the rn social work asked [facility] to have perhaps antidepressant (apparently the industrial organizational psychologist insisted that [facility] be part of discharge planning processes). She spends her time in her room with the one-to-one sitter. She is resistant to getting out of bed. She needs assistance with transfer, dressing, toileting and eating. She is able to feed herself and requires her food to be cut up The patient remains on one-to-one due to severity of physical impairment and psychiatric disability. She is intermittently restless but has not had episodes of aggression or agitation was last 24 hours. She sleeps restlessly during the night and naps throughout the day. Objective - Vital Signs Vital signs: Vital Signs Temp 97.7 F 12/06/19 06:46 Pulse 68 12/06/19 06:46 Resp 14 12/06/19 06:46 BP 132/63 12/06/19 06:46 Pulse Ox 95 11/28/19 17:38 - Exam She presents as a casually groomed moderately obese elderly woman who was laying in bed. She made eye contact and appeared to be paying attention. She had a blunted facial expression. She was alert and oriented to person and place. She showed psychomotor retardation and had bilateral hand tremors. Her affect was blunted but stable and appropriate. She did not express clear paranoid ideation. Her thinking was concrete and associations were not coherent and organized. She did not appear to be responding to internal stimuli during our encounter. - Labs CBC & Chem 7: 10/30/19 08:58 12/08/19 08:15 Assessment and Plan Assessment: She has had no episodes of verbal or physical aggression and at least 2 weeks. Her thinking remains disorganized. Her psychiatric and physical disabilities prevented her from actively engage in the therapeutic milieu. Plan: Continue one-to-one due to the severity of her psychiatric illness and physical impairment. Continue safety precautions. Encourage oral fluids. Continue Namenda 5 mg daily and titrated according to clinical response and tolerance. Change dosing the Prolixin to 5 mg at bedtime. Continue with lithium and Depakote as prescribed. Family meeting scheduled for this Tuesday.
[2019-12-12] MEDS: ALLOPURINOL 100 MG TAB PO SCH (18:07)
[2019-12-12] MEDS: ATORVASTATIN 10 MG TAB PO SCH (22:36)
[2019-12-12] MEDS: FOLIC ACID-VIT B COMPLEX-VIT C 1 CAP PO SCH ×2 (22:38→22:47)
[2019-12-12] MEDS: GABAPENTIN 100 MG CAP PO SCH (22:39)
[2019-12-13] MEDS: IPRATROPIUM-ALBUTEROL 3 ML NEB INHALATION SCH ×4 (02:44→16:39)
[2019-12-13] MEDS: LEVOTHYROXINE 100 MCG TAB PO SCH (09:36)
[2019-12-13] MEDS: DIVALPROEX 500 MG TABLET.DR PO SCH ×2 (09:36→21:44)
[2019-12-13] MEDS: PSYLLIUM HUSK 100% 6 GM PACKET PO SCH (09:36)
[2019-12-13] MEDS: LACTULOSE 20 GM/30 ML CUP PO PRN (09:36)
[2019-12-13] MEDS: BENZTROPINE MESYLATE 0.5 MG TAB PO SCH ×2 (09:37→21:44)
[2019-12-13] MEDS: ETHACRYNIC ACID PO SCH ×2 (09:37→21:44)
[2019-12-13] MEDS: ASPIRIN 81 MG PO SCH (09:37)
[2019-12-13] MEDS: MEMANTINE 5 MG TAB PO SCH (09:37)
[2019-12-13] MEDS: LITHIUM CARBONATE 150 MG CAP PO SCH ×2 (09:37→21:44)
[2019-12-13] MEDS: MAGNESIUM HYDROXIDE 2,400 MG/10 ML CUP PO PRN (13:36)
--- NOTE | 2019-12-13 14:08 | P.PN ---
Subjective Progress Note Date: 12/13/19 Principal diagnosis: Bipolar disorder most recent episode manic with psychotic features, rule out major neurocognitive disorder, multiple medical problems including chronic his disease stage III, hypothyroid, idiopathic Parkinson's disease, seizure disorder, chronic gait dysfunction. I reviewed the medical record, interviewed the patient and discuss her treatment and treatment plan during team meeting. We have a family meeting scheduled tomorrow with her daughter and a [facility] sales representative printing paper. She spends her time in her room with the one-to-one sitter. She is resistant to getting out of bed. She needs assistance with transfer, dressing, toileting and eating. She is able to feed herself. The patient remains on one-to-one due to severity of physical impairment and psychiatric disability. She is intermittently restless but has not had episodes of aggression or agitation. She intermittently talks loudly to herself throughout the day. Today, she was complaining that her is not present. She sleeps restlessly during the night and naps throughout the day. She slept 5 hours last night. Objective - Vital Signs Vital signs: Vital Signs Temp 97.7 F 12/06/19 06:46 Pulse 68 12/06/19 06:46 Resp 14 12/06/19 06:46 BP 132/63 12/06/19 06:46 Pulse Ox 95 11/28/19 17:38 Intake & Output 12/12/19 12/13/19 12/13/19 18:59 06:59 18:59 Other: Voiding Method Diaper Incontinent - Exam She presents as a casually groomed moderately obese elderly woman who was laying in bed. She made eye contact and appeared to be paying attention. She had a blunted facial expression. She was alert and oriented to person and place. She showed psychomotor retardation and had bilateral hand tremors. Her affect was blunted but stable and appropriate. She did not express clear paranoid ideation. Her thinking was concrete and associations were not coherent and organized. She did not appear to be responding to internal stimuli during our encounter. - Labs CBC & Chem 7: 10/30/19 08:58 12/08/19 08:15 Assessment and Plan Assessment: She has had no episodes of verbal or physical aggression and at least 2 weeks. Her thinking remains disorganized. Her psychiatric and physical disabilities prevented her from actively engage in the therapeutic milieu. Plan: Continue one-to-one due to the severity of her psychiatric illness and physical impairment. Continue safety precautions. Encourage oral fluids. Continue Namenda 5 mg daily and titrated according to clinical response and tolerance. Continue Prolixin to 5 mg at bedtime and lithium and Depakote as prescribed. Discharge planning meeting scheduled for this Tuesday.
[2019-12-13] MEDS: ALLOPURINOL 100 MG TAB PO SCH (16:37)
[2019-12-13] MEDS: GABAPENTIN 100 MG CAP PO SCH (21:44)
[2019-12-13] MEDS: ATORVASTATIN 10 MG TAB PO SCH (21:44)
[2019-12-13] MEDS: FOLIC ACID-VIT B COMPLEX-VIT C 1 CAP PO SCH (21:46)
[2019-12-13] MEDS: hydrOXYzine HCL 50 MG/ML 1 ML VIAL IM PRN (22:22)
[2019-12-14] MEDS: IPRATROPIUM-ALBUTEROL 3 ML NEB INHALATION SCH ×4 (01:39→21:55)
[2019-12-14] MEDS ORDERED: NA PHOS,M-B/NA PHOS,DI-BA 133 ML ENEMA RECTAL ONE (10:00)
[2019-12-14] MEDS: LEVOTHYROXINE 100 MCG TAB PO SCH (11:02)
[2019-12-14] MEDS: ASPIRIN 81 MG PO SCH (11:03)
[2019-12-14] MEDS: DIVALPROEX 500 MG TABLET.DR PO SCH ×2 (11:03→20:09)
[2019-12-14] MEDS: BENZTROPINE MESYLATE 0.5 MG TAB PO SCH ×2 (11:03→20:09)
[2019-12-14] MEDS: MEMANTINE 5 MG TAB PO SCH (11:04)
[2019-12-14] MEDS: LITHIUM CARBONATE 150 MG CAP PO SCH ×2 (11:04→20:09)
[2019-12-14] MEDS: PSYLLIUM HUSK 100% 6 GM PACKET PO SCH (11:04)
[2019-12-14] MEDS: ETHACRYNIC ACID PO SCH ×2 (11:04→20:09)
--- NOTE | 2019-12-14 15:05 | P.PN ---
Subjective Progress Note Date: 12/14/19 Principal diagnosis: Bipolar disorder most recent episode manic with psychotic features, rule out major neurocognitive disorder, multiple medical problems including chronic his disease stage III, hypothyroid, idiopathic Parkinson's disease, chronic gait dysfunction. I reviewed the medical record, interviewed the patient and discuss her treatment and treatment plan during team meeting. We had a family meeting today. 2 of her daughters were present and one was on the telephone. Also present was the [facility] liaison, her social media marketing analyst, nurse in the community engagement specialist. The patient was also present during the meeting. We explained our plan to discharge her on Tuesday and the purpose beating was to develop plans to support her family in managing her at home. Her daughter Elina was most active in the meeting. The social media marketing analyst and the [facility] liaison described the community services that would be available. She will be returning home to live with Elina and she is apprehensive because she also has a disabled son at home. The patient's daughters had several questions about her medical condition that I believe we are able to answer to their satisfaction. The patient was appropriate during most meeting. She became visibly distressed when we talked about fdc placement. Her daughters were successful in calming her and assuring her that he does not plan to place her in a fdc. Objective - Vital Signs Vital signs: Vital Signs Temp 97.7 F 12/06/19 06:46 Pulse 68 12/06/19 06:46 Resp 14 12/06/19 06:46 BP 132/63 12/06/19 06:46 Pulse Ox 95 11/28/19 17:38 Intake & Output 12/13/19 12/14/19 12/14/19 18:59 06:59 18:59 Weight 104 kg - Exam She presented as about his popliteal beast elderly woman who appeared disheveled. She made eye contact and appeared to be attending to conversation during the family meeting. She became distressed intermittently during the meeting. She was alert and recognized her children and most of the staff in the room. She continues to show tremor of the hands. Her speech was spontaneous and at times was loud. Her affect was labile she did not express suicidal ideation or wishes. She did not express clear paranoid ideation or delusions. Her thinking was concrete in her thinking and did not appear fully organized or. She did not appear to responding to internal stimuli. - Labs CBC & Chem 7: 10/30/19 08:58 12/08/19 08:15 Assessment and Plan Assessment: She has had no episodes of verbal or physical aggression and at least 2 weeks. Her thinking remains disorganized. Her psychiatric and physical disabilities prevented her from actively engage in the therapeutic milieu. Plan: Continue one-to-one due to the severity of her physical impairment. Continue safety precautions. Encourage oral fluids. Continue Namenda 5 mg daily and titrated according to clinical response and tolerance. Continue Prolixin to 5 mg at bedtime and lithium and Depakote as prescribed. Discharge planning meeting scheduled for this Tuesday.
[2019-12-14] MEDS: FOLIC ACID-VIT B COMPLEX-VIT C 1 CAP PO SCH (16:32)
[2019-12-14] MEDS: ALLOPURINOL 100 MG TAB PO SCH (16:32)
[2019-12-14] MEDS: GABAPENTIN 100 MG CAP PO SCH (20:09)
[2019-12-14] MEDS: ATORVASTATIN 10 MG TAB PO SCH (20:09)
[2019-12-15] MEDS: IPRATROPIUM-ALBUTEROL 3 ML NEB INHALATION SCH ×4 (09:10→23:54)
[2019-12-15] MEDS: LITHIUM CARBONATE 150 MG CAP PO SCH ×2 (10:46→20:39)
[2019-12-15] MEDS: PSYLLIUM HUSK 100% 6 GM PACKET PO SCH ×2 (10:47→10:53)
[2019-12-15] MEDS: ASPIRIN 81 MG PO SCH (10:47)
[2019-12-15] MEDS: DIVALPROEX 500 MG TABLET.DR PO SCH ×2 (10:47→20:36)
[2019-12-15] MEDS: LEVOTHYROXINE 100 MCG TAB PO SCH (10:47)
[2019-12-15] MEDS: MEMANTINE 5 MG TAB PO SCH (10:47)
[2019-12-15] MEDS: BENZTROPINE MESYLATE 0.5 MG TAB PO SCH ×2 (10:47→20:36)
[2019-12-15] MEDS: ETHACRYNIC ACID PO SCH ×2 (10:48→20:37)
--- NOTE | 2019-12-15 13:07 | P.PN ---
Progress Note - Text Progress Note Date: 12/15/19 Interval history: Patient is seen in cross coverage today. She is found in her room lying in bed. One-to-one staff is present. Per staff she was up and around today earlier with physical therapy. She also was up to eat. Mental status exam: Patient is found sleeping in bed. She does awaken several times with name-calling but then falls back asleep. She does not show any agitation. Plan: Patient will be maintained on current psychotropic medication regimen. We'll continue to monitor for medication side effects and monitor her ongoing response to treatment.
[2019-12-15] MEDS: ALLOPURINOL 100 MG TAB PO SCH (18:00)
[2019-12-15] MEDS: ATORVASTATIN 10 MG TAB PO SCH (20:36)
[2019-12-15] MEDS: FOLIC ACID-VIT B COMPLEX-VIT C 1 CAP PO SCH (20:39)
[2019-12-15] MEDS: GABAPENTIN 100 MG CAP PO SCH (20:40)
[2019-12-16 07:22] LABS: Calcium 9.2 mg/dL (8.4-10.2); Potassium 4.1 mmol/L (3.5-5.1)
[2019-12-16] MEDS ORDERED: IPRATROPIUM-ALBUTEROL 3 ML NEB INHALATION PRN (07:23)
--- NOTE | 2019-12-16 09:31 | P.PN ---
Progress Note - Text Progress Note Date: 12/16/19 Interval history: Patient is seen in cross coverage again today. She is found in her room lying in bed. One-to-one staff is present. She states that she has not eating that much but is pushing herself to be some. She makes reference to having some stomach discomfort, inquires regarding a shot for pain. She does not appear to be in acute distress. She was working with physical therapy earlier today and relays that she did some walking. Mental status exam: She is alert and cooperative with the interview. She maintains alertness today. Her speech is fluent, not rapid or pressured. Her mood she describes could be better. She does not verbalize any thoughts of harm to self or others. She denies any current hallucinations. She does make reference to being fearful of shadows. She does not show any agitation. Plan: Patient be maintained on current psychotropic medication regimen. Continue to monitor her response to treatment and monitor for any psychotropic medication side effects.
[2019-12-16] MEDS: LEVOTHYROXINE 100 MCG TAB PO SCH (10:32)
[2019-12-16] MEDS: ASPIRIN 81 MG PO SCH (10:32)
[2019-12-16] MEDS: ETHACRYNIC ACID PO SCH ×2 (10:33→21:51)
[2019-12-16] MEDS: DIVALPROEX 500 MG TABLET.DR PO SCH ×2 (10:33→21:50)
[2019-12-16] MEDS: BENZTROPINE MESYLATE 0.5 MG TAB PO SCH ×2 (10:33→21:50)
[2019-12-16] MEDS: MEMANTINE 5 MG TAB PO SCH (10:34)
[2019-12-16] MEDS: LITHIUM CARBONATE 150 MG CAP PO SCH ×2 (10:34→21:54)
[2019-12-16] MEDS: PSYLLIUM HUSK 100% 6 GM PACKET PO SCH (10:34)
[2019-12-16 15:30] VITALS: BP 128/61; PULSE 82; RESP 20; TEMP 98.4
[2019-12-16] MEDS: ALLOPURINOL 100 MG TAB PO SCH (16:30)
[2019-12-16] MEDS: ATORVASTATIN 10 MG TAB PO SCH (21:50)
[2019-12-16] MEDS: FOLIC ACID-VIT B COMPLEX-VIT C 1 CAP PO SCH (21:50)
[2019-12-16] MEDS: GABAPENTIN 100 MG CAP PO SCH (21:54)
[2019-12-17] MEDS: LEVOTHYROXINE 100 MCG TAB PO SCH (06:14)
[2019-12-17] MEDS: ACETAMINOPHEN TAB 325 MG TAB PO PRN (06:14)
[2019-12-17] MEDS: ETHACRYNIC ACID PO SCH (09:47)
[2019-12-17] MEDS: ASPIRIN 81 MG PO SCH (09:47)
[2019-12-17] MEDS: MEMANTINE 5 MG TAB PO SCH (09:47)
[2019-12-17] MEDS: LITHIUM CARBONATE 150 MG CAP PO SCH (09:47)
[2019-12-17] MEDS: BENZTROPINE MESYLATE 0.5 MG TAB PO SCH (09:48)
[2019-12-17] MEDS: DIVALPROEX 500 MG TABLET.DR PO SCH (09:48)
[2019-12-17] MEDS: PSYLLIUM HUSK 100% 6 GM PACKET PO SCH (09:57)
--- NOTE | 2019-12-17 11:43 | P.PN ---
Subjective Patient is seen in follow-up for chronic kidney disease. Patient has chronic kidney disease stage IV with baseline creatinine near 2 secondary to n ephrosclerosis. She was seen in the mental health unit. Currently resting in bed. Edema improved. No active complaints. Vital signs are stable. General: The patient appeared well nourished and normally developed. HEENT: Head exam is unremarkable. Neck is without jugular venous distension. LUNGS: Lungs are clear to auscultation and percussion. Breath sounds decreased. HEART: Rate and Rhythm are regular. First and second heart sounds normal. No murmurs, rubs or gallops. ABDOMEN: Abdominal exam reveals normal bowel sounds. Non-tender and non- distended. No evidence of peritonitis. EXTREMITITES: No edema. Objective - Vital Signs Vital signs: Vital Signs Temp 98.4 F 12/16/19 15:29 Pulse 82 12/16/19 15:29 Resp 20 12/16/19 15:29 BP 128/61 12/16/19 15:29 Pulse Ox 92 L 12/16/19 15:29 - Labs CBC & Chem 7: 10/30/19 08:58 12/16/19 06:34 Assessment and Plan Plan: Assessment: 1. 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 Patient's kidney ultrasound from January 2018 revealed atrophic right kidney. Baseline creatinine near 2. GFR near baseline. Renal ultrasound revealed normal sized kidneys without any evidence of hydronephrosis. 2. Bipolar disorder. 3. Chronic kidney disease mineral bone disease maintained on calcitriol. 4. Lower extremity edema. Improved with diuretics. Plan: Continue ethacrynic acid 25 mg twice daily. Encouraged oral intake. Avoid nephrotoxins. Continue to monitor renal function and urine output. Stable for discharge from nephrology standpoint. Follow up outpatient in 2 weeks.
--- NOTE | 2019-12-17 12:55 | P.DS ---
Providers Date of admission: 10/23/19 19:12 Attending physician: Emery Landeros MD Consults: 10/23/19 20:04 Consult Physician Routine Consulting Provider: Bogdan Ac Consult Reason/Comments: H&P and medical Do you want consulting provider notified?: Yes 10/24/19 14:01 Consult Physician Routine Consulting Provider: Nik Laird Consult Reason/Comments: Kidney disease Do you want consulting provider notified?: Already Contacted Primary care physician: Cornelius Dudley - Tim Diagnosis(es) (1) Bipolar I disorder, most recent episode manic, severe with psychotic features Current Visit: Yes Status: Chronic Priority: High (2) Parkinsonism Current Visit: Yes Status: Chronic Priority: Low (3) Chronic kidney disease Current Visit: Yes Status: Chronic Priority: High (4) Lower extremity edema Current Visit: Yes Status: Chronic Priority: Low (5) Gait instability Current Visit: Yes Status: Chronic Priority: Medium Hospital Course: She is a 74-year-old female who was chronically and persistently mentally ill. She has a well-established diagnosis of a bipolar disorder. She presented to the units and voluntarily; her daughter completed the petition. She was agitated, disorganized and expressing delusional beliefs for example "talking nonstop about a, saying that he is alive and coming for you. She believed that Johnston presses alive. She was yelling and screaming observably abusive to others." Her thinking was disorganized, she was irritable, angry and her affect was intense and inappropriate. We admitted her to the psychiatric unit under care of this grant writer. We provided a copy a biopsychosocial assessment. The health management consultant mate ship completed initial physical exam and medical history and diagnosed chronic kidney disease stage III, hypothyroid, idiopathic Parkinson's disease and a chronic eighth dysfunction. His recommendation was to continue outpatient medications consult with nephrology for management of the chronic renal failure. The neurologist followed her while she was on the unit. 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 A repeat kidney ultrasound showed no hydronephrosis or masses on either kidney. There was a suspected simple cyst on the inferior pole of the left kidney. Her creatinine ranged from 1.67-1.78 throughout the hospitalization. We proceeded with involuntary hospitalization and following the probate hearing she received a 60/90 combined treatment order. We restarted her outpatient medications including lithium 150 mg by mouth twice a day and Depakote 500 mg twice a day. She was initially noncompliant with all of her medications. She has a long uncomplicated history with failure to respond to multiple psychotropic medications including Zyprexa, risperidone, Invega, Saphris, Abilify, Seroquel and clozapine. We treated her agitation with Prolixin 2.5 mg by mouth or IM and we administered Prolixin 2.5 mg IM if she refused her oral medications. The severity of her psychosis and agitation gradually diminished to where she was compliant with oral medications. She was on one-to-one supervision throughout this hospitalization. Due to her physical disability she needed assistance with ambulating, transfer, toileting, dressing and self-care. She was evaluated by a physical therapist and was able to walk up to 60 feet with the aid of a walker. 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 Her family was unwilling consider it a rehabilitation placement or intermediate placement in the [facility]. As her psychosis remitted that she was less aggressive and disruptive. Time of discharge she presented as a moderately obese elderly woman who was pleasant on approach. She made eye contact and appeared to attend to the interview. She had bilateral lower leg edema. She had a distressed facial expression. She was alert and oriented to person and place. She made no attempt to get out of bed and was unable to sit up on the bedside without assistance. Her speech was spontaneous with normal rate and rhythm. Her affect was stable and appropriate. She denied suicidal or homicidal ideation. She denied feeling hopeless. She did not express clear ideas reference, paranoid ideation or delusions. His thinking was concrete but coherent and logical. She denied hallucinations did not appear to be responding to internal stimuli. Patient Condition at Discharge: Stable Plan - Discharge Summary New Discharge Prescriptions: New Benztropine Mesylate [Cogentin] 0.5 mg PO BID #60 tab Divalproex [Depakote] 500 mg PO BID #60 tablet. Ethacrynic Acid [Ethacrynic Acid] 25 mg PO BID #0 [place] Carbonate 150 mg PO BID #60 cap Psyllium Husk 100% [Metamucil Packet] 6 gm PO DAILY #30 packet Memantine [Namenda] 5 mg PO DAILY #30 tab Folic Acid-Vit B Complex-Vit C [Nephrocaps] 1 each PO HS #30 cap Gabapentin [Neurontin] 200 mg PO HS #60 cap fluPHENAZine [Prolixin] 5 mg PO HS #30 tab Continue Docusate [Colace] 100 mg PO BID PRN PRN Reason: Constipation Cranberry Fruit Concentrate [Azo Cranberry] 250 mg PO DAILY@0900 Aspirin EC [Ecotrin Low Dose] 81 mg PO DAILY@0900 #30 tab Lactulose 10 gm PO DAILY PRN #30 ml PRN Reason: Constipation Atorvastatin Calcium [Lipitor] 10 mg PO HS@0000 #30 tab Calcitriol [Rocaltrol] 0.25 mcg PO WE #30 cap Levothyroxine Sodium [Synthroid] 100 mcg PO DAILY@0900 #30 tab Allopurinol [Zyloprim] 100 mg PO DAILY@1700 #30 tab Discontinued [place] Carbonate 150 mg PO BID@0900,1700 Carbidopa/Levodopa [Sinemet CR 50-200 mg] 1 tab PO BID@0900,1700 Divalproex ER [Depakote ER] 1,000 mg PO HS@0000 buPROPion HCL [Wellbutrin XL] 300 mg PO DAILY@0900 #5 tab.er.24h QUEtiapine [SEROquel] 100 mg PO HS@0000 Triphrocaps 1 cap PO HS@0000 Ethacrynic Acid 50 mg PO DAILY@1700 LORazepam [Ativan] 0.5 mg PO BID@0900,1700 Prochlorperazine [Compazine] 10 mg PO DAILY PRN PRN Reason: Nausea Discharge Medication List Cranberry Fruit Concentrate [Azo Cranberry] 250 mg PO DAILY@0900 03/20/19 [History] Docusate [Colace] 100 mg PO BID PRN 03/20/19 [History] Allopurinol [Zyloprim] 100 mg PO DAILY@1700 #30 tab 12/17/19 [Rx] Aspirin EC [Ecotrin Low Dose] 81 mg PO DAILY@0900 #30 tab 12/17/19 [Rx] Atorvastatin Calcium [Lipitor] 10 mg PO HS@0000 #30 tab 12/17/19 [Rx] Benztropine Mesylate [Cogentin] 0.5 mg PO BID #60 tab 12/17/19 [Rx] Calcitriol [Rocaltrol] 0.25 mcg PO WE #30 cap 12/17/19 [Rx] Divalproex [Depakote] 500 mg PO BID #60 tablet. 12/17/19 [Rx] Ethacrynic Acid [Ethacrynic Acid] 25 mg PO BID #0 12/17/19 [Rx] Folic Acid-Vit B Complex-Vit C [Nephrocaps] 1 each PO HS #30 cap 12/17/19 [Rx] Gabapentin [Neurontin] 200 mg PO HS #60 cap 12/17/19 [Rx] Lactulose 10 gm PO DAILY PRN #30 ml 12/17/19 [Rx] Levothyroxine Sodium [Synthroid] 100 mcg PO DAILY@0900 #30 tab 12/17/19 [Rx] [place] Carbonate 150 mg PO BID #60 cap 12/17/19 [Rx] Memantine [Namenda] 5 mg PO DAILY #30 tab 12/17/19 [Rx] Psyllium Husk 100% [Metamucil Packet] 6 gm PO DAILY #30 packet 12/17/19 [Rx] fluPHENAZine [Prolixin] 5 mg PO HS #30 tab 12/17/19 [Rx] Follow up Appointment(s)/Referral(s): [facility] [Outside] - 12/21/19 12:00 pm Cornelius Dudley DO [Primary Care Provider] - 12/25/19 2:15 pm Patient Instructions/Handouts: Psychotic Disorder (DC) Activity/Diet/Wound Care/Special Instructions: Activity and diet as tolerated. Avoid the use of street drugs and alcohol. Take all medications as prescribed. When you are in need of refills on your medications please contact your medical provider and/or outpatient psychiatrist to have this done. Please go to scheduled outpatient appointment for aftercare treatment. If symptoms return or become worse, call the crisis line at and/or go to the nearest emergency room for evaluation. [facility] Discharge Disposition: HOME SELF-CARE
[2019-12-17] MEDS: ALLOPURINOL 100 MG TAB PO SCH (17:06)
[2019-12-17] MEDS: GABAPENTIN 100 MG CAP PO SCH (18:24)
== END 2019-12-17 18:32 | disposition home or self-care (01) | DRG 885 ==
LOC: EEVIPCON 13:50 → EC 13:50 → 3MHU 19:12
PROVIDERS: ADMIT Psychiatry & Neurology Psychiatry; ATTEND Psychiatry & Neurology Psychiatry
DX: F31.2 Bipolar disorder, current episode manic severe with psychotic features (principal); N18.4 Chronic kidney disease, stage 4 (severe); N11.9 Chronic tubulo-interstitial nephritis, unspecified; E83.9 Disorder of mineral metabolism, unspecified; G20 Parkinson's disease; G40.909 Epilepsy, unspecified, not intractable, without status epilepticus; Z91.128 Patient's intentional underdosing of medication regimen for other reason; F41.9 Anxiety disorder, unspecified; T50.996A Underdosing of other drugs, medicaments and biological substances, initial encounter; I12.9 Hypertensive chronic kidney disease with stage 1 through stage 4 chronic kidney disease, or unspecified chronic kidney disease; N14.1 Nephropathy induced by other drugs, medicaments and biological substances; T43.595A Adverse effect of other antipsychotics and neuroleptics, initial encounter; E03.9 Hypothyroidism, unspecified; R13.10 Dysphagia, unspecified; J44.9 Chronic obstructive pulmonary disease, unspecified; E78.5 Hyperlipidemia, unspecified; K59.00 Constipation, unspecified; R32 Unspecified urinary incontinence; R15.9 Full incontinence of feces; R60.0 Localized edema; L53.9 Erythematous condition, unspecified; E66.9 Obesity, unspecified; Z68.39 Body mass index [BMI] 39.0-39.9, adult; Z79.82 Long term (current) use of aspirin; Z79.890 Hormone replacement therapy; Z79.899 Other long term (current) drug therapy; Z91.5 Personal history of self-harm; Z86.73 Personal history of transient ischemic attack (TIA), and cerebral infarction without residual deficits; Z87.440 Personal history of urinary (tract) infections; Z90.49 Acquired absence of other specified parts of digestive tract; Z90.710 Acquired absence of both cervix and uterus; Z90.721 Acquired absence of ovaries, unilateral; Z71.3 Dietary counseling and surveillance; Z87.891 Personal history of nicotine dependence; Y63.6 Underdosing and nonadministration of necessary drug, medicament or biological substance; Z88.2 Allergy status to sulfonamides; Z88.8 Allergy status to other drugs, medicaments and biological substances; Z88.6 Allergy status to analgesic agent; Z91.02 Food additives allergy status; Y92.009 Unspecified place in unspecified non-institutional (private) residence as the place of occurrence of the external cause; W06.XXXA Fall from bed, initial encounter
CPT/HCPCS: 36415; 76770; 80048; 80053; 80061; 80164; 80178; 80306; 80320; 81003; 83036; 83735; 84443; 85025; 94640; 99285

== ENCOUNTER 2019-12-22 13:17 | Emergency (ER) | payer MEDICARE, OTHER ==
[2019-12-22 14:16] LABS: Basophils % (A) 0 %; Eosinophils # (A) 0.3 k/uL (0-0.7); Eosinophils % (A) 3 %; HCT 42.3 % (34.0-46.0); HGB 13.8 gm/dL (11.4-16.0); Lymphocytes # (A) 1.9 k/uL (1.0-4.8); Lymphocytes % (A) 16 %; MCH 35.5 pg (25.0-35.0); MCHC 32.5 g/dL (31.0-37.0); MCV 109.2 fL (80.0-100.0); Macrocytosis Moderate; Mean Platelet Volume 8.6; Monocytes # (A) 0.8 k/uL (0-1.0); Monocytes % (A) 6 %; Neutrophils # (A) 8.8 k/uL (1.3-7.7); Neutrophils % (A) 73 %; Platelet Count 296 k/uL (150-450); RBC 3.88 m/uL (3.80-5.40); RDW 12.6 % (11.5-15.5)
[2019-12-22 14:22] LABS: Albumin 3.6 g/dL (3.5-5.0); Calcium 9.6 mg/dL (8.4-10.2); Total Bilirubin 0.5 mg/dL (0.2-1.3); Total Protein 6.6 g/dL (6.3-8.2)
[2019-12-22 14:30] LABS: Potassium 4.5 mmol/L (3.5-5.1)
[2019-12-22 14:56] VITALS: RESP 18
[2019-12-22 14:58] LABS: Amorphous Sediment,Urine Rare /hpf; Appearance,Urine Cloudy (Clear); Bacteria,Urine Occasional /hpf; Bilirubin,Urine Negative (Negative); Blood,Urine Large (Negative); Color,Urine Yellow; Glucose,Urine (UA) Negative (Negative); Ketones,Urine Negative (Negative); Leukocyte Esterase,Urine Large (Negative); Nitrite,Urine Negative (Negative); Protein,Urine 2+ (Negative); RBC,Urine 30 /hpf (0-5); Specific Gravity,Urine 1.008 (1.001-1.035); Squamous Epithelial Cell,Urine <1 /hpf (0-4); Urobilinogen,Urine <2.0 mg/dL (<2.0); WBC,Urine 97 /hpf (0-5)
[2019-12-22] MEDS ORDERED: cefTRIAXone IN SWFI 1,000 MG/10 ML SYRINGE IVP STA (15:12)
--- NOTE | 2019-12-22 15:15 | ED ---
Female Urogenital HPI - General Source: patient, family Mode of arrival: ambulatory Limitations: physical limitation <Lizette Stapleton - Last Filed: 12/22/19 15:59> <Sierra Snow - Last Filed: 12/24/19 00:23> - General Chief complaint: Urogenital Stated complaint: Blood in urine Time Seen by Provider: 12/22/19 13:32 - History of Present Illness Initial comments: Patient is a 74-year-old female, with psych history, presenting to the emergency department with urinary complaints for the last 2 days. Patient is complaining of urinary frequency, dysuria, urgency, and hematuria. She has had urinary tract infections in the past and this feels similar. She denies any fevers, abdominal pain, nausea, vomiting. She has no other complaints at this time. Upon arrival to the ER, her vital signs are stable. (Lizette Stapleton) - Related Data Home Medications Medication Instructions Recorded Confirmed Cranberry Fruit Concentrate [Azo 250 mg PO DAILY@0900 03/20/19 10/23/19 Cranberry] Docusate [Colace] 100 mg PO BID PRN 03/20/19 10/23/19 Previous Rx's Medication Instructions Recorded Allopurinol [Zyloprim] 100 mg PO DAILY@1700 #30 tab 12/17/19 Aspirin EC [Ecotrin Low Dose] 81 mg PO DAILY@0900 #30 tab 12/17/19 Atorvastatin Calcium [Lipitor] 10 mg PO HS@0000 #30 tab 12/17/19 Benztropine Mesylate [Cogentin] 0.5 mg PO BID #60 tab 12/17/19 Calcitriol [Rocaltrol] 0.25 mcg PO WE #30 cap 12/17/19 Divalproex [Depakote] 500 mg PO BID #60 tablet. 12/17/19 Ethacrynic Acid [Ethacrynic Acid] 25 mg PO BID #0 12/17/19 Folic Acid-Vit B Complex-Vit C 1 each PO HS #30 cap 12/17/19 [Nephrocaps] Gabapentin [Neurontin] 200 mg PO HS #60 cap 12/17/19 Lactulose 10 gm PO DAILY PRN #30 ml 12/17/19 Levothyroxine Sodium [Synthroid] 100 mcg PO DAILY@0900 #30 tab 12/17/19 [place] Carbonate 150 mg PO BID #60 cap 12/17/19 Memantine [Namenda] 5 mg PO DAILY #30 tab 12/17/19 [place] 100% [Metamucil 6 gm PO DAILY #30 packet 12/17/19 Packet] fluPHENAZine [Prolixin] 5 mg PO HS #30 tab 12/17/19 Cephalexin [Keflex] 500 mg PO BID 5 Days #10 cap 12/22/19 Allergies Allergy/AdvReac Type Severity Reaction Status Date / Time furosemide [From Lasix] Allergy Unknown Verified 12/22/19 13:22 risperidone [From Risperdal] Allergy Unknown Verified 12/22/19 13:22 Sulfa (Sulfonamide Allergy Unknown Verified 12/22/19 13:22 Antibiotics) ibuprofen [From Motrin] AdvReac KIDNEY Verified 12/22/19 13:22 FAILURE spironolactone AdvReac KIDNEY Verified 12/22/19 13:22 FAILURE torsemide AdvReac KIDNEY Verified 12/22/19 13:22 FAILURE ARTIFICIAL SWEETNER AdvReac Unknown Uncoded 12/22/19 13:22 Review of Systems ROS Other: All systems not noted in ROS Statement are negative. <Lizette Stapleton - Last Filed: 12/22/19 15:59> ROS Other: All systems not noted in ROS Statement are negative. <Sierra Snow - Last Filed: 12/24/19 00:23> ROS Statement: Those systems with pertinent positive or pertinent negative responses have been documented in the HPI. Past Medical History Past Medical History: CVA/TIA, Hyperlipidemia, Seizure Disorder, Thyroid Disorder Additional Past Medical History / Comment(s): UTI, Parkinsons History of Any Multi-Drug Resistant Organisms: None Reported, Unobtainable Past Surgical History: Cholecystectomy, Hysterectomy, Unable to Obtain Additional Past Surgical History / Comment(s): L oophrectomy Past Anesthesia/Blood Transfusion Reactions: Unable to Obtain Past Psychological History: Anxiety, Bipolar, Depression Smoking Status: Former smoker Past Alcohol Use History: None Reported Past Drug Use History: None Reported - Past Family History Father Family Medical History: Unable to Obtain <Lizette Stapleton - Last Filed: 12/22/19 15:59> General Exam Limitations: physical limitation <Lizette Stapleton - Last Filed: 12/22/19 15:59> - General Exam Comments Initial Comments: GENERAL: Well-appearing, well-nourished and in no acute distress. HEAD: Atraumatic, normocephalic. EYES: Pupils equal round and reactive to light, extraocular movements intact, sclera anicteric, conjunctiva are normal. ENT: Nares patent, oropharynx clear without exudates. Moist mucous membranes. NECK: Normal range of motion, supple without lymphadenopathy or JVD. LUNGS: Breath sounds clear to auscultation bilaterally and equal. No wheezes rales or rhonchi. HEART: Regular rate and rhythm without murmurs, rubs or gallops. ABDOMEN: Soft, nontender, normoactive bowel sounds. No guarding, no rebound. No masses appreciated. : Deferred EXTREMITIES: Normal range of motion, no pitting or edema. No clubbing or cyanosis. NEUROLOGICAL: Normal speech. PSYCH: Normal mood, normal affect. SKIN: Warm, Dry, normal turgor, no rashes or lesions noted. (Lizette Stapleton) Course Vital Signs 12/22/19 12/22/19 12/22/19 13:18 14:56 15:24 Temperature 97.7 F 98.8 F Pulse Rate 71 82 73 Respiratory 20 18 18 Rate Blood Pressure 113/81 115/72 O2 Sat by Pulse 99 95 98 Oximetry Medical Decision Making - Lab Data Result diagrams: 12/22/19 13:58 12/22/19 13:58 <Lizette Stapleton - Last Filed: 12/22/19 15:59> - Lab Data Result diagrams: 12/22/19 13:58 12/22/19 13:58 <Sierra Snow - Last Filed: 12/24/19 00:23> - Medical Decision Making Patient is a 74-year-old female presenting with UTI times symptoms 2 days. Vital signs are stable. There is no abdominal pain, no fever, no vomiting. Exam is otherwise unremarkable. Lab work shows slight leukocytosis at 12, kidney function is stable. Urine does show signs of an infection. Urine culture is pending at this time. Patient will be given 1 g of Rocephin in the ER and will be started on Keflex all patient. She will follow-up with her PCP. She is stable for discharge at this time. Family is in agreement this plan of care. Return for parameters were discussed with the family and they all verbalized understanding. Case discussed with Dr. Snow. (Lizette Stapleton) I was available for consultation in the emergency department. The history and physical exam were done by the midlevel provider. [facility] I reviewed the case with the midlevel provider and based on their presentation of the patient, I agree with the assessment, medical decision making and plan of care as documented. Chart was dictated using [employer] dictation software. Attempts were made to correct any dictation errors however some typographical errors may persist. (Sirera Snow) - Lab Data Lab Results 12/22/19 12/22/19 12/22/19 Range/Units 13:58 13:58 14:03 WBC 12.0 H (3.8-10.6) k/uL RBC 3.88 (3.80-5.40) m/uL Hgb 13.8 (11.4-16.0) gm/dL Hct 42.3 (34.0-46.0) % MCV 109.2 H (80.0-100.0) fL MCH 35.5 H (25.0-35.0) pg MCHC 32.5 (31.0-37.0) g/dL RDW 12.6 (11.5-15.5) % Plt Count 296 (150-450) k/uL Neutrophils % 73 % Lymphocytes % 16 % Monocytes % 6 % Eosinophils % 3 % Basophils % 0 % Neutrophils # 8.8 H (1.3-7.7) k/uL Lymphocytes # 1.9 (1.0-4.8) k/uL Monocytes # 0.8 (0-1.0) k/uL Eosinophils # 0.3 (0-0.7) k/uL Basophils # 0.0 (0-0.2) k/uL Macrocytosis Moderate Sodium 138 (137-145) mmol/L Potassium 4.5 (3.5-5.1) mmol/L Chloride 106 (98-107) mmol/L Carbon Dioxide 24 (22-30) mmol/L Anion Gap 8 mmol/L BUN 33 H (7-17) mg/dL Creatinine 1.65 H (0.52-1.04) mg/dL Est GFR (CKD-EPI)AfAm 36 (>60 ml/min/1.73 sqM) Est GFR (CKD-EPI)NonAf 31 (>60 ml/min/1.73 sqM) Glucose 97 (74-99) mg/dL Calcium 9.6 (8.4-10.2) mg/dL Total Bilirubin 0.5 (0.2-1.3) mg/dL AST 32 (14-36) U/L ALT 10 (4-34) U/L Alkaline Phosphatase 104 (38-126) U/L Total Protein 6.6 (6.3-8.2) g/dL Albumin 3.6 (3.5-5.0) g/dL Urine Color Yellow Urine Appearance Cloudy H (Clear) Urine pH 6.0 (5.0-8.0) Ur Specific [place] 1.008 (1.001-1.035) Urine Protein 2+ H (Negative) Urine Glucose (UA) Negative (Negative) Urine Ketones Negative (Negative) Urine Blood Large H (Negative) Urine Nitrite Negative (Negative) Urine Bilirubin Negative (Negative) Urine Urobilinogen <2.0 (<2.0) mg/dL Ur Leukocyte Esterase Large H (Negative) Urine RBC 30 H (0-5) /hpf Urine WBC 97 H (0-5) /hpf Urine WBC Clumps Few H (None) /hpf Ur Squamous Epith Cells <1 (0-4) /hpf Amorphous Sediment Rare H (None) /hpf Urine Bacteria Occasional H (None) /hpf Disposition Is patient prescribed a controlled substance at d/c from ED?: No <Lizette Stapleton - Last Filed: 12/22/19 15:59> <Sierra Snow - Last Filed: 12/24/19 00:23> Clinical Impression: UTI (urinary tract infection) Disposition: HOME SELF-CARE Condition: Stable Instructions (If sedation given, give patient instructions): Urinary Tract Infection in Women (ED) Additional Instructions: Please return to the Emergency Department if symptoms worsen or any other concerns. Take antibiotic as prescribed. Follow-up with PCP. Prescriptions: Cephalexin [Keflex] 500 mg PO BID 5 Days #10 cap Referrals: Cornelius Dudley DO [Primary Care Provider] - 1-2 days
[2019-12-22 15:24] VITALS: BP 115/72; PULSE 73; TEMP 98.8
== END 2019-12-22 15:30 | disposition home or self-care (01) ==
LOC: EC 13:17
DX: N39.0 Urinary tract infection, site not specified (principal); E78.5 Hyperlipidemia, unspecified; G20 Parkinson's disease; G40.909 Epilepsy, unspecified, not intractable, without status epilepticus; F41.9 Anxiety disorder, unspecified; F31.9 Bipolar disorder, unspecified; E07.9 Disorder of thyroid, unspecified; Z88.8 Allergy status to other drugs, medicaments and biological substances; Z88.2 Allergy status to sulfonamides; Z88.6 Allergy status to analgesic agent; Z91.02 Food additives allergy status; Z87.891 Personal history of nicotine dependence; Z86.73 Personal history of transient ischemic attack (TIA), and cerebral infarction without residual deficits
CPT/HCPCS: 36415; 80053; 85025; 81001; 87086; 99283; 96374; J0696

== ENCOUNTER 2020-07-31 17:14 | Observation (INO) | payer MEDICARE, OTHER ==
--- NOTE | 2020-07-31 18:22 | ED ---
General Adult HPI - General Chief complaint: Altered Mental Status Stated complaint: Altered Time Seen by Provider: 07/31/20 17:16 Source: patient, EMS, RN notes reviewed, old records reviewed Mode of arrival: EMS Limitations: no limitations - History of Present Illness Initial comments: 75-year-old female patient presents to ED for evaluation after reportedly about 2 months of altered mental status per family. patient denies any pain anywhere. Denies any other acute complaints. Systemic: Pt denies fatigue, fever/chills, rash. Pt denies weakness, night sweats, weight loss. Neuro: Pt denies headache, visual disturbances, syncope or pre-syncope. HEENT: Pt denies ocular discharge or irritation, otalgia, rhinorrhea, pharyngitis or notable lymphadenopathy. Cardiopulmonary: Pt denies chest pain, SOB, heart palpitations, dyspnea on exer tion. Abdominal/GI: Pt denies abdominal pain, n/v/d. : Pt denies dysuria, burning w/ urination, frequency/urgency. Denies new onset urinary or bowel incontinence. MSK: Pt denies myalgia, loss of strength or function in extremities. Neuro: Pt denies new onset weakness, paresthesias. - Related Data Home Medications Medication Instructions Recorded Confirmed Cranberry Fruit Concentrate [Azo 250 mg PO DAILY@1200 03/20/19 07/31/20 Cranberry] Docusate [Colace] 100 mg PO BID PRN 03/20/19 07/31/20 Aspirin EC [Ecotrin Low Dose] 81 mg PO DAILY@1200 07/31/20 07/31/20 Divalproex ER [Depakote ER] 1,000 mg PO HS@0000 07/31/20 07/31/20 Divalproex ER [Depakote ER] 500 mg PO DAILY@1200 07/31/20 07/31/20 Ethacrynic Acid [Ethacrynic Acid] 25 mg PO BID@0000,119907/31/20 07/31/20 Fluphenazine HCl [fluPHENAZine HCL] 2.5 mg PO HS@0000 07/31/20 07/31/20 Folic Acid-Vit B Complex-Vit C 1 cap PO HS@0000 07/31/20 07/31/20 [Nephrocaps] LORazepam [Ativan] 0.5 mg PO BID PRN 07/31/20 07/31/20 Levothyroxine Sodium [Synthroid] 100 mcg PO DAILY@1200 07/31/20 07/31/20 [place] Carbonate 150 mg PO HS@0000 07/31/20 07/31/20 Memantine [Namenda] 5 mg PO DAILY@1200 07/31/20 07/31/20 allopurinoL [Zyloprim] 100 mg PO DAILY@1200 07/31/20 07/31/20 rOPINIRole HCL [Requip] 0.25 mg PO BID@0000,1200 07/31/20 07/31/20 Previous Rx's Medication Instructions Recorded Atorvastatin Calcium [Lipitor] 10 mg PO HS@0000 #30 tab 12/17/19 calcitrioL [Rocaltrol] 0.25 mcg PO WE #30 cap 12/17/19 Allergies Allergy/AdvReac Type Severity Reaction Status Date / Time furosemide [From Lasix] Allergy Unknown Verified 07/31/20 19:46 risperidone [From Risperdal] Allergy Unknown Verified 07/31/20 19:46 Sulfa (Sulfonamide Allergy Unknown Verified 07/31/20 19:46 Antibiotics) ibuprofen [From Motrin] AdvReac KIDNEY Verified 07/31/20 19:46 FAILURE spironolactone AdvReac KIDNEY Verified 07/31/20 19:46 FAILURE torsemide AdvReac KIDNEY Verified 07/31/20 19:46 FAILURE ARTIFICIAL SWEETNER AdvReac Unknown Uncoded 12/22/19 13:22 Review of Systems ROS Statement: Those systems with pertinent positive or pertinent negative responses have been documented in the HPI. ROS Other: All systems not noted in ROS Statement are negative. Past Medical History Past Medical History: CVA/TIA, Hyperlipidemia, Seizure Disorder, Thyroid Disorder Additional Past Medical History / Comment(s): UTI, Parkinsons History of Any Multi-Drug Resistant Organisms: None Reported, Unobtainable Past Surgical History: Cholecystectomy, Hysterectomy, Unable to Obtain Additional Past Surgical History / Comment(s): L oophrectomy Past Anesthesia/Blood Transfusion Reactions: Unable to Obtain Past Psychological History: Anxiety, Bipolar, Depression Smoking Status: Never smoker Past Alcohol Use History: None Reported Past Drug Use History: None Reported - Past Family History Father Family Medical History: Unable to Obtain General Exam - General Exam Comments Initial Comments: Constitutional: NAD, AOX3, Pt has pleasant affect. HEENT: NC/AT, trachea midline, neck supple, no lymphadenopathy. Posterior pharynx non erythematous, without exudates. External ears appear normal, without discharge. Mucous membranes moist. Eyes PERRLA, EOM intact. There is no scleral icterus. No pallor noted. Cardiopulmonary: RRR, no murmurs, rubs or gallops, no JVD noted. Lungs CTAB in anterior and posterior arnold. No peripheral edema. Abdominal exam: Abdomen soft and non-distended. Abdomen non-tender to palpation in all 4 quadrants. Bowel sounds active in LLQ. No hepatosplenomegaly. No ecchymosis Neuro: CN II-XII intact. No nuchal rigidity. No raccon eyes, no dorado sign, no hemotympanum. No cervical spinal tenderness. NIH 0. MSK: No posterior calf tenderness bilaterally, homans sign negative bilaterally. Posterior tibialis and radial pulse +2 bilaterally. Sensation intact in upper and lower extremities. Full active ROM in upper and lower extremities, 5/5 stregnth. Limitations: no limitations Course Vital Signs 07/31/20 07/31/20 17:28 20:59 Temperature 99.1 F 97.7 F Pulse Rate 87 80 Respiratory 18 18 Rate Blood Pressure 128/74 131/69 O2 Sat by Pulse 96 97 Oximetry Medical Decision Making - Medical Decision Making 75-year-old female patient presents to ED for evaluation of about 2 months of mental status changes per family. Patient denies any other acute complaints. Patient has a psychiatric history as well. CT brain C-spine negative for acute process. Laboratory investigation the skin for urinary tract infection. Patient she had antibiotics. Will be admitted psychiatric consult. Case discussed with Dr. Marc. - Lab Data Result diagrams: 07/31/20 18:20 07/31/20 18:20 Lab Results 07/31/20 07/31/20 07/31/20 Range/Units 18:20 18:20 18:20 WBC 9.7 (3.8-10.6) k/uL RBC 4.09 (3.80-5.40) m/uL Hgb 15.0 (11.4-16.0) gm/dL Hct 46.8 H (34.0-46.0) % MCV 114.4 H (80.0-100.0) fL MCH 36.7 H (25.0-35.0) pg MCHC 32.0 (31.0-37.0) g/dL RDW 12.6 (11.5-15.5) % Plt Count 231 (150-450) k/uL Neutrophils % 53 % Lymphocytes % 35 % Monocytes % 7 % Eosinophils % 3 % Basophils % 1 % Neutrophils # 5.2 (1.3-7.7) k/uL Lymphocytes # 3.4 (1.0-4.8) k/uL Monocytes # 0.7 (0-1.0) k/uL Eosinophils # 0.3 (0-0.7) k/uL Basophils # 0.1 (0-0.2) k/uL Macrocytosis Marked A PT 9.5 (9.0-12.0) sec INR 0.9 (<1.2) APTT 22.9 (22.0-30.0) sec Sodium (137-145) mmol/L Potassium (3.5-5.1) mmol/L Chloride (98-107) mmol/L Carbon Dioxide (22-30) mmol/L Anion Gap mmol/L BUN (7-17) mg/dL Creatinine (0.52-1.04) mg/dL Est GFR (CKD-EPI)AfAm (>60 ml/min/1.73 sqM) Est GFR (CKD-EPI)NonAf (>60 ml/min/1.73 sqM) Glucose (74-99) mg/dL Calcium (8.4-10.2) mg/dL Total Bilirubin (0.2-1.3) mg/dL AST (14-36) U/L ALT (4-34) U/L Alkaline Phosphatase (38-126) U/L Troponin I (0.000-0.034) ng/mL Total Protein (6.3-8.2) g/dL Albumin (3.5-5.0) g/dL Urine Color Light Yellow Urine Appearance Turbid H (Clear) Urine pH 6.0 (5.0-8.0) Ur Specific [place] 1.007 (1.001-1.035) Urine Protein Trace H (Negative) Urine Glucose (UA) Negative (Negative) Urine Ketones Negative (Negative) Urine Blood Trace H (Negative) Urine Nitrite Negative (Negative) Urine Bilirubin Negative (Negative) Urine Urobilinogen <2.0 (<2.0) mg/dL Ur Leukocyte Esterase Large H (Negative) Urine RBC 4 (0-5) /hpf Urine WBC 11 H (0-5) /hpf Ur Squamous Epith Cells 2 (0-4) /hpf Calcium Oxalate Crystal Few H (None) /hpf Amorphous Sediment Occasional H (None) /hpf Urine Bacteria Moderate H (None) /hpf Urine Opiates Screen Not Detected (NotDetected) Ur Oxycodone Screen Not Detected (NotDetected) Urine Methadone Screen Not Detected (NotDetected) Ur Propoxyphene Screen Not Detected (NotDetected) Ur Barbiturates Screen Not Detected (NotDetected) U Tricyclic Antidepress Not Detected (NotDetected) Ur Phencyclidine Scrn Not Detected (NotDetected) Ur Amphetamines Screen Not Detected (NotDetected) U Methamphetamines Scrn Not Detected (NotDetected) U Benzodiazepines Scrn Detected H (NotDetected) Urine Cocaine Screen Not Detected (NotDetected) U Marijuana (THC) Screen Not Detected (NotDetected) Serum Alcohol mg/dL 07/31/20 07/31/20 Range/Units 18:20 18:20 WBC (3.8-10.6) k/uL RBC (3.80-5.40) m/uL Hgb (11.4-16.0) gm/dL Hct (34.0-46.0) % MCV (80.0-100.0) fL MCH (25.0-35.0) pg MCHC (31.0-37.0) g/dL RDW (11.5-15.5) % Plt Count (150-450) k/uL Neutrophils % % Lymphocytes % % Monocytes % % Eosinophils % % Basophils % % Neutrophils # (1.3-7.7) k/uL Lymphocytes # (1.0-4.8) k/uL Monocytes # (0-1.0) k/uL Eosinophils # (0-0.7) k/uL Basophils # (0-0.2) k/uL Macrocytosis PT (9.0-12.0) sec INR (<1.2) APTT (22.0-30.0) sec Sodium 139 (137-145) mmol/L Potassium 4.7 (3.5-5.1) mmol/L Chloride 109 H (98-107) mmol/L Carbon Dioxide 26 (22-30) mmol/L Anion Gap 4 mmol/L BUN 23 H (7-17) mg/dL Creatinine 1.56 H (0.52-1.04) mg/dL Est GFR (CKD-EPI)AfAm 38 (>60 ml/min/1.73 sqM) Est GFR (CKD-EPI)NonAf 33 (>60 ml/min/1.73 sqM) Glucose 95 (74-99) mg/dL Calcium 10.5 H (8.4-10.2) mg/dL Total Bilirubin 0.4 (0.2-1.3) mg/dL AST 35 (14-36) U/L ALT 17 (4-34) U/L Alkaline Phosphatase 81 (38-126) U/L Troponin I <0.012 (0.000-0.034) ng/mL Total Protein 5.9 L (6.3-8.2) g/dL Albumin 3.2 L (3.5-5.0) g/dL Urine Color Urine Appearance (Clear) Urine pH (5.0-8.0) Ur Specific [place] (1.001-1.035) Urine Protein (Negative) Urine Glucose (UA) (Negative) Urine Ketones (Negative) Urine Blood (Negative) Urine Nitrite (Negative) Urine Bilirubin (Negative) Urine Urobilinogen (<2.0) mg/dL Ur Leukocyte Esterase (Negative) Urine RBC (0-5) /hpf Urine WBC (0-5) /hpf Ur Squamous Epith Cells (0-4) /hpf Calcium Oxalate Crystal (None) /hpf Amorphous Sediment (None) /hpf Urine Bacteria (None) /hpf Urine Opiates Screen (NotDetected) Ur Oxycodone Screen (NotDetected) Urine Methadone Screen (NotDetected) Ur Propoxyphene Screen (NotDetected) Ur Barbiturates Screen (NotDetected) U Tricyclic Antidepress (NotDetected) Ur Phencyclidine Scrn (NotDetected) Ur Amphetamines Screen (NotDetected) U Methamphetamines Scrn (NotDetected) U Benzodiazepines Scrn (NotDetected) Urine Cocaine Screen (NotDetected) U Marijuana (THC) Screen (NotDetected) Serum Alcohol <10 mg/dL - EKG Data -: EKG Interpreted by Me (and Dr. Marc ) EKG Comments: Ventricular rate 89, KS full 152, QRS 84, QT/QTC 382/464. Normal sinus rhythm, nonspecific T-wave abnormality. No concern for acute ischemia at this time. Disposition Clinical Impression: UTI (urinary tract infection), AMS (altered mental status) Disposition: ADMITTED IP TO THIS HOSP Condition: Serious Is patient prescribed a controlled substance at d/c from ED?: No
[2020-07-31 18:37] LABS: Basophils # (A) 0.1 k/uL (0-0.2); Basophils % (A) 1 %; Eosinophils # (A) 0.3 k/uL (0-0.7); Eosinophils % (A) 3 %; HCT 46.8 % (34.0-46.0); Lymphocytes # (A) 3.4 k/uL (1.0-4.8); Lymphocytes % (A) 35 %; MCH 36.7 pg (25.0-35.0); MCV 114.4 fL (80.0-100.0); Macrocytosis Marked; Mean Platelet Volume 8.8; Monocytes # (A) 0.7 k/uL (0-1.0); Monocytes % (A) 7 %; Neutrophils # (A) 5.2 k/uL (1.3-7.7); Neutrophils % (A) 53 %; Platelet Count 231 k/uL (150-450); RBC 4.09 m/uL (3.80-5.40); RDW 12.6 % (11.5-15.5); WBC 9.7 k/uL (3.8-10.6)
[2020-07-31 18:41] LABS: INR 0.9 (<1.2); Partial Thromboplastin Time 22.9 sec (22.0-30.0); Prothrombin Time 9.5 sec (9.0-12.0)
[2020-07-31 18:43] LABS: ALT 17 U/L (4-34); AST 35 U/L (14-36); African American GFR (CKD) 38 (>60 ml/min/1.73 sqM); Albumin 3.2 g/dL (3.5-5.0); Alcohol <10 mg/dL; Alkaline Phosphatase 81 U/L (38-126); Anion Gap 4 mmol/L; Blood Urea Nitrogen 23 mg/dL (7-17); Calcium 10.5 mg/dL (8.4-10.2); Carbon Dioxide 26 mmol/L (22-30); Chloride 109 mmol/L (98-107); Glucose 95 mg/dL (74-99); Non-African American GFR(CKD) 33 (>60 ml/min/1.73 sqM); Potassium 4.7 mmol/L (3.5-5.1); Sodium 139 mmol/L (137-145); Total Bilirubin 0.4 mg/dL (0.2-1.3); Total Protein 5.9 g/dL (6.3-8.2)
--- NOTE | 2020-07-31 19:02 | XR ---
EXAMINATION TYPE: XR chest 2V DATE OF EXAM: 07/31/2020 COMPARISON: 03/22/2019 HISTORY: Weakness TECHNIQUE: FINDINGS: Heart is normal. Lungs are clear of infiltrate. There are chest leads. There is slight elev ated right diaphragm. There is no heart failure. IMPRESSION: Mild chronic elevation of the right diaphragm unchanged compared to old exam. No heart fa ilure seen.
--- NOTE | 2020-07-31 19:03 | CT ---
EXAMINATION TYPE: CT brain wo con DATE OF EXAM: 07/31/2020 COMPARISON: 03/21/2019 HISTORY: Altered mental status. CT DLP: 1087.4 mGycm Automated exposure control for dose reduction was used. There is some cerebral cortical atrophy. There is no mass effect nor midline shift. There is no sign of intracranial hemorrhage. There is hyperostosis frontalis. Sella turcica appears normal. Skull base is intact. IMPRESSION: Cerebral atrophy. No acute intracranial abnormality. No change.
[2020-07-31 19:21] LABS: Amorphous Sediment,Urine Occasional /hpf; Amphetamine Screen,Urine Not Detected (NotDetected); Appearance,Urine Turbid (Clear); Bacteria,Urine Moderate /hpf; Barbiturate Screen,Urine Not Detected (NotDetected); Benzodiazepines Screen,Urine Detected (NotDetected); Bilirubin,Urine Negative (Negative); Blood,Urine Trace (Negative); Calcium Oxalate Crystals,Urine Few /hpf; Cocaine Screen,Urine Not Detected (NotDetected); Color,Urine Light Yellow; Glucose,Urine (UA) Negative (Negative); Ketones,Urine Negative (Negative); Leukocyte Esterase,Urine Large (Negative); Methadone Screen, Urine Not Detected (NotDetected); Nitrite,Urine Negative (Negative); Opiate Screen,Urine Not Detected (NotDetected); Oxycodone Screen, Urine Not Detected (NotDetected); Phencyclidine Screen,Urine Not Detected (NotDetected); Protein,Urine Trace (Negative); RBC,Urine 4 /hpf (0-5); Specific Gravity,Urine 1.007 (1.001-1.035); Squamous Epithelial Cell,Urine 2 /hpf (0-4); Tricyclic Antidepressant,Urine Not Detected (NotDetected); Urn Cannabinoid Scrn Not Detected (NotDetected); Urobilinogen,Urine <2.0 mg/dL (<2.0); WBC,Urine 11 /hpf (0-5)
[2020-07-31] MEDS ORDERED: SODIUM CHLORIDE 0.9% 500 ML 500 ML IV ONE (19:54)
[2020-07-31] MEDS ORDERED: cefTRIAXone IN SWFI 1,000 MG/10 ML SYRINGE IVP STA (19:57)
[2020-07-31] MEDS ORDERED: NALOXONE 0.4 MG/ML 1 ML VIAL IV PRN (20:37)
[2020-07-31 20:49] LABS: Magnesium 2.4 mg/dL (1.6-2.3); Phosphorus 3.4 mg/dL (2.5-4.5)
[2020-08-01] MEDS: SODIUM CHLORIDE 0.9% 1,000 ML IV SCH ×3 (00:18→22:26)
[2020-08-01] MEDS ORDERED: cefTRIAXone 1,000 MG VIAL (IM USE) IM SCH (09:00)
[2020-08-01] MEDS ORDERED: DOCUSATE 100 MG CAP PO PRN (09:45)
[2020-08-01] MEDS ORDERED: LORazepam 0.5 MG TAB PO PRN (09:45)
[2020-08-01] MEDS: MEMANTINE 5 MG TAB PO SCH (11:46)
[2020-08-01] MEDS: DIVALPROEX ER 500 MG TAB.ER.24H PO SCH ×2 (11:46→22:26)
[2020-08-01] MEDS: LEVOTHYROXINE 100 MCG TAB PO SCH (11:46)
[2020-08-01] MEDS: allopurinoL 100 MG TAB PO SCH (11:46)
[2020-08-01] MEDS: ASPIRIN 81 MG PO SCH (11:46)
--- NOTE | 2020-08-01 12:31 | P.CN ---
Psychiatric Consult - . Consult date: 08/01/20 Consult:: IDENTIFYING DATA: This patient is a 75-year-old female with a significant history of bipolar disorder and recurrent UTI was admitted for altered mental status. HISTORY OF PRESENT ILLNESS: The patient presented to the hospital on 07/31/2020 for evaluation after having increased confusion and delusional thoughts over the past 2 months. Patient was evaluated in the emergency department and is determined that the patient has a urinary tract infection and was started on Rocephin. The patient is a very poor historian at this time. Most of the information provided despite the patient's daughter Elina Butler who is her guardian. Patient's daughter reports that the patient has been increasingly agitated, delusional, and inappropriate since late May. She reports that it all started with her having a urinary tract infection. She reports that the patient would be delusional, believing that she is being raped, and paranoid and fearful of others. She also notes that the patient has been displaying mainly verbal aggression. In addition to her psychotic symptoms the patient was reportedly not sleeping well either. She states that once the patient was placed on Prolixin 2.5 mg at bedtime, the patient began sleeping again. She reports that the patient's lithium was recently decreased from 300 mg to 150 mg due to kidney dysfunction and this may be a precipitating factor to the patient's current presentation. At this time, the patient is denying any suicidal or homicidal ideation, intention, and/or plan. She is denying any auditory or visual hallucinations. She does endorse significant delusions and reports that "people of the [place] are being raped or are raping other people." Patient's daughter reports that she is far from baseline. She reports that when the patient is at baseline, the patient can be opinionated but is not delusional and is not as forthcoming with her delusions and fears. She reports at baseline the patient is alert and oriented 1 or 2. PAST PSYCHIATRIC HISTORY: Patient has a a history of bipolar disorder and has had multiple inpatient psychiatric hospitalizations with the last one being in October of this year. Her inpatient admission lasted close to 2 months. She has had multiple trials of psychotropic medications including Prolixin, Depakote, Risperdal, lithium, gabapentin, Cogentin, Wellbutrin and Sinemet. She is currently managed in the outpatient setting by [facility]. We will need to explore there have been prior attempts of suicide in the past. PAST MEDICAL HISTORY: CVA/TIA, hyperlipidemia, seizure disorder, thyroid disorder. ALLERGIES: as per EMR. CHEMICAL DEPENDENCY HISTORY: as per HPI. FAMILY PSYCHIATRIC/SUBSTANCE USE HISTORY: Per chart history, a daughter committed suicide. SOCIAL HISTORY: Patient [place] patient currently lives with her daughter Elina Butler. She has been and twice. She has 3 children. As of education is high school. She is unemployed and receives Social Security.. MENTAL STATUS EXAM: General Appearance: Patient appears to be stated age is alert, pleasant, and cooperative. Patient appears to have fair hygiene and grooming wearing hospital gown with fair eye contact. Behavior: Patient is calmly lying in bed but displays some agitation. Speech: Patient's speech is fluent and nonpressured. Spontaneous. Mood/Affect: Patient reports their mood is "okay", affect is fearful and intense Suicidality/Homicidality: Patient denies having any suicidal or homicidal ideation intent or plan. Perceptions: Patient denies any visual hallucinations and denies any auditory hallucinations Though content/process: Patient is endorsing significant delusions of persecution. Memory and concentration: AOX2 - Person and Place, grossly intact for the purposes of this session. Unable to spell "WORLD" backwards. Judgment and insight: Very poor IMPRESSIONS: Bipolar disorder Rule out schizoaffective disorder PLAN: -At this time patient DOES meet criteria for inpatient psychiatric admission. -Patient DOES NOT have decision making capacity at this time and is unable to reason through and communicate/appreciate the risks, benefits and alternatives to treatment. -Delirium precautions recommended with patient including - avoiding use of narcotics and ESOL TEACHER sedatives, limit anticholinergic medications when possible, frequent re-orientation, minimize use of restraints, open window shades during the day and close them at night -Would recommend the following medication changes/additions: We will continue home psychiatric medications Depakote ER 500 mg by mouth daily, 1000 BY mouth at bedtime Prolixin 2.5 mg by mouth at bedtime Jovista 150 mg by mouth at bedtime We will consider titration of antipsychotic medication pending patient's response and stabilization of medical conditions. -Cannot leave AMA at this time. -Will continue to follow along -When medically stable, patient is eligible for transfer to a GERIATRIC PSYCHIATRY bed when available. Patient's daughter (Elina Butler) is her guardian and would like to sign in the patient for psychiatric treatment. 08/01/20 12:16
--- NOTE | 2020-08-01 15:25 | P.HPIM ---
History of Present Illness H&P Date: 08/01/20 Chief Complaint: Seeing things Consultation: This is a 75-year-old patient of Dr. Thi Dudley. Chronic stable medical conditions include chronic kidney disease, bipolar, hypothyroid, Parkinson's disease, seizure disorder. Patient used to use a walker in the past. States her family. Which keeps it in the bed. Patient is brought in by the family for mental status changes. According to the patient she has been seeing witches in the room and the drink purple water. She doesn't starts talking about psychiatrist Dr. Parada and that he seeing her because of pulse to take her money. She states she was shouting and getting mad at her daughter. The daughter called the EMS. She talks his who is a family doctor. Was not taking care of her. She then sees Dr. Paulson in the room. This is during my interview. She denies any fever or chills. No chest pain or shortness of breath. Appetite is fair. Denies any obvious urine symptoms. Review of systems: GEN.: None EYES: None HEENT: None NECK: None RESPIRATORY: None CARDIOVASCULAR: None GASTROINTESTINAL: None GENITOURINARY: None MUSCULOSKELETAL: None LYMPHATICS: None HEMATOLOGICAL: None PSYCHIATRY: As above] NEUROLOGICAL: Baseline tremors Past medical history to include: COPD, bipolar disorder, hypothyroid, Parkinson's disease, CK D, seizure disorder Social history: No smoking or alcohol. Daughter lives with her. Family history: Reviewed, noncontributory to presentation Physical examination: VITAL SIGNS: 98.2, 81, 15, 124/81, 98% room air GENERAL: Laying in bed, comfortable EYES: Pupils equal. Conjunctiva normal. HEENT: External appearance of nose and ears normal, oral cavity grossly normal. NECK: JVD not raised; masses not palpable. HEART: First and second heart sounds are normal; no edema. LUNGS: Respiratory rate normal; clear to auscultation. ABDOMEN: Soft, nontender, liver spleen not palpable, no masses palpable. PSYCH: Answering questions , see my history of presenting complaint. NEUROLOGICAL: Cranial nerves grossly intact; no facial asymmetry, power and sensation grossly intact. Tremors present LYMPHATICS: No lymph nodes palpable in the axilla and neck INVESTIGATIONS, reviewed in the clinical context: White count 9.7 hemoglobin 15 platelets 231 potassium 4.7 bun 23 creatinine 1.56 UA positive for leukoesterase, WBC, some epithelial cells Previous testing: Bun 33 creatinine 1.78 from December 2019 Assessment: -Bipolar disorder with psychosis -Chronic kidney disease stage III likely nephrosclerosis -Hypothyroid -Idiopathic Parkinson's disease -Epilepsy disorder -Chronic gait dysfunction uses a walker Plan: Patient is placed on ceftriaxone in the ER. Home medications to continue. Psychiatry consulted. Patient medically stable to be transferred to 3 W psychiatry unit if accepted. Past Medical History Past Medical History: CVA/TIA, Hyperlipidemia, Seizure Disorder, Thyroid Disorder Additional Past Medical History / Comment(s): UTI, Parkinsons History of Any Multi-Drug Resistant Organisms: None Reported, Unobtainable Past Surgical History: Cholecystectomy, Hysterectomy, Unable to Obtain Additional Past Surgical History / Comment(s): L oophrectomy Past Anesthesia/Blood Transfusion Reactions: Unable to Obtain Past Psychological History: Anxiety, Bipolar, Depression Smoking Status: Never smoker Past Alcohol Use History: None Reported Past Drug Use History: None Reported - Past Family History Father Family Medical History: Unable to Obtain Medications and Allergies Home Medications Medication Instructions Recorded Confirmed Type Cranberry Fruit Concentrate [Azo 250 mg PO DAILY@1200 03/20/19 07/31/20 History Cranberry] Docusate [Colace] 100 mg PO BID PRN 03/20/19 07/31/20 History Atorvastatin Calcium [Lipitor] 10 mg PO HS@0000 #30 tab 12/17/19 07/31/20 Rx calcitrioL [Rocaltrol] 0.25 mcg PO WE #30 cap 12/17/19 07/31/20 Rx Aspirin EC [Ecotrin Low Dose] 81 mg PO DAILY@1200 07/31/20 07/31/20 History Divalproex ER [Depakote ER] 1,000 mg PO HS@0000 07/31/20 07/31/20 History Divalproex ER [Depakote ER] 500 mg PO DAILY@1200 07/31/20 07/31/20 History Ethacrynic Acid [Ethacrynic Acid] 25 mg PO BID@0000,1200 07/31/20 07/31/20 History Fluphenazine HCl [fluPHENAZine HCL] 2.5 mg PO HS@0000 07/31/20 07/31/20 History Folic Acid-Vit B Complex-Vit C 1 cap PO HS@0000 07/31/20 07/31/20 History [Nephrocaps] LORazepam [Ativan] 0.5 mg PO BID PRN 07/31/20 07/31/20 History Levothyroxine Sodium [Synthroid] 100 mcg PO DAILY@1200 07/31/20 07/31/20 History [place] Carbonate 150 mg PO HS@0000 07/31/20 07/31/20 History Memantine [Namenda] 5 mg PO DAILY@1200 07/31/20 07/31/20 History allopurinoL [Zyloprim] 100 mg PO DAILY@1200 07/31/20 07/31/20 History rOPINIRole HCL [Requip] 0.25 mg PO BID@0000,1200 07/31/20 07/31/20 History Allergies Allergy/AdvReac Type Severity Reaction Status Date / Time furosemide [From Lasix] Allergy Unknown Verified 07/31/20 19:46 risperidone [From Risperdal] Allergy Unknown Verified 07/31/20 19:46 Sulfa (Sulfonamide Allergy Unknown Verified 07/31/20 19:46 Antibiotics) ibuprofen [From Motrin] AdvReac KIDNEY Verified 07/31/20 19:46 FAILURE spironolactone AdvReac KIDNEY Verified 07/31/20 19:46 FAILURE torsemide AdvReac KIDNEY Verified 07/31/20 19:46 FAILURE ARTIFICIAL SWEETNER AdvReac Unknown Uncoded 12/22/19 13:22 Physical Exam Vitals: Vital Signs Temp Pulse Pulse Resp BP BP Pulse Ox 08/01/20 08:24 98 08/01/20 07:00 98.2 F 81 15 124/81 98 08/01/20 02:25 81 15 115/78 98 07/31/20 20:59 97.7 F 80 18 131/69 97 07/31/20 17:28 99.1 F 87 18 128/74 96 Intake and Output 07/31/20 08/01/20 08/01/20 22:59 06:59 14:59 Other: Voiding Method Diaper Diaper Incontinent Incontinent Weight 68.039 kg Results CBC & Chem 7: 07/31/20 18:20 07/31/20 18:20 Labs: Abnormal Lab Results - Last 24 Hours (Table) 07/31/20 07/31/20 07/31/20 Range/Units 18:20 18:20 18:20 Hct 46.8 H (34.0-46.0) % MCV 114.4 H (80.0-100.0) fL MCH 36.7 H (25.0-35.0) pg Macrocytosis Marked A Chloride 109 H (98-107) mmol/L BUN 23 H (7-17) mg/dL Creatinine 1.56 H (0.52-1.04) mg/dL Calcium 10.5 H (8.4-10.2) mg/dL Magnesium (1.6-2.3) mg/dL Total Protein 5.9 L (6.3-8.2) g/dL Albumin 3.2 L (3.5-5.0) g/dL Urine Appearance Turbid H (Clear) Urine Protein Trace H (Negative) Urine Blood Trace H (Negative) Ur Leukocyte Esterase Large H (Negative) Urine WBC 11 H (0-5) /hpf Calcium Oxalate Crystal Few H (None) /hpf Amorphous Sediment Occasional H (None) /hpf Urine Bacteria Moderate H (None) /hpf U Benzodiazepines Scrn Detected H (NotDetected) 07/31/20 Range/Units 20:12 Hct (34.0-46.0) % MCV (80.0-100.0) fL MCH (25.0-35.0) pg Macrocytosis Chloride (98-107) mmol/L BUN (7-17) mg/dL Creatinine (0.52-1.04) mg/dL Calcium (8.4-10.2) mg/dL Magnesium 2.4 H (1.6-2.3) mg/dL Total Protein (6.3-8.2) g/dL Albumin (3.5-5.0) g/dL Urine Appearance (Clear) Urine Protein (Negative) Urine Blood (Negative) Ur Leukocyte Esterase (Negative) Urine WBC (0-5) /hpf Calcium Oxalate Crystal (None) /hpf Amorphous Sediment (None) /hpf Urine Bacteria (None) /hpf U Benzodiazepines Scrn (NotDetected) Microbiology - Last 24 Hours (Table) 07/31/20 18:20 Urine Culture - Preliminary Urine,Catheterized Thrombosis Risk Factor Assmnt - Choose All That Apply Any of the Below Risk Factors Present?: No
[2020-08-01] MEDS: ATORVASTATIN 10 MG TAB PO SCH (22:26)
[2020-08-01] MEDS: LITHIUM CARBONATE 150 MG CAP PO SCH (22:27)
[2020-08-01] MEDS: FOLIC ACID-VIT B COMPLEX-VIT C 1 CAP PO SCH (22:27)
[2020-08-02] MEDS: ASPIRIN 81 MG PO SCH (12:00)
[2020-08-02] MEDS: LEVOTHYROXINE 100 MCG TAB PO SCH (12:00)
[2020-08-02] MEDS: SODIUM CHLORIDE 0.9% 1,000 ML IV SCH (12:01)
[2020-08-02] MEDS: MEMANTINE 5 MG TAB PO SCH (12:01)
[2020-08-02] MEDS: allopurinoL 100 MG TAB PO SCH (12:01)
[2020-08-02] MEDS: DIVALPROEX ER 500 MG TAB.ER.24H PO SCH (12:01)
--- NOTE | 2020-08-02 22:11 | P.PN ---
Progress Note - Text Progress Note Date: 08/02/20 Chief Complaint: Seeing things Consultation: This is a 75-year-old patient of Dr. Thi Dudley. Chronic stable medical conditions include chronic kidney disease, bipolar, hypothyroid, Parkinson's disease, seizure disorder. Patient used to use a walker in the past. States her family. Which keeps it in the bed. Patient is brought in by the family for mental status changes. According to the patient she has been seeing witches in the room and the drink purple water. She doesn't starts talking about psychiatrist Dr. Parada and that he seeing her because of pulse to take her money. She states she was shouting and getting mad at her daughter. The daughter called the EMS. She talks his who is a family doctor. Was not taking care of her. She then sees Dr. Paulson in the room. This is during my interview. She denies any fever or chills. No chest pain or shortness of breath. Appetite is fair. Denies any obvious urine symptoms. Admitted with bipolar disorder with psychosis. Patient hallucinations. Acute UTI. Today-continues to have hallucinations and psychosis. Did eat some food. Review of systems: Was done for constitutional, cardiovascular, GI, pulmonary. relevant finding as above Active Medications Allopurinol (Allopurinol 100 Mg Tab) 100 mg PO DAILY@1200 [facility] Last Admin: 08/02/20 12:01 Dose: 100 mg Documented by: Aspirin (Aspirin 81 Mg) 81 mg PO DAILY@1200 [facility] Last Admin: 08/02/20 12:00 Dose: 81 mg Documented by: Atorvastatin Calcium (Atorvastatin 10 Mg Tab) 10 mg PO HS@0000 [facility] Last Admin: 08/01/20 22:26 Dose: 10 mg Documented by: Calcitriol (Calcitriol 0.25 Mcg Cap) 0.25 mcg PO WE [facility] Divalproex Sodium (Divalproex Er 500 Mg Tab.Er.24h) 500 mg PO DAILY@1200 [facility] Last Admin: 08/02/20 12:01 Dose: 500 mg Documented by: Divalproex Sodium (Divalproex Er 500 Mg Tab.Er.24h) 1,000 mg PO HS@0000 [facility] Last Admin: 08/01/20 22:26 Dose: 1,000 mg Documented by: Docusate Sodium (Docusate 100 Mg Cap) 100 mg PO BID PRN PRN Reason: Constipation Fluphenazine HCl (Fluphenazine 5 Mg Tab) 2.5 mg PO HS@0000 [facility] Last Admin: 08/01/20 22:26 Dose: 2.5 mg Documented by: Ceftriaxone Sodium 1 gm/ (Sodium Chloride) 50 mls @ 100 mls/hr IVPB HS [facility] Last Admin: 08/01/20 22:25 Dose: 100 mls/hr Documented by: Sodium Chloride (Saline 0.9%) 1,000 mls @ 75 mls/hr IV .[id number] [facility] Last Admin: 08/02/20 12:01 Dose: 75 mls/hr Documented by: Levothyroxine Sodium (Levothyroxine 100 Mcg Tab) 100 mcg PO DAILY@1200 [facility] Last Admin: 08/02/20 12:00 Dose: 100 mcg Documented by: [place] Carbonate ([place] Carbonate 150 Mg Cap) 150 mg PO HS@0000 [facility] Last Admin: 08/01/20 22:27 Dose: 150 mg Documented by: Lorazepam (Lorazepam 0.5 Mg Tab) 0.5 mg PO BID PRN PRN Reason: Anxiety Memantine (Memantine 5 Mg Tab) 5 mg PO DAILY@1200 [facility] Last Admin: 08/02/20 12:01 Dose: 5 mg Documented by: Multivit/Ca Carb/B Cmplx/FA/Prenat (Folic Acid-Vit B Complex-Vit C 1 Cap) 1 each PO HS@0000 [facility] Last Admin: 08/01/20 22:27 Dose: 1 each Documented by: Naloxone HCl (Naloxone 0.4 Mg/Ml 1 Ml Vial) 0.2 mg IV Q2M PRN PRN Reason: Opioid Reversal Ropinirole HCl (Ropinirole Hcl 0.25 Mg Tab) 0.25 mg PO BID@0000,1200 [facility] Last Admin: 08/02/20 12:00 Dose: 0.25 mg Documented by: Physical examination: VITAL SIGNS: 97.9, 79, 18, 119/72, 96% room air GENERAL: Sitting up in bed, awake anxious EYES: Pupils equal. Conjunctiva normal. NECK: JVD not raised; masses not palpable. HEART: First and second heart sounds are normal; no edema. LUNGS: Respiratory rate normal; clear to auscultation. ABDOMEN: Soft, nontender, liver spleen not palpable, no masses palpable. PSYCH: Answering questions , visual hallucinations INVESTIGATIONS, reviewed in the clinical context: Urine culture-aerococcus urinae Admission testing White count 9.7 hemoglobin 15 platelets 231 potassium 4.7 bun 23 creatinine 1.56 UA positive for leukoesterase, WBC, some epithelial cells Previous testing: Bun 33 creatinine 1.78 from December 2019 Assessment: -Bipolar disorder with psychosis -Acute UTI with cystitis from aerococcus urinae -Chronic kidney disease stage III likely nephrosclerosis -Hypothyroid -Idiopathic Parkinson's disease -Epilepsy disorder -Chronic gait dysfunction uses a walker Plan: Change antibiotic to amoxicillin. Further disposition as per psychiatry. Other medications to continue.
[2020-08-03] MEDS: DIVALPROEX ER 500 MG TAB.ER.24H PO SCH ×2 (00:56→11:04)
[2020-08-03] MEDS: LITHIUM CARBONATE 150 MG CAP PO SCH (00:57)
[2020-08-03] MEDS: FOLIC ACID-VIT B COMPLEX-VIT C 1 CAP PO SCH (00:57)
[2020-08-03] MEDS: ATORVASTATIN 10 MG TAB PO SCH (00:57)
[2020-08-03] MEDS: AMOXICILLIN 500 MG CAP PO SCH ×2 (07:19→15:34)
[2020-08-03] MEDS: allopurinoL 100 MG TAB PO SCH (11:04)
[2020-08-03] MEDS: LEVOTHYROXINE 100 MCG TAB PO SCH (11:04)
[2020-08-03] MEDS: MEMANTINE 5 MG TAB PO SCH (11:04)
[2020-08-03] MEDS: ASPIRIN 81 MG PO SCH (11:04)
--- NOTE | 2020-08-03 16:47 | P.PN ---
Progress Note - Text Progress Note Date: 08/03/20 Chief Complaint: Seeing things Consultation: This is a 75-year-old patient of Dr. Thi Dudley. Chronic stable medical conditions include chronic kidney disease, bipolar, hypothyroid, Parkinson's disease, seizure disorder. Patient used to use a walker in the past. States her family. Which keeps it in the bed. Patient is brought in by the family for mental status changes. According to the patient she has been seeing witches in the room and the drink purple water. She doesn't starts talking about psychiatrist Dr. Parada and that he seeing her because of pulse to take her money. She states she was shouting and getting mad at her daughter. The daughter called the EMS. She talks his who is a family doctor. Was not taking care of her. She then sees Dr. Paulson in the room. This is during my interview. She denies any fever or chills. No chest pain or shortness of breath. Appetite is fair. Denies any obvious urine symptoms. Admitted with bipolar disorder with psychosis. Patient hallucinations. Acute UTI. Today-intermittent hallucinations or psychosis persists. Oral intake variable. Otherwise comfortable. Review of systems: Was done for constitutional, cardiovascular, GI, pulmonary. relevant finding as above Active Medications Allopurinol (Allopurinol 100 Mg Tab) 100 mg PO DAILY@1200 [facility] Last Admin: 08/03/20 11:04 Dose: 100 mg Documented by: Amoxicillin (Amoxicillin 500 Mg Cap) 500 mg PO Q8HR [facility] Last Admin: 08/03/20 15:34 Dose: 500 mg Documented by: Aspirin (Aspirin 81 Mg) 81 mg PO DAILY@1200 [facility] Last Admin: 08/03/20 11:04 Dose: 81 mg Documented by: Atorvastatin Calcium (Atorvastatin 10 Mg Tab) 10 mg PO HS@0000 [facility] Last Admin: 08/03/20 00:57 Dose: 10 mg Documented by: Calcitriol (Calcitriol 0.25 Mcg Cap) 0.25 mcg PO WE [facility] Divalproex Sodium (Divalproex Er 500 Mg Tab.Er.24h) 500 mg PO DAILY@1200 [facility] Last Admin: 08/03/20 11:04 Dose: 500 mg Documented by: Divalproex Sodium (Divalproex Er 500 Mg Tab.Er.24h) 1,000 mg PO HS@0000 [facility] Last Admin: 08/03/20 00:56 Dose: 1,000 mg Documented by: Docusate Sodium (Docusate 100 Mg Cap) 100 mg PO BID PRN PRN Reason: Constipation Fluphenazine HCl (Fluphenazine 5 Mg Tab) 2.5 mg PO HS@0000 [facility] Last Admin: 08/03/20 00:57 Dose: 2.5 mg Documented by: Levothyroxine Sodium (Levothyroxine 100 Mcg Tab) 100 mcg PO DAILY@1200 [facility] Last Admin: 08/03/20 11:04 Dose: 100 mcg Documented by: [place] Carbonate ([place] Carbonate 150 Mg Cap) 150 mg PO HS@0000 [facility] Last Admin: 08/03/20 00:57 Dose: 150 mg Documented by: Lorazepam (Lorazepam 0.5 Mg Tab) 0.5 mg PO BID PRN PRN Reason: Anxiety Memantine (Memantine 5 Mg Tab) 5 mg PO DAILY@1200 [facility] Last Admin: 08/03/20 11:04 Dose: 5 mg Documented by: Multivit/Ca Carb/B Cmplx/FA/Prenat (Folic Acid-Vit B Complex-Vit C 1 Cap) 1 each PO HS@0000 [facility] Last Admin: 08/03/20 00:57 Dose: 1 each Documented by: Naloxone HCl (Naloxone 0.4 Mg/Ml 1 Ml Vial) 0.2 mg IV Q2M PRN PRN Reason: Opioid Reversal Ropinirole HCl (Ropinirole Hcl 0.25 Mg Tab) 0.25 mg PO BID@0000,1200 [facility] Last Admin: 08/03/20 11:04 Dose: 0.25 mg Documented by: Physical examination: VITAL SIGNS: 98.4, 79, 16, 100/63, 97% room air GENERAL: Sitting up in bed, awake smilings EYES: Pupils equal. Conjunctiva normal. NECK: JVD not raised; masses not palpable. HEART: First and second heart sounds are normal; no edema. LUNGS: Respiratory rate normal; clear to auscultation. ABDOMEN: Soft, nontender, liver spleen not palpable, no masses palpable. PSYCH: Answering questions , visual hallucinations INVESTIGATIONS, reviewed in the clinical context: Urine culture-aerococcus urinae Admission testing White count 9.7 hemoglobin 15 platelets 231 potassium 4.7 bun 23 creatinine 1.56 UA positive for leukoesterase, WBC, some epithelial cells Previous testing: Bun 33 creatinine 1.78 from December 2019 Assessment: -Bipolar disorder with psychosis -Acute UTI with cystitis from aerococcus urinae -Chronic kidney disease stage III likely nephrosclerosis -Hypothyroid -Idiopathic Parkinson's disease -Epilepsy disorder -Chronic gait dysfunction uses a walker Plan: on amoxicillin. continue other medications. Hoping psychiatry will take the patient 3 W.
[2020-08-03 19:30] VITALS: BP 103/66; PULSE 83; RESP 18; TEMP 98.3
[2020-08-04] MEDS: DIVALPROEX ER 500 MG TAB.ER.24H PO SCH (00:05)
[2020-08-04] MEDS: FOLIC ACID-VIT B COMPLEX-VIT C 1 CAP PO SCH (00:06)
[2020-08-04] MEDS: LITHIUM CARBONATE 150 MG CAP PO SCH (00:06)
[2020-08-04] MEDS: ATORVASTATIN 10 MG TAB PO SCH (00:06)
[2020-08-04] MEDS: AMOXICILLIN 500 MG CAP PO SCH (00:06)
--- NOTE | 2020-08-04 22:31 | P.DS ---
Providers Date of admission: 07/31/20 20:01 Expected date of discharge: 08/04/20 Attending physician: Bogdan Ac Consults: 07/31/20 20:37 Consult Physician Stat Consulting Provider: Gerardo Schmidt Reason/Comments: uti, ams, psychiatric disorder Do you want consulting provider notified?: Yes Primary care physician: Cornelius Dudley [facility] Course: Chief Complaint: Seeing things Consultation: This is a 75-year-old patient of Dr. Thi Dudley. Chronic stable medical conditions include chronic kidney disease, bipolar, hypothyroid, Parkinson's disease, seizure disorder. Patient used to use a walker in the past. States her family. Which keeps it in the bed. Patient is brought in by the family for mental status changes. According to the patient she has been seeing witches in the room and the drink purple water. She doesn't starts talking about psychiatrist Dr. Parada and that he seeing her because of pulse to take her shayna y. She states she was shouting and getting mad at her daughter. The daughter called the EMS. She talks his who is a family doctor. Was not taking care of her. She then sees Dr. Paulson in the room. This is during my interview. She denies any fever or chills. No chest pain or shortness of breath. Appetite is fair. Denies any obvious urine symptoms. Admitted with bipolar disorder with psychosis. Patient hallucinations. Acute UTI. Continue to have hallucinations. Psychosis. Urine culture positive for enterococcus. Today-stable. Being accepted at [facility]. [place]. Accepting physician Dr. Morley Physical examination: VITAL SIGNS: 98.3, 83, 18, 103/66, 98% room air GENERAL: Sitting up in bed, awake smilings EYES: Pupils equal. Conjunctiva normal. NECK: JVD not raised; masses not palpable. HEART: First and second heart sounds are normal; no edema. LUNGS: Respiratory rate normal; clear to auscultation. ABDOMEN: Soft, nontender, liver spleen not palpable, no masses palpable. PSYCH: Answering questions , visual hallucinations INVESTIGATIONS, reviewed in the clinical context: Urine culture-aerococcus urinae Admission testing White count 9.7 hemoglobin 15 platelets 231 potassium 4.7 bun 23 creatinine 1.56 UA positive for leukoesterase, WBC, some epithelial cells Previous testing: Bun 33 creatinine 1.78 from December 2019 Assessment: -Bipolar disorder with psychosis -Acute UTI with cystitis from aerococcus urinae -Chronic kidney disease stage III likely nephrosclerosis -Hypothyroid -Idiopathic Parkinson's disease -Epilepsy disorder -Chronic gait dysfunction uses a walker Disposition: geriatrics- psychiatry unit at [facility]. Patient Condition at Discharge: Stable Plan - Discharge Summary Discharge Rx Participant: Yes New Discharge Prescriptions: No Action Docusate [Colace] 100 mg PO BID PRN PRN Reason: Constipation Cranberry Fruit Concentrate [Azo Cranberry] 250 mg PO DAILY@1200 Atorvastatin Calcium [Lipitor] 10 mg PO HS@0000 #30 tab calcitrioL [Rocaltrol] 0.25 mcg PO WE #30 cap allopurinoL [Zyloprim] 100 mg PO DAILY@1200 Levothyroxine Sodium [Synthroid] 100 mcg PO DAILY@1200 [place] Carbonate 150 mg PO HS@0000 Memantine [Namenda] 5 mg PO DAILY@1200 Ethacrynic Acid [Ethacrynic Acid] 25 mg PO BID@0000,1200 Aspirin EC [Ecotrin Low Dose] 81 mg PO DAILY@1200 Divalproex ER [Depakote ER] 1,000 mg PO HS@0000 Divalproex ER [Depakote ER] 500 mg PO DAILY@1200 Fluphenazine HCl [fluPHENAZine HCL] 2.5 mg PO HS@0000 Folic Acid-Vit B Complex-Vit C [Nephrocaps] 1 cap PO HS@0000 LORazepam [Ativan] 0.5 mg PO BID PRN PRN Reason: Anxiety rOPINIRole HCL [Requip] 0.25 mg PO BID@0000,1200 Discharge Medication List Cranberry Fruit Concentrate [Azo Cranberry] 250 mg PO DAILY@1200 03/20/19 [History] Docusate [Colace] 100 mg PO BID PRN 03/20/19 [History] Atorvastatin Calcium [Lipitor] 10 mg PO HS@0000 #30 tab 12/17/19 [Rx] calcitrioL [Rocaltrol] 0.25 mcg PO WE #30 cap 12/17/19 [Rx] Aspirin EC [Ecotrin Low Dose] 81 mg PO DAILY@1200 07/31/20 [History] Divalproex ER [Depakote ER] 1,000 mg PO HS@0000 07/31/20 [History] Divalproex ER [Depakote ER] 500 mg PO DAILY@1200 07/31/20 [History] Ethacrynic Acid [Ethacrynic Acid] 25 mg PO BID@0000,1200 07/31/20 [History] Fluphenazine HCl [fluPHENAZine HCL] 2.5 mg PO HS@0000 07/31/20 [History] Folic Acid-Vit B Complex-Vit C [Nephrocaps] 1 cap PO HS@0000 07/31/20 [History] LORazepam [Ativan] 0.5 mg PO BID PRN 07/31/20 [History] Levothyroxine Sodium [Synthroid] 100 mcg PO DAILY@1200 07/31/20 [History] [place] Carbonate 150 mg PO HS@0000 07/31/20 [History] Memantine [Namenda] 5 mg PO DAILY@1200 07/31/20 [History] allopurinoL [Zyloprim] 100 mg PO DAILY@1200 07/31/20 [History] rOPINIRole HCL [Requip] 0.25 mg PO BID@0000,1200 07/31/20 [History] Follow up Appointment(s)/Referral(s): Cornelius Dudley DO [Primary Care Provider] - 1-2 days Discharge Disposition: TRANSFER TO PSYCH HOSP/UNIT
== END 2020-08-04 00:21 ==
LOC: EC 17:14 → 6NMEDSUR 20:01 → 4SSUR 21:09
PROVIDERS: ADMIT Hospitalist; ATTEND Hospitalist
DX: N39.0 Urinary tract infection, site not specified (principal); B96.89 Other specified bacterial agents as the cause of diseases classified elsewhere; R44.2 Other hallucinations; N30.00 Acute cystitis without hematuria; R41.82 Altered mental status, unspecified; F99 Mental disorder, not otherwise specified; E78.5 Hyperlipidemia, unspecified; G40.909 Epilepsy, unspecified, not intractable, without status epilepticus; N18.30 Chronic kidney disease, stage 3 unspecified; E03.9 Hypothyroidism, unspecified; G20 Parkinson's disease; Z87.440 Personal history of urinary (tract) infections; Z90.49 Acquired absence of other specified parts of digestive tract; Z90.710 Acquired absence of both cervix and uterus; F41.9 Anxiety disorder, unspecified; F31.9 Bipolar disorder, unspecified; R26.2 Difficulty in walking, not elsewhere classified; F29 Unspecified psychosis not due to a substance or known physiological condition; Z79.82 Long term (current) use of aspirin; Z79.890 Hormone replacement therapy; Z79.899 Other long term (current) drug therapy; Z88.2 Allergy status to sulfonamides; Z88.8 Allergy status to other drugs, medicaments and biological substances; Z88.6 Allergy status to analgesic agent; Z91.02 Food additives allergy status; Z86.73 Personal history of transient ischemic attack (TIA), and cerebral infarction without residual deficits
CPT/HCPCS: 96376; 96361 ×4; 96365; 99285; 36415; 94760; 93005; 80053; 82140; 83735; 84100; 84484; 85025; 85610; 85730; 81001; 80306; 87086; 87635; 71046; 70450; G0378 ×4; G0480; J0696 ×3; 80320

== ENCOUNTER 2021-04-27 00:31 | Emergency (ER) | payer MEDICARE, OTHER ==
[2021-04-27 00:53] VITALS: TEMP 97.8
[2021-04-27] MEDS ORDERED: SODIUM CHLORIDE 0.9% 500 ML 500 ML IV STA ×2 (00:55→01:55)
--- NOTE | 2021-04-27 01:01 | ED ---
General Adult HPI - General Source: EMS Mode of arrival: EMS <Lizette Stapleton - Last Filed: 04/27/21 00:57> <Dwayne Stauffer - Last Filed: 04/27/21 03:06> - General Chief complaint: Recheck/Abnormal Lab/Rx Stated complaint: refusing meds/won't eat Time Seen by Provider: 04/27/21 00:33 - History of Present Illness Initial comments: Patient is a 75-year-old female with history of CVA, Parkinson's, thyroid disorder, presenting to the emergency department from [facility] with chief complaint of decreased appetite and refusing medications. Patient is A &O 1 at baseline per facility, she is at this baseline. Patient has no specific complaints other than being thirsty. She denies any pain anywhere. There is been no vomiting. There is no one here to provide any further history. Upon arrival to the ER, her vitals are within normal limits. (Lizette Stapleton) - Related Data Home Medications Medication Instructions Recorded Confirmed Cranberry Fruit Concentrate [Azo 250 mg PO DAILY@1200 03/20/19 07/31/20 Cranberry] Docusate [Colace] 100 mg PO BID PRN 03/20/19 07/31/20 Aspirin EC [Ecotrin Low Dose] 81 mg PO DAILY@119907/31/20 07/31/20 Divalproex ER [Depakote ER] 1,000 mg PO HS@07/31/20 07/31/20 Divalproex ER [Depakote ER] 500 mg PO DAILY@119907/31/20 07/31/20 Ethacrynic Acid [Ethacrynic Acid] 25 mg PO BID@0000,119907/31/20 07/31/20 Fluphenazine HCl [fluPHENAZine HCL] 2.5 mg PO HS@07/31/20 07/31/20 Folic Acid-Vit B Complex-Vit C 1 cap PO HS@0000 07/31/20 07/31/20 [Nephrocaps] LORazepam [Ativan] 0.5 mg PO BID PRN 07/31/20 07/31/20 Levothyroxine Sodium [Synthroid] 100 mcg PO DAILY@119907/31/20 07/31/20 [place] Carbonate 150 mg PO HS@0000 07/31/20 07/31/20 Memantine [Namenda] 5 mg PO DAILY@1200 07/31/20 07/31/20 allopurinoL [Zyloprim] 100 mg PO DAILY@1200 07/31/20 07/31/20 rOPINIRole HCL [Requip] 0.25 mg PO BID@0000,1200 07/31/20 07/31/20 Previous Rx's Medication Instructions Recorded Atorvastatin Calcium [Lipitor] 10 mg PO HS@0000 #30 tab 12/17/19 calcitrioL [Rocaltrol] 0.25 mcg PO WE #30 cap 12/17/19 Allergies Allergy/AdvReac Type Severity Reaction Status Date / Time furosemide [From Lasix] Allergy Unknown Verified 07/31/20 19:46 risperidone [From Risperdal] Allergy Unknown Verified 07/31/20 19:46 Sulfa (Sulfonamide Allergy Unknown Verified 07/31/20 19:46 Antibiotics) ibuprofen [From Motrin] AdvReac KIDNEY Verified 07/31/20 19:46 FAILURE spironolactone AdvReac KIDNEY Verified 07/31/20 19:46 FAILURE torsemide AdvReac KIDNEY Verified 07/31/20 19:46 FAILURE ARTIFICIAL SWEETNER AdvReac Unknown Uncoded 12/22/19 13:22 Review of Systems ROS Other: All systems not noted in ROS Statement are negative. <Lizette Stapleton - Last Filed: 04/27/21 00:57> ROS Other: All systems not noted in ROS Statement are negative. <Dwayne Stauffer - Last Filed: 04/27/21 03:06> ROS Statement: Those systems with pertinent positive or pertinent negative responses have been documented in the HPI. Past Medical History Past Medical History: CVA/TIA, Hyperlipidemia, Seizure Disorder, Thyroid Disorder Additional Past Medical History / Comment(s): UTI, Parkinsons History of Any Multi-Drug Resistant Organisms: Other MDRO Date of last positivie culture/infection: 04/14/21 MDRO Source:: URINE Past Surgical History: Cholecystectomy, Hysterectomy, Unable to Obtain Additional Past Surgical History / Comment(s): L oophrectomy Past Anesthesia/Blood Transfusion Reactions: Unable to Obtain Past Psychological History: Anxiety, Bipolar, Depression Smoking Status: Never smoker Past Alcohol Use History: None Reported Past Drug Use History: None Reported - Past Family History Father Family Medical History: Unable to Obtain <Lizette Stapleton - Last Filed: 04/27/21 00:57> General Exam <Lizette Stapleton - Last Filed: 04/27/21 00:57> - General Exam Comments Initial Comments: GENERAL: Patient is nontoxic and in no acute distress, appears dry. HEAD: Atraumatic, normocephalic. EYES: Pupils equal round and reactive to light, extraocular movements intact, sclera anicteric, conjunctiva are normal. Eyelids were unremarkable. ENT: TMs normal, nares patent, oropharynx clear without exudates. Moist mucous membranes. NECK: Normal range of motion, supple without lymphadenopathy or JVD. LUNGS: Unlabored respirations. Breath sounds clear to auscultation bilaterally and equal. No wheezes rales or rhonchi. HEART: Regular rate and rhythm without murmurs, rubs or gallops. ABDOMEN: Soft, nontender, normoactive bowel sounds. No guarding, no rebound. No masses appreciated. : Deferred MUSCULOSKELETAL: Normal extremities with adequate strength and normal range of motion, no pitting or edema. No clubbing or cyanosis. NEUROLOGICAL: Patient is alert and oriented x 1, this is her baseline. Cranial nerves II through XII grossly intact. Symmetrical smile. PSYCH: Normal mood, normal affect. SKIN: Warm, Dry, normal turgor, no rashes or lesions noted. (Lizette Stapleton) Course <Dwayne Stauffer - Last Filed: 04/27/21 03:06> Vital Signs 04/27/21 04/27/21 04/27/21 00:40 01:33 02:21 Temperature 97.8 F Pulse Rate 65 77 62 Respiratory 18 18 17 Rate Blood Pressure 98/48 91/41 127/63 O2 Sat by Pulse 97 97 97 Oximetry - Reevaluation(s) Reevaluation #1: 04/27/21 03:05 Record is reviewed (Dwayne Stauffer) Reevaluation #2: 04/27/21 03:05 On reevaluation patient is awake and alert she does state she would like to go home (Dwayne Stauffer) EKG Findings - EKG Comments: EKG Findings:: Determined rhythm, appears sinus, nonspecific ST and T-wave abnormalities, no acute ST segment elevation. Similar to previous on 07/31/2020. Ventricular rate 67, NH interval 158, QT 428. <Lizette Stapleton - Last Filed: 04/27/21 00:57> Medical Decision Making <Lizette Stapleton - Last Filed: 04/27/21 00:57> - Lab Data Result diagrams: 04/27/21 00:59 04/27/21 00:59 <Dwayne Stauffer - Last Filed: 04/27/21 03:06> - Medical Decision Making Patient is 75-year-old female with history of CVA, Parkinson's, presenting from [facility] for refusing to take medications, not eating. Vital signs stable, EKG shows no acute process. (Lizette Stapleton) 75 female presenting for evaluation, currently not taking medications we'll patient seems to be cordial unable to follow directions here. Patient is at her baseline, patient will be transferred back to extended care facility (Dwayne Stauffer) - Lab Data Lab Results 04/27/21 04/27/21 04/27/21 Range/Units 00:59 00:59 00:59 WBC 6.1 (3.8-10.6) k/uL RBC 2.70 L (3.80-5.40) m/uL Hgb 9.5 L D (11.4-16.0) gm/dL Hct 30.4 L (34.0-46.0) % MCV 112.8 H (80.0-100.0) fL MCH 35.2 H (25.0-35.0) pg MCHC 31.2 (31.0-37.0) g/dL RDW 16.9 H (11.5-15.5) % Plt Count 180 (150-450) k/uL MPV 9.8 Neutrophils % 56 % Lymphocytes % 31 % Monocytes % 7 % Eosinophils % 3 % Basophils % 0 % Neutrophils # 3.4 (1.3-7.7) k/uL Lymphocytes # 1.9 (1.0-4.8) k/uL Monocytes # 0.4 (0-1.0) k/uL Eosinophils # 0.2 (0-0.7) k/uL Basophils # 0.0 (0-0.2) k/uL Hypochromasia Moderate Poikilocytosis Slight Anisocytosis Slight Macrocytosis Marked A PT 10.1 (9.0-12.0) sec INR 0.9 (<1.2) APTT 23.7 (22.0-30.0) sec Sodium 147 H (137-145) mmol/L Potassium 3.8 (3.5-5.1) mmol/L Chloride 122 H (98-107) mmol/L Carbon Dioxide 20 L (22-30) mmol/L Anion Gap 5 mmol/L BUN 25 H (7-17) mg/dL Creatinine 1.76 H (0.52-1.04) mg/dL Est GFR (CKD-EPI)AfAm 33 (>60 ml/min/1.73 sqM) Est GFR (CKD-EPI)NonAf 28 (>60 ml/min/1.73 sqM) Glucose 101 H (74-99) mg/dL Plasma Lactic Acid Ottoniel (0.7-2.0) mmol/L Calcium 10.2 (8.4-10.2) mg/dL Total Bilirubin <0.1 L (0.2-1.3) mg/dL AST 18 (14-36) U/L ALT 9 (4-34) U/L Alkaline Phosphatase 95 (38-126) U/L Total Protein 5.2 L (6.3-8.2) g/dL Albumin 2.7 L (3.5-5.0) g/dL Urine Color Urine Appearance (Clear) Urine pH (5.0-8.0) Ur Specific [place] (1.001-1.035) Urine Protein (Negative) Urine Glucose (UA) (Negative) Urine Ketones (Negative) Urine Blood (Negative) Urine Nitrite (Negative) Urine Bilirubin (Negative) Urine Urobilinogen (<2.0) mg/dL Ur Leukocyte Esterase (Negative) Urine RBC (0-5) /hpf Urine WBC (0-5) /hpf Ur Squamous Epith Cells (0-4) /hpf Urine Bacteria (None) /hpf 04/27/21 04/27/21 Range/Units 00:59 00:59 WBC (3.8-10.6) k/uL RBC (3.80-5.40) m/uL Hgb (11.4-16.0) gm/dL Hct (34.0-46.0) % MCV (80.0-100.0) fL MCH (25.0-35.0) pg MCHC (31.0-37.0) g/dL RDW (11.5-15.5) % Plt Count (150-450) k/uL MPV Neutrophils % % Lymphocytes % % Monocytes % % Eosinophils % % Basophils % % Neutrophils # (1.3-7.7) k/uL Lymphocytes # (1.0-4.8) k/uL Monocytes # (0-1.0) k/uL Eosinophils # (0-0.7) k/uL Basophils # (0-0.2) k/uL Hypochromasia Poikilocytosis Anisocytosis Macrocytosis PT (9.0-12.0) sec INR (<1.2) APTT (22.0-30.0) sec Sodium (137-145) mmol/L Potassium (3.5-5.1) mmol/L Chloride (98-107) mmol/L Carbon Dioxide (22-30) mmol/L Anion Gap mmol/L BUN (7-17) mg/dL Creatinine (0.52-1.04) mg/dL Est GFR (CKD-EPI)AfAm (>60 ml/min/1.73 sqM) Est GFR (CKD-EPI)NonAf (>60 ml/min/1.73 sqM) Glucose (74-99) mg/dL Plasma Lactic Acid Ottoniel 0.8 (0.7-2.0) mmol/L Calcium (8.4-10.2) mg/dL Total Bilirubin (0.2-1.3) mg/dL AST (14-36) U/L ALT (4-34) U/L Alkaline Phosphatase (38-126) U/L Total Protein (6.3-8.2) g/dL Albumin (3.5-5.0) g/dL Urine Color Light Yellow Urine Appearance Clear (Clear) Urine pH 6.5 (5.0-8.0) Ur Specific [place] 1.003 (1.001-1.035) Urine Protein Negative (Negative) Urine Glucose (UA) Negative (Negative) Urine Ketones Negative (Negative) Urine Blood Negative (Negative) Urine Nitrite Negative (Negative) Urine Bilirubin Negative (Negative) Urine Urobilinogen <2.0 (<2.0) mg/dL Ur Leukocyte Esterase Moderate H (Negative) Urine RBC 3 (0-5) /hpf Urine WBC 14 H (0-5) /hpf Ur Squamous Epith Cells 1 (0-4) /hpf Urine Bacteria Rare H (None) /hpf Disposition <Lizette Stapleton - Last Filed: 04/27/21 00:57> Is patient prescribed a controlled substance at d/c from ED?: No <Dwayne Stauffer - Last Filed: 04/27/21 03:06> Clinical Impression: Altered mental status, Weakness Disposition: HOME SELF-CARE Condition: Good Instructions (If sedation given, give patient instructions): Dementia (ED), Weakness (ED) Referrals: Ingris Manriquez MD [Primary Care Provider] - 1-2 days
[2021-04-27 01:28] LABS: INR 0.9 (<1.2); Partial Thromboplastin Time 23.7 sec (22.0-30.0); Prothrombin Time 10.1 sec (9.0-12.0)
[2021-04-27 01:31] LABS: ALT 9 U/L (4-34); AST 18 U/L (14-36); African American GFR (CKD) 33 (>60 ml/min/1.73 sqM); Albumin 2.7 g/dL (3.5-5.0); Alkaline Phosphatase 95 U/L (38-126); Anion Gap 5 mmol/L; Blood Urea Nitrogen 25 mg/dL (7-17); Calcium 10.2 mg/dL (8.4-10.2); Carbon Dioxide 20 mmol/L (22-30); Chloride 122 mmol/L (98-107); Glucose 101 mg/dL (74-99); Non-African American GFR(CKD) 28 (>60 ml/min/1.73 sqM); Potassium 3.8 mmol/L (3.5-5.1); Sodium 147 mmol/L (137-145); Total Bilirubin <0.1 mg/dL (0.2-1.3); Total Protein 5.2 g/dL (6.3-8.2)
[2021-04-27 02:00] LABS: Anisocytosis Slight; Basophils % (A) 0 %; Eosinophils # (A) 0.2 k/uL (0-0.7); Eosinophils % (A) 3 %; HCT 30.4 % (34.0-46.0); Hypochromasia Moderate; Lymphocytes # (A) 1.9 k/uL (1.0-4.8); Lymphocytes % (A) 31 %; MCH 35.2 pg (25.0-35.0); MCHC 31.2 g/dL (31.0-37.0); MCV 112.8 fL (80.0-100.0); Macrocytosis Marked; Mean Platelet Volume 9.8; Monocytes # (A) 0.4 k/uL (0-1.0); Monocytes % (A) 7 %; Neutrophils # (A) 3.4 k/uL (1.3-7.7); Neutrophils % (A) 56 %; Platelet Count 180 k/uL (150-450); Poikilocytosis Slight; RDW 16.9 % (11.5-15.5); WBC 6.1 k/uL (3.8-10.6)
[2021-04-27 02:01] LABS: HGB 9.5 gm/dL (11.4-16.0)
[2021-04-27 02:22] VITALS: RESP 17
[2021-04-27 02:52] LABS: Appearance,Urine Clear (Clear); Bacteria,Urine Rare /hpf; Bilirubin,Urine Negative (Negative); Blood,Urine Negative (Negative); Color,Urine Light Yellow; Glucose,Urine (UA) Negative (Negative); Ketones,Urine Negative (Negative); Leukocyte Esterase,Urine Moderate (Negative); Nitrite,Urine Negative (Negative); PH, Urine 6.5 (5.0-8.0); Protein,Urine Negative (Negative); RBC,Urine 3 /hpf (0-5); Specific Gravity,Urine 1.003 (1.001-1.035); Squamous Epithelial Cell,Urine 1 /hpf (0-4); Urobilinogen,Urine <2.0 mg/dL (<2.0); WBC,Urine 14 /hpf (0-5)
[2021-04-27 03:23] VITALS: BP 110/98; PULSE 76
== END 2021-04-27 03:37 | disposition home or self-care (01) ==
LOC: EC 00:31
DX: R41.82 Altered mental status, unspecified (principal); R53.1 Weakness; G20 Parkinson's disease; F41.9 Anxiety disorder, unspecified; F31.9 Bipolar disorder, unspecified; E07.9 Disorder of thyroid, unspecified; E78.5 Hyperlipidemia, unspecified; Z79.82 Long term (current) use of aspirin; Z86.73 Personal history of transient ischemic attack (TIA), and cerebral infarction without residual deficits; Z87.440 Personal history of urinary (tract) infections
CPT/HCPCS: 36415; 80053; 81001; 83605; 85025; 85610; 85730; 87086; 93005; 99283